=== PATIENT | male | born 1955 | race Caucasian/White ===

== ENCOUNTER 2023-11-15 10:32 | Emergency (ER) | payer OTHER, SELFPAY ==
[2023-11-15 10:33] VITALS: BP 177/92; PULSE 74; RESP 16; TEMP 35.9; O2SAT 96; BMI 39.4
--- NOTE | 2023-11-15 10:37 | ED.RN ---
Ml from [facility] notified of need for drug and alcohol testing.
--- NOTE | 2023-11-15 10:53 | EDS_ITS ---
HPI History of Present Illness Chief Complaint: Lower Extremity Injury Informant: patient Narrative Narrative: 68-year-old male states that earlier today he was at work walking through a doorway that had a small stop. He states he lost his balance and fell. He l anded on his left hip. He notes he was assisted up and has pain in the left lateral posterior hip. It is worse with any movement. He denies any other injuries specifically head neck back arms or lower legs/knees. He denies being on a blood thinner. He states he takes no current medications. PFSH PFSH Medical History no medical history Home Medications ketorolac 10 mg tablet 10 mg PO Q6H ##20 09/24/15 [Rx Last Taken Unknown] ondansetron 4 mg disintegrating tablet 4 mg PO Q8H PRN PRN Nausea #10 tabs 09/24/15 [Rx Last Taken Unknown] oxycodone-acetaminophen 5 mg-325 mg tablet 1 - 2 tab PO Q6H PRN PRN Pain #12 tabs 09/24/15 [Rx Last Taken Unknown] oxycodone-acetaminophen 5 mg-325 mg tablet 1 - 2 tab PO Q4H PRN PRN Pain #20 tabs 09/27/15 [Rx Last Taken Unknown] phenazopyridine 100 mg tablet 100 mg PO BID PRN PRN Pain ##14 09/27/15 [Rx Last Taken Unknown] oxycodone-acetaminophen 5 mg-325 mg tablet 1 tab PO Q4H PRN PRN Pain ##14 10/04/15 [Rx Last Taken Unknown] hydrocodone-acetaminophen 5-325mg 5mg-325mg 1 tab PO Q6H PRN PRN Pain 3 days #12 TABLETS 11/15/23 [Rx Last Taken Unknown] Allergy/AdvReac Type Severity Reaction Status Date / Time No Known Allergies Allergy Verified 09/27/15 05:53 Family History no significant family his Surgical History no surgical history Social History Smoking Status: Current every day smoker tobacco type: cigarettes ROS ROS ED Constitutional Constitutional ED: Denies chills, fever(s) or weight loss Eyes Eyes: Denies change in vision or diplopia ENT ENT ED: Denies ear pain, rhinorrhea or sore throat Cardiovascular Cardiovascular: Denies chest pain, orthopnea, palpitations or racing heartbeat Respiratory/Chest Respiratory/Chest: Denies cough, dyspnea or orthopnea Gastrointestinal Gastrointestinal: Denies abdominal pain, diarrhea, nausea or vomiting Genitourinary Genitourinary ED: Denies dysuria, hematuria or urinary frequency Musculoskeletal Musculoskeletal: Reports other Details: Left hip pain ; Denies arthralgias, back pain, myalgias or neck pain Integumentary Denies abscess or rash Neurologic Neurologic: Denies headache(s) or weakness Psychiatric Psychiatric: Denies anxiety, depression, suicidal ideation or suicidal thoughts Endocrine Endocrinology: Denies polydipsia, polyphagia or polyuria Allergic/Immunologic Allergic/Immunologic ED: Denies mouth swelling, tongue swelling or urticaria EXAM Physical Exam Narrative Exam Narrative: Patient was changed into a gown. He did have discomfort with movement. Const Vital Signs: 11/15/23 10:33 Temperature 96.7 F L Temperature Source Temporal Pulse Rate 74 Respiratory Rate 16 Blood Pressure 177/92 H Blood Pressure Mean 120 Pulse Ox 96 Oxygen Delivery Method Room Air Positive well nourished, well developed and obese General Appearance ED: well developed Nutritional Appearance: obese HEENT Reports normocephalic, head/scalp atraumatic and moist mucous membranes Eyes PERRL and EOMs intact bilaterally Neck no lymphadenopathy, supple and no JVD Resp normal respiratory effort and clear to auscultation bilaterally Cardio regular rate, regular rhythm and no murmurs GI normal to inspection, nondistended, normoactive bowel sounds and non-tender Palpation: soft Back/Spine no CVA tenderness and normal ROM Extremity Extremity Narrative: Patient has point tenderness over the greater trochanter laterally and posteriorly. Minor discomfort with the external logroll of the leg. No superior pubic rami tenderness. No significant hematoma or ecchymosis seen. General Extremety ED: Negative for edema General Extremity: Negative for edema Neuro oriented x3 and CN's II-XII intact bilaterally Sensorium / Orientation: alert Motor Exam: strength 5/5 throughout Psych mental status grossly normal Mood & Affect: Negative for depressed or tearful Skin no rashes or lesions noted and no wounds MDM MDM MDM Narrative Medical decision making narrative: My independent or potation of the plain films of the left hip including pelvis is no acute fracture. Degenerative changes noted. Patient received a dose of Toradol and a CT of the pelvis/hip was ordered. This was negative for fracture. Prominent prostate was noted which the patient does note that he has had changes in his stream. He will speak with his doctor regarding this. In the interim I can write for his pain medicine. Some work restrictions. Would recommend follow-up with [facility] for Workmen's Comp.. Radiography Diagnostic Testing: Clinical Impression(s) from Imaging Studies Hip/Pelvis X-Ray 11/15/23 11:00 IMPRESSION: No evidence of displaced pelvic or hip fracture. Electronically Signed: Leo Sahu MD at 12:00 EST , Pelvis CT 11/15/23 12:55 IMPRESSION: 1. No evidence of pelvic fracture. 2. Degenerative changes. 3. Prominent prostate. Electronically Signed: Leo Sahu MD at 13:54 EST , Discharge Plan Triage Chief Complaint: Lower Extremity Injury ED Provider: Bear Arreaga Dx/Rx/DC Orders Clinical Impression: Fall, Contusion of left hip Instructions: ED Hip Contusion Prescriptions: New hydrocodone-acetaminophen [hydrocodone-acetaminophen] 5-325 mg tablet 1 tab PO Q6H PRN PRN (Reason: Pain) 3 Days Qty: 12 0RF No Action oxycodone-acetaminophen 1 TABLET tablet 1 - 2 tab PO Q6H PRN PRN (Reason: Pain) Qty: 12 0RF Rx Instructions: causes drowsiness ketorolac 10 MG tablet 10 mg PO Q6H Qty: 20 0RF ondansetron 4 MG tablet 4 mg PO Q8H PRN PRN (Reason: Nausea) Qty: 10 0RF oxycodone-acetaminophen 1 TABLET tablet 1 - 2 tab PO Q4H PRN PRN (Reason: Pain) Qty: 20 0RF phenazopyridine 100 MG tablet 100 mg PO BID PRN PRN (Reason: Pain) Qty: 14 0RF oxycodone-acetaminophen 1 TABLET tablet 1 tab PO Q4H PRN PRN (Reason: Pain) Qty: 14 0RF Primary Care Provider: Care Physician,No Primary Referrals: Care Physician,No Primary [Primary Care Provider] - Clinic,NOW [Non-Staff] - As soon as possible Disposition Disposition: Home, Self Care
--- NOTE | 2023-11-15 11:00 | RAD_ITS ---
INDICATION: injury and pain EXAMINATION/TECHNIQUE: X-RAY - XR Hip Unilateral with Pelvis when performed; 2-3 Views COMPARISON: No relevant prior comparison study available FINDINGS: PELVIC BONES: No displaced fracture, destructive or sclerotic lesions. Note that overlapping bowel shadows may however obscure fine detail. Sacroiliac joints are unremarkable. No widening of the pubic symphysis. HIPS: Marginal degenerative spurs bilaterally. No displaced fracture seen in this frontal view. SOFT TISSUES: No soft tissue swelling or gas. RAD/HIP, UNI W/ Pelvis 2-3 Views IMPRESSION: No evidence of displaced pelvic or hip fracture. Electronically Signed: Leo Sahu MD at 12:00 EST ,
--- OUTSIDE RECORDS SUMMARY | 2023-11-15 11:33 | XMS RPT_ITS | CCD ---
Author Name Unknown Address [address] [place] [address] Organization [facility] Care Team Providers Care Reel Repairer Name Role Phone NIRAJ LEWIS MD Attending Unavailable PHYSICIAN, NONE Primary Care Unavailable Encounters Encounter Date Encounter Type Care Provider Facility Start: 08-22-2022 ambulatory NIRAJ LEWIS MD Facil ity:A Payers Date Payer Category Payer Unknown [id number] 1955 Unknown [id number] Summary Purpose Family History No Family History Records Found Advance Directives No Advanced Directives Records Found Additional Source Comments (unrecognized sect ion and content) No Status Records Found INFORMATION SOURCE (unrecogn ized section and content) FOR RECORDS PERTAINING TO PATIENTS WHO ARE OR HAVE BEEN ENROLLED IN A CHEMICAL DEPENDENCY/SUBSTANCEABUSE PROGRAM, SOME INFORMATION MAY BE OMITTED. This clinical summary was aggregated from multiple sources. Caution should be exercised in using it in the provision of clinical care. This summary normalizes information from multiple sources, and as a consequence, information in this document may materially change the coding, format and clinical context of patient data. In addition, data may be omitted in some cases. CLINICAL DECISIONS SHOULD BE BASED ON THE PRIMARY CLINICAL RECORDS. [facility]. provides no warranty or guarantee of the accuracy or completeness of information in this document.
--- NOTE | 2023-11-15 12:55 | CT_ITS ---
INDICATION: fracture -- include left hip EXAMINATION: CT PELVIS BONE - CT Pelvis W/O Contrast Injection TECHNIQUE: Routine noncontrast bone CT protocol was performed of the pelvis. 2-D reformats were performed by the technologist. A radiation dose optimization technique was used for this scan. IV Contrast dosage and agent: None. RADIATION DOSAGE (If Supplied By Facility): CTDIvol = ( 43.63 ) mGy, DLP = ( 1547.13 ) mGycm COMPARISON: Radiographs of the same day. FINDINGS: SOFT TISSUES: No soft tissue swelling or gas. No radiopaque foreign body. Bilateral inguinal hernias containing fat. Prominent prostate. BONES/JOINTS: No acute fracture or subluxation. Normal alignment. Marginal degenerative spurs of bilateral hips. Narrowing and sclerosis of the sacroiliac joints bilaterally. Small sclerotic lesion in the right femoral neck likely due to bone island. Degenerative changes of the visualized lower lumbar spine. CT/Pelvis without IV Contrast IMPRESSION: 1. No evidence of pelvic fracture. 2. Degenerative changes. 3. Prominent prostate. Electronically Signed: Leo Sahu MD at 13:54 EST ,
[2023-11-15] MEDS: Ketorolac 60 MG/2 ML Vial IM (13:07)
== END 2023-11-15 14:46 | disposition home or self-care (01) ==
PROVIDERS: Emergency Provider Emergency Medicine; Visit Provider Emergency Medicine
DX: S70.02XA Contusion of left hip, initial encounter (principal); F17.210 Nicotine dependence, cigarettes, uncomplicated; E66.9 Obesity, unspecified; W19.XXXA Unspecified fall, initial encounter
CPT/HCPCS: 72192; 73502; 96372; 99282

== ENCOUNTER 2025-07-04 14:30 | Observation (INO) | payer BC, SELFPAY ==
[2025-07-04] VITALS (10 sets, daily range): BP systolic 117–177; BP diastolic 68–93; PULSE 58–70; RESP 17–27; TEMP 36.4–37; O2SAT 94–100; BMI 35.7; BMI 36.7
--- NOTE | 2025-07-04 14:31 | CT_ITS ---
PROCEDURE: STROKE BRAIN/HEAD WITHOUT CONT 07/04/2025 REASON FOR EXAM: NEURO DEFICIT, ACUTE, STROKE SUSPECTED TECHNIQUE: Procedure Code: CTBR.ST Modality: CT Procedure: STROKE BRAIN/HEAD WITHOUT CONT Coronal and Sagittal reconstruction series were provided. One or more dose reduction techniques were used (e.g., Automated exposure control, adjustment of the mA and/or kV according to patient size, use of iterative reconstruction technique. RADIATION DOSE SUMMARY: CTDlvol: 44.99 mGy DLP: 812.98 mGycm COMPARISON: None FINDINGS: Brain: Low density in the periventricular white matter suggests mild chronic small vessel ischemic changes. CSF Spaces: Mild generalized cerebral atrophy Sinuses/Mastoids: Clear at visualized levels. Prominence of the cisterna magna. This is a normal variant. Bones: Unremarkable CT/STROKE Brain/Head without Cont IMPRESSION: CHRONIC CHANGES. NO ACUTE FINDINGS. Red Alert: Chronic changes The critical findings in the findings and impression above were relayed directl y by me by telephone to Alessandra Dia on 07/04/2025 at 2:48 pm with readback verification. Reading Location: [place] [address]
--- NOTE | 2025-07-04 14:31 | EKG12_ITS ---
Test Reason : STROKE TEAM Blood Pressure : */* mmHG Vent. Rate : 58 BPM Atrial Rate : 58 BPM P-R Int : 164 ms QRS Dur : 74 ms QT Int : 430 ms P-R-T Axes : 44 -2 3 degrees QTcB Int : 422 ms Sinus bradycardia with sinus arrhythmia Otherwise normal ECG Confirmed by Efra Whitney ([id number]), publication editor GUERLINE CHAMORRO ([id number]) on 07/05/2025 12:00:15 PM Referred By: Confirmed By: Efra Whitney
--- NOTE | 2025-07-04 14:32 | EDS_ITS ---
HPI History of Present Illness Chief Complaint: Stroke Alert Narrative Narrative: Patient is a 70 year old male presenting to the ED as a stroke alert. 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 States he has never had a stroke before. Denies any use of OAC. Patient denies any head trauma. Denies neck pain. Denies numbness or weakness of his extremities. Denies any speech difficulty. Patient denies any eye pain. Denies any drainage from his eye. EMS was called. PFSH PFSH Home Medications ?Medication ?Instructions ?Recorded ?Last Taken ?Type acetaminophen 500 mg capsule 1,000 mg PO Q6H PRN fever or pain 07/04/25 Unknown History Allergy/AdvReac Type Severity Reaction Status Date / Time No Known Allergies Allergy Verified 09/27/15 05:53 Social History Smoking Status: Current every day smoker tobacco type: cigarettes ROS ROS ED ROS Narrative see HPI EXAM Physical Exam Narrative Exam Narrative: Vital signs: Reviewed General: Alert and orientedx3. No acute distress HEENT: Head is normocephalic and atraumatic, sinuses nontender, pupils equal round and reactive. 2 mm bilaterally. No conjunctival injection. Normal e xtraocular movements. Nares are patent. Oropharynx and throat exams normal. No temporal tenderness to palpation. Neck: Supple without lymphadenopathy nontender Cardiovascular: Regular rate and rhythm, no murmurs. No rubs or gallops. Normal S1 and S2 Respiratory: Clear to auscultation bilaterally. No wheezes, rales, rhonchi Abdominal: Soft and nontender. Normal bowel sounds. No guarding or rebound. Nonsurgical abdomen Extremities: No tenderness. No bruising. Normal range of motion. Normal sensation. Skin: No rash or redness. The rest of the physical exam is unremarkable Const Vital Signs: 07/04/25 14:31 07/04/25 14:41 07/04/25 14:45 Temperature 98.6 F Temperature Source Oral Pulse Rate 61 70 Respiratory Rate 25 H 27 H Blood Pressure 129/74 H 123/73 H Blood Pressure Mean 92 89 Pulse Ox 95 Oxygen Delivery Method Room Air Room Air Room Air 07/04/25 15:01 07/04/25 15:30 07/04/25 16:00 Temperature Temperature Source Pulse Rate 60 59 L 59 L Respiratory Rate 19 H 18 18 Blood Pressure 123/78 H 127/68 H 117/73 Blood Pressure Mean 93 87 87 Pulse Ox 95 98 98 Oxygen Delivery Method Room Air Room Air Room Air MDM MDM MDM Narrative Medical decision making narrative: Patient is a 70-year-old male presenting emergency department as a stroke team. Patient was seen and examined in the EMS bay on arrival. NIH of 1. Sent to CT for imaging. Differential includes but is not limited to: stroke, CRAO, intracranial mass, less likely glaucoma, retinal detachment, giant cell arteritis Spoke to Dr. Carty, stroke neurologist at [facility], he reviewed CT brain and CTA head and neck and see no acute abnormalities. Radiology read with negative findings as well. Given the patient is outside of the window for TNK and has a low NIH of 1 with nondisabling deficits, he recommended loading with aspirin and Plavix which were given and admission for MRI and further stroke workup. Aspirin and Plavix were given. CBC with no leukocytosis. Hemoglobin of 18.7, fluids started. BMP with baseline mild kidney dysfunction. Troponins are stable with no significant delta change from 32, 29, 34. EKG shows sinus bradycardia with no ischemic changes. No ST elevation or depression. No dysrhythmia. Patient has no pain in his eye, no redness to his eye, do not think this is glaucoma given these. No temporal tenderness to palpation. On reevaluation the patient states his vision is slowly improving. With the vision improving I do not think this is retinal detachment. Likely TIA. I recommended that the patient be admitted for further stroke workup including MRI. Patient agreeable. Patient admitted to Dr. Marcos for further management. Clinical impression Stroke like symptoms History & Record Review Discussion w/independent historian: EMS personnel and Patient Lab Data Attestation: I reviewed the patient's lab results. Labs: Laboratory Results - last 24 hr 07/04/25 07/04/25 14:30 16:20 WBC 9.8 RBC 6.22 H Hgb 18.7 H* Hct 54.7 H MCV 87.9 MCH 30.1 MCHC 34.2 RDW Std Deviation 42.2 RDW Coeff of [place] 13.1 Plt Count 232 MPV 9.8 Immature Gran % (Auto) 1.500 H Neut % (Auto) 65.5 Lymph % (Auto) 23.1 [place] % (Auto) 5.0 Eos % (Auto) 3.8 Baso % (Auto) 1.1 H Absolute Neuts (auto) 6.4 Absolute Lymphs (auto) 2.25 Nucleated RBC % 0 PT 13.9 INR 1.1 APTT 25.4 Sodium 135 Potassium 4.5 Chloride 104 Carbon Dioxide 20.8 L Anion Gap 11 BUN 25 H Creatinine 1.49 H Estim Creat Clear Calc 59.73 Est GFR (MDRD) Non-Af 51 L BUN/Creatinine Ratio 16.7 Glucose 130 H Calcium 9.3 Troponin T High Sens 32 H Troponin T Hi Sens 2 Hr 29 H Radiography Diagnostic Testing: Clinical Impression(s) from Imaging Studies Brain CT 07/04/25 14:31 IMPRESSION: CHRONIC CHANGES. NO ACUTE FINDINGS. Red Alert: Chronic changes The critical findings in the findings and impression above were relayed directly by me by telephone to Alessandra Dia on 07/04/2025 at 2:48 pm with readback verification. Reading Location: [facility] Head/Neck CTA 07/04/25 14:35 IMPRESSION: No significant stenosis in the head and neck. No aneurysm. Reading Location: [facility] Discharge Plan Disposition Disposition: Acute Care [facility] Discharge Date/Time: 07/04/25 17:05 NIHSS NIHSS 1a. Level of Consciousness: 0 - Alert; keenly responsive 1b. LOC Questions: 0 - Answers BOTH questions correctly 1c. LOC Commands: 0 - Performs BOTH tasks correctly 2. Best Gaze: 0 - Normal 3. Visual: 1 - Partial hemianopia 4. Facial Palsy: 0 - Normal symmetrical movements 5a. Left Arm: 0 - No drift; arm holds 90 (or 45) degrees for full 10 seconds 5b. Right Arm: 0 - No drift; arm holds 90 (or 45) degrees for full 10 seconds 6a. Left Le - No drift; leg holds 30-degree position for full 5 seconds 6b. Right Le - No drift; leg holds 30-degree position for full 5 seconds 7. Limb Ataxia: 0 - Absent 8. Sensory: 0 - Normal; no sensory loss 9. Best Language: 0 - No aphasia; normal 10. Dysarthria: 0 - Normal 11. Extinction and Inattention: 0 - No abnormality Total: 1 Stroke Questions Stroke Team Activated: Yes Reviewed Inclusion/Exclusion criteria: Yes
--- NOTE | 2025-07-04 14:35 | CT_ITS ---
PROCEDURE: STROKE CTA HEAD AND NECK W/CON 07/04/2025 REASON FOR EXAM: NEURO DEFICIT, ACUTE, STROKE SUSPECTED TECHNIQUE: Procedure Code: CTCTA.ST.HN Modality: CT Procedure: STROKE CTA HEAD AND NECK W/CON Multiplanar Sagittal and Coronal images were obtained. CONTRAST: Isovue 370 VOLUME: 86 mL One or more dose reduction techniques were used (e.g., Automated exposure control, adjustment of the mA and/or kV according to patient size, use of iterative reconstruction technique). RADIATION DOSE SUMMARY: CTDlvol: 19.96 mGy DLP: 757.04 mGycm COMPARISON: None. FINDINGS: Aortic Arch: Normal size and branching pattern. No significant atherosclerotic plaque. Brachiocephalic and Subclavians: Unremarkable RIGHT Carotid: Right CCA: Unremarkable. Right ICA: Unremarkable. Right ECA: Unremarkable. LEFT Carotid: Left CCA: Unremarkable. Left ICA: Unremarkable. Left ECA: Unremarkable. Vertebrals: Patent. RIGHT Vertebral: Diminutive and terminates as the right posterior inferior cerebellar artery. LEFT Vertebral: Dominant. Anatomy: [place] anatomy is normal. Aneurysm or avm: No intracranial aneurysms or large vascular malformations are identified. Anterior cerebral arteries: Unremarkable: Middle cerebral arteries: Unremarkable. Basilar artery: Unremarkable. Posterior cerebral arteries: Unremarkable. Other major branches of the posterior circulation: Unremarkable. Major venous structures: Unremarkable. Other findings: Neck: No lymphadenopathy. Lungs: Lung apices are clear. Bones: Bones are unremarkable. CT/STROKE CTA Head AND Neck W/Con IMPRESSION: No significant stenosis in the head and neck. No aneurysm. Reading Location: [facility]
--- NOTE | 2025-07-04 14:36 | ED.RN ---
called [facility] information given patient arrived back in room prior to getting off the phone. provider to beam in.
[2025-07-04 14:49] LABS: Hematocrit 54.7 % (40-54); Immature Granulocytes Count 0.150 X10^3/uL (0.0-0.0); Mean Corp Hgb Conc 34.2 g/dL (32-36); Mean Corpuscular Volume 87.9 fL (80-94); Mean Platelet Vol. 9.8 fl (6.2-12.0); NRBC Flagged by Analyzer 0 % (0-5); Platelet Count 232 K/mm3 (150-450); RBC Distribution Width CV 13.1 % (11.6-14.6); RBC Distribution Width SD 42.2 fl (35.1-43.9); Red Blood Count 6.22 M/mm3 (4.6-6.2); White Blood Count 9.8 K/mm3 (4.4-11.0)
[2025-07-04 14:54] LABS: Partial Thromboplast Time 25.4 Seconds (24.1-36.2); Prothrombin Time (Protime)PT. 13.9 SECONDS (11.7-14.9)
--- NOTE | 2025-07-04 14:57 | ED.RN ---
calling [facility] for second time for stroke alert. still waiting on them to beam in to see patient
[2025-07-04 15:08] LABS: Hemoglobin 18.7 g/dL (13.0-16.5)
[2025-07-04 15:14] LABS: Anion Gap 11 (5-15); BUN 25 mg/dL (4-19); BUN/Creat Ratio 16.7 RATIO (10-20); Calcium,Total 9.3 mg/dL (7.6-11.0); Carbon Dioxide 20.8 mmol/L (21.0-32.0); Chloride 104 mmol/L (98-108); Estimated Creatinine Clearance 59.73 ml/min (50-250); Glucose 130 mg/dL (70-99); Potassium 4.5 mmol/L (3.3-5.1); Troponin T High Sensitivity 32 ng/L (<=22)
--- NOTE | 2025-07-04 15:40 | CM.ED ---
Social work Reason for referral: stroke alert SW responded to stroke alert called. Patient had no family come to support due to patient's having a doctor's appointment at the same time. SW entered patient's room, introducing self and role at [facility]. Patient was alert and oriented and observed sitting up on the side of the bed. Patient stated being confused regarding the loss of vision patient has experienced today. Active listening and supportive presence provided. Patient denied needing SW to call anyone to help support as patient's , Tsering, would be in as soon as Tsering's appointment was over. Patient denied further needs at this time. Shona Felix, RAILROAD CAR REPAIR SUPERVISOR, INTERVENTION SPECIALIST
[2025-07-04] MEDS: 0.9% Normal Saline (1000mL) 1,000 ML 1000 ML IV (16:14)
--- NOTE | 2025-07-04 16:22 | PCM.HP.STD ---
HPI - General General Date of Admission: 07/04/25 Date of Service: 07/04/25 Chief Complaint: Right sided peripheral vision loss HPI Narrative AMANDA CONCEPCION, is a 70-year-old male with history of tobacco use presented to [facility] ED 07/04/2025 as a stroke alert. Last known well was at 10 AM and patient developed a right sided peripheral vision loss shortly after. In the ED temp 98.6, heart rate 61 blood pressure 129/74, respiratory rate 25 and pulse ox 95% on room air. CBC with white count 9.8, hemoglobin 18.7, BMP with a BUN of 25 and a creatinine 1.49, glucose 130. Troponin 32. CT head and CTA head and neck no acute process. Patient presented outside of window for TNK but also had an NIH of 1 with nondisabling deficits. ED physician spoke to stroke neurologist who reviewed the case and recommended loading with aspirin and Plavix and admitting for further stroke workup. Hospitalist contacted for admission. Patient evaluated at bedside, he reports that at 10 AM he lost peripheral vision in his right eye, had some headache earlier today before the symptoms ever started, still little bit of an achy headache in the center. Still has peripheral vision loss on the right eye but slightly improving, denies any chest pain or shortness of breath, no numbness/weakness/tingling. No other new or acute complaints. Denies being on any routine medications or ever being diagnosed with any medical problems. Does use tobacco, denies any alcohol or drug use PFSH Home Medications ?Medication ?Instructions ?Recorded ?Last Taken ?Type acetaminophen 500 mg capsule 1,000 mg PO Q6H PRN fever or pain 07/04/25 Unknown History Allergy/AdvReac Type Severity Reaction Status Date / Time No Known Allergies Allergy Verified 09/27/15 05:53 Social History Smoking Status: Current every day smoker tobacco type: cigarettes ROS ROS Narrative General: Denies fever/chills HENT: Little bit of an achy central headache, denies stuffy nose, denies sore throat EYES: Right sided peripheral visual loss Resp: Denies cough, denies shortness of breath Cardiac: Denies chest pain GI: Denies abdominal pain, denies changes in bowel, denies nausea/vomiting : Denies changes in urination Extremity: Denies swelling MSK: Denies weakness Neuro: Denies any numbness/tingling Heme: Denies any bleeding or bruising Skin: Denies rashes Psychiatric: No complaints voiced Vital Signs Vital Signs Vital Signs: 07/04/25 14:31 07/04/25 14:41 07/04/25 14:45 Temperature 98.6 F Temperature Source Oral Pulse Rate 61 70 Respiratory Rate 25 H 27 H Blood Pressure 129/74 H 123/73 H Blood Pressure Mean 92 89 Pulse Ox 95 Oxygen Delivery Method Room Air Room Air Room Air 07/04/25 15:01 07/04/25 15:30 07/04/25 16:00 Temperature Temperature Source Pulse Rate 60 59 L 59 L Respiratory Rate 19 H 18 18 Blood Pressure 123/78 H 127/68 H 117/73 Blood Pressure Mean 93 87 87 Pulse Ox 95 98 98 Oxygen Delivery Method Room Air Room Air Room Air Weight Weight: 113 kg Body Mass Index (BMI) 35.7 Physical Exam Narrative General: Alert, oriented, no apparent distress HEENT: Atraumatic, normocephalic Eyes: Anicteric, normal conjunctiva, extraocular movements intact, pupils equal, right peripheral field deficit Neck: Supple Respiratory: Clear to auscultation bilaterally, normal respiratory effort Cardiovascular: Regular rate and rhythm GI: Soft, nontender, nondistended Extremities: No edema Musculoskeletal: Strength 5 out of 5 in right upper extremity, 5 out of 5 left upper extremity, 5 out of 5 right lower extremity, 5 out of 5 left lower extremity Neuro: Other than visual changes no overt focal neurological deficits, cranial nerves II through XII intact, [id number] without significant difficulty bilaterally, almost seem to have an aspect of receptive aphasia and seems slow to comprehend and respond to questions Skin: No rashes appreciated, does have black on both hands from work Psych: Cooperative Results Lab / Micro Data 07/04/25 14:30 07/04/25 14:30 Labs: Laboratory Results - last 24 hr 07/04/25 14:30: WBC 9.8, RBC 6.22 H, Hgb 18.7 H*, Hct 54.7 H, MCV 87.9, MCH 30.1, MCHC 34.2, RDW Std Deviation 42.2, RDW Coeff of [place] 13.1, Plt Count 232, MPV 9.8, Immature Gran % (Auto) 1.500 H, Neut % (Auto) 65.5, Lymph % (Auto) 23.1, [place] % (Auto) 5.0, Eos % (Auto) 3.8, Baso % (Auto) 1.1 H, Absolute Neuts (auto) 6.4, Absolute Lymphs (auto) 2.25, Nucleated RBC % 0, PT 13.9, INR 1.1, APTT 25.4, Sodium 135, Potassium 4.5, Chloride 104, Carbon Dioxide 20.8 L, Anion Gap 11, BUN 25 H, Creatinine 1.49 H, Estim Creat Clear Calc 59.73, Est GFR (MDRD) Non-Af 51 L, BUN/Creatinine Ratio 16.7, Glucose 130 H, Calcium 9.3, Troponin T High Sens 32 H Imaging Radiology Impression Brain CT 07/04/25 14:31 IMPRESSION: CHRONIC CHANGES. NO ACUTE FINDINGS. Red Alert: Chronic changes The critical findings in the findings and impression above were relayed directly by me by telephone to Alessandra Dia on 07/04/2025 at 2:48 pm with readback verification. Reading Location: [facility]-1 Head/Neck CTA 07/04/25 14:35 IMPRESSION: No significant stenosis in the head and neck. No aneurysm. Reading Location: [facility], [facility] Assessment & Plan Assessment/Plan (1) Visual changes: (2) Tobacco use: PLAN: Plan # Right-sided peripheral vision abnormalities -Admit to tele -CT head w/ no acute process -CTA head and neck no LVO -MRI ordered -NIH q4hr -Loaded with aspirin and Plavix in the ED -Continue aspirin and statin, decisions on further Plavix per teleneurology once results available -Echo w/ bubble study -PT/OT/Speech eval -Teleneuro consult placed -Will check TSH, hemoglobin, lipid profile -Hold BP medications to allow for permissive hypertension for 24 hours unless SBP greater than 220 or DBP greater than 120 or until stroke is ruled out # Elevated hemoglobin -May benefit from outpatient sleep study and/or further workup if needed -Denies known history of sleep apnea -Patient given IV fluids in the ED, repeat in the a.m. #Tobacco use -Advise cessation -Nicotine replacement available if desired #DVT ppx: SCDs Lani Marcos MD Charges/Coding Visit Charges Inpatient E&M: 60914 Init Hosp L2
--- NOTE | 2025-07-04 16:29 | ECHOCS_ITS ---
Reason For Study Reason For Study: TIA/Stroke Procedure This was a 2D Doppler, Color Flow transthoracic echocardiogram. Contrast injection was performed. The study was technically difficult. Exam performed portable in patient room. Left Ventricle Normal LV size. Mild concentric left ventricular hypertrophy. The left ventricular ejection fraction is 65 %. Stage 1 diastolic dysfunction. Right Ventricle Normal right ventricle. Atria The left and right atria are normal. Mitral Valve Normal mitral valve. Tricuspid Valve The tricuspid valve is not well visualized. Aortic Valve Trisinus/trileaflet aortic valve. Pulmonic Valve The pulmonic valve is not well visualized. Great Vessels Normal sized aortic root. Pericardium/Pleural No pericardial effusion. Medication Diluted definity 2ml given slow IV push to enhance endocardial definition. MMode/2D Measurements & Calculations LVIDd: 4.6 cm IVSd: 1.2 cm Ao root diam: 3.2 cm LVIDs: 3.2 cm LVPWd: 1.2 cm RVDd: 3.3 cm FS: 30.2 % LAV(MOD-bp): 37.4 ml LVAd ap4: 23.5 cm2 SV(MOD-sp4): 43.0 ml LAV(MOD-bp) Indexed: 16.1 ml/m2 LVLd ap4: 7.2 cm SI(MOD-sp4): 18.6 ml/m2 LAV(MOD-sp2): 43.0 ml EDV(MOD-sp4): 62.7 ml LAV(MOD-sp4): 31.9 ml EDV(sp4-el): 64.6 ml LVAs ap4: 12.3 cm2 LVLs ap4: 6.4 cm ESV(MOD-sp4): 19.7 ml ESV(sp4-el): 19.9 ml EF(MOD-sp4): 68.6 % EF(sp4-el): 69.2 % SV(sp4-el): 44.7 ml LA A4 area: 14.5 cm2 LA dimension(2D): 3.5 cm RA A4 area: 12.0 cm2 TAPSE: 2.2 cm Time Measurements MV dec time: 0.30 sec Doppler Measurements & Calculations MV E max jitendra: 67.8 cm/sec Lat Peak E' Jitendra: 9.6 cm/sec Med Peak E' Jitendra: 7.0 cm/sec MV A max jitendra: 82.0 cm/sec E/E' lat: 7.1 E/E' med: 9.7 MV E/A: 0.83 MV dec slope: 224.3 cm/sec2 Ao V2 max: 129.4 cm/sec LV V1 max: 98.3 cm/sec Ao max P.7 mmHg LV V1 max P.9 mmHg Ao V2 mean: 97.1 cm/sec Ao mean P.0 mmHg Ao V2 VTI: 29.2 cm PA V2 max: 107.4 cm/sec ECHO/Echo Complete W/ Contrast Interpretation Summary The study was technically difficult. Mild concentric left ventricular hypertrophy. The left ventricular ejection fraction is 65 %. Stage 1 diastolic dysfunction. Ordering Physician: Lani Marcos Performed By: Bailey Rankin RDCS, RVT
--- NOTE | 2025-07-04 16:29 | MRI_ITS ---
PROCEDURE: MRI BRAIN WITHOUT CONTRAST 07/04/2025 REASON FOR EXAM: CONCERN FOR CVA TECHNIQUE: Procedure Code: MRIBR Modality: MR Procedure: BRAIN WITHOUT CONTRAST Multiplanar and multisequential MRI of the brain was performed without contrast. COMPARISON: CT head/angiography earlier same day 07/04/2025. FINDINGS: Examination mildly degraded by susceptibility artifact on multiple sequences. There is small region of restricted diffusion involving the paramedian left occipital lobe involving the left [employer] vascular territory consistent with acute infarct. No additional areas of acute infarct are seen. No evidence of acute intracranial hemorrhage/hemorrhagic conversion, extra-axial collection, or mass-effect. 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 Normal ventricular caliber. Major vascular flow voids appear preserved. Grossly unremarkable orbits. Well-aerated paranasal sinuses and bilateral mastoid air cells. MRI/Brain without Contrast IMPRESSION: 1. Small region of acute infarct involving left occipital lobe left [employer] territo ry. 2. 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 3. No intracranial hemorrhage, extra-axial collection or mass-effect. Reading Location: [facility]
--- NOTE | 2025-07-04 16:44 | CASEMGMT ---
Care Management Face to Face with patient for initial transition planning/care coordination assessment in the ED. This screen writer introduced self and role at [facility]. Patient alert and oriented. Patient willing to participate in assessment and is able to answer all questions appropriately. Care providers, pharmacy, and demographics verified. Admitting Diagnosis: visual changes, stroke rule out Other diagnosis history: tobacco use PCP: none (resources not given in ED due to timing) Specialists: none Preferred Pharmacy: [facility] Insurance: [employer] Prescription Benefit: yes Living Will/HPOA: does not have, but would like information while admitted. LNOK: [place], 1 daughter. Living Arrangements: lives with in a ranch style home with 2 steps to enter. Independent at baseline with all ADLs/IADLs. Transportation: yes DME: none HHC: none SNF/Rehab: none Community Resources: none Patient goals: Patient wishes to discharge home, denies need for home health care at this time. Patient denies any further needs or concerns at this time. Disposition Plan: admission to acute; RN CM/SW to follow for discharge planning needs that may arise. Shona Felix, INSTITUTION LIBRARIAN, CERTIFIED MEDICAL DOSIMETRIST
[2025-07-04 17:20] LABS: Troponin T High Sens 2 HR 29 ng/L (<=22)
[2025-07-04 20:43] LABS: Troponin T High Sens 4 HR 34 ng/L (<=22)
[2025-07-04] MEDS: Nicotine (PBKC) 21 MG Patch TD (21:09)
[2025-07-04] MEDS: 0.9% Saline Lock 10 ML Syringe IV (21:11)
--- OUTSIDE RECORDS SUMMARY | 2025-07-05 00:04 | XMS RPT_ITS | CCD ---
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 Aparicio Emergency Provider Unavailab adriana Marcos MD, Dr. Garibay Attending Provider [phone] Hemant MAYS, Dr. Garibay Admit Provider Medications Current Medications Medication Drug Class(es) Dates Sig (Normalized) Sig (Original) acetaminophen 500 mg oral capsule (1 source) Start: 07-04-2025 take 2 capsules by mouth every six hours as needed for pain Acetaminophen 500 mg capsule Active 1000 mg PO EVERY 6 HOURS as needed for fever or pain July 04, 2025 12:00am Completed/Discontinued Medications Medication Drug Class(es) Dates Sig (Normalized) Sig (Original) acetaminophen 325 mg / HYDROcodone bitartrate 5 mg oral tablet (1 source) Opioid Agonist Start: 11-15-2023 End: 07-04-2025 Hydrocodone-Acetami nophen 5-325 mg tablet Discontinued 1 {tbl} PO EVERY 6 HOURS NEEDED as needed for Pain 12 3 0 November 15, 2023 July 04, 2025 3:16pm Contusion of left hip Contusion of left hip, initial encounter acetaminophen 325 mg / oxyCODONE hydrochloride 5 mg oral tablet (3 sources) Opioid Agonist Start: 09-27-2015 End: 07-04-2025 Oxycodone-Acetamino phen 1 TABLET tablet Discontinued 1 {tbl} PO EVERY 4 HOURS NEEDED as needed for Pain 14 0 October 04, 2015 1:00am July 04, 2025 3:16pm Start: 09-24-2015 End: 07-04-2025 Oxycodone-Acetaminophen 1 TA BLET tablet Discontinued 1 - 2 {tbl} PO EVERY 6 HOURS NEEDED as needed for Pain September 24, 2015 11:52pm July 04, 2025 3:16pm causes drowsiness ketorolac tromethamine 10 mg oral tablet (1 source) Nonsteroidal Anti-inflammatory Drug, Cyclooxygenase Inhibitor Start: 09-24-2015 End: 07-04-2025 take 1 tablet by mouth every six hours Ketorolac 10 MG tablet Discontinued 10 mg PO EVERY 6 HOURS 20 0 September 24, 2015 1:00am July 04, 2025 3:16pm ondansetron 4 mg disintegrating oral tablet (1 source) Serotonin-3 Receptor Antagonist Start: 09-24-2015 End: 07-04-2025 take 1 tablet by mouth every eight hours as needed for nausea Ondansetron 4 MG tablet Discontinued 4 mg PO EVERY 8 HOURS NEEDED as needed for Nausea September 24, 2015 1:00am July 04, 2025 3:16pm phenazopyridine hydrochloride 100 mg oral tablet (1 source) Start: 09-27-2015 End: 07-04-2025 take 1 tablet by mouth twice daily as needed for pain Phenazopyridine 100 MG tablet Discontinued 100 mg PO TWICE DAILY NEEDED as needed for Pain 14 0 September 27, 2015 12:46pm July 04, 2025 3:17pm Problems Problem Classification Problem Date Documented Da te Episodic/Chronic Blindness and vision defects (2 sources) Eye / vision finding; Translations: [Unspecified visual disturbance] 07-04-2025 Episodic E Codes: Fall (1 source) Fall; Translations: [Unspecified fall, initial encounter] 11-23-2023 Episodic Other non-traumatic joint disorders (1 source) Pain in left hip; Translations: [Pain in left hip] Onset: 01-13-2024 Episodic Residual codes; unclassified (2 sources) Tobacco use and exposure - finding; Translations: [Tobacco use] 07-04-2025 Episodic Superficial injury; contusion (1 source) Contusion of hip; Translations: [Contusion of left hip, initial encounter] 11-23-2023 Episodic Results Test Name Value Interpretation Reference Range Facility Absolute lymphocyte countOrd ered By: Alessandra Dia on 07-04-2025 Lymphocytes Auto (Unsp spec) [#/Vol] 2.25 10*3/uL 0.83-4.51 [facility] Absolute neutrophil countOrd ered By: Alessandra Dia on 07-04-2025 Neutrophils (Bld) [#/Vol] 6.4 10*3/uL 2.0-7.7 [facility] Activated partial thrombopla stin time (aPTT) in platelet poor plasma by coagulation aOrdered By: Alessandra Dia on 07-04-2025 aPTT Coag (PPP) [Time] 25.4 s 24.1-36.2 [facility] Anion gap in Serum or Plasma Ordered By: Alessandra Dia on 07-04-2025 Anion gap [Moles/Vol] 11 mmol/L 5-15 [facility] Automated lymphocyte count a s percentage of total leukocytesOrdered By: Alessandra Dia on 07-04-2025 Lymphocytes/100 WBC Auto (Unsp spec) 23.1 % 19-41 [facility] BUN/creatinine ratioOrdered By: Alessandra Dia on 07-04-2025 Urea nitrogen/Creatinine [Mass ratio] 16.7 mg/mg 10-20 [facility] Basophil percentageOrdered B y: Alessandra Dia on 07-04-2025 Basophils/100 WBC (Bld) 1.1 % High 0-1 [facility] Carbon dioxide, total [Moles /volume] in Central venous bloodOrdered By: Alessandra Dia on 07-04-2025 CO2 [Moles/Vol] 20.8 mmol/L Low 21.0-32.0 [facility] Chloride assayOrdered By: Seng Dia on 07-04-2025 Chloride [Moles/Vol] 104 mmol/L 98-108 [facility] Eosinophil percentageOrdered By: Alessandra Dia on 07-04-2025 Eosinophils/100 WBC (Bld) 3.8 % 0-5 [facility] Erythrocyte distribution wid th ratioOrdered By: Alessandra Dia on 07-04-2025 Erythrocyte distribution width (RBC) [Ratio] 13.1 % 11.6-14.6 [facility] Erythrocyte distribution wid th standard deviationOrdered By: Alessandra Dia on 07-04-2025 Erythrocyte distribution width (RBC) [Ratio] 42.2 fl 35.1-43.9 [facility] Glomerular filtration rate ( GFR) estimation/1.73 sq m using serum, plasma, or whole bOrdered By: Alessandra Dia on 07-04-2025 GFR/1.73 sq M.predicted among non-blacks MDRD (S/P/Bld) [Vol rate/Area] 51 mL/min/{1.73_m2} Low >60 [facility] Comment on above: mL/min/1.73m2 CKD-EP I Creatinine Equation (2020) Hematocrit Auto (Bld) [Volum e fraction]Ordered By: Alessandra Dia on 07-04-2025 Hematocrit (Bld) [Volume fraction] 54.7 % High 40-54 [facility] Hemoglobin measurementOrdere d By: Alessandra Dia on 07-04-2025 Hemoglobin (Bld) [Mass/Vol] 18.7 g/dL High 13.0-16.5 [facility] Comment on above: CRITICAL VALUE BUSH D TO JOE SHIKHA07/04/25 1507 Rukhsana Benito.RESULTS READ BACK BY [facility]. Immature granulocytes/100 WB C Auto (Bld)Ordered By: Alessandra Dia on 07-04-2025 Immature granulocytes/100 WBC (Bld) 1.500 % High 0.0-0.9 [facility] Comment on above: IG% - Immature Granu locytes (promyelocytes, myelocytes and metamyelocytes) > 1% indicates that a LEFT SHIFT is Present. International normalized rat io (INR) calculationOrdered By: Alessandra Dia on 07-04-2025 INR Coag (Bld) [Relative time] 1.1 {INR} [facility] MCV (mean corpuscular volume ) determinationOrdered By: Alessandra Dia on 07-04-2025 MCV (RBC) [Entitic vol] 87.9 fL 80-94 [facility] Mean corpuscular hemoglobin (MCH) determinationOrdered By: Alessandra Dia on 07-04-2025 MCH (RBC) [Entitic mass] 30.1 pg 27.0-32.0 [facility] Mean corpuscular hemoglobin concentration (MCHC) determinationOrdered By: Alessandra Dia on 07-04-2025 MCHC (RBC) [Mass/Vol] 34.2 g/dL 32-36 [facility] Mean platelet volume determi nationOrdered By: Alessandrakyler Dia on 07-04-2025 Platelet mean volume (Bld) [Entitic vol] 9.8 fL 6.2-12.0 [facility] Monocyte percentageOrdered B y: Alessandra Ifeoma on 07-04-2025 Monocytes/100 WBC (Bld) 5.0 % 0-10 [facility] Neutrophil percentageOrdered By: Alessandra Ifeoma on 07-04-2025 Neutrophils/100 WBC (Bld) 65.5 % 47-70 [facility] Nucleated red blood cell per centageOrdered By: Alessandra Ifeoma on 07-04-2025 Nucleated RBC/100 WBC (Bld) [Ratio] 0 % 0-5 [facility] Platelet countOrdered By: Seng kyler Dia on 07-04-2025 Platelets (Bld) [#/Vol] 232 10*3/uL 150-450 [facility] Potassium measurement (mass/ volume)Ordered By: Alessandrakyler Dia on 07-04-2025 Potassium (Unsp spec) [Mass/Vol] 4.5 mmol/L 3.3-5.1 [facility] Comment on above: Hemolysis present, R esults could be affected. Prothrombin timeOrdered By: Alessandrakyler Dia on 07-04-2025 PT Coag (PPP) [Time] 13.9 s 11.7-14.9 [facility] RBC Auto (Bld) [#/Vol]Ordere d By: Alessandra Ifeoma on 07-04-2025 RBC (Bld) [#/Vol] 6.22 10*6/uL High 4.6-6.2 [facility] Serum creatinine measurement (mass/volume)Ordered By: Alessandra Dia on 07-04-2025 Creatinine [Mass/Vol] 1.49 mg/dL High 0.70-1.20 [facility] Serum glucose measurement (m ass/volume)Ordered By: Alessandra Dia on 07-04-2025 Glucose [Mass/Vol] 130 mg/dL High 70-99 [facility] Serum or plasma calcium [place] urement (mass/volume)Ordered By: Alessandra Dia on 07-04-2025 Calcium [Mass/Vol] 9.3 mg/dL 7.6-11.0 [facility] Serum or plasma urea nitroge n measurement (mass/volume)Ordered By: Alessandra Dia on 07-04-2025 Urea nitrogen [Mass/Vol] 25 mg/dL High 4-19 [facility] Sodium levelOrdered By: Keyshawn Dia on 07-04-2025 Sodium [Moles/Vol] 135 mmol/L 133-145 [facility] Troponin T.cardiac [Mass/vol ume] in Serum or Plasma by High sensitivity methodOrdered By: Alessandra Dia on 07-04-2025 Troponin T.cardiac High sensitivity method [Mass/Vol] 32 ng/L High <22 [facility] White blood cell (WBC) count Ordered By: Alessandra Dia on 07-04-2025 WBC (Bld) [#/Vol] 9.8 10*3/uL 4.4-11.0 [facility] Emergency Department Summary on 11-15-2023 Emergency Department Summary [facility] Medical Records Department [address] [place] [address] Emergency Department Summary 11/15/23 MR#: [id number] Acct: [id number] Name: AMANDA CONCEPCION Rep #: [id number] : 1955 68 From: Bear Arreaga DO PCP: Care Physician,No Primary Status:DEP ER Location: ED HPI History of Present Illness Chief Complaint: Lower Extremity Injury Informant: patient Narrative Narrative: 68-year-old male states that earlier today he was at work walking through a doorway that had a small stop. He states he lost his balance and fell. He landed on his left hip. He notes he was assisted up and has pain in the left lateral posterior hip. It is worse with any movement. He denies any other injuries specifically head neck back arms or lower legs/knees. He denies being on a blood thinner. He states he takes no current medications. PFSH PFSH Medical History no medical history Home Medications ketorolac 10 mg tablet 10 mg PO Q6H ##20 09/24/15 [Rx Last Taken Unknown] ondansetron 4 mg disintegrating tablet 4 mg PO Q8H PRN PRN Nausea #10 tabs 09/24/15 [Rx Last Taken Unknown] oxycodone-acetamino phen 5 mg-325 mg tablet 1 - 2 tab PO Q6H PRN PRN Pain #12 tabs 09/24/15 [Rx Last Taken Unknown] oxycodone-acetamino phen 5 mg-325 mg tablet 1 - 2 tab PO Q4H PRN PRN Pain #20 tabs 09/27/15 [Rx Last Taken Unknown] phenazopyridine 100 mg tablet 100 mg PO BID PRN PRN Pain ##14 09/27/15 [Rx Last Taken Unknown] oxycodone-acetamino phen 5 mg-325 mg tablet 1 tab PO Q4H PRN PRN Pain ##14 10/04/15 [Rx Last Taken Unknown] hydrocodone-acetami nophen 5-325mg 5mg-325mg 1 tab PO Q6H PRN PRN Pain 3 days #12 TABLETS 11/15/23 [Rx Last Taken Unknown] Allergy/AdvReac Type Severity Reaction Status Date / Time No Known Allergies Allergy Verified 09/27/15 05:53 Family History no significant family his Surgical History no surgical history Social History Smoking Status: Current every day smoker tobacco type: cigarettes ROS ROS ED Constitutional Constitutional ED: Denies chills, fever(s) or weight loss Eyes Eyes: Denies change in vision or diplopia ENT ENT ED: Denies ear pain, rhinorrhea or sore throat Cardiovascular Cardiovascular: Denies chest pain, orthopnea, palpitations or racing heartbeat Respiratory/Chest Respiratory/Chest: Denies cough, dyspnea or orthopnea Gastrointestinal Gastrointestinal: Denies abdominal pain, diarrhea, nausea or vomiting Genitourinary Genitourinary ED: Denies dysuria, hematuria or urinary frequency Musculoskeletal Musculoskeletal: Reports other Details: Left hip pain ; Denies arthralgias, back pain, myalgias or neck pain Integumentary Denies abscess or rash Neurologic Neurologic: Denies headache(s) or weakness Psychiatric Psychiatric: Denies anxiety, depression, suicidal ideation or suicidal thoughts Endocrine Endocrinology: Denies polydipsia, polyphagia or polyuria Allergic/Immunologi c Allergic/Immunologi c ED: Denies mouth swelling, tongue swelling or urticaria EXAM Physical Exam Narrative Exam Narrative: Patient was changed into a gown. He did have discomfort with movement. Const Vital Signs: 11/15/23 10:33 Temperature 96.7 F L Temperature Source Temporal Pulse Rate 74 Respiratory Rate 16 Blood Pressure 177/92 H Blood Pressure Mean 120 Pulse Ox 96 Oxygen Delivery Method Room Air Positive well nourished, well developed and obese General Appearance ED: well developed Nutritional Appearance: obese HEENT Reports normocephalic, head/scalp atraumatic and moist mucous membranes Eyes PERRL and EOMs intact bilaterally Neck no lymphadenopathy, supple and no JVD Resp normal respiratory effort and clear to auscultation bilaterally Cardio regular rate, regular rhythm and no murmurs GI normal to inspection, nondistended, normoactive bowel sounds and non-tender Palpation: soft Back/Spine no CVA tenderness and normal ROM Extremity Extremity Narrative: Patient has point tenderness over the greater trochanter laterally and posteriorly. Minor discomfort with the external logroll of the leg. No superior pubic rami tenderness. No significant hematoma or ecchymosis seen. General Extremety ED: Negative for edema General Extremity: Negative for edema Neuro oriented x3 and CN's II-XII intact bilaterally Sensorium / Orientation: alert Motor Exam: strength 5/5 throughout Psych mental status grossly normal Mood Affect: Negative for depressed or tearful Skin no rashes or lesions noted and no wounds MDM MDM MDM Narrative Medical decision making narrative: My independent or potation of the plain films of the left hip including pelvis is no acute fracture. Degenerative changes noted. Patient received a dose of Toradol (more content not included)... Normal [facility] HIP, UNI W/ Pelvis 2-3 Views on 11-15-2023 HIP, UNI W/ Pelvis 2-3 Views [facility] [address] [place] [address] HIP, UNI W/ Pelvis 2-3 Views MR#: [id number] Acct: [id number] Name: AMANDA CONCEPCION Rep #: [id number] : 1955 M 68 From: Leo Johnson PCP: Care Physician,No Primary Status: REG ER Study: HIP, UNI W/ Pelvis 2-3 Views Date of Exam: Exam# [id number] Ordering Dr: Bear Arreaga DO -[id number] INDICATION: injury and pain EXAMINATION/TECHNIQ UE: X-RAY - XR Hip Unilateral with Pelvis when performed; 2-3 Views COMPARISON: No relevant prior comparison study available FINDINGS: PELVIC BONES: No displaced fracture, destructive or sclerotic lesions. Note that overlapping bowel shadows may however obscure fine detail. Sacroiliac joints are unremarkable. No widening of the pubic symphysis. HIPS: Marginal degenerative spurs bilaterally. No displaced fracture seen in this frontal view. SOFT TISSUES: No soft tissue swelling or gas. RAD/HIP, UNI W/ Pelvis 2-3 Views IMPRESSION: No evidence of displaced pelvic or hip fracture. Electronically Signed: Leo Sahu MD at 12:00 EST , CC: Dr. Bear Arreaga DO; No Primary Care Physician Subcontract Administrator: Signed Normal [facility] Pelvis without IV Contraston 11-15-2023 Pelvis without IV Contrast [facility] [address] [place] [id number] Pelvis without IV Contrast MR#: [id number] Acct: [id number] Name: AMANDA CONCEPCION Rep #: [id number] : 1955 M 68 From: Leo Johnson PCP: Care Physician,No Primary Status: REG ER Study: Pelvis without IV Contrast Date of Exam: 11/15 Exam# [id number] Ordering Dr: Bear Arreaga DO -[id number] INDICATION: fracture -- include left hip EXAMINATION: CT PELVIS BONE - CT Pelvis W/O Contrast Injection TECHNIQUE: Routine noncontrast bone CT protocol was performed of the pelvis. 2-D reformats were performed by the technologist. A radiation dose optimization technique was used for this scan. IV Contrast dosage and agent: None. RADIATION DOSAGE (If Supplied By Facility): CTDIvol = ( 43.63 ) mGy, DLP = ( 1547.13 ) mGycm COMPARISON: Radiographs of the same day. FINDINGS: SOFT TISSUES: No soft tissue swelling or gas. No radiopaque foreign body. Bilateral inguinal hernias containing fat. Prominent prostate. BONES/JOINTS: No acute fracture or subluxation. Normal alignment. Marginal degenerative spurs of bilateral hips. Narrowing and sclerosis of the sacroiliac joints bilaterally. Small sclerotic lesion in the right femoral neck likely due to bone island. Degenerative changes of the visualized lower lumbar spine. CT/Pelvis without IV Contrast IMPRESSION: 1. No evidence of pelvic fracture. 2. Degenerative changes. 3. Prominent prostate. Electronically Signed: Leo Sahu MD at 13:54 EST , CC: Dr. Bear Arreaga DO; No Primary Care Physician Subcontract Administrator: Signed Normal [facility] Vital Signs Date Time Vital Sign Value Performing Clinician Faci lity 07-04-2025 16:50-0400 Body temperature 97.7 [degF] No Primary Care Physician [facility] 07-04-2025 16:50-0400 Diastolic blood pressure 93 mm[Hg] No Primary Care Physician [facility] 07-04-2025 16:50-0400 Heart rate 58 /min No Primary Care Physician [facility] 07-04-2025 16:50-0400 Respiratory rate 18 /min No Primary Care Physician [facility] 07-04-2025 16:50-0400 SaO2% (BldA) [Mass fraction] 98 % No Primary Care Physician [facility] 07-04-2025 16:50-0400 Systolic blood pressure 166 mm[Hg] No Primary Care Physician [facility] 07-04-2025 14:48-0400 Body height 177.8 cm No Primary Care Physician [facility] 07-04-2025 14:48-0400 Body mass index (BMI) [Ratio] 35.7 kg/m2 No Primary Care Physician [facility] 07-04-2025 14:48-0400 Body weight 113 kg No Primary Care Physician [facility] Encounters Encounter Date Encounter Type Care Provider Facility Start: 07-04-2025 Evaluation and management of inpatient Dr. Lani Marcos MD -[facility] Work Phone: Start: 07-04-2025 observation encounter No Prima ry Care Physician -Pro[facility] Care Unit Start: 07-04-2025 Non-patient / Non-visit Dr. Lani ybarra MD -[facility] Work Phone: Start: 11-15-2023 End: 11-15-2023 Emergency department patient visit Bear Arreaga Facility:[facility] Start: 08-22-2022 ambulatory NIRAJ LEWIS MD Facil ity:A Procedures Date Procedure Procedure Detail Performing Clinician Start: 07-04-2025 CT angiography of he ad and neck No Primary Care Physician Start: 07-04-2025 CT of head without contrast No Primary Care Physician Start: 07-04-2025 Estimated creatinine clearance No Primary Care Physician Plan of Treatment Date Care Activity Detail Author Start: 07-05-2025 Thyroid stimulating hormone measurement [facility] Start: 07-04-2025 MRI of brain without contrast Brain without Contrast [facility] Start: 07-04-2025 Admission procedure [facility] Start: 07-04-2025 Verification routine [facility] Start: 07-04-2025 [facility] Start: 07-04-2025 End: 07-04-2025 [facility] Anion gap in Serum o r Plasma [facility] BUN/Creatinine ratio [facility] Calcium [Mass/volume ] in Serum or Plasma [facility] Carbon dioxide, tota l [Moles/volume] in Central venous blood [facility] Cholesterol [Mass/vo lume] in Serum or Plasma [facility] Cholesterol in HDL [Mass/volume] in Serum or Plasma [facility] Creatinine [Mass/vol ume] in Serum or Plasma [facility] Erythrocyte mean corpuscular volume determination [facility] Glucose [Mass/volume ] in Serum or Plasma [facility] Hematocrit [Volume Fraction] of Blood [facility] Hemoglobin [Mass/vol ume] in Blood [facility] Hemoglobin A1c/Hemoglobin.total in Blood [facility] Leukocytes [#/volume ] in Blood [facility] Low density lipoprot ein cholesterol measurement [facility] Mean corpuscular hemoglobin concentration determination [facility] Mean corpuscular hemoglobin determination [facility] Measurement of renal function [facility] Neutrophil count [facility] Neutrophil percent differential count [facility] Platelets [#/volume] in Blood [facility] Potassium measurement [facility] Red blood cell count [facility] Red cell distributio n width determination [facility] Serum chloride measurement [facility] Sodium measurement [facility] Total cholesterol:HD L ratio measurement [facility] Triglycerides measurement [facility] Troponin T.cardiac [Mass/volume] in Serum or Plasma by High sensitivity method [facility] Troponin T.cardiac [Mass/volume] in Serum or Plasma by High sensitivity method [facility] Urea nitrogen [Mass/volume] in Serum or Plasma [facility] VLDL cholesterol measurement [facility] Payers Date Payer Category Payer Self-pay 2023 Unknown [id number] 2022 Unknown [id number] 1955 Unknown [id number] Unknown [id number] Unknown [id number] Social History Date Type Detail Facility Start: 07-04-2025 Tobacco smoking stat [facility] Smokes tobacco daily (finding) [facility] Start: 07-04-2025 Tobacco Use Tobacco Use [facility] Start: 1955 Sex Assigned At Male [facility] Mental Status Date Assessment Result Facility 07-04-2025 Cognitive function Voice/Name [facility] Work Phone: History and physical note 07-04-2025 Note Date & Type Note Facility 07-04-2025 History and physi ubaldo note [facility] Radiology Diagnostic study note 07-04-2025 Note Date & Type Note Facility 07-04-2025 Radiology Diagnostic study note [facility] [address] [place] [address] STROKE CTA Head AND Neck W/Con MR#: [id number] Acct: [id number] Name: AMANDA CONCEPCION Rep #: [id number] : 1955 M 70 From: Guillermo Fernandez MD PCP: Care Physician,No Primary Status: REG ER Study:STROKE CTA Head AND Neck W/Con Date of Exam: 07/04/25 Exam# [id number] Ordering Dr: Seng Dia ica PROCEDURE: STROKE CTA HEAD AND NECK W/CON 07/04/2025 REASON FOR EXAM: NEURO DEFICIT, ACUTE, STROKE SUSPECTED TECHNIQUE: Procedure Code: CTCTA.ST.HN Modality: CT Procedure: STROKE CTA HEAD AND NECK W/CON Multiplanar Sagittal and Coronal images were obtained. CONTRAST: Isovue 370 VOLUME: 86 mL One or more dose reduction techniques were used (e.g., Automated exposure control, adjustment of the mA and/or kV according to patient size, use of iterative reconstruction technique). RADIATION DOSE SUMMARY: CTDlvol: 19.96 mGy DLP: 757.04 mGycm COMPARISON: None. FINDINGS: Aortic Arch: Normal size and branching pattern. No significant atherosclerotic plaque. Brachiocephalic and Subclavians: Unremarkable RIGHT Carotid: Right CCA: Unremarkable. Right ICA: Unremarkable. Right ECA: Unremarkable. LEFT Carotid: Left CCA: Unremarkable. Left ICA: Unremarkable. Left ECA: Unremarkable. Vertebrals: Patent. RIGHT Vertebral: Diminutive and terminates as the right posterior inferior cerebellar artery. LEFT Vertebral: Dominant. Anatomy: [place] anatomy is normal. Aneurysm or avm: No intracranial aneurysms or large vascular malformations are identified. Anterior cerebral arteries: Unremarkable: Middle cerebral arteries: Unremarkable. Basilar artery: Unremarkable. Posterior cerebral arteries: Unremarkable. Other major branches of the posterior circulation: Unremarkable. Major venous structures: Unremarkable. Other findings: Neck: No lymphadenopathy. Lungs: Lung apices are clear. Bones: Bones are unremarkable. CT/STROKE CTA Head AND Neck W/Con IMPRESSION: No significant stenosis in the head and neck. No aneurysm. Reading Location: [facility] CC: Dr. Alessandra Dia MD; No Primary Care Physician ~ Subcontract Administrator: Signed [facility] Radiology Diagnostic study note 07-04-2025 Note Date & Type Note Facility 07-04-2025 Radiology Diagnostic study note [facility] Imaging Services [address] [place] [address] STROKE Brain/Head without Cont MR#: [id number] Acct: [id number] Name: AMANDA CONCEPCION Rep #: [id number] : 1955 M 70 From: Julio César Figueroa MD PCP: Care Physician,No Primary Status: REG ER Study:STROKE Brain/Head without Cont Date of Exam: 07/04/25 Exam# [id number] Ordering Dr: Seng Dia MD PROCEDURE: STROKE BRAIN/HEAD WITHOUT CONT 07/04/2025 REASON FOR EXAM: NEURO DEFICIT, ACUTE, STROKE SUSPECTED TECHNIQUE: Procedure Code: CTBR.ST Modality: CT Procedure: STROKE BRAIN/HEAD WITHOUT CONT Coronal and Sagittal reconstruction series were provided. One or more dose reduction techniques were used (e.g., Automated exposure control, adjustment of the mA and/or kV according to patient size, use of iterative reconstruction technique. RADIATION DOSE SUMMARY: CTDlvol: 44.99 mGy DLP: 812.98 mGycm COMPARISON: None FINDINGS: Brain: Low density in the periventricular white matter suggests mild chronic small vessel ischemic changes. CSF Spaces: Mild generalized cerebral atrophy Sinuses/Mastoids: Clear at visualized levels. Prominence of the cisterna magna. This is a normal variant. Bones: Unremarkable CT/STROKE Brain/Head without Cont IMPRESSION: CHRONIC CHANGES. NO ACUTE FINDINGS. Red Alert: Chronic changes The critical findings in the findings and impression above were relayed directlyby me by telephone to Alessandra Dia on 07/04/2025 at 2:48 pm with readback verification. Reading Location: [place] [address] CC: Dr. Alessandra Dia MD; No Primary Care Physician ~ Subcontract Administrator: Signed [facility] Evaluation note Note Date & Type Note Facility Evaluation note Diagnosis Onset Date Resolution Tobacco use acute June 4:23pm Visual changes acute July 04, 2025 4:23pm [facility] Work Phone: History and physical note Note Date & Type Note Facility History and physical note Note Date/Time July 04, 2025 4:31pm [facility] Medical Records Department [address] [place] [address] H&P Exam - Hospitalist 07/04/25 1622 MR#: [id number] Acct: [id number] Name: AMANDA CONCEPCION Rep #:[id number] : 1955 70 From: Lani Marcos MD PCP: Care Physician,No Primary Status :REG ER Location: ED HPI - General General Date of Admission: 07/04/25 Date of Service: 07/04/25 Chief Complaint: Right sided peripheral vision loss HPI Narrative AMANDA CONCEPCION, is a 70-year-old male with history of tobacco use presented to [facility] ED 07/04/2025 as a stroke alert. Last known well was at 10 AM and patient developed a right sided peripheral vision loss shortly after. In the ED temp 98.6, heart rate 61 blood pressure 129/74, respiratory rate 25 and pulse ox 95% on room air. CBC with white count 9.8, hemoglobin 18.7, BMP with a BUN of 25 and a creatinine 1.49, glucose 130. Troponin 32. CThead and CTA head and neck no acute process. Patient presented outside of window for TNK but also had an NIH of 1 with nondisabling deficits. ED physician spoke to stroke neurologist who reviewed the case and recommended loading with aspirin and Plavix and admitting for further stroke workup. Hospitalist contacted for admission. Patient evaluated at bedside, he reports that at 10 AM he lost peripheral vision in his right eye, had some headache earlier today before the symptoms ever started, still little bit of an achy headache in the center. Still has peripheral vision loss on the right eye but slightly improving, denies any chest pain or shortness of breath, no numbness/weakness/tingling. No other new or acute complaints. Denies being on any routine medications or ever being diagnosed with any medical problems. Doesuse tobacco, denies any alcohol or drug use PFSH Home Medications ?Medication ?Instructions ?Recorded ?Last Taken ?Type acetaminophen 500 mg capsule 1,000 mg PO Q6H PRN fever or pain 07/04/25 Unknown History Allergy/AdvReac Type Severity Reaction Status Date / Time No Known Allergies Allergy Verified 09/27/15 05:53 Social History Smoking Status: Current every day smoker tobacco type: cigarettes ROS ROS Narrative General: Denies fever/chills HENT: Little bit of an achy central headache, denies stuffy nose, denies sore throat EYES: Right sided peripheral visual loss Resp: Denies cough, denies shortness of breath Cardiac: Denies chest pain GI: Denies abdominal pain, denies changes in bowel, denies nausea/vomiting : Denies changes in urination Extremity: Denies swelling MSK: Denies weakness Neuro: Denies any numbness/tingling Heme: Denies any bleeding or bruising Skin: Denies rashes Psychiatric: No complaints voiced Vital Signs Vital Signs Vital Signs: 07/04/25 14:31 07/04/25 14:41 07/04/25 14:45 Temperature 98.6 F Temperature Source Oral Pulse Rate 61 70 Respiratory Rate 25 H 27 H Blood Pressure 129/74 H 123/73 H Blood Pressure Mean 92 89 Pulse Ox 95 Oxygen Delivery Method Room Air Room Air Room Air 07/04/25 15:01 07/04/25 15:30 07/04/25 16:00 Temperature Temperature Source Pulse Rate 60 59 L 59 L Respiratory Rate 19 H 18 18 Blood Pressure 123/78 H 127/68 H 117/73 Blood Pressure Mean 93 87 87 Pulse Ox 95 98 98 Oxygen Delivery Method Room Air Room Air Room Air Weight Weight: 113 kg Body Mass Index (BMI) 35.7 Physical Exam Narrative General: Alert, oriented, no apparent distress HEENT: Atraumatic, normocephalic Eyes: Anicteric, normal conjunctiva, extraocular movements intact, pupils equal,right peripheral field deficit Neck: Supple Respiratory: Clear to auscultation bilaterally, normal respiratory effort Cardiovascular: Regular rate and rhythm GI: Soft, nontender, nondistended Extremities: No edema Musculoskeletal: Strength 5 out of 5 in right upper extremity, 5 out of 5 left upper extremity, 5 out of 5 right lower extremity, 5 out of 5 left lower extremity Neuro: Other than visual changes no overt focal neurological deficits, cranial nerves II through XII intact, [id number] without significant difficulty bilaterally, almost seem to have an aspect of receptive aphasia and seems slow to comprehend and respond to questions Skin: No rashes appreciated, does have black on both hands from work Psych: Cooperative Results Lab / Micro Data 07/04/25 14:30 07/04/25 14:30 Labs: Laboratory Results - last 24 hr 07/04/25 14:30: WBC 9.8, RBC 6.22 H, Hgb 18.7 H*, Hct 54.7 H, MCV 87.9, MCH 30.1, MCHC 34.2, RDW Std Deviation 42.2, RDW Coeff of [place] 13.1, Plt Count 232, MPV 9.8, Immature Gran % (Auto) 1.500 H, Neut % (Auto) 65.5, Lymph % (Auto) 23.1, [place] % (Auto) 5.0, Eos % (Auto) 3.8, Baso % (Auto) 1.1 H, Absolute Neuts (auto) 6.4, Absolute Lymphs (auto) 2.25, Nucleated RBC % 0, PT 13.9, INR 1.1, APTT 25.4, Sodium 135, Potassium 4.5, Chloride 104, Carbon Dioxide 20.8 L, AnionGap 11, BUN 25 H, Creatinine 1.49 H, Estim Creat Clear Calc 59.73, Est GFR (MDRD) Non-Af 51 L, BUN/Creatinine Ratio 16.7, Glucose 130 H, Calcium 9.3, Troponin T High Sens 32 H Imaging Radiology Impression Brain CT 07/04/25 14:31 IMPRESSION: CHRONIC CHANGES. NO ACUTE FINDINGS. Red Alert: Chronic changes The critical findings in the findings and impression above were relayed directlyby me by telephone to Alessandra Dia on 07/04/2025 at 2:48 pm with readback verification. Reading Location: [facility]1 Head/Neck CTA 07/04/25 14:35 IMPRESSION: No significant stenosis in the head and neck. No aneurysm. Reading Location: [id number] Assessment & Plan Assessment/Plan (1) Visual changes: (2) Tobacco use: PLAN: Plan # Right-sided peripheral vision abnormalities -Admit to tele -CT head w/ no acute process -CTA head and neck no LVO -MRI ordered -NIH q4hr -Loaded with aspirin and Plavix in the ED -Continue aspirin and statin, decisions on further Plavix per teleneurology onceresults available -Echo w/ bubble study -PT/OT/Speech eval -Teleneuro consult placed -Will check TSH, hemoglobin, lipid profile -Hold BP medications to allow for permissive hypertension for 24 hours unless SBP greater than 220 or DBP greater than 120 or until stroke is ruled out # Elevated hemoglobin -May benefit from outpatient sleep study and/or further workup if needed -Denies known history of sleep apnea -Patient given IV fluids in the ED, repeat in the a.m. #Tobacco use -Advise cessation -Nicotine replacement available if desired #DVT ppx: SCDs Lani Marcos MD Charges/Coding Visit Charges Inpatient E&M: 12407 Init Hosp L2 07/04/25 1631 <Electronically signed by aLni Marcos MD> Cosigner Signature (if applicable): CC: Dr. Lani Marcos MD; No Primary Care Physician~ Signed [facility] Work Phone: Reason for referral (narrative) Note Date & Type Note Facility Reason for referral (narrative) No reason for referral information available [facility] Work Phone: Summary Purpose Family History No Family History Records FoundNo Family History Records Found Advance Directives Advance Directive Response Recorded Date/ Time Do you have a Healthcare Power of Knocker Off? No July 04, 2025 2:46pm Advance Directives No September 10:45am Chief Complaint and Reason for Visit Chief Complaint Admit Date stoke alert July 04, 2025 4:22pm STROKE RULE OUT July 04, 2025 4:23pm Reason for Visit Admit Date Tobacco use July 04, 2025 4:23pm Visual changes July 04, 2025 4:23pm Additional Source Comments (unrecognized sect ion and content) No Status Records FoundNo Status Records Found INFORMATION SOURCE (unrecogn ized section and content) DATE CREATED AUTHOR 08/23/2022 [facility] ([place]) DATE CREATED AUTHOR AUTHOR'S ORGANIZ ATION 01/15/2024 [facility] Care Teams (unrecognized sec tion and content) Team Status: Active Member Role/Relationship Status Dates No Primary Care Physician Primary Care Provider Active Team Status: Active Member Role/Relationship Status Dates No Primary Care Physician Primary Care Provider Active Start: July 04, 2025 Dr. Alessandra Dia MD Emergency Provider Active S tart: July 04, 2025 Dr. Lani Marcos MD Attending Provider Active Start: July 04, 2025 Team Status: Active Member Role/Relationship Status Dates No Primary Care Physician Primary Care Provider Active Start: July 04, 2025 Dr. Alessandra Dia MD Emergency Provider Active S tart: July 04, 2025 Dr. Lani Marcos MD Admit Provider Active Star t: July 04, 2025 Dr. Lani Marcos MD Attending Provider Active Start: July 04, 2025 Goals (unrecognized section and content) Goals may be documented in a n alternate section FOR RECORDS PERTAINING TO PATIENTS WHO ARE [...] BE BASED ON THE PRIMARY CLINICAL RECORDS. [facility] [employer] [facility]. provides no warranty or guarantee of the accuracy or completeness of information in this document.
[2025-07-05 01:02] VITALS: BP 142/99; PULSE 57; RESP 18; TEMP 36.4; O2SAT 97
[2025-07-05 03:31] VITALS: BMI 36.7
[2025-07-05 05:00] VITALS: BP 158/98; PULSE 56; RESP 16; TEMP 36.4; O2SAT 96
[2025-07-05 05:48] LABS: Hematocrit 54.0 % (40-54); Immature Granulocytes Count 0.040 X10^3/uL (0.0-0.0); Mean Corp Hgb Conc 34.4 g/dL (32-36); Mean Corpuscular Volume 88.2 fL (80-94); Mean Platelet Vol. 9.7 fl (6.2-12.0); NRBC Flagged by Analyzer 0 % (0-5); Platelet Count 206 K/mm3 (150-450); RBC Distribution Width CV 13.2 % (11.6-14.6); RBC Distribution Width SD 42.4 fl (35.1-43.9); Red Blood Count 6.12 M/mm3 (4.6-6.2); White Blood Count 8.9 K/mm3 (4.4-11.0)
[2025-07-05 05:57] LABS: Hemoglobin 18.6 g/dL (13.0-16.5)
[2025-07-05 06:28] LABS: Anion Gap 11 (5-15); BUN 21 mg/dL (4-19); BUN/Creat Ratio 17.3 RATIO (10-20); Calcium,Total 9.2 mg/dL (7.6-11.0); Carbon Dioxide 18.8 mmol/L (21.0-32.0); Chloride 106 mmol/L (98-108); Cholesterol 136 mg/dL (<=200); Estimated Creatinine Clearance 73.37 ml/min (50-250); Glucose 126 mg/dL (70-99); Low Density Lipoprotein Calc. 69 mg/dL; Potassium 4.3 mmol/L (3.3-5.1); Triglycerides 221 mg/dL; Very Low Density Lipoprotein 44 mg/dL (5-40); cholesterol:hdl ratio screen 6.02
[2025-07-05 08:44] VITALS: BP 139/68; PULSE 52; RESP 16; TEMP 36.2; O2SAT 96
[2025-07-05] MEDS: Nicotine (PBKC) 21 MG Patch TD (08:46)
[2025-07-05 10:00] VITALS: BP 139/68; PULSE 52; RESP 16; TEMP 36.2; O2SAT 96
--- NOTE | 2025-07-05 10:15 | CASEMGMT ---
Social Work Patient scored a 3 on the PHQ9. Riky VORA
--- NOTE | 2025-07-05 11:43 | STROKE.CONS ---
Assessment and Plan: Stroke Assessment/Plan AMANDA CONCEPCION is a 70 M with a history of nicotine abuse who presents for evaluation of vision changes Neurological examination shows NIH 1. 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 - Anti-platelet medication: Aspirin 81 mg daily - Occupational/ Physical therapy consults - NPO until swallow evaluation. IVF until able to take po - DVT prophylaxis with SCDs and heparin SQ - Vascular risk factor modification. The following are the recommended guidelines: LDL Goal < 70. Lipitor 80 Smoking Cessation Diabetes Management truck terminal manager blood pressure control should achieve <130/80 mmHg. BP management should aim to achieve truck terminal manager contorl in a reasonable amount of time, taking into consideration the individual patient's requirements and characteristics. Weight Management: Goal for BMI is 18.5 -24.9 kg/m2 Alcohol: No more than 2 drinks/day for men or 1 drink/day for non- women - Promote lifestyle modification: weight control, physical activity, moderation of alcohol intake, moderate sodium intake, Smoking cessation Followup with PCP in 1-2 weeks, and in Neurology clinic in 6-12 weeks HPI Consult Data Date of Consult: 07/05/25 HPI Narrative HPI Narrative: AMANDA CONCEPCION, is a 70 M who presents with vision loss PFSH Home Medications ?Medication ?Instructions ?Recorded ?Last Taken ?Type acetaminophen 500 mg capsule 1,000 mg PO Q6H PRN fever or pain 07/04/25 Unknown History Allergy/AdvReac Type Severity Reaction Status Date / Time No Known Allergies Allergy Verified 09/27/15 05:53 Social History Smoking Status: Current every day smoker tobacco type: cigarettes Vital Signs Vital Signs Vital Signs: 07/04/25 14:31 07/04/25 14:41 07/04/25 14:45 Temperature 98.6 F Temperature Source Oral Pulse Rate 61 70 Pulse Strength Respiratory Rate 25 H 27 H Respiratory Effort Respiratory Depth Respiratory Pattern Blood Pressure 129/74 H 123/73 H Blood Pressure Mean 92 89 Blood Pressure Source Blood Pressure Position Blood Pressure Location Pulse Ox 95 Oxygen Delivery Method Room Air Room Air Room Air 07/04/25 15:01 07/04/25 15:30 07/04/25 16:00 Temperature Temperature Source Pulse Rate 60 59 L 59 L Pulse Strength Respiratory Rate 19 H 18 18 Respiratory Effort Respiratory Depth Respiratory Pattern Blood Pressure 123/78 H 127/68 H 117/73 Blood Pressure Mean 93 87 87 Blood Pressure Source Blood Pressure Position Blood Pressure Location Pulse Ox 95 98 98 Oxygen Delivery Method Room Air Room Air Room Air 07/04/25 16:30 07/04/25 16:50 07/04/25 17:30 Temperature 97.7 F L 97.5 F L Temperature Source Temporal Pulse Rate 61 58 L 60 Pulse Strength Respiratory Rate 18 18 18 Respiratory Effort Respiratory Depth Respiratory Pattern Blood Pressure 147/81 H 166/93 H 177/84 H Blood Pressure Mean 103 117 115 Blood Pressure Source Monitor Blood Pressure Position Semi-Fowlers Blood Pressure Location Right Forearm Pulse Ox 97 98 100 Oxygen Delivery Method Room Air Room Air 07/04/25 18:40 07/04/25 21:00 07/04/25 21:07 Temperature 98 F Temperature Source Oral Pulse Rate 62 Pulse Strength Normal (2+) Respiratory Rate 17 Respiratory Effort Normal Non-Labored Respiratory Depth Normal Respiratory Pattern Normal Blood Pressure 157/85 H Blood Pressure Mean 109 Blood Pressure Source Monitor Blood Pressure Position Semi-Fowlers Blood Pressure Location Left Arm Pulse Ox 94 Oxygen Delivery Method Room Air Room Air 07/04/25 21:20 07/04/25 22:00 07/05/25 01:02 Temperature 97.6 F L Temperature Source Oral Pulse Rate 57 L Pulse Strength Normal (2+) Respiratory Rate 18 Respiratory Effort Respiratory Depth Respiratory Pattern Blood Pressure 142/99 H Blood Pressure Mean 113 Blood Pressure Source Monitor Blood Pressure Position Semi-Fowlers Blood Pressure Location Left Arm Pulse Ox 96 97 Oxygen Delivery Method Room Air Room Air 07/05/25 01:07 07/05/25 05:00 07/05/25 08:44 Temperature 97.5 F L 97.1 F L Temperature Source Oral Temporal Pulse Rate 56 L 52 L Pulse Strength Respiratory Rate 16 16 Respiratory Effort Normal Non-Labored Respiratory Depth Normal Respiratory Pattern Normal Blood Pressure 158/98 H 139/68 H Blood Pressure Mean 118 91 Blood Pressure Source Monitor Monitor Blood Pressure Position Semi-Fowlers Sitting Blood Pressure Location Left Arm Right Arm Pulse Ox 96 96 Oxygen Delivery Method Room Air Room Air Room Air 07/05/25 08:45 Temperature Temperature Source Pulse Rate Pulse Strength Respiratory Rate Respiratory Effort Respiratory Depth Respiratory Pattern Blood Pressure Blood Pressure Mean Blood Pressure Source Blood Pressure Position Blood Pressure Location Pulse Ox Oxygen Delivery Method Room Air Weight Weight: 116.12 kg Body Mass Index (BMI) 36.7 EEG Results Procedure Details EEG Procedure Details: Lab / Micro Data 07/05/25 05:15 07/05/25 05:15 Labs: Laboratory Results - last 24 hr 07/04/25 14:30: WBC 9.8, RBC 6.22 H, Hgb 18.7 H*, Hct 54.7 H, MCV 87.9, MCH 30.1, MCHC 34.2, RDW Std Deviation 42.2, RDW Coeff of [place] 13.1, Plt Count 232, MPV 9.8, Immature Gran % (Auto) 1.500 H, Neut % (Auto) 65.5, Lymph % (Auto) 23.1, [place] % (Auto) 5.0, Eos % (Auto) 3.8, Baso % (Auto) 1.1 H, Absolute Neuts (auto) 6.4, Absolute Lymphs (auto) 2.25, Nucleated RBC % 0, PT 13.9, INR 1.1, APTT 25.4, Sodium 135, Potassium 4.5, Chloride 104, Carbon Dioxide 20.8 L, Anion Gap 11, BUN 25 H, Creatinine 1.49 H, Estim Creat Clear Calc 59.73, Est GFR (MDRD) Non-Af 51 L, BUN/Creatinine Ratio 16.7, Glucose 130 H, Calcium 9.3, Troponin T High Sens 32 H 07/04/25 16:20: Troponin T Hi Sens 2 Hr 29 H 07/04/25 20:05: Troponin T Hi Sens 4Hr 34 H 07/05/25 05:15: WBC 8.9, RBC 6.12, Hgb 18.6 H*, Hct 54.0, MCV 88.2, MCH 30.4, MCHC 34.4, RDW Std Deviation 42.4, RDW Coeff of [place] 13.2, Plt Count 206, MPV 9.7, Immature Gran % (Auto) 0.400, Neut % (Auto) 61.0, Lymph % (Auto) 26.9, [place] % (Auto) 5.3, Eos % (Auto) 5.4 H, Baso % (Auto) 1.0, Absolute Neuts (auto) 5.4, Absolute Lymphs (auto) 2.40, Nucleated RBC % 0, Sodium 136, Potassium 4.3, Chloride 106, Carbon Dioxide 18.8 L, Anion Gap 11, BUN 21 H, Creatinine 1.23 H, Estim Creat Clear Calc 73.37, Est GFR (MDRD) Non-Af 64, BUN/Creatinine Ratio 17.3, Glucose 126 H, Hemoglobin A1c 7.2 H, Calcium 9.2, Triglycerides 221 H, Cholesterol 136, LDL Cholesterol, Calc 69, VLDL Cholesterol 44 H, HDL Cholesterol 23 L, Cholesterol/HDL Ratio 6.02, TSH 3.180 Imaging Radiology Impression Brain CT 07/04/25 14:31 IMPRESSION: CHRONIC CHANGES. NO ACUTE FINDINGS. Red Alert: Chronic changes The critical findings in the findings and impression above were relayed directly by me by telephone to Alessandra Dia on 07/04/2025 at 2:48 pm with readback verification. Reading Location: [facility] Head/Neck CTA 07/04/25 14:35 IMPRESSION: No significant stenosis in the head and neck. No aneurysm. Reading Location: [facility] Brain MRI 07/04/25 16:29 IMPRESSION: 1. 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 2. 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 3. No intracranial hemorrhage, extra-axial collection or mass-effect. Reading Location: [facility] Active Medications Active Medications Active Medications: Current Medications Generic Name Dose Route Start Last Admin Trade Name Freq PRN Reason Stop Dose Admin Acetaminophen 650 mg 07/04/25 17:06 Acetaminophen 325 Mg Tablet PO Q6H PRN PRN Pain 1-10 Or Fever >100.7 Albuterol Sulfate 2.5 mg 07/04/25 17:06 Albuterol 2.5 Mg/3 Ml Vial.Neb. INHALATION Q2H PRN PRN SOB &/OR WHEEZING Aspirin 81 mg 07/05/25 08:00 07/05/25 08:46 Aspirin 81 Mg Tab.Chew PO 81 mg BREAKFAST MAXIMILIAN Administration Atorvastatin Calcium 80 mg 07/04/25 22:00 07/04/25 21:09 Atorvastatin Calcium 80 Mg Tablet PO 80 mg QHS MAXIMILIAN Administration Hydralazine HCl 5 mg 07/04/25 17:06 Hydralazine 20 Mg/Ml Vial IV 07/05/25 17:06 Q30M PRN maintain BP parameters with HR <60 Labetalol HCl 10 - 20 mg 07/04/25 17:06 Labetalol 20 Mg/4 Ml Vial IV 07/05/25 17:06 Q10M PRN PRN maintain BP parameters with HR >/=60 Lorazepam 0.5 mg 07/04/25 17:06 Lorazepam 0.5 Mg Tablet PO X1 PRN Anxiety with MRI Melatonin 10 mg 07/04/25 17:06 Melatonin 10 Mg Tablet PO QHS PRN PRN INSOMNIA Nicotine 21 mg 07/05/25 10:00 07/05/25 08:46 Nicotine (Pbkc) 21 Mg Patch TD 21 mg DAILY MAXIMILIAN Administration Ondansetron HCl 4 mg 07/04/25 17:06 Ondansetron 4 Mg/2 Ml Vial IV Q8H PRN PRN NAUSEA/VOMITING Senna/Docusate Sodium 2 tablet 07/04/25 17:06 Senna/Docusate Sodium 1 Tablet PO BID PRN PRN Constipation Sodium Chloride 10 - 40 ml 07/04/25 17:25 07/04/25 21:11 0.9% Saline Lock 10 Ml Syringe IV 10 ml UD PRN Administration SALINE FLUSH NIHSS NIHSS Nursing Documentation NIHSS Nursing Documentation: NIHSS: Ischemic Stroke/TIA Start: 07/04/25 17:06 Text: For PCU Patients: NIH and Neuro Check every 4 Status: Active hours, PRN and with change in RN caregiver. Freq: [id number] Protocol: Activity Type Activity Date Activity User E-sign Co-sign Detail Recorded Client Recorded Date Recorded By Document 07/05/25 05:00 JG desktop 07/05/25 05:04 [email or web address] 07/05/25 05:00 NIH Stroke Scale [NIHSS] A score of 0 is normal or asymptomatic . Total possible score is 42. Inpatient: RN or Physician to activate a stroke alert for onset of new stroke symptoms or with NIHSS increase >/= 3 points. Following change in neurological status, NIHSS will be performed per physician order or more frequently PRN. -1a. Level of Consciousness 0 - Alert; keenly responsive -1b. LOC Questions 0 - Answers BOTH questions correctly -1c. LOC Commands 0 - Performs BOTH tasks correctly -2. Best Gaze 0 - Normal -3. Visual 1 - Partial hemianopia -4. Facial Palsy 0 - Normal symmetrical movements -5a. Left Arm 0 - No drift; arm holds 90 ( or 45) degrees for full 10 seconds -5b. Right Arm 0 - No drift; arm holds 90 ( or 45) degrees for full 10 seconds -6a. Left Leg 0 - No drift; leg holds 30- degree position for full 5 seconds -6b. Right Leg 0 - No drift; leg holds 30- degree position for full 5 seconds -7. Limb Ataxia 0 - Absent -8. Sensory 0 - Normal; no sensory loss -9. Best Language 0 - No aphasia; normal -11. Extinction and Inattention 0 - No abnormality -Total 1 Query Text:A score of 0 is normal or asymptomatic. Total possible score is 42 . ED: Notify Physician for NIHSS increase by > / = 3 points. Inpatient: RN or Physician to activate a stroke alert for NIHSS increase of > / = 3 points. Coma Scale [Assess] -Eye Opening Spontaneous -Motor Obeys Commands -Verbal Oriented [Total] -Coma Scale Total 15
--- NOTE | 2025-07-05 11:46 | CHAPLAIN ---
Type of Pastoral Visit _x__ Initial Visit ___ Follow-up Visit ___ On-call Visit ___ General Patient Visit ___ Spiritual Assessment ___ Family Conference ___ Bereavement ___ Rapid Response ___ Code Blue ___ Other (describe below) Pastoral Care Referral From _x__ Patient ___ Family ___ Nurse ___ Physician ___ Voltage Regulator Assembler ___ Pants Presser ___ Other (describe below) Sacrament/Intervention _x__ Active listening ___ Anointing ___ Sikh ___ Bereavement ___ Communion ___ Hannah exploration ___ ___ Life review ___ Prayer ___ Reconciliation ___ Sacrament of Sick ___ Supportive presence ___ Wedding ___ Other (describe below) Pastoral Comments patient and daughter are in the room; pt is resting and waiting on a meeting with the DR; pt states feeling better and hopeful about going home yet today; pt denies having needs or worries;
[2025-07-05 13:41] VITALS: O2SAT 95
[2025-07-05 14:41] VITALS: BP 158/76; PULSE 67; RESP 18; TEMP 36.4; O2SAT 97
--- NOTE | 2025-07-05 14:42 | DCINST_ITS ---
Discharge Instructions DC O2, CPAP, BIPAP needs Home O2 Discharge instructions: No Dressing / Incision Discharge Activity: Return to Normal Activity Weight Bearing Status: Weight bearing as tolerated Dressing / Incision Call your doctor if you observe: Fever of 101 or Higher, Dizziness, Chest pain and - (vision not improving) Follow Up Care Test Results: Test results from this visit will be discussed in further detail at your follow- up appointment, if applicable. Discharge Plan Admission Admit Date/Time: 07/04/25 16:23 Primary Reason for Your Visit: acute CVA Attending Provider: Chante Valencia Primary Care Provider: Care Physician,No Primary Consulting Providers: Shaheen Knight; Alexandru Correa; Jyoti Campos; Sheila Chase; Michelle Johnston; Naga North; Marizol Bahena; Justyn Isabel; Chi Spears; Silvino Carty; Myriam Cardoza; Nika Benton; Murray Almodovar; Rose Morton; Yahaira Nieto; Ivan Hernández; Anthony Leonard; Eladia Delong; Leroy Velasquez; Lizzie Maciel; Barbara Bradford; Lani Marcos Instructions Patient Instructions: Booklet - Understanding Stroke Additional Instructions / Restrictions: Abstain from driving until cleared by Neurology to do so. Counseled to quit smoking, and to eat a heart healthy diet, as well as exercise to lose weight. Discharge Orders/Prescriptions Prescriptions: New atorvastatin 80 mg Tablet 80 mg PO QHS Qty: 30 2RF aspirin 81 mg Tablet,Chewable 81 mg PO BREAKFAST Qty: 30 2RF metformin 500 mg tablet 500 mg PO BID Qty: 60 2RF Rx Instructions: to start taking metformin on , 48 hours after receiving contrast Continued acetaminophen 500 mg capsule 1,000 mg PO Q6H PRN (Reason: fever or pain) Referrals / Follow Up: Jg Hoffman MD [Med Staff - Active Staff] - Within 2 Weeks (see to establish PCP relationship) Scott Spear MD [Non-Staff -Ordering Privileges] - Within 1 Week (see for stroke care) Care Physician,No Primary [Primary Care Provider] - Disposition Disposition (needs filled in before D/C Order can be placed): Home, Self Care
--- NOTE | 2025-07-05 14:43 | PCM.DC.SUM ---
Providers Date of Admission: 07/04/25 Date of Discharge: 07/05/25 Primary Care Physician: [facility] Primary Care Phys Consultations 07/04/25 17:06 Consult: Tele-Neurology Routine Consulting Provider: [facility] Reason for Consult: Acute Ischemic Stroke/TIA EMERGENT Consult: No MD Notified: Yes Date Notified: 07/04/25 Time Notified: 16:26 Method of Notification: Answering Service Nursing Unit Staff Notify [facility] of Tele-Neurology Consult: Yes Reason For Visit: STROKE RULE OUT Diagnosis Discharge Diagnosis (1) Visual changes: Status: Acute Code(s): H53.9 - Unspecified visual disturbance (2) Tobacco use: Status: Acute Code(s): Z72.0 - Tobacco use Medications at Discharge Home Medications acetaminophen 500 mg capsule 1,000 mg PO Q6H PRN fever or pain 07/04/25 aspirin 81 mg chewable tablet 81 mg PO BREAKFAST #30 tabs 07/05/25 atorvastatin 80 mg tablet 80 mg PO QHS #30 tabs 07/05/25 metformin 500 mg tablet 500 mg PO BID #60 tabs 07/05/25 Hospital Course Operations None Procedures 2-D Echocardiogram Summary of Care Provided Minutes Spent on Discharge: 45 Hospital Course: Patient is a 70-year-old male with past medical history as outlined was admitted through the ED on 07/04/2025 as a stroke alert. His last known well was 10 AM on the day of admission and he developed a right sided peripheral vision loss shortly after. CT of the brain showed no acute intracranial pathology and CTA head and neck showed no acute pathology either. NIH stroke scale was 1 and he was not deemed a candidate for TNK. Neurology recommended that he be loaded with aspirin and Plavix. He was admitted to be managed for stroke rule out. He had MRI of the brain done which showed a small region of acute infarct involving the left occipital lobe and the left [employer] territory. He was placed on p.o. aspirin 81 mg daily. He was placed on high intensity statin. Patient was counseled strongly to quit smoking. said he mainly ate fast food 3 times a day so he was counseled to eat a heart healthy diet also. 2D echo done showed EF of 65% with stage I diastolic dysfunction and no regional wall motion abnormalities noted. A1c was 7.2 so he was started on p.o. metformin 500 mg twice daily. He is follow-up with his primary care doctor within 1 to 2 weeks and also referred to neurology for stroke management. Of note patient was counseled that he could not drive until cleared by neurology. Patient was seen and examined prior to discharge. He had no complaints. and daughter were by his bedside. He had an uneventful night. Review of systems otherwise negative. Labs and vitals reviewed. Home medication reviewed and reconciled. Physical Exam Const alert, oriented x3 and no apparent distress General Appearance: cooperative and comfortable Orientation / Consciousness: awake HEENT normocephalic, head/scalp atraumatic, hearing grossly normal bilaterally and moist oral mucous membranes Mouth: oral and palatal mucosa normal Eyes PERRL and conjunctivae normal Eyes Narrative: has impaired peripheral visual field loss in right eye Neck supple and no JVD Resp normal respiratory effort, no use of accessory muscles and clear to auscultation bilaterally Cardio regular rate, regular rhythm, S1 normal heart sound, S2 normal heart sound and no murmurs GI normal to inspection, nondistended, normoactive bowel sounds, soft to palpation and non-tender Extremity normal to inspection and full ROM Skin no rashes or lesions noted Neuro oriented x3, moves all extremities, no focal motor deficits and no sensory deficits noted Neuro Narrative: impaired right lateral peripheral visual loss. Sensorium / Orientation: awake and alert Motor Exam: strength 5/5 throughout Psych affect normal Weight / BMI Weight Weight: 256 lb Body Mass Index (BMI) 36.7 ABG / Lab / Microbiology Data 07/05/25 05:15 07/05/25 05:15 Laboratory: Laboratory Results - last 24 hr 07/04/25 14:30: WBC 9.8, RBC 6.22 H, Hgb 18.7 H*, Hct 54.7 H, MCV 87.9, MCH 30.1, MCHC 34.2, RDW Std Deviation 42.2, RDW Coeff of [place] 13.1, Plt Count 232, MPV 9.8, Immature Gran % (Auto) 1.500 H, Neut % (Auto) 65.5, Lymph % (Auto) 23.1, Tillman % (Auto) 5.0, Eos % (Auto) 3.8, Baso % (Auto) 1.1 H, Absolute Neuts (auto) 6.4, Absolute Lymphs (auto) 2.25, Nucleated RBC % 0, PT 13.9, INR 1.1, APTT 25.4, Sodium 135, Potassium 4.5, Chloride 104, Carbon Dioxide 20.8 L, Anion Gap 11, BUN 25 H, Creatinine 1.49 H, Estim Creat Clear Calc 59.73, Est GFR (MDRD) Non-Af 51 L, BUN/Creatinine Ratio 16.7, Glucose 130 H, Calcium 9.3, Troponin T High Sens 32 H 07/04/25 16:20: Troponin T Hi Sens 2 Hr 29 H 07/04/25 20:05: Troponin T Hi Sens 4Hr 34 H 07/05/25 05:15: WBC 8.9, RBC 6.12, Hgb 18.6 H*, Hct 54.0, MCV 88.2, MCH 30.4, MCHC 34.4, RDW Std Deviation 42.4, RDW Coeff of [place] 13.2, Plt Count 206, MPV 9.7, Immature Gran % (Auto) 0.400, Neut % (Auto) 61.0, Lymph % (Auto) 26.9, Tillman % (Auto) 5.3, Eos % (Auto) 5.4 H, Baso % (Auto) 1.0, Absolute Neuts (auto) 5.4, Absolute Lymphs (auto) 2.40, Nucleated RBC % 0, Sodium 136, Potassium 4.3, Chloride 106, Carbon Dioxide 18.8 L, Anion Gap 11, BUN 21 H, Creatinine 1.23 H, Estim Creat Clear Calc 73.37, Est GFR (MDRD) Non-Af 64, BUN/Creatinine Ratio 17.3, Glucose 126 H, Hemoglobin A1c 7.2 H, Calcium 9.2, Triglycerides 221 H, Cholesterol 136, LDL Cholesterol, Calc 69, VLDL Cholesterol 44 H, HDL Cholesterol 23 L, Cholesterol/HDL Ratio 6.02, TSH 3.180 Radiography Diagnostic Testing: Radiology Impression Brain CT 07/04/25 14:31 IMPRESSION: CHRONIC CHANGES. NO ACUTE FINDINGS. Red Alert: Chronic changes The critical findings in the findings and impression above were relayed directly by me by telephone to Alessandra Dia on 07/04/2025 at 2:48 pm with readback verification. Reading Location: [facility]1 Head/Neck CTA 07/04/25 14:35 IMPRESSION: No significant stenosis in the head and neck. No aneurysm. Reading Location: [facility] Brain MRI 07/04/25 16:29 IMPRESSION: 1. Small region of acute infarct involving left occipital lobe left [employer] territory. 2. 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 3. No intracranial hemorrhage, extra-axial collection or mass-effect. Reading Location: [facility] Echocardiogram 07/04/25 16:29 Interpretation Summary The study was technically difficult. Mild concentric left ventricular hypertrophy. The left ventricular ejection fraction is 65 %. Stage 1 diastolic dysfunction. Ordering Physician: Lani Marcos Performed By: Bailey Rankin, PJ, RVT D/C Instructions Discharge Activity: Return to Normal Activity Weight Bearing Status: Weight bearing as tolerated Call your doctor if you observe: Fever of 101 or Higher, Dizziness, Chest pain and - (vision not improving) DC O2, CPAP, BIPAP Needs Home O2 Discharge instructions: No DC home with Oxygen: No Meaningful Use Info Meaningful Use Meaningful Use Diagnoses (Choose all that apply): Ischemic CVA CVA Therapy Assessed for PT,OT and/or ST?: Yes Ischemic Stroke Antithrombotic order at d/c?: Yes Dx of Atrial fib/flutter?: No Statins at discharge?: Yes If patient is 75 or younger, pt will be discharged on HIGH intensity statin.: Yes Primary Dx Acute Ischemic CVA?: Yes IV thrombolytic ordered during stay?: No Reason IV thrombolytic not ordered: Treatment not Indicated Discharge Plan Admission Admit Date/Time: 07/04/25 16:23 Primary Reason for Your Visit: acute CVA Attending Provider: Chante Valencia Primary Care Provider: Care Physician,No Primary Consulting Providers: Shaheen Knight; Alexandru Correa; Jyoti Campos; Sheila Chase; Michelle Johnston; Naga North; Marizol Bahena; Justyn Isabel; Chi Spears; Silvino Carty; Myriam Cardoza; Nika Benton; Murray Almodovar; Rose Morton; Yahaira Nieto; Ivan Hernández; Anthony Leonard; Eladia Delong; Leroy Velasquez; Lizzie Maciel; Barbara Bradford; Lani Marcos Instructions Patient Instructions: Booklet - Understanding Stroke Additional Instructions / Restrictions: Abstain from driving until cleared by Neurology to do so. Counseled to quit smoking, and to eat a heart healthy diet, as well as exercise to lose weight. Discharge Orders/Prescriptions Prescriptions: New atorvastatin 80 mg Tablet 80 mg PO QHS Qty: 30 2RF aspirin 81 mg Tablet,Chewable 81 mg PO BREAKFAST Qty: 30 2RF metformin 500 mg tablet 500 mg PO BID Qty: 60 2RF Rx Instructions: to start taking metformin on , 48 hours after receiving contrast Continued acetaminophen 500 mg capsule 1,000 mg PO Q6H PRN (Reason: fever or pain) Referrals / Follow Up: Jg Hoffman MD [Med Staff - Active Staff, Internal Medicine] - Within 2 Weeks Referral Note: see to establish PCP relationship Scott Spear MD [Non-Staff -Ordering Privileges, Neurology] - Within 1 Week Referral Note: see for stroke care Care Physician,No Primary [Primary Care Provider, Medical] Disposition Disposition (needs filled in before D/C Order can be placed): Home, Self Care Charges/Coding Visit Charges Inpatient E&M: 73517 Disch Hosp >30min
--- NOTE | 2025-07-05 15:27 | CASEMGMT ---
Social Work Pt completed LW/POA w/SWs Adenike and Andria. SW gave pt originals and copies, and a copy was placed on the chart. Pt named his Tsering as POA and daughter Rosaura as the alternate. JEREMIAS Francois
== END 2025-07-05 15:34 | disposition home or self-care (01) ==
LOC: ED 15:22 → PCU 16:45
PROVIDERS: Admitting Provider Internal Medicine; Emergency Provider Student in an Organized Health Care Education/Training Program; Visit Provider Student in an Organized Health Care Education/Training Program
DX: H53.9 Unspecified visual disturbance (principal); H54.7 Unspecified visual loss; F17.210 Nicotine dependence, cigarettes, uncomplicated; D58.2 Other hemoglobinopathies; R00.1 Bradycardia, unspecified
CPT/HCPCS: 36415; 70450; 70496; 70498; 70551; 80048; 80061; 83036; 84443; 84484; 85025; 85610; 85730; 92523; 93005; 93306; 94762; 96360; 96361; 97162; 97166; 99221; 99285; Q9957; Q9967; A4216; C8929; G0378

== ENCOUNTER → 2025-08-03 | Outpatient (CLI) | payer BC, SELFPAY ==
[2025-08-03 15:48] LABS: Hematocrit 54.2 % (40-54); Immature Granulocytes Count 0.040 X10^3/uL (0.0-0.0); Immature Reticulocyte Fraction 10.90 % (3.00-15.90); Mean Corp Hgb Conc 33.6 g/dL (32-36); Mean Corpuscular Volume 89.0 fL (80-94); Mean Platelet Vol. 9.9 fl (6.2-12.0); NRBC Flagged by Analyzer 0 % (0-5); Platelet Count 239 K/mm3 (150-450); RBC Distribution Width CV 13.1 % (11.6-14.6); RBC Distribution Width SD 42.4 fl (35.1-43.9); Red Blood Count 6.09 M/mm3 (4.6-6.2); Reticulocyte Count 1.33 % (0.5-1.5); White Blood Count 10.6 K/mm3 (4.4-11.0)
[2025-08-03 16:43] LABS: Cholesterol 92 mg/dL (<=200); Ferritin 1407 ng/mL (37-417); Low Density Lipoprotein Calc. 30 mg/dL; Triglycerides 140 mg/dL; Very Low Density Lipoprotein 28 mg/dL (5-40); Vitamin B12 372 pg/mL (180-914); cholesterol:hdl ratio screen 2.76
[2025-08-03 17:09] LABS: Hemoglobin 18.2 g/dL (13.0-16.5)
[2025-08-03 17:17] LABS: CRP 5.85 mg/L (0.0-3.0); Iron 53 ug/dL (65-175); Magnesium 2.1 mg/dL (1.5-2.2)
[2025-08-03 18:21] LABS: AST(SGOT) 33 U/L (<=37); Alanine Aminotransfer ALT/SGPT 54 U/L (<=46); Albumin, Serum 4.0 g/dL (3.4-4.8); Alkaline Phosphatase 152 U/L (40-129); Anion Gap 9 (5-15); BUN 35 mg/dL (4-19); BUN/Creat Ratio 27.7 RATIO (10-20); Calcium,Total 9.5 mg/dL (7.6-11.0); Carbon Dioxide 24.3 mmol/L (21.0-32.0); Chloride 106 mmol/L (98-108); Globulin 3.2 g/dL (2.2-4.2); Glucose 109 mg/dL (70-99); Potassium 4.3 mmol/L (3.3-5.1)
[2025-08-09 11:09] LABS: Folate, Hemolysate Test 410.0 ng/mL (Not Estab.); Folate, RBC (Hct) Test 56.1 % (37.5-51.0); Folates, RBC Test 731 ng/mL (>498)
== END | disposition home or self-care (01) ==
LOC: LAB 15:25
DX: D75.1 Secondary polycythemia (principal); E78.5 Hyperlipidemia, unspecified; Z86.73 Personal history of transient ischemic attack (TIA), and cerebral infarction without residual deficits
CPT/HCPCS: 36415; 80053; 80061; 81270; 82607; 82668; 82728; 82747; 83540; 83735; 85014; 85025; 85045; 85652; 86140

== ENCOUNTER 2025-09-01 06:42 | Outpatient (CLI) | payer BC, SELFPAY ==
--- NOTE | 2025-09-01 06:44 | US_ITS ---
PROCEDURE: ABD LIMITED W/ ELASTOGRAPHY REASON FOR EXAM: POLYCYTHEMIA COMPARISON: None. TECHNIQUE: Procedure Code: [id number] Modality: US Procedure: ABD LIMITED W/ ELASTOGRAPHY Right upper quadrant abdominal ultrasound. Jacob ElastQ Imaging shear wave elastography for non-invasive assessment of liver tissue stiffness. Jacob EPIQ Elite. FINDINGS: LIVER: Size: Enlarged (hepatomegaly) Length: 19.3 cm Echotexture: Diffusely echogenic suggesting fatty infiltration Contour: Normal Lesions: None identified Elastography: EQI Med: 11.4 kPa EQI Med Jitendra: 1.94 m/s IQR/Med: 46 %* GALLBLADDER: No stones sludge wall thickening or tenderness. COMMON BILE DUCT: Normal measuring 4 mm. . PANCREAS: Normal Visualized portions of the right kidney are unremarkable. No right upper quadrant ascites. US/ABD Limited w/ Elastography IMPRESSION: SEVERE HEPATIC FIBROSIS / CIRRHOSIS Hepatomegaly. Fatty infiltration of the liver. Reference Values: SRU <1.37 m/s (5.7kPa): No to mild fibrosis 1.37 m/s - 2.2 m/s: Moderate to severe fibrosis >2.2 m/s (15kPa): Significant fibrosis / cirrhosis METAVIR Score F2 or higher: 1.34 m/s (5.7kPa) F3 or higher: 1.55 m/s (7.3kPa) F4: 1.80 m/s (10kPa) * If the IQR/Med is >30%, the variance in the measurements is a large and the a ccuracy of the measurement may be in question. Reading Location: [place] [id number]
--- OUTSIDE RECORDS SUMMARY | 2025-09-01 06:46 | XMS RPT_ITS | CCD ---
Author Organization [facility] Care Team Providers Care Senior Java Ui Developer Name Role Phone DEBBIE MAYS, NIRAJ Attending Unavailable PHYSICIAN, NONE Primary Care Unavailable Care Physician, No Primary Primary Care Provider Unavailable Ifeoma MAYS, Dr. Aparicio Emergency Provider Unavailab adriana Marcos MD, Dr. Garibay Attending Provider [phone] Hemant MAYS, Dr. Garibay Admit Provider Dr. Lani Marcos MD Other Provider Shaheen Knight MD Other Provider Unavailable Sunny MAYS, Dr. Horvath Other Provider Jyoti Campos MD Other Provider Unavailable Dr. Sheila Chase DO Other Provider Dr. Michelle Johnston MD Other Provider Dr. Naga North MD Other Provider Dr. Marizol Bahena MD Other Provider Dr. Justyn Isabel MD Other Provider [phone] Chi Spears MD Other Provider Dr. Silvino Carty MD Other Provider Dr. Myriam Cardoza DO Other Provider Nika Benton MD Other Provider Dr. Murray Almodovar MD Other Provider [phone] Dr. Rose Morton MD Other Provider Dr. Yahaira Nieto MD Other Provider Dr. Ivan Hernández MD Other Provider Horacio MAYS, Dr. Cruz Other Provider Sindi MAYS, Dr. Montilla Other Provider Ron MAYS, Dr. Harper Other Provider Raheem MAYS, Dr. Samuel Other Provider Unavailable Sanchez MAYS, Barbara Other Provider Unavailable Erik MAYS, Dr. Chante Pearce Attending Provider Joseph MAYS, Dr. Guan Attending Provider Care Physician, No Primary Primary Care Physicia n Unavailable Ifeoma MAYS, Dr. Aparicio Emergency Department Physici an Unavailable Hemant MAYS, Dr. Garibay Attending Physician Hemant MAYS, Dr. Garibay Admitting Physician Hemant MAYS, Dr. Garibay Nurse Practitioner Antonia MAYS, Shaheen Nurse Practitioner Unavailable Sunny MAYS, Dr. Horvath Nurse Practitioner Andres MAYS, Jyoti Nurse Practitioner Unavailab adriana Chase DO, Dr. Sosa Nurse Practitioner Vickie MAYS, Dr. Martinez Nurse Practitioner Mary Anne MAYS, Dr. Nielson Nurse Practitioner Shruti MAYS, Dr. Fontana Nurse Practitioner Dr. Justyn Isabel MD Nurse Practitioner Regan MAYS, Dr. Mireles Nurse Practitioner Carloz MAYS, Dr. Dubois Nurse Practitioner Dr. Myriam Cardoza DO Nurse Practitioner Nika Benton MD Nurse Practitioner Scooby MAYS, Dr. Gao Nurse Practitioner Praveen MAYS, Dr. Rose Nurse Practitioner Gerson MAYS, Dr. Syed Nurse Practitioner Dr. Ivan Hernández MD Donald Nurse Practitioner Horacio MAYS, Dr. Cruz Nurse Practitioner Sindi MAYS, Dr. Montilla Nurse Practitioner Ron MAYS, Dr. Harper Nurse Practitioner Raheem MAYS, Dr. Samuel Nurse Practitioner Unavaildarshan Bradford MD, [facility] Nurse Practitioner Unavaildarshan Valencia MD, Dr. Chante Pearce Attending Physician [phone] Joseph MAYS, Dr. Guan Attending Physician [phone] Erik MAYS, Dr. Chante Pearce Nurse Practitioner Care Physician, No Primary Referring Provider Un available Char WORKSITE WELLNESS PRACTITIONER-CNano Attending Physician Bordnseng WORKSITE WELLNESS PRACTITIONER-C, Nano Referring Provider Care Physician, No Primary Primary Care Unava ilable Nano Pardo Referring Unavailable PraTwan smith Attending Unavailable Care Physician, No Primary Primary Care Unava ilable Roge Ruiz Attending Unavailable Care Physician, No Primary Primary Care Unava ilable Care Physician, No Primary Referring Unava ilable Twan Martinez Attending Unavailable Care Physician, No Primary Primary Care Unava ilable Bordner, Nano Referring Unavailable BorNano sotelo Attending Unavailable Care Physician, No Primary Primary Care Unava ilable Twan Case Referring Unavailable Twan Case Attending Unavailable Care Physician, No Primary Primary Care Unava ilable PraTwan smith Referring Unavailable Twan Case Attending Unavailable Care Physician, No Primary Primary Care Unava ilable Bordner, Nano Referring Unavailable BorNano sotelo Attending Unavailable Care Physician, No Primary Primary Care Unava ilable Chante Valencia Attending Unavailable Lani Marcos Admitting Unavailable Shaheen Knight Consulting Unavailable Adeli, Amir Consulting Unavailable Hinduja, Jyoti Consulting Unavailable Salvatore, Sheila Consulting Unavailable Zha, Michelle Consulting Unavailable Mary Anne, Naga Consulting Unavailable Shruti, Marizol Consulting Unavailable BitJustyn najera Consulting Unavailable Chi Spears Consulting Unavailable Silvino Carty Consulting Unavailable Myriam Cardoza Consulting Unavailable Nika Benton Consulting Unavailable Murrya Almodovar Consulting Unavailable Rose Morton Consulting Unavailable Yahaira Nieto Consulting Unavailable Ivan Hernández Consulting UnavailAnthony Dao Consulting Unavailable Sindi, Eladia Consulting Unavailable Leroy Velasquez Consulting Unavailable Lizzie Maciel Consulting Unavailable Barbara Bradford Consulting Unavailable Lani Marcos Consulting Unavailable Care Physician, No Primary Primary Care Unava ilable Lani Marcos Attending Unavailable Care Physician, No Primary Primary Care Unava ilable Chante Valencia Attending Unavailable Lani Marcos Admitting Unavailable Shaheen Knight Consulting Unavailable AdeAlexandru hernandez Consulting Unavailable Hindjana, Jyoti Consulting Unavailable Salvatore, Sheila Consulting Unavailable Michelle Johnston Consulting Unavailable Naga North Consulting Unavailable Marizol Bahena Consulting Unavailable Justyn Isabel Consulting Unavailable Chi Spears Consulting Unavailable Silvino Carty Consulting Unavailable Myriam Cardoza Consulting Unavailable Nika Benton Consulting Unavailable Murray Almodovar Consulting Unavailable Rose Morton Consulting Unavailable Yahaira Nieto Consulting Unavailable Betty, Ivan Bennett Consulting UnavailAnthony Dao Consulting Unavailable Sindi, Rami Consulting Unavailable Ron, Leroy Consulting Unavailable Lizzie Maciel Consulting Unavailable Barbara Bradford Consulting Unavailable Lani Marcos Consulting Unavailable Chante Valencia Consulting Unavailable Care Physician, No Primary Primary Care Unava ilable Care Physician, No Primary Referring Unava ilable Angie Antunez NP Attending Unavailable Care Physician, No Primary Referring Unava ilable Nano Pardo Attending Unavailable Care Physician, No Primary Primary Care Unava ilable Medications Current Medications Medication Drug Class(es) Dates Sig (Normalized) Sig (Original) acetaminophen 500 mg oral capsule (3 sources) Start: 07-04-2025 take 2 capsules by mouth every six hours as needed for pain aspirin 81 mg chewable tablet (2 sources) Platelet Aggregation Inhibitor, Nonsteroidal Anti-inflammatory Drug Start: 07-05-2025 take 1 tablet by mouth at breakfast atorvastatin 80 mg oral tablet (2 sources) HMG-CoA Reductase Inhibitor Start: 07-05-2025 take 1 tablet by mouth at bedtime metFORMIN hydrochloride 500 mg oral tablet (2 sources) Biguanide Start: 07-05-2025 take 1 tablet by mouth twice daily Completed/Discontinued Medications Medication Drug Class(es) Dates Sig (Normalized) Sig (Original) acetaminophen 325 mg / HYDROcodone bitartrate 5 mg oral tablet (3 sources) Opioid Agonist Start: 11-15-2023 End: 07-04-2025 Hydrocodone-Acetami nophen 5-325 mg tablet Discontinued 1 {tbl} PO EVERY 6 HOURS NEEDED as needed for Pain 12 3 0 November 15, 2023 July 04, 2025 3:16pm Contusion of left hip Contusion of left hip, initial encounter acetaminophen 325 mg / oxyCODONE hydrochloride 5 mg oral tablet (9 sources) Opioid Agonist Start: 09-27-2015 End: 07-04-2025 [...] drowsiness ketorolac tromethamine 10 mg oral tablet (3 sources) Nonsteroidal Anti-inflammatory Drug, Cyclooxygenase Inhibitor Start: 09-24-2015 End: 07-04-2025 take 1 tablet by mouth every six hours Ketorolac 10 MG tablet Discontinued 10 mg PO EVERY 6 HOURS 20 0 September 24, 2015 1:00am July 04, 2025 3:16pm ondansetron 4 mg disintegrating oral tablet (3 sources) Serotonin-3 Receptor Antagonist Start: 09-24-2015 End: 07-04-2025 take 1 tablet by mouth every eight hours as needed for nausea Ondansetron 4 MG tablet Discontinued 4 mg PO EVERY 8 HOURS NEEDED as needed for Nausea September 24, 2015 1:00am July 04, 2025 3:16pm phenazopyridine hydrochloride 100 mg oral tablet (3 sources) Start: 09-27-2015 End: 07-04-2025 take 1 tablet by mouth twice daily as needed for pain Phenazopyridine 100 MG tablet Discontinued 100 mg PO TWICE DAILY NEEDED as needed for Pain 14 0 September 27, 2015 12:46pm July 04, 2025 3:17pm Problems Problem Classification Problem Date Documented Date Episodic/Chronic Acute cerebrovascular disease (4 sources) Cerebrovascular accident; Translations: [Cerebral infarction, unspecified] Onset: 08-30-2025 Chronic Comment on above: MRI brain (07/04/2025 ): acute infarct involving left occipital lobe left PLACEMENT SECRETARY territory Acute cerebrovascular disease (2 sources) Acute cerebrovascular disease Blindness and vision defects (1 source) Unspecified visual loss; Translations: [Unspecified visual loss] Onset: 07-25-2025 Chronic Blindness and vision defects (9 sources) Eye / vision finding; Translations: [Unspecified visual disturbance] Onset: 07-06-2025 07-04-2025 Episodic Diabetes mellitus without complication (3 sources) Diabetes mellitus; Translations: [Type 2 diabetes mellitus without complications] Chronic Disorders of lipid metabolism (2 sources) Dyslipidemia; Translations: [Hyperlipidemia, unspecified] 08-01-2025 Chronic E Codes: Fall (3 sources) Fall; Translations: [Unspecified fall, initial encounter] 11-23-2023 Episodic Malaise and fatigue (3 sources) Fatigue; Translations: [Other fatigue] Onset: 08-30-2025 08-03-2025 Episodic Other hematologic conditions (2 sources) Erythrocytosis; 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] 08-01-2025 Episodic Other hematologic conditions (2 sources) Secondary polycythemia; 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] Onset: 08-15-2025 Episodic Residual codes; unclassified (1 source) Sleep apnea; Translations: [Sleep apnea, unspecified] 08-01-2025 Chronic Residual codes; unclassified (1 source) Sleep apnea, unspecified; Translations: [Sleep apnea, unspecified] Onset: 08-30-2025 Chronic Residual codes; unclassified (7 sources) Tobacco use and exposure - finding; Translations: [Tobacco use] 07-04-2025 Episodic Residual codes; unclassified (1 source) Tobacco use; Translations: [Tobacco use] Onset: 07-06-2025 Episodic Screening and history of mental health and substance abuse codes (1 source) Tobacco use and exposure - finding Chronic Superficial injury; contusion (3 sources) Contusion of hip; Translations: [Contusion of left hip, initial encounter] 11-23-2023 Episodic Unclassified (2 sources) see to establish PCP relationship Unclassified (1 source) I63.9 - Cerebral infarction, unspecified,H53.9 - Unspecified visual disturbance,Z72.0 - Tobacco use,E11.9 - Type 2 diabetes mellitus without complications Results Test Name Value Interpretation Reference Range Facility Oncology Visit Reporton Oncology Visit Report [facility] [address] [place] [address] OFFICE VISIT Date of Service: 08/23/25 1551 MR#: [id number] Acct: [id number] Name: AMANDA CONCEPCION Rep #: [id number] : 1955 From: Twan Case MD Age/Sex: 70/M Location: [facility] Status: Signed HPI Subjective Date of Service 08/23/25 Chief Complaint Referred for polycythemia evaluation History of Present Illness 70-year-old man has had polycythemia since 2015. He had visual loss, imaging showed left PLACEMENT SECRETARY infarct, he was started on aspirin and now referred for further evaluation. He denies headache, nausea, vomiting. 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 pets and animals: Yes pets and animals: dog(s) Smoking Status: Current every day smoker tobacco type: cigarettes alcohol intake: never substance use type: does not use caffeine: Yes Type: carbonated beverages do you feel safe at home: Yes Intake Vital Signs 08/01/25 14:06 08/23/25 15:54 08/23/25 15:56 Height 5 ft 10 in 5 ft 10 in 5 ft 10 in Weight: 112.491 kg BMI 35.6 BP 129/71 H Blood Pressure Location Lt brachial Position Sitting Respiration 18 Pulse 58 L Pulse Source Monitor Temp 98 F Temperature Source Temporal Artery Pulse Oximetry (%) 97 Oxygen Delivery Method room air Intake Accompanied by: Self Is patient in pain?: Yes (general) Pain scale (1-10): 4 Allergies No Known Allergies Allergy (Verified 08/23/25 15:51) Medications ???Medication ???Instructions ???Recorded ???Confirmed ???Type acetaminophen 500 mg capsule 1,000 mg PO Q6H PRN fever or pain 07/04/25 08/23/25 History aspirin 81 mg chewable tablet 81 mg PO BREAKFAST #30 tabs 08/23/25 Rx atorvastatin 80 mg tablet 80 mg PO QHS #30 tabs 07/05/2502/11 Rx metformin 500 mg tablet 500 mg PO BID #60 tabs 07/05/25 Rx Have you fallen in the past year?: No Central Venous Access Central Venous Access: No Laboratory Tests 08/03/25 15:26 WBC 10.6 Hgb 18.2 H* Hct 54.2 H Plt Count 239 Absolute Neuts (auto) 7.4 Absolute Lymphs (auto) 2.22 Sodium 140 Potassium 4.3 Chloride 106 Carbon Dioxide 24.3 BUN 35 H Creatinine 1.28 H Glucose 109 H Calcium 9.5 Magnesium 2.1 Iron 53 L Erythropoietin 10.4 Ferritin 1407 H Total Bilirubin 0.46 AST 33 ALT 54 H Alkaline Phosphatase 152 H C-React Prot Ext Range 5.85 H Total Protein 7.3 Albumin 4.0 Globulin 3.2 Vitamin B12 372 ERYTHROPOIETIN 10.4 2.6-18.5 mIU/mL [employer] DxI 800 Immunoassay System Values obtained with different assay methods or kits cannot be used interchangeably. Results cannot be interpreted as absolute evidence of the presence or absence of malignant disease. Performed at: [facility] [address] [facility], [place], [place] [id number] Entry Level Project Coordinator: Yael Caballero [facility], Phone: [phone] Performed at: [facility] [employer] [facility] [address] [facility], [facility], [place] [id number] Entry Level Project Coordinator: Yael Caballero [facility], Phone: [phone] Performed at: [address] [id number] Entry Level Project Coordinator: Cruzito Loja PhD, Phone: [phone] FOL,RBC [id number] FOL,HEMOLYSATE 410.0 Not Estab. ng/mL HEMATOCRIT 56.1 H 37.5-51.0 % FOLATE, RBC 731 >498 ng/mL JAK2 MUTATION JAK2 MUT QUAL Comment . Result: NEGATIVE for the JAK2 V617F mutation. Interpretation: The G to T nucleotide change encoding the V617F mutation was not detected. This result does not rule out the presence of the JAK2 mutation at a level below the sensitivity of detection of this assay, or the presence of other mutations within JAK2 not detected by this assay. This result does not rule out a diagnosis of polycythemia vera, essential thrombocythemia or idiopathic myelofibrosis as the V617F mutation is not detected in all patients with these disorders. Exam Physical Exam Const alert, oriented x3 and no apparent distress HEENT normocephalic, external ears normal and external nose normal Eyes PERRL, EOMs intact bilaterally, conjunctivae normal and no scleral icterus Neck supple Lymph Lymphatic: no lymphadenopathy noted Resp normal respiratory effort and clear t (more content not included)... Normal [facility] Erythropoietinon 08-09-2025 ERYTHROPOIETIN 10.4 mIU/mL Normal 2.6-18.5 [facility] Comment on above: Result Comment: [employer] DxI 800 Immunoassay System Values obtained with different assay methods or kits cannot be used interchangeably. Results cannot be interpreted as absolute evidence of the presence or absence of malignant disease. Performed at: [employer] [facility] [address] [facility], [facility], [place] [id number] Entry Level Project Coordinator: Yael Caballero [facility], Phone: [phone] Performed at: - [facility] [address] [facility] [place] [id number] Entry Level Project Coordinator: Yael Caballero [facility], Phone: [phone] Performed at: [facility] [employer] [id number] Entry Level Project Coordinator: Cruzito Loja PhD, Phone: [phone] Performed By: #### L 100.0100 #### [facility] [address] [place], [place], [address] Folates, RBCon 08-09-2025 Fol.,Hemolysate 410.0 ng/mL Normal Not Estab. [facility] Comment on above: Performed By: #### L 100.0100 #### [facility] [address] [place], [address] Folate, RBC 731 ng/mL Normal >498 [facility] Comment on above: Performed By: #### L 100.0100 #### [facility] [address] [place], [address] Hematocrit (Bld) [Volume fraction] 56.1 % High 37.5-51.0 [facility] Comment on above: Performed By: #### L 100.0100 #### [facility] [address] [place], [address] JAK2 Mutation Analysison JAK2 COMMENT Comment Normal . [facility] Comment on above: Result Comment: Tech nical Component performed at [facility] Professional Component performed by: Yeison Arteaga, PhD, [facility] Director, Molecular Oncology [facility] [id number], [address] [place] [address] This test was developed and its performance characteristics determined by [facility]. It has not been cleared or approved by the Food and Drug Administration. Performed By: #### L 100.0100 #### [facility] [address] [place], [address] JAK2 COMMENT 2 Comment Normal . [facility] Comment on above: Result Comment: JAK2 is a cytoplasmic tyrosine kinase with a mcwilliams role in signal transduction from multiple hematopoietic growth factor receptors. A point mutation within exon 14 of the JAK2 gene ([id number]) encoding a valine to phenylalanine substitution at position 617 of the JAK2 protein (V617F) has been identified in most patients with polycythemia vera, and in about half of those with either essential thrombocythemia or idiopathic myelofibrosis. The V617F has also been detected, although infrequently, in other myeloid disorders such as chronic myelomonocytic leukemia and chronic neutrophilic luekemia. V617F is an acquired mutation that alters a highly conserved valine present in the negative regulatory JH2 domain of the JAK2 protein and is predicted to dysregulate kinase activity. Methodology: Total genomic DNA was extracted and subjected to TaqMan real-time PCR amplification/detection. Two amplification products per sample were monitored by real-time PCR using primers/probes specific to JAK2 wild type (WT) and JAK2 mutant V617F. The [id number] Absolute Quantitation software will compare the patient specimen valuse to the standard curves and generate percent values for wild type and mutant type. In vitro studies have indicated that this assay has an analytical sensitivity of 1%. References: Steven EJ, Fei TODD, Truong PJ, et al. Acquired mutation of the tyrosine kinase JAK2 in human myeloproliferative disorders. Lancet. 2005 Jan 05; 365(9024):8289-0926. hCi Haas, Wong V, Adriana Napoles JP. A unique clonal JAK2 mutation leading to constitutive signaling causes polycythaemia vera. Nature. 2005 Feb 14; 300(5632):6365-6608. Maverick R, Lana F, Niki , et al. A gain-of- function mutation of JAK2 in myeloproliferative disorders. N Engl J Med. 2005 Feb 14; 35217):6665-9691. Performed By: #### L 100.0100 #### [facility] [address] [place], [place], [id number] JAK2 MUT QUAL Comment Normal . [facility] Comment on above: Result Comment: Resu lt: NEGATIVE for the JAK2 V617F mutation. Interpretation: The G to T nucleotide change encoding the V617F mutation was not detected. This result does not rule out the presence of the JAK2 mutation at a level below the sensitivity of detection of this assay, or the presence of other mutations within JAK2 not detected by this assay. This result does not rule out a diagnosis of polycythemia vera, essential thrombocythemia or idiopathic myelofibrosis as the V617F mutation is not detected in all patients with these disorders. Performed By: #### L 100.0100 #### [facility] [address] [place], [place], [id number] Absolute lymphocyte countOrd ered By: Nano Pardo on 08-03-2025 Lymphocytes Auto (Unsp spec) [#/Vol] 2.22 10*3/uL 0.83-4.51 [facility] Absolute neutrophil countOrd ered By: Nano Pardo on 08-03-2025 Neutrophils (Bld) [#/Vol] 7.4 10*3/uL 2.0-7.7 [facility] Anion gap in Serum or Plasma Ordered By: Nano Pardo on 08-03-2025 Anion gap [Moles/Vol] 9 mmol/L 03-03 [facility] Automated lymphocyte count a s percentage of total leukocytesOrdered By: Nano Pardo on 08-03-2025 Lymphocytes/100 WBC Auto (Unsp spec) 21.0 % [facility] BUN/creatinine ratioOrdered By: Nanosoumya Pardo on 08-03-2025 Urea nitrogen/Creatinine [Mass ratio] 27.7 mg/mg High 08-08 [facility] Basophil percentageOrdered B y: Nano Pardo on 08-03-2025 Basophils/100 WBC (Bld) 0.8 % 0 [facility] Bilirubin, totalOrdered By: Nano Pardo on 08-03-2025 Bilirubin [Mass/Vol] 0.46 mg/dL 0.00-1.30 [facility] CBC W/Diff, Automatedon 07-20 Hemoglobin (Bld) [Mass/Vol] 18.2 g/dL Invalid Interpretation Code 13.0-16.5 [facility] Comment on above: Result Comment: CRIT ICAL VALUE CALLED TO Brice MICHELLE 08/03/25 1653 Britney Rosa. RESULTS READ BACK BY SAME. Performed By: #### L 100.0100 #### [facility] [address] [place], [place], [id number] (215) Absolute Lymph 2.22 X10 3/uL Normal 0.83-4.51 [facility] Comment on above: Performed By: #### L 100.0100 #### [facility] [address] [place], [address] Absolute Neut 7.4 X10 3/uL Normal 2.0-7.7 [facility] Comment on above: Performed By: #### L 100.0100 #### [facility] [address] [place], [address] Basophils/100 WBC (Bld) 0.8 % Normal 0-1 [facility] Comment on above: Performed By: #### L 100.0100 #### [facility] [address] [place], [address] Eosinophils/100 WBC (Bld) 3.9 % Normal 0-5 [facility] Comment on above: Performed By: #### L 100.0100 #### [facility] [address] [place], [address] Erythrocyte distribution width (RBC) [Ratio] 13.1 % Normal 11.6-14.6 [facility] Comment on above: Performed By: #### L 100.0100 #### [facility] [address] [place], [address] Hematocrit (Bld) [Volume fraction] 54.2 % High 40-54 [facility] Comment on above: Performed By: #### L 100.0100 #### [facility] [address] [place], [address] IG% 0.400 Normal 0.0-0.9 [facility] Comment on above: Result Comment: IG% - Immature Granulocytes (promyelocytes, myelocytes and metamyelocytes) > 1% indicates that a LEFT SHIFT is Present. Performed By: #### L 100.0100 #### [facility] [address] [place], [address] Lymphocytes/100 WBC (Bld) 21.0 % Normal 19-41 [facility] Comment on above: Performed By: #### L 100.0100 #### [facility] [address] [place], [address] MCH (RBC) [Entitic mass] 29.9 pg Normal 27.0-32.0 [facility] Comment on above: Performed By: #### L 100.0100 #### [facility] [address] [place], [address] MCHC (RBC) [Mass/Vol] 33.6 g/dL Normal 32-36 [facility] Comment on above: Performed By: #### L 100.0100 #### [facility] [address] [place], [address] MCV (RBC) [Entitic vol] 89.0 fL Normal 80-94 [facility] Comment on above: Performed By: #### L 100.0100 #### [facility] [address] [place], [address] Monocytes/100 WBC (Bld) 4.5 % Normal 0-10 [facility] Comment on above: Performed By: #### L 100.0100 #### [facility] [address] [place], [address] Neutrophils/100 WBC (Bld) 69.4 % Normal 47-70 [facility] Comment on above: Performed By: #### L 100.0100 #### [facility] [address] [place], [address] Nucleated RBC (Bld) [#/Vol] 0 10*3/uL Normal 0-5 [facility] Comment on above: Performed By: #### L 100.0100 #### [facility] [address] [place], [address] Platelet mean volume (Bld) [Entitic vol] 9.9 fL Normal 6.2-12.0 [facility] Comment on above: Performed By: #### L 100.0100 #### [facility] [address] [place], [address] Platelets (Bld) [#/Vol] 239 10*3/uL Normal 150-450 [facility] Comment on above: Performed By: #### L 100.0100 #### [facility] [address] [place], [address] RBC (Bld) [#/Vol] 6.09 10*6/uL Normal 4.6-6.2 [facility] Comment on above: Performed By: #### L 100.0100 #### [facility] [address] [place], [address] RDW SD 42.4 fl Normal 35.1-43.9 [facility] Comment on above: Performed By: #### L 100.0100 #### [facility] [address] [place], [address] WBC (Bld) [#/Vol] 10.6 10*3/uL Normal 4.4-11.0 [facility] Comment on above: Performed By: #### L 100.0100 #### [facility] [address] [place], [address] CRPon 08-03-2025 C-REACTIVE PROT 5.85 mg/L High 0.0-3.0 [facility] Comment on above: Performed By: #### L 100.0100 #### [facility] [address] [place], [address] Calculated very low density lipoprotein (VLDL) cholesterol measurementOrdered By: Nano Pardo on 08-03-2025 Calculated very low density lipoprotein (VLDL) cholesterol measurement 28 mg/dL 5-40 [facility] Carbon dioxide, total [Moles /volume] in Central venous bloodOrdered By: Nano Pardo on 08-03-2025 CO2 [Moles/Vol] 24.3 mmol/L 21.0-32.0 [facility] Chloride assayOrdered By: Zacarias Pardo on 08-03-2025 Chloride [Moles/Vol] 106 mmol/L 98-108 [facility] Comprehensive Metabolic Prof ilon 08-03-2025 Albumin [Mass/Vol] 4.0 g/dL Normal 3.4-4.8 [facility] Comment on above: Performed By: #### L 100.0100 #### [facility] [address] [place], [address] Albumin/Globulin [Mass ratio] 1.2 {ratio} Normal 0.9-2.4 [facility] Comment on above: Performed By: #### L 100.0100 #### [facility] [address] [place], [address] ALK PHOS 152 U/L High 40-129 [facility] Comment on above: Performed By: #### L 100.0100 #### [facility] [address] [place], [address] ALT [Catalytic activity/Vol] 54 U/L High <=46 [facility] Comment on above: Performed By: #### L 100.0100 #### [facility] [address] [place], [address] AST [Catalytic activity/Vol] 33 U/L Normal <=37 [facility] Comment on above: Performed By: #### L 100.0100 #### [facility] [address] [place], [address] Bilirubin [Mass/Vol] 0.46 mg/dL Normal 0.00-1.30 [facility] Comment on above: Performed By: #### L 100.0100 #### [facility] [address] [place], [address] BUN/CRE 27.7 RATIO High 10-20 [facility] Comment on above: Performed By: #### L 100.0100 #### [facility] [address] [place], [address] Calcium [Mass/Vol] 9.5 mg/dL Normal 7.6-11.0 [facility] Comment on above: Performed By: #### L 100.0100 #### [facility] [address] [place], [address] Chloride [Moles/Vol] 106 mmol/L Normal 98-108 [facility] Comment on above: Performed By: #### L 100.0100 #### [facility] [address] [place], [address] CO2 [Moles/Vol] 24.3 mmol/L Normal 21.0-32.0 [facility] Comment on above: Performed By: #### L 100.0100 #### [facility] [address] [place], [address] Creatinine [Mass/Vol] 1.28 mg/dL High 0.70-1.20 [facility] Comment on above: Performed By: #### L 100.0100 #### [facility] [address] [place], [address] GAP 9 Normal 5-15 [facility] Comment on above: Performed By: #### L 100.0100 #### [facility] [address] [place], [address] GFR/1.73 sq M.predicted among non-blacks MDRD (S/P/Bld) [Vol rate/Area] 61 mL/min/{1.73_m2} Normal >60 [facility] Comment on above: Result Comment: mL/m in/1.73m2 CKD-EPI Creatinine Equation (2020) Performed By: #### L 100.0100 #### [facility] [address] [place], [address] Globulin (S) [Mass/Vol] 3.2 g/dL Normal 2.2-4.2 [facility] Comment on above: Performed By: #### L 100.0100 #### [facility] [address] [place], [address] Glucose [Mass/Vol] 109 mg/dL High 70-99 [facility] Comment on above: Performed By: #### L 100.0100 #### [facility] [address] [place], [address] Potassium [Moles/Vol] 4.3 mmol/L Normal 3.3-5.1 [facility] Comment on above: Result Comment: Hemo lysis present, Results??could be affected. ?? Performed By: #### L 100.0100 #### [facility] [address] [place], [address] Sodium [Moles/Vol] 140 mmol/L Normal 133-145 [facility] Comment on above: Performed By: #### L 100.0100 #### [facility] [address] [place], [address] T PROT 7.3 g/dL Normal 5.9-8.4 [facility] Comment on above: Performed By: #### L 100.0100 #### [facility] [address] [place], [address] Urea nitrogen [Mass/Vol] 35 mg/dL High 4-19 [facility] Comment on above: Performed By: #### L 100.0100 #### [facility] [address] [place], [address] Eosinophil percentageOrdered By: Nano Pardo on 08-03-2025 Eosinophils/100 WBC (Bld) 3.9 % 0-5 [facility] Erythrocyte Sed Rateon 08-03 SED RATE 1 mm/hr Normal 0-20 [facility] Comment on above: Performed By: #### L 100.0100, L501.5200, L503.0106, L3100.1350, L500.4050, L501.6710, L503.6550, L3440.5000, L101.9900, L3100.1725, L100.9950, L503.6150, L500.4100 #### [facility] [address] [place], [address] Erythrocyte distribution wid th ratioOrdered By: Nano Pardo on 08-03-2025 Erythrocyte distribution width (RBC) [Ratio] 13.1 % 11.6-14.6 [facility] Erythrocyte distribution wid th standard deviationOrdered By: Nanosoumya Pardo on 08-03-2025 Erythrocyte distribution width (RBC) [Ratio] 42.4 fl 35.1-43.9 [facility] Erythrocyte folate measureme nt with hematocritOrdered By: Nanosoumya Pardo on 08-03-2025 Hematocrit (Bld) [Volume fraction] 56.1 % High 37.5-51.0 [facility] Erythrocyte sedimentation ra teOrdered By: Nanosoumya Pardo on 08-03-2025 ESR (Bld) [Velocity] 1 mm/h 0-20 [facility] Ferritinon 08-03-2025 Ferritin [Mass/Vol] 1407 ng/mL High 37-417 [facility] Comment on above: Performed By: #### L 100.0100, L501.5200, L503.0106, L3100.1350, L500.4050, L501.6710, L503.6550, L3440.5000, L101.9900, L3100.1725, L100.9950, L503.6150, L500.4100 #### [facility] [address] [place], [address] Glomerular filtration rate ( GFR) estimation/1.73 sq m using serum, plasma, or whole bOrdered By: Nanosoumya Pardo on 08-03-2025 GFR/1.73 sq M.predicted among non-blacks MDRD (S/P/Bld) [Vol rate/Area] 61 mL/min/{1.73_m2} >60 [facility] Comment on above: mL/min/1.73m2 CKD-EP I Creatinine Equation (2020) Hematocrit Auto (Bld) [Volum e fraction]Ordered By: Nano Pardo on 08-03-2025 Hematocrit (Bld) [Volume fraction] 54.2 % High 40-54 [facility] Hemoglobin measurementOrdere d By: Nano Pardo on 08-03-2025 Hemoglobin (Bld) [Mass/Vol] 18.2 g/dL Critically high 13.0-16.5 [facility] Comment on above: CRITICAL VALUE BUSH D TO Brice MICHELLE08/03/25 1653 Britney Rosa.RESULTS READ BACK BY SAME. Immature granulocytes/100 WB C Auto (Bld)Ordered By: Nano Pardo on 08-03-2025 Immature granulocytes/100 WBC (Bld) 0.400 % 0.0-0.9 [facility] Comment on above: IG% - Immature Granu locytes (promyelocytes, myelocytes and metamyelocytes) > 1% indicates that a LEFT SHIFT is Present. Ironon 08-03-2025 Iron [Mass/Vol] 53 ug/dL Low 65-175 [facility] Comment on above: Performed By: #### L 100.0100 #### [facility] [address] [place], [address] Iron measurement (mass/mass) Ordered By: Nano Pardo on 08-03-2025 Iron (Unsp spec) [Mass/Mass] 53 ug/dL Low 65-175 [facility] LDL calc ser/plasOrdered By: Nano Pardo on 08-03-2025 Cholesterol in LDL [Mass/Vol] 30 mg/dL [facility] Comment on above: Dfqywfoopk=848-159 m g/dL & Higher Gtis=777 mg/dL or greaterFriedwald Equation for LDL-C Laboratory - Chemistry and C hemistry - challengeOrdered By: Nano Pardo on 08-03-2025 AST [Catalytic activity/Vol] 33 U/L <38 [facility] Lipid Profileon 08-03-2025 CHOL:HDL 2.76 Normal [facility] Comment on above: Performed By: #### L 100.0100, L501.5200, L503.0106, L3100.1350, L500.4050, L501.6710, L503.6550, L3440.5000, L101.9900, L3100.1725, L100.9950, L503.6150, L500.4100 #### [facility] [address] [place], [place], [id number]) Cholesterol [Mass/Vol] 92 mg/dL Normal <=200 [facility] Comment on above: Result Comment: Chol esterol level, Desirable <200 mg/dL Borderline high cholesterol 200-239 mg/dL High cholesterol >=240 mg/dL Recommendations of the NCEP Adult Treatment Panel for the following risk-cutoff thresholds for the [place] population. Performed By: #### L 100.0100, L501.5200, L503.0106, L3100.1350, L500.4050, L501.6710, L503.6550, L3440.5000, L101.9900, L3100.1725, L100.9950, L503.6150, L500.4100 #### [facility] [address] [place], [address] Cholesterol in HDL [Mass/Vol] 33 mg/dL Low [facility] Comment on above: Result Comment: Lauren onal Cholesterol Education Program (NCEP) guidelines: <40 mg/dL: Low HDL-cholesterol (major risk factor for CHD) >= 60 mg/dL: High HDL-cholesterol (negative risk factor for CHD) HDL-cholesterol is affected by a number of factors, e.g. smoking, exercise, hormones, sex and age. Performed By: #### L 100.0100, L501.5200, L503.0106, L3100.1350, L500.4050, L501.6710, L503.6550, L3440.5000, L101.9900, L3100.1725, L100.9950, L503.6150, L500.4100 #### [facility] [address] [place], [place], [phone] ([address] Cholesterol in LDL [Mass/Vol] 30 mg/dL Normal [facility] Comment on above: Result Comment: Bord zohrxs=322-755 mg/dL Higher Cxdo=764 mg/dL or greater Friedwald Equation for LDL-C Performed By: #### L 100.0100, L501.5200, L503.0106, L3100.1350, L500.4050, L501.6710, L503.6550, L3440.5000, L101.9900, L3100.1725, L100.9950, L503.6150, L500.4100 #### [facility] [address] [place], [address] Cholesterol in VLDL [Mass/Vol] 28 mg/dL Normal 5-40 [facility] Comment on above: Performed By: #### L 100.0100, L501.5200, L503.0106, L3100.1350, L500.4050, L501.6710, L503.6550, L3440.5000, L101.9900, L3100.1725, L100.9950, L503.6150, L500.4100 #### [facility] [address] [place], [address] Triglyceride [Mass/Vol] 140 mg/dL Normal [facility] Comment on above: Result Comment: The drugs N-Acetylcysteine and Metamizole may falsely depress this assay. Normal range: <150 mg/dL Borderline High: 150-199 mg/dL High: 200-499 mg/dL Very High: >500 mg/dL Performed By: #### L 100.0100, L501.5200, L503.0106, L3100.1350, L500.4050, L501.6710, L503.6550, L3440.5000, L101.9900, L3100.1725, L100.9950, L503.6150, L500.4100 #### [facility] [address] [place], [address] MCV (mean corpuscular volume ) determinationOrdered By: Nano Pardo on 08-03-2025 MCV (RBC) [Entitic vol] 89.0 fL 80-94 [facility] Magnesiumon 08-03-2025 Magnesium [Mass/Vol] 2.1 mg/dL Normal 1.5-2.2 [facility] Comment on above: Performed By: #### L 100.0100 #### [facility] [address] [place], [address] Magnesium measurement (mass/ volume)Ordered By: Nano Pardo on 08-03-2025 Magnesium (Unsp spec) [Mass/Vol] 2.1 mg/dL 1.5-2.2 [facility] Mean corpuscular hemoglobin (MCH) determinationOrdered By: Nano Pardo on 08-03-2025 MCH (RBC) [Entitic mass] 29.9 pg 27.0-32.0 [facility] Mean corpuscular hemoglobin concentration (MCHC) determinationOrdered By: Nanosoumya Pardo on 08-03-2025 MCHC (RBC) [Mass/Vol] 33.6 g/dL 32-36 [facility] Mean platelet volume determi nationOrdered By: Nano Pardo on 08-03-2025 Platelet mean volume (Bld) [Entitic vol] 9.9 fL 6.2-12.0 [facility] Monocyte percentageOrdered B y: Nano Pardo on 08-03-2025 Monocytes/100 WBC (Bld) 4.5 % 0-10 [facility] Neutrophil percentageOrdered By: Nanosoumya Pardo on 08-03-2025 Neutrophils/100 WBC (Bld) 69.4 % 47-70 [facility] No Panel InformationOrdered By: Nano Pardo on 08-03-2025 JAK2 Mutation Comment . [facility] Comment on above: Technical Component performed at [facility] RTPProfessional Component performed by:Yeison Arteaga, PhD, FACMGDirector, Molecular OncologyLabmosaic life [facility] [id number], [address] [facility] [phone] test was developed and its performance characteristicsdetermined by [employer]. It has not been cleared orapproved by the Food and Drug Administration. JAK2 V617F Reviewed By Comment . [facility] Comment on above: JAK2 is a cytoplasmi c tyrosine kinase with a mcwilliams role insignal transduction from multiple hematopoietic growthfactor receptors. A point mutation within exon 14 of theJAK2 gene (X3245P) encoding a valine to phenylalaninesubstitution at position 617 of the JAK2 protein (V617F)has been identified in most patients with polycythemiavera, and in about half of those with either essentialthrombocythemia or idiopathic myelofibrosis. The V617F hasalso been detected, although infrequently, in other myeloiddisorders such as chronic myelomonocytic leukemia andchronic neutrophilic luekemia. V617F is an acquiredmutation that alters a highly conserved valine present inthe negative regulatory JH2 domain of the JAK2 proteinand is predicted to dysregulate kinase activity.Methodology:Total genomic DNA was extracted and subjected to TaqManreal-time PCR amplification/detection. Two amplificationproducts per sample were monitored by real-time PCR usingprimers/probes specific to JAK2 wild type (WT) and JOA0xoweis V617F. The [employer] Absolute Quantitation softwarewill compare the patient specimen valuse to the standardcurves and generate percent values for wild type andmutant type. In vitro studies have indicated that thisassay has an analytical sensitivity of 1%.References:Steven EJ, Fei TODD, Truong PJ, et al. Acquiredmutation of the tyrosine kinase JAK2 in humanmyeloproliferative disorders. Lancet. 2005 Jan 05;365(5394):1052-8025. [place], Wong V, Adriana Napoles JP. Aunique clonal JAK2 mutation leading to constitutivesignaling causes polycythaemia vera. Nature. 2005 Feb 14;519(1466):3330-7341.Maverick R, Lana F, Niki , et al. A scwg-af-plwpuasc mutation of JAK2 in myeloproliferative disorders.N Engl J Med. 2005 Feb 14; 35217):1130-9107. Nucleated red blood cell per centageOrdered By: Nano Pardo on 08-03-2025 Nucleated RBC/100 WBC (Bld) [Ratio] 0 % 0-5 [facility] Platelet countOrdered By: Zacarias Parod on 08-03-2025 Platelets (Bld) [#/Vol] 239 10*3/uL 150-450 [facility] Potassium measurement (mass/ volume)Ordered By: Nano Pardo on 08-03-2025 Potassium (Unsp spec) [Mass/Vol] 4.3 mmol/L 3.3-5.1 [facility] Comment on above: Hemolysis present, R esults could be affected. RBC Auto (Bld) [#/Vol]Ordere d By: Nano Pardo on 08-03-2025 RBC (Bld) [#/Vol] 6.09 10*6/uL 4.6-6.2 [facility] Retic Panelon 08-03-2025 IM RET FRACTION 10.90 Normal 3.00-15.90 [facility] Comment on above: Performed By: #### L 100.0100 #### [facility] [address] [place], [address] RET-HE 34.3 pg Normal 30-35 [facility] Comment on above: Performed By: #### L 100.0100 #### [facility] [address] [place], [address] Retic Count 1.33 Normal 0.5-1.5 [facility] Comment on above: Performed By: #### L 100.0100 #### [facility] [address] [place], [address] Reticulocyte hemoglobin equi valent (RET-He) measurementOrdered By: Nano Pardo on 08-03-2025 Hemoglobin (Reticulocytes) [Entitic mass] 34.3 pg 30-35 [facility] Reticulocytes Auto (Bld) [#/ Vol]Ordered By: Nano Pardo on 08-03-2025 Reticulocytes/100 RBC (Bld) 1.33 % 0.5-1.5 [facility] Screening total cholesterol/ high density lipoprotein (HDL) cholesterol ratioOrdered By: Nano Pardo on 08-03-2025 Cholesterol.total/Chol esterol in HDL [Mass ratio] 2.76 {ratio} [facility] Serum creatinine measurement (mass/volume)Ordered By: Nano Pardo on 08-03-2025 Creatinine [Mass/Vol] 1.28 mg/dL High 0.70-1.20 [facility] Serum globulin measurementOr dered By: Nano Pardo on 08-03-2025 Globulin (S) [Mass/Vol] 3.2 g/dL 2.2-4.2 [facility] Serum glucose measurement (m ass/volume)Ordered By: Nano Pardo on 08-03-2025 Glucose [Mass/Vol] 109 mg/dL High 70-99 [facility] Serum or plasma C reactive p rotein measurement (mass/volume)Ordered By: Nano Pardo on 08-03-2025 CRP [Mass/Vol] 5.85 mg/L High 0.0-3.0 [facility] Serum or plasma alanine hernandez otransferase (ALT) measurementOrdered By: Nano Pardo on 08-03-2025 ALT [Catalytic activity/Vol] 54 U/L High <47 [facility] Serum or plasma albumin montana urement (mass/volume)Ordered By: Nano Pardo on 08-03-2025 Albumin [Mass/Vol] 4.0 g/dL 3.4-4.8 [facility] Serum or plasma albumin/glob ulin mass ratioOrdered By: Nanosoumya Pardo on 08-03-2025 Albumin/Globulin [Mass ratio] 1.2 {ratio} 0.9-2.4 [facility] Serum or plasma alkaline yue sphatase measurementOrdered By: Nano Pardo on 08-03-2025 ALP [Catalytic activity/Vol] 152 U/L High 40-129 [facility] Serum or plasma calcium montana urement (mass/volume)Ordered By: Nano Pardo on 08-03-2025 Calcium [Mass/Vol] 9.5 mg/dL 7.6-11.0 [facility] Serum or plasma cholesterol in HDL measurement (mass/volume)Ordered By: Nano Pardo on 08-03-2025 Cholesterol in HDL [Mass/Vol] 33 mg/dL Low >40 [facility] Comment on above: National Cholesterol Education Program (NCEP) guidelines:<40 mg/dL: Low HDL-cholesterol (major risk factor for CHD)>= 60 mg/dL: High HDL-cholesterol (negative risk factor for CHD)HDL-cholesterol is affected by a number of factors, e.g. smoking, exercise, hormones, sex and age. Serum or plasma cholesterol measurement (mass/volume)Ordered By: Nano Pardo on 08-03-2025 Cholesterol [Mass/Vol] 92 mg/dL <201 [facility] Comment on above: Cholesterol level, D esirable <200 mg/dLBorderline high cholesterol 200-239 mg/dLHigh cholesterol >=240 mg/dLRecommendations of the NCEP Adult Treatment Panel for the following risk-cutoff thresholds for the [place] population. Serum or plasma erythropoiet in (EPO) measurement (units/volume)Ordered By: Nano Pardo on 08-03-2025 Erythropoietin (EPO) Qn 10.4 mIU/mL 2.6-18.5 [facility] Comment on above: [employer] el DxI 800 Immunoassay SystemValues obtained with different assay methods or kits cannotbe used interchangeably. Results cannot be interpreted asabsolute evidence of the presence or absence of malignantdisease.Performed at: [employer] [id number] [employer] [facility], [facility], [place] [id number] Director: Yael Caballero [facility], Phone: [phone] at: [facility] [employer] [id number] [employer], [place], [place] [id number] Director: Yael Caballero [facility], Phone: [phone] at: [facility] [address] [id number] Director: Cruzito Loja PhD, Phone: [phone] Serum or plasma ferritin jimy surement (mass/volume)Ordered By: Nano Pardo on 08-03-2025 Ferritin [Mass/Vol] 1407 ng/mL High 37-417 [facility] Serum or plasma urea nitroge n measurement (mass/volume)Ordered By: Nano Pardo on 08-03-2025 Urea nitrogen [Mass/Vol] 35 mg/dL High 4-19 [facility] Sodium levelOrdered By: Sendy Pardo on 08-03-2025 Sodium [Moles/Vol] 140 mmol/L 133-145 [facility] Total proteinOrdered By: Serg Pardo on 08-03-2025 Protein [Mass/Vol] 7.3 g/dL 5.9-8.4 [facility] Triglycerides measurementOrd ered By: Nano Pardo on 08-03-2025 Triglyceride [Mass/Vol] 140 mg/dL <199 [facility] Comment on above: The drugs N-Acetylcy steine and Metamizole may falsely depress this assay. Normal range: <150 mg/dLBorderline High: 150-199 mg/dLHigh: 200-499 mg/dLVery High: >500 mg/dL Vitamin B12on 08-03-2025 Cobalamin (Vitamin B12) [Mass/Vol] 372 pg/mL Normal 180-914 [facility] Comment on above: Performed By: #### L 100.0100, L501.5200, L503.0106, L3100.1350, L500.4050, L501.6710, L503.6550, L3440.5000, L101.9900, L3100.1725, L100.9950, L503.6150, L500.4100 #### [facility] [address] [place], [place], [id number] Vitamin B12 ser/plasOrdered By: Nano Pardo on 08-03-2025 Cobalamin (Vitamin B12) [Mass/Vol] 372 pg/mL 180-914 [facility] White blood cell (WBC) count Ordered By: Nano Pardo on 08-03-2025 WBC (Bld) [#/Vol] 10.6 10*3/uL 4.4-11.0 [facility] Neurology Visit Reporton Neurology Visit Report [facility] [address] [facility], [address] [place] [id number] OFFICE VISIT Date of Service: 08/01/25 MR#: [id number] Acct: [id number] Name: AMANDA CONCEPCION Rep #: [id number] : 1955 Provider: MIRIAM meza Age/Sex: 70/M Location: [facility] Status: Signed HPI HPI Chief Complaint: Establish Care Details: History present illness: Mr. Concepcion is a 70-year-old right-handed male who presents unaccompanied to neurology today 08/01/2025 to establish care following hospitalization for an acute ischemic stroke of the left o ccipital lobe. Past medical history is limited due to no medical care in the last several years. He states that he last saw a primary care physician nearly 50 years ago. He is currently in the process of establishing with a PCP; however, his appointment is not until November. Hospital course: On 07/04/2025, patient presented to [facility] ED with acute onset of right homonymous hemianopia. NIHSS was 1 so he was not deemed a candidate for TNK. CT brain and CTA head/neck were without acute findings. There was no hemodynamically significant stenosis, LVO, or aneurysms. MRI brain with a small region of acute infarct involving the left occipital lobe and the left PLACEMENT SECRETARY territory. Additionally, there were mild chronic microangiopathic changes elsewhere in the supratentorial white matter. EKG was interpreted as sinus bradycardia with sinus arrhythmia but otherwise normal. TTE was grossly unremarkable with an EF of 65%, stage I diastolic dysfunction, and no regional wall motion abnormalities noted. LDL 69; TG 221; HDL 23, Cholesterol 136; Hemoglobin A1c 7.2%; TSH 3.180 His hemoglobin was 18.7 on admission, which remained elevated at discharge. Platelets were 206. MCV was normal at 88. PT/INR and aPTT were normal. BUN/creatine were elevated as well. Creatinine was 1.23 at discharge. He was discharged on aspirin 81mg daily and atorvastatin 80mg daily. Additionally, he was started on metformin 500mg for his elevated hemoglobin A1c. Patient has many comorbid conditions that he has not necessarily addressed in the past. It is essential he follows up with a primary care provider. Aside from this stroke, problems include dyslipidemia, polycythemia, diabetes mellitus, tobacco use, suspected sleep apnea, and concern for lower extremity vascular disease. I am highly suspicious that the patient has obstructive lung disease including sleep apnea and possibly COPD. He has smoked tobacco for >40 years. Breath sounds are diminished on auscultation bilaterally and he has dyspnea with exertion. He has daytime fatigue, although he does work 2 jobs Friday through Friday. He does report poor sleep quality and his sleeps in a separate room due to his snoring. His polycythemia may be secondary to chronically low oxygen levels or an acquired condition. His persistent polycythemia is concerning in the setting of stroke. Patient has evidence of vascular disease of the bilateral lower extremities. He has nonhealing wounds present on his shins, feet, and toes that are scabbed over. He states that he always has wou nds from his steel toed boots. The right leg has 2+ pitting edema. His skin on his lower legs is hyperpigmented with a brownish discoloration and there is loss of hair. He has difficulty with ambulation and mobility in general. ROS: General: Daily fatigue. No recent weight loss/gain. No recent illness. No fevers. No recent falls. Neuro: No headaches. No dizziness. No numbness/tingling. No tremors. Psych: Reports poor sleep quality. No agitation. No depressive symptoms. No memory difficulties. Cardio: No palpitations. No chest pain or discomfort. No edema. Respiratory: Current smoker >40 years. Intermittent productive cough. No wheezing. Musculoskeletal: No use of assistive devices to ambulate. No neck pain. Chronic back pain. HEENT: No hearing loss. Positive for blurry vision, he wears glasses and states he needs new ones. No diplopia. No dysphagia. GI: No hematochezia. No NVD. No constipation. No abdominal pain or discomfort. : No hematuria. Reports nocturia. No incontinence. No dysuria. History of nephrolithiasis. Skin: Nonhealing/slow healing bilateral lower extremity wounds. PHYSICAL EXAM: Constitutional: Well-developed, well-nourished right-handed male in no acute distress. BMI 35.6% Psych: Cooperative and pleasant. Judgement and insight good. HEENT: Normocephalic. Atraumatic. Hearing grossly normal bilaterally. Periorbital findings are normal. Respiratory: Dyspnea on exertion. Symmetric chest movement. Diminished lung sounds to auscultation bilaterally. Cardio: Regular rate (more content not included)... Normal [facility] Absolute lymphocyte countOrd ered By: Lani Marcos on 07-05-2025 Lymphocytes Auto (Unsp spec) [#/Vol] 2.40 10*3/uL 0.83-4.51 [facility] Absolute neutrophil countOrd ered By: Lani Marcos on 07-05-2025 Neutrophils (Bld) [#/Vol] 5.4 10*3/uL 2.0-7.7 [facility] Anion gap in Serum or Plasma Ordered By: Lani Marcos on 07-05-2025 Anion gap [Moles/Vol] 11 mmol/L - [facility] Automated lymphocyte count a s percentage of total leukocytesOrdered By: Lani Marcos on 07-05-2025 Lymphocytes/100 WBC Auto (Unsp spec) 26.9 % - [facility] BUN/creatinine ratioOrdered By: Lani Marcos on 07-05-2025 Urea nitrogen/Creatinine [Mass ratio] 17.3 mg/mg - [facility] Basic Metabolic Profile (BMP )on 07-05-2025 BUN/CRE 17.3 RATIO Normal - [facility] Comment on above: Order Comment: Memo nts: NPO at NM prior to lipid panel Performed By: #### L 501.9985, L500.4100, L501.9520, L500.2500 #### [facility] [address] [place], [address] Calcium [Mass/Vol] 9.2 mg/dL Normal 7.6-11.0 [facility] Comment on above: Order Comment: Memo nts: NPO at NM prior to lipid panel Performed By: #### L 501.9985, L500.4100, L501.9520, L500.2500 #### [facility] [address] [place], [address] Chloride [Moles/Vol] 106 mmol/L Normal 98-108 [facility] Comment on above: Order Comment: Comme nts: NPO at MN prior to lipid panel Performed By: #### L 501.9985, L500.4100, L501.9520, L500.2500 #### [facility] [address] [place], [address] CO2 [Moles/Vol] 18.8 mmol/L Low 21.0-32.0 [facility] Comment on above: Order Comment: Comme nts: NPO at MN prior to lipid panel Performed By: #### L 501.9985, L500.4100, L501.9520, L500.2500 #### [facility] [address] [place], [address] Creatinine [Mass/Vol] 1.23 mg/dL High 0.70-1.20 [facility] Comment on above: Order Comment: Comme nts: NPO at MN prior to lipid panel Performed By: #### L 501.9985, L500.4100, L501.9520, L500.2500 #### [facility] [address] [place], [address] ECRCL 73.37 ml/min Normal 50-250 [facility] Comment on above: Order Comment: Comme nts: NPO at MN prior to lipid panel Performed By: #### L 501.9985, L500.4100, L501.9520, L500.2500 #### [facility] [address] [place], [address] GAP 11 Normal 5-15 [facility] Comment on above: Order Comment: Comme nts: NPO at MN prior to lipid panel Performed By: #### L 501.9985, L500.4100, L501.9520, L500.2500 #### [facility] [address] [place], [address] GFR/1.73 sq M.predicted among non-blacks MDRD (S/P/Bld) [Vol rate/Area] 64 mL/min/{1.73_m2} Normal >60 [facility] Comment on above: Order Comment: Comme nts: NPO at MN prior to lipid panel Result Comment: mL/m in/1.73m2 CKD-EPI Creatinine Equation (2020) Performed By: #### L 501.9985, L500.4100, L501.9520, L500.2500 #### [facility] [address] [place], [address] Glucose [Mass/Vol] 126 mg/dL High 70-99 [facility] Comment on above: Order Comment: Comme nts: NPO at MN prior to lipid panel Performed By: #### L 501.9985, L500.4100, L501.9520, L500.2500 #### [facility] [address] [place], [address] Potassium [Moles/Vol] 4.3 mmol/L Normal 3.3-5.1 [facility] Comment on above: Order Comment: Comme nts: NPO at MN prior to lipid panel Result Comment: Hemo lysis present, Results??could be affected. ?? Performed By: #### L 501.9985, L500.4100, L501.9520, L500.2500 #### [facility] [address] [place], [address] Sodium [Moles/Vol] 136 mmol/L Normal 133-145 [facility] Comment on above: Order Comment: Comme nts: NPO at MN prior to lipid panel Performed By: #### L 501.9985, L500.4100, L501.9520, L500.2500 #### [facility] [address] [place], [address] Urea nitrogen [Mass/Vol] 21 mg/dL High 4-19 [facility] Comment on above: Order Comment: Comme nts: NPO at NM prior to lipid panel Performed By: #### L 501.9985, L500.4100, L501.9520, L500.2500 #### [facility] [address] [place], [address] Basophil percentageOrdered B y: Lani Marcos on 07-05-2025 Basophils/100 WBC (Bld) 1.0 % 0-1 [facility] CBC W/Diff, Automatedon 06-20 Hemoglobin (Bld) [Mass/Vol] 18.6 g/dL Invalid Interpretation Code 13.0-16.5 [facility] Comment on above: Result Comment: CRIT ICAL VALUE CALLED TO SRINI CONCEPCION 07/05/25 0557 Jaye Das. RESULTS READ BACK BY SAME. Performed By: #### L 100.0100 #### [facility] [address] [place], [address] Absolute Lymph 2.40 X10 3/uL Normal 0.83-4.51 [facility] Comment on above: Performed By: #### L 100.0100 #### [facility] [address], [address] Absolute Neut 5.4 X10 3/uL Normal 2.0-7.7 [facility] Comment on above: Performed By: #### L 100.0100 #### [facility] [address] [place], [address] Basophils/100 WBC (Bld) 1.0 % Normal 0-1 [facility] Comment on above: Performed By: #### L 100.0100 #### [facility] [address] [place], [address] Eosinophils/100 WBC (Bld) 5.4 % High 0-5 [facility] Comment on above: Performed By: #### L 100.0100 #### [facility] [address] [place], [address] Erythrocyte distribution width (RBC) [Ratio] 13.2 % Normal 11.6-14.6 [facility] Comment on above: Performed By: #### L 100.0100 #### [facility] [address] [place], [address] Hematocrit (Bld) [Volume fraction] 54.0 % Normal 40-54 [facility] Comment on above: Performed By: #### L 100.0100 #### [facility] [address] [place], [address] IG% 0.400 Normal 0.0-0.9 [facility] Comment on above: Result Comment: IG% - Immature Granulocytes (promyelocytes, myelocytes and metamyelocytes) > 1% indicates that a LEFT SHIFT is Present. Performed By: #### L 100.0100 #### [facility] [address] [place], [address] Lymphocytes/100 WBC (Bld) 26.9 % Normal 19-41 [facility] Comment on above: Performed By: #### L 100.0100 #### [facility] [address] [place], [address] MCH (RBC) [Entitic mass] 30.4 pg Normal 27.0-32.0 [facility] Comment on above: Performed By: #### L 100.0100 #### [facility] [address] [place], [address] MCHC (RBC) [Mass/Vol] 34.4 g/dL Normal 32-36 [facility] Comment on above: Performed By: #### L 100.0100 #### [facility] [address] [place], [address] MCV (RBC) [Entitic vol] 88.2 fL Normal 80-94 [facility] Comment on above: Performed By: #### L 100.0100 #### [facility] [address] [place], [address] Monocytes/100 WBC (Bld) 5.3 % Normal 0-10 [facility] Comment on above: Performed By: #### L 100.0100 #### [facility] [address] [place], [address] Neutrophils/100 WBC (Bld) 61.0 % Normal 47-70 [facility] Comment on above: Performed By: #### L 100.0100 #### [facility] [address] [place], [address] Nucleated RBC (Bld) [#/Vol] 0 10*3/uL Normal 0-5 [facility] Comment on above: Performed By: #### L 100.0100 #### [facility] [address] [place], [address] Platelet mean volume (Bld) [Entitic vol] 9.7 fL Normal 6.2-12.0 [facility] Comment on above: Performed By: #### L 100.0100 #### [facility] [address] [place], [address] Platelets (Bld) [#/Vol] 206 10*3/uL Normal 150-450 [facility] Comment on above: Performed By: #### L 100.0100 #### [facility] [address] [place], [address] RBC (Bld) [#/Vol] 6.12 10*6/uL Normal 4.6-6.2 [facility] Comment on above: Performed By: #### L 100.0100 #### [facility] [address] [place], [address] RDW SD 42.4 fl Normal 35.1-43.9 [facility] Comment on above: Performed By: #### L 100.0100 #### [facility] [address] [place], [address] WBC (Bld) [#/Vol] 8.9 10*3/uL Normal 4.4-11.0 [facility] Comment on above: Performed By: #### L 100.0100 #### [facility] [address] [place], [address] Calculated very low density lipoprotein (VLDL) cholesterol measurementOrdered By: Lani Marcos on 07-05-2025 Calculated very low density lipoprotein (VLDL) cholesterol measurement 44 mg/dL High 5-40 [facility] Carbon dioxide, total [Moles /volume] in Central venous bloodOrdered By: Lani Marcos on 07-05-2025 CO2 [Moles/Vol] 18.8 mmol/L Low 21.0-32.0 [facility] Chloride assayOrdered By: Néstor Marcos on 07-05-2025 Chloride [Moles/Vol] 106 mmol/L 98-108 [facility] Discharge Instructionon 06-20 Discharge Instruction [facility] Medical Records Department [address] [place] [address] Instructions for Home/Discharge Instructions 07/05/25 1442 MR#: [id number] Acct: [id number] Name: AMANDA CONCEPCION Rep #: [id number] : 1955 70 From: Chante Valencia MD PCP: Lili Physician,No Primary Status:ADM RONALDO Discharge Instructions DC O2, CPAP, BIPAP needs Home O2 Discharge instructions: No Dressing / Incision Discharge Activity: Return to Normal Activity Weight Bearing Status: Weight bearing as tolerated Dressing / Incision Call your doctor if you observe: Fever of 101 or Higher, Dizziness, Chest pain and - (vision not improving) Follow Up Care Test Results: Test results from this visit will be discussed in further detail at your follow-up appointment, if applicable. Discharge Plan Admission Admit Date/Time: 07/04/25 16:23 Primary Reason for Your Visit: acute CVA Attending Provider: Chnate Valencia Primary Care Provider: Care Physician,No Primary Consulting Providers: Shaheen Knight; Alexandru Correa; Jyoti Campos; Sheila Chase; Michelle Johnston; Naga North; Marizol Bahena; Justyn Isabel; Chi Spears; Silvino Carty; Myriam Cardoza; Nika Benton; Murray Almodovar; Rose Morton; Yahaira Nieto; Ivan Hernández; Anthony Leonard; Eladia Delong; Leroy Velasquez; Lizzie Maciel; Barbara Bradford; Lani Marcos Instructions Patient Instructions: Booklet - Understanding Stroke Additional Instructions / Restrictions: Abstain from driving until cleared by Neurology to do so. Counseled to quit smoking, and to eat a heart healthy diet, as well as exercise to lose weight. Discharge Orders/Prescriptions Prescriptions: New atorvastatin 80 mg Tablet 80 mg PO QHS Qty: 30 2RF aspirin 81 mg Tablet,Chewable 81 mg PO BREAKFAST Qty: 30 2RF metformin 500 mg tablet 500 mg PO BID Qty: 60 2RF Rx Instructions: to start taking metformin on , 48 hours after receiving contrast Continued acetaminophen 500 mg capsule 1,000 mg PO Q6H PRN (Reason: fever or pain) Referrals / Follow Up: Jg Hoffman MD [Med Staff - Active Staff] - Within 2 Weeks (see to establish PCP relationship) Scott Spear MD [Non-Staff -Ordering Privileges] - Within 1 Week (see for stroke care) Care Physician,No Primary [Primary Care Provider] - Disposition Disposition (needs filled in before D/C Order can be placed): Home, Self Care 07/05/25 4643 Chante Valencia MD CC: Sheila Chase; Rose Morton; Anthony Leonard; Michelle Johnston MD; Jyoti Campos MD; Shaheen Knight MD; Dr. Alexandru Correa MD; Dr. Naga North MD; Dr. Marizol Bahena MD; Dr. Chi Spears MD; Dr. Justyn Isabel MD; Dr. Silvino Carty MD; Dr. Myriam Cardoza DO; Dr. Murray Almodovar DO; Dr. Ivan Hernández MD; Dr. Yahaira Nieto MD; Dr. Lani Marcos MD; Dr. Eladia Delong MD; Dr. Leroy Velasquez MD; Dr. Lizzie Maciel MD; Nika Benton DO; No Primary Care Physician; Barbara Bradford MD Signed Normal [facility] Echocardiogram study reportO rdered By: Roge Ruiz on 07-05-2025 Study report [facility] Services [address] [place] [address] Echo Complete W/ Contrast 07/05/25917 MR#: [id number] Acct: [id number] Name: AMANDA CONCEPCION Rep #:[id number] : 1955 70 From: Roge Ruiz MD Attending Dr: Dr. Chante Valencia MD Status: ADM RONALDO Ordering Dr: Lani Marcos MD Date: Location: [facility] Sex: M C Admitted: 07/04/25 Reason For Study Reason For Study: TIA/Stroke Procedure This was a 2D Doppler, Color Flow transthoracic echocardiogram. Contrast injection was performed. The study was technically difficult. Exam performed portable in patient room. Left Ventricle Normal LV size. Mild concentric left ventricular hypertrophy. The left ventricular ejection fraction is 65 %. Stage 1 diastolic dysfunction. Right Ventricle Normal right ventricle. Atria The left and right atria are normal. Mitral Valve Normal mitral valve. Tricuspid Valve The tricuspid valve is not well visualized. Aortic Valve Trisinus/trileaflet aortic valve. Pulmonic Valve The pulmonic valve is not well visualized. Great Vessels Normal sized aortic root. Pericardium/Pleural No pericardial effusion. Medication Diluted definity 2ml given slow IV push to enhance endocardial definition. MMode/2D Measurements & Calculations LVIDd: 4.6 cm IVSd: 1.2 cm Ao root diam: 3.2 cm LVIDs: 3.2 cm LVPWd: 1.2 cm RVDd: 3.3 cm FS: 30.2 % LAV(MOD-bp): 37.4 ml LVAd ap4: 23.5 cm2 SV(MOD-sp4): 43.0 ml LAV(MOD-bp) Indexed: 16.1 ml/m2 LVLd ap4: 7.2 cm SI(MOD-sp4): 18.6 ml/m2 LAV(MOD-sp2): 43.0 ml EDV(MOD-sp4): 62.7 ml LAV(MOD-sp4): 31.9 ml EDV(sp4-el): 64.6 ml LVAs ap4: 12.3 cm2 LVLs ap4: 6.4 cm ESV(MOD-sp4): 19.7 ml ESV(sp4-el): 19.9 ml EF(MOD-sp4): 68.6 % EF(sp4-el): 69.2 % SV(sp4-el): 44.7 ml LA A4 area: 14.5 cm2 LA dimension(2D): 3.5 cm RA A4 area: 12.0 cm2 TAPSE: 2.2 cm Time Measurements MV dec time: 0.30 sec Doppler Measurements & Calculations MV E max adryan: 67.8 cm/sec Lat Peak E' Adryan: 9.6 cm/sec Med Peak E' Adryan: 7.0 cm/sec MV A max adryan: 82.0 cm/sec E/E' lat: 7.1 E/E' med: 9.7 MV E/A: 0.83 MV dec slope: 224.3 cm/sec2 Ao V2 max: 129.4 cm/sec LV V1 max: 98.3 cm/sec Ao max P.7 mmHg LV V1 max P.9 mmHg Ao V2 mean: 97.1 cm/sec Ao mean P.0 mmHg Ao V2 VTI: 29.2 cm PA V2 max: 107.4 cm/sec ECHO/Echo Complete W/ Contrast Interpretation Summary The study was technically difficult. Mild concentric left ventricular hypertrophy. The left ventricular ejection fraction is 65 %. Stage 1 diastolic dysfunction. Ordering Physician: Lani Marcos Performed By: Bailey Rankin RDCS, RVT 07/05/25 1243 Date _ Roge Ruiz MD CC: Dr. Chante Valencia MD; Dr. Lani Marcos MD; No Primary Care Physician ~ Date Dictated: 07/05/25917 Date Transcribed: 07/05/251242 User Experience Designer: Signed [facility] Work Phone: Electrocardiogram reportOrde red By: Amanda Whitney on 07-05-2025 EKG study [facility] Cardiovascular Services [address] [place] [address] 12 Lead EKG 07/04/25 1446 MR#: [id number] Acct: [id number] Name: AMANDA CONCEPCION Rep #:[id number] : 1955 70 From: Amanda ortega MD Attending Dr: Dr. Chante Valencia MD Status: ADM RONALDO Ordering Dr: Alessandra Dia MD Date: Location: [facility] Sex: M C Admitted: 07/04/25 Test Reason : STROKE TEAM Blood Pressure : */* mmHG Vent. Rate : 58 BPM Atrial Rate : 58 BPM P-R Int : 164 ms QRS Dur : 74 ms QT Int : 430 ms P-R-T Axes : 44 -2 3 degrees QTcB Int : 422 ms Sinus bradycardia with sinus arrhythmia Otherwise normal ECG Confirmed by Amanda Whitney ([id number]), metropolitan editor GUERLINE CHAMORRO ([id number]) on 2:00:15 PM Referred By: Confirmed By: Amanda Whitney 07/05/25 1200 Date _ Amanda Whitney MD CC: Dr. Alessandra Dia MD; Dr. Chante Valencia MD; No Primary Care Physician ~ Signed [facility] Other Phone: Eosinophil percentageOrdered By: Lani Marcos on 07-05-2025 Eosinophils/100 WBC (Bld) 5.4 % High 0-5 [facility] Erythrocyte distribution wid th ratioOrdered By: Lani Marcos on 07-05-2025 Erythrocyte distribution width (RBC) [Ratio] 13.2 % 11.6-14.6 [facility] Erythrocyte distribution wid th standard deviationOrdered By: Lani Marcos on 07-05-2025 Erythrocyte distribution width (RBC) [Ratio] 42.4 fl 35.1-43.9 [facility] Glomerular filtration rate ( GFR) estimation/1.73 sq m using serum, plasma, or whole bOrdered By: Lani Marcos on 07-05-2025 GFR/1.73 sq M.predicted among non-blacks MDRD (S/P/Bld) [Vol rate/Area] 64 mL/min/{1.73_m2} >60 [facility] Comment on above: mL/min/1.73m2 CKD-EP I Creatinine Equation (2020) Hematocrit Auto (Bld) [Volum e fraction]Ordered By: Lani Marcos on 07-05-2025 Hematocrit (Bld) [Volume fraction] 54.0 % 40-54 [facility] Hemoglobin A1con 07-05-2025 HbA1c (Bld) [Mass fraction] 7.2 % High <=5.6 [facility] Comment on above: Result Comment: Norm al < 5.7 % Prediabetic 5.7 - 6.4 % Diabetic >or= 6.5 % Please note range changes. Performed By: #### L 501.9985, L500.4100, L501.9520, L500.2500 #### [facility] [address] [place] [address], [id number] Hemoglobin A1c percentageOrd ered By: Lani Marcos on 07-05-2025 HbA1c (Bld) [Mass fraction] 7.2 % High <5.7 [facility] Comment on above: Normal < 5.7 % Predi abetic 5.7 - 6.4 % Diabetic >or= 6.5 % Please note range changes. Hemoglobin measurementOrdere d By: Lani Marcos on 07-05-2025 Hemoglobin (Bld) [Mass/Vol] 18.6 g/dL Critically high 13.0-16.5 [facility] Comment on above: CRITICAL VALUE BUSH D TO SRINI CONCEPCION07/05/25 0557 Jaye Das.RESULTS READ BACK BY SAME. Immature granulocytes/100 WB C Auto (Bld)Ordered By: Lani Marcos on 07-05-2025 Immature granulocytes/100 WBC (Bld) 0.400 % 0.0-0.9 [facility] Comment on above: IG% - Immature Granu locytes (promyelocytes, myelocytes and metamyelocytes) > 1% indicates that a LEFT SHIFT is Present. LDL calc ser/plasOrdered By: Lani Marcos on 07-05-2025 Cholesterol in LDL [Mass/Vol] 69 mg/dL [facility] Comment on above: Banvpwqkcl=578-149 m g/dL & Higher Nglj=557 mg/dL or greaterFriedwald Equation for LDL-C Lipid Profileon 07-05-2025 CHOL:HDL 6.02 Normal [facility] Comment on above: Order Comment: Comme nts: NPO at NM prior to lipid panel Performed By: #### L 501.9985, L500.4100, L501.9520, L500.2500 #### [facility] [address] [place], [address] Cholesterol [Mass/Vol] 136 mg/dL Normal <=200 [facility] Comment on above: Order Comment: Comme nts: NPO at [place] prior to lipid panel Result Comment: Chol esterol level, Desirable <200 mg/dL Borderline high cholesterol 200-239 mg/dL High cholesterol >=240 mg/dL Recommendations of the NCEP Adult Treatment Panel for the following risk-cutoff thresholds for the [place] population. Performed By: #### L 501.9985, L500.4100, L501.9520, L500.2500 #### [facility] [address] [place], [address] Cholesterol in HDL [Mass/Vol] 23 mg/dL Low [facility] Comment on above: Order Comment: Comme nts: NPO at NM prior to lipid panel Result Comment: Lauren onal Cholesterol Education Program (NCEP) guidelines: <40 mg/dL: Low HDL-cholesterol (major risk factor for CHD) >= 60 mg/dL: High HDL-cholesterol (negative risk factor for CHD) HDL-cholesterol is affected by a number of factors, e.g. smoking, exercise, hormones, sex and age. Performed By: #### L 501.9985, L500.4100, L501.9520, L500.2500 #### [facility] [address] [place], [address] Cholesterol in LDL [Mass/Vol] 69 mg/dL Normal [facility] Comment on above: Order Comment: Comme nts: NPO at NM prior to lipid panel Result Comment: Bord tetelo=655-738 mg/dL Higher Yfdo=647 mg/dL or greater Friedwald Equation for LDL-C Performed By: #### L 501.9985, L500.4100, L501.9520, L500.2500 #### [facility] [address] [place], [address] Cholesterol in VLDL [Mass/Vol] 44 mg/dL High 5-40 [facility] Comment on above: Order Comment: Comme nts: NPO at MN prior to lipid panel Performed By: #### L 501.9985, L500.4100, L501.9520, L500.2500 #### [facility] [address] [place], [address] Triglyceride [Mass/Vol] 221 mg/dL High [facility] Comment on above: Order Comment: Comme nts: NPO at NM prior to lipid panel Result Comment: The drugs N-Acetylcysteine and Metamizole may falsely depress this assay. Normal range: <150 mg/dL Borderline High: 150-199 mg/dL High: 200-499 mg/dL Very High: >500 mg/dL Performed By: #### L 501.9985, L500.4100, L501.9520, L500.2500 #### [facility] [address], [address] MCV (mean corpuscular volume ) determinationOrdered By: Lani Marcos on 07-05-2025 MCV (RBC) [Entitic vol] 88.2 fL 80-94 [facility] MR/CON.PCM.NEon 07-05-2025 MR/CON.PCM.NE [facility] Medical Records Department [address] [place] [address] Consultation - Neurology 07/05/25 1143 MR#: [id number] Acct: [id number] Name: AMANDA CONCEPCION Rep #: [id number] : 1955 70 From: Leroy Velasquez MD PCP: Care Physician,No Primary Status:ADM RONALDO Location: [place] [address] Assessment and Plan: Stroke Assessment/Plan AMANDA CONCEPCION is a 70 M with a history of nicotine abuse who presents for evaluation of vision changes Neurological examination shows NIH 1. Neuroimaging shows L exchange consultant infarct. Small region of acute infarct involving left occipital lobe left PLACEMENT SECRETARY territory. 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 - Anti-platelet medication: Aspirin 81 mg daily - Occupational/ Physical therapy consults - NPO until swallow evaluation. IVF until able to take po - DVT prophylaxis with SCDs and heparin SQ - Vascular risk factor modification. The following are the recommended guidelines: LDL Goal < 70. Lipitor 80 Smoking Cessation Diabetes Management correction blood pressure control should achieve <130/80 mmHg. BP management should aim to achieve alf contorl in a reasonable amount of time, taking into consideration the individual patient's requirements and characteristics. Weight Management: Goal for BMI is 18.5 -24.9 kg/m2 Alcohol: No more than 2 drinks/day for men or 1 drink/day for non- women - Promote lifestyle modification: weight control, physical activity, moderation of alcohol intake, moderate sodium intake, Smoking cessation Followup with PCP in 1-2 weeks, and in Neurology clinic in 6-12 weeks HPI Consult Data Date of Consult: 07/05/25 HPI Narrative HPI Narrative: AMANDA CONCEPCION, is a 70 M who presents with vision loss PFSH Home Medications ???Medication ???Instructions ???Recorded ???Last Taken ???Type acetaminophen 500 mg capsule 1,000 mg PO Q6H PRN fever or pain 07/04/25 Unknown History Allergy/AdvReac Type Severity Reaction Status Date / Time No Known Allergies Allergy Verified 09/27/15 05:53 Social History Smoking Status: Current every day smoker tobacco type: cigarettes Vital Signs Vital Signs Vital Signs: 07/04/25 14:31 07/04/25 14:41 07/04/25 14:45 Temperature 98.6 F Temperature Source Oral Pulse Rate 61 70 Pulse Strength Respiratory Rate 25 H 27 H Respiratory Effort Respiratory Depth Respiratory Pattern Blood Pressure 129/74 H 123/73 H Blood Pressure Mean 92 89 Blood Pressure Source Blood Pressure Position Blood Pressure Location Pulse Ox 95 Oxygen Delivery Method Room Air Room Air Room Air 07/04/25 15:01 07/04/25 15:30 07/04/25 16:00 Temperature Temperature Source Pulse Rate 60 59 L 59 L Pulse Strength Respiratory Rate 19 H 18 18 Respiratory Effort Respiratory Depth Respiratory Pattern Blood Pressure 123/78 H 127/68 H 117/73 Blood Pressure Mean 93 87 87 Blood Pressure Source Blood Pressure Position Blood Pressure Location Pulse Ox 95 98 98 Oxygen Delivery Method Room Air Room Air Room Air 07/04/25 16:30 07/04/25 16:50 07/04/25 17:30 Temperature 97.7 F L 97.5 F L Temperature Source Temporal Pulse Rate 61 58 L 60 Pulse Strength Respiratory Rate 18 18 18 Respiratory Effort Respiratory Depth Respiratory Pattern Blood Pressure 147/81 H 166/93 H 177/84 H Blood Pressure Mean 103 117 115 Blood Pressure Source Monitor Blood Pressure Position Semi-Fowlers Blood Pressure Location Right Forearm Pulse Ox 97 98 100 Oxygen Delivery Method Room Air Room Air 07/04/25 18:40 07/04/25 21:00 07/04/25 21:07 Temperature 98 F Temperature Source Oral Pulse Rate 62 Pulse Strength Normal (2+) Respiratory Rate 17 Respiratory Effort Normal Non-Labored Respiratory Depth Normal Respiratory Pattern Normal Blood Pressure 157/85 H Blood Pressure Mean 109 Blood Pressure Source Monitor Blood Pressure Position Semi-Fowlers Blood Pressure Location Left Arm Pulse Ox 94 Oxygen Delivery Method Room Air Room Air 07/04/25 21:20 07/04/25 22:00 07/05/25 01:02 Temperature 97.6 F L Temperature Source Oral Pulse Rate 57 L Pulse Strength Normal (2+) Respiratory Rate 18 Respiratory Effort Respiratory Depth Respiratory Pattern Blood Pressure 142/99 H Blood Pressure Mean 113 Blood Pressure Source Monitor Blood Pressure Position Semi-Fowlers Blood Pressure Location Left Arm Pulse Ox 96 97 Oxygen Delivery Method Room Air Room Air 07/05/25 01:07 07/05/25 05:00 07/05/25 08:44 Temperature 97.5 F L 97.1 F L Temperatur (more content not included)... Normal [facility] Mean corpuscular hemoglobin (MCH) determinationOrdered By: Lani Marcos on 07-05-2025 MCH (RBC) [Entitic mass] 30.4 pg 27.0-32.0 [facility] Mean corpuscular hemoglobin concentration (MCHC) determinationOrdered By: Lani Marcos on 07-05-2025 MCHC (RBC) [Mass/Vol] 34.4 g/dL 32-36 [facility] Mean platelet volume determi nationOrdered By: Lani Marcos on 07-05-2025 Platelet mean volume (Bld) [Entitic vol] 9.7 fL 6.2-12.0 [facility] Monocyte percentageOrdered B y: Lani Marcos on 07-05-2025 Monocytes/100 WBC (Bld) 5.3 % 0-10 [facility] Neutrophil percentageOrdered By: Lani Marcos on 07-05-2025 Neutrophils/100 WBC (Bld) 61.0 % 47-70 [facility] Nucleated red blood cell per centageOrdered By: Lani Marcos on 07-05-2025 Nucleated RBC/100 WBC (Bld) [Ratio] 0 % 0-5 [facility] Platelet countOrdered By: Nétsor Marcos on 07-05-2025 Platelets (Bld) [#/Vol] 206 10*3/uL 150-450 [facility] Potassium measurement (mass/ volume)Ordered By: Lani Marcos on 07-05-2025 Potassium (Unsp spec) [Mass/Vol] 4.3 mmol/L 3.3-5.1 [facility] Comment on above: Hemolysis present, R esults could be affected. RBC Auto (Bld) [#/Vol]Ordere d By: Lani Marcos on 07-05-2025 RBC (Bld) [#/Vol] 6.12 10*6/uL 4.6-6.2 [facility] Screening total cholesterol/ high density lipoprotein (HDL) cholesterol ratioOrdered By: Lani Marcos on 07-05-2025 Cholesterol.total/Chol esterol in HDL [Mass ratio] 6.02 {ratio} [facility] Serum creatinine measurement (mass/volume)Ordered By: Lani Marcos on 07-05-2025 Creatinine [Mass/Vol] 1.23 mg/dL High 0.70-1.20 [facility] Serum glucose measurement (m ass/volume)Ordered By: Lani Marcos on 07-05-2025 Glucose [Mass/Vol] 126 mg/dL High 70-99 [facility] Serum or plasma calcium montana urement (mass/volume)Ordered By: Lani Marcos on 07-05-2025 Calcium [Mass/Vol] 9.2 mg/dL 7.6-11.0 [facility] Serum or plasma cholesterol in HDL measurement (mass/volume)Ordered By: Lani Marcos on 07-05-2025 Cholesterol in HDL [Mass/Vol] 23 mg/dL Low >40 [facility] Comment on above: National Cholesterol Education Program (NCEP) guidelines:<40 mg/dL: Low HDL-cholesterol (major risk factor for CHD)>= 60 mg/dL: High HDL-cholesterol (negative risk factor for CHD)HDL-cholesterol is affected by a number of factors, e.g. smoking, exercise, hormones, sex and age. Serum or plasma cholesterol measurement (mass/volume)Ordered By: Lani Marcos on 07-05-2025 Cholesterol [Mass/Vol] 136 mg/dL <201 [facility] Comment on above: Cholesterol level, D esirable <200 mg/dLBorderline high cholesterol 200-239 mg/dLHigh cholesterol >=240 mg/dLRecommendations of the NCEP Adult Treatment Panel for the following risk-cutoff thresholds for the [place] population. Serum or plasma urea nitroge n measurement (mass/volume)Ordered By: Lani Marcos on 07-05-2025 Urea nitrogen [Mass/Vol] 21 mg/dL High 4-19 [facility] Sodium levelOrdered By: Elie Marcos on 07-05-2025 Sodium [Moles/Vol] 136 mmol/L 133-145 [facility] TSH DL <= 0.005 mIU/L QnOrde red By: Lani Marcos on 07-05-2025 TSH Qn 3.180 uIU/mL 0.300-4.20 0 [facility] Thyroid Stim Hormone (TSH)on 07-05-2025 TSH 3.180 uIU/mL Normal 0.300-4.20 0 [facility] Comment on above: Order Comment: Comme nts: NPO at NM prior to lipid panel Performed By: #### L 501.9985, L500.4100, L501.9520, L500.2500 #### [facility] [address] [place], [address] Triglycerides measurementOrd ered By: Lani Marcos on 07-05-2025 Triglyceride [Mass/Vol] 221 mg/dL High <199 [facility] Comment on above: The drugs N-Acetylcy steine and Metamizole may falsely depress this assay. Normal range: <150 mg/dLBorderline High: 150-199 mg/dLHigh: 200-499 mg/dLVery High: >500 mg/dL White blood cell (WBC) count Ordered By: Lani Marcos on 07-05-2025 WBC (Bld) [#/Vol] 8.9 10*3/uL 4.4-11.0 [facility] 12 Lead EKGon 07-04-2025 12 Lead EKG [facility] Cardiovascular Services [address] [place] [address] 12 Lead EKG 07/04/25 1446 MR#: [id number] Acct: [id number] Name: AMANDA CONCEPCION Rep #: [id number] : 1955 70 From: Amanda Whitney MD Attending Dr: Dr. Chante Valencia MD Status: AD M RONALDO Ordering Dr: Alessandra Dia MD Date: 07/04/25 Location: [facility] Sex: M C Admitted: 07/04/25 Test Reason : STROKE TEAM Blood Pressure : */* mmHG Vent. Rate : 58 BPM Atrial Rate : 58 BPM P-R Int : 164 ms QRS Dur : 74 ms QT Int : 430 ms P-R-T Axes : 44 -2 3 degrees QTcB Int : 422 ms Sinus bradycardia with sinus arrhythmia Otherwise normal ECG Confirmed by Amanda Whitney ([id number]), metropolitan editor GUERLINE CHAMORRO ([id number]) on 07/05/2025 12:00:15 PM Referred By: Confirmed By: Amanda Whitney 09/16/25 1200 Date Amanda Whitney MD CC: Dr. Alessandra Dia MD; Dr. Chante Valencia MD; No Primary Care Physician Signed Normal [facility] Absolute lymphocyte countOrd ered By: Alessandra Dia on 07-04-2025 Lymphocytes Auto (Unsp spec) [#/Vol] 2.25 10*3/uL 0.83-4.51 [facility] Absolute neutrophil countOrd ered By: Alessandra Dia on 07-04-2025 Neutrophils (Bld) [#/Vol] 6.4 10*3/uL 2.0-7.7 [facility] Activated partial thrombopla stin time (aPTT) in platelet poor plasma by coagulation aOrdered By: Alessandra Dia on 07-04-2025 aPTT Coag (PPP) [Time] 25.4 s 24.1-36.2 [facility] Anion gap in Serum or Plasma Ordered By: Alessandra Dia on 07-04-2025 Anion gap [Moles/Vol] 11 mmol/L - [facility] Automated lymphocyte count a s percentage of total leukocytesOrdered By: Alessandra Dia on 07-04-2025 Lymphocytes/100 WBC Auto (Unsp spec) 23.1 % 19-41 [facility] BUN/creatinine ratioOrdered By: Alessandra Dia on 07-04-2025 Urea nitrogen/Creatinine [Mass ratio] 16.7 mg/mg - [facility] Basic Metabolic Profile (BMP )on 07-04-2025 BUN/CRE 16.7 RATIO Normal - [facility] Comment on above: Performed By: #### L 501.9985, L500.4100, L501.9520, L500.2500 #### [facility] [address] [place], [address] Calcium [Mass/Vol] 9.3 mg/dL Normal 7.6-11.0 [facility] Comment on above: Performed By: #### L 501.9985, L500.4100, L501.9520, L500.2500 #### [facility] [address] [place], [address] Chloride [Moles/Vol] 104 mmol/L Normal 98-108 [facility] Comment on above: Performed By: #### L 501.9985, L500.4100, L501.9520, L500.2500 #### [facility] [address] [place], [address] CO2 [Moles/Vol] 20.8 mmol/L Low 21.0-32.0 [facility] Comment on above: Performed By: #### L 501.9985, L500.4100, L501.9520, L500.2500 #### [facility] [address] [place], [address] Creatinine [Mass/Vol] 1.49 mg/dL High 0.70-1.20 [facility] Comment on above: Performed By: #### L 501.9985, L500.4100, L501.9520, L500.2500 #### [facility] [address] [place], [address] ECRCL 59.73 ml/min Normal 50-250 [facility] Comment on above: Performed By: #### L 501.9985, L500.4100, L501.9520, L500.2500 #### [facility] [address] [place], [address] GAP 11 Normal 5-15 [facility] Comment on above: Performed By: #### L 501.9985, L500.4100, L501.9520, L500.2500 #### [facility] [address] [place], [address] GFR/1.73 sq M.predicted among non-blacks MDRD (S/P/Bld) [Vol rate/Area] 51 mL/min/{1.73_m2} Low >60 [facility] Comment on above: Result Comment: mL/m in/1.73m2 CKD-EPI Creatinine Equation (2020) Performed By: #### L 501.9985, L500.4100, L501.9520, L500.2500 #### [facility] [address] [place], [address] Glucose [Mass/Vol] 130 mg/dL High 70-99 [facility] Comment on above: Performed By: #### L 501.9985, L500.4100, L501.9520, L500.2500 #### [facility] [address] [place], [address] Potassium [Moles/Vol] 4.5 mmol/L Normal 3.3-5.1 [facility] Comment on above: Result Comment: Hemo lysis present, Results??could be affected. ?? Performed By: #### L 501.9985, L500.4100, L501.9520, L500.2500 #### [facility] [address] [place], [address] Sodium [Moles/Vol] 135 mmol/L Normal 133-145 [facility] Comment on above: Performed By: #### L 501.9985, L500.4100, L501.9520, L500.2500 #### [facility] [address] [place], [address] Urea nitrogen [Mass/Vol] 25 mg/dL High 4-19 [facility] Comment on above: Performed By: #### L 501.9985, L500.4100, L501.9520, L500.2500 #### [facility] [address] [place], [address] Basophil percentageOrdered B y: Alessandra Dia on 07-04-2025 Basophils/100 WBC (Bld) 1.1 % High 0-1 [facility] Brain without Contraston Brain without Contrast [facility] Imaging Services [address] [place] [address] Brain without Contrast MR#: [id number] Acct: [id number] Name: AMANDA CONCEPCION Rep #: [id number] : 1955 M 70 From: Fredrick Rivero MD PCP: Care Physician,No Primary Status: ADM RONALDO Study: Brain without Contrast Date of Exam: 07/04/25 Exam# [id number] Ordering Dr: Lani Marcos MD PROCEDURE: MRI BRAIN WITHOUT CONTRAST 07/04/2025 REASON FOR EXAM: CONCERN FOR CVA TECHNIQUE: Procedure Code: MRIBR Modality: MR Procedure: BRAIN WITHOUT CONTRAST Multiplanar and multisequential MRI of the brain was performed without contrast. COMPARISON: CT head/angiography earlier same day 07/04/2025. FINDINGS: Examination mildly degraded by susceptibility artifact on multiple sequences. There is small region of restricted diffusion involving the paramedian left occipital lobe involving the left PLACEMENT SECRETARY vascular territory consistent with acute infarct. No additional areas of acute infarct are seen. No evidence of acute intracranial hemorrhage/hemorrhagic conversion, extra-axial collection, or mass-effect. 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 Normal ventricular caliber. Major vascular flow voids appear preserved. Grossly unremarkable orbits. Well-aerated paranasal sinuses and bilateral mastoid air cells. MRI/Brain without Contrast IMPRESSION: 1. Small region of acute infarct involving left occipital lobe left PLACEMENT SECRETARY territory. 2. 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 3. No intracranial hemorrhage, extra-axial collection or mass-effect. Reading Location: [facility] CC: Dr. Lani Marcos MD; No Primary Care Physician User Experience Designer: Signed Normal [facility] CBC W/Diff, Automatedon 06-20 Hemoglobin (Bld) [Mass/Vol] 18.7 g/dL Invalid Interpretation Code 13.0-16.5 [facility] Comment on above: Result Comment: CRIT ICAL VALUE CALLED TO JOE TRIVEDI 07/04/25 Harvey7 Rukhsana Laputan. RESULTS READ BACK BY SUJEY. Performed By: #### L 501.9985, L500.4100, L501.9520, L500.2500 #### [facility] [address] [place], [address] Absolute Lymph 2.25 X10 3/uL Normal 0.83-4.51 [facility] Comment on above: Performed By: #### L 501.9985, L500.4100, L501.9520, L500.2500 #### [facility] [address] [place], [address] Absolute Neut 6.4 X10 3/uL Normal 2.0-7.7 [facility] Comment on above: Performed By: #### L 501.9985, L500.4100, L501.9520, L500.2500 #### [facility] [address] [place], [address] Basophils/100 WBC (Bld) 1.1 % High 0-1 [facility] Comment on above: Performed By: #### L 501.9985, L500.4100, L501.9520, L500.2500 #### [facility] [address] [place], [address] Eosinophils/100 WBC (Bld) 3.8 % Normal 0-5 [facility] Comment on above: Performed By: #### L 501.9985, L500.4100, L501.9520, L500.2500 #### [facility] [address] [place], [address] Erythrocyte distribution width (RBC) [Ratio] 13.1 % Normal 11.6-14.6 [facility] Comment on above: Performed By: #### L 501.9985, L500.4100, L501.9520, L500.2500 #### [facility] [address] [place], [address] Hematocrit (Bld) [Volume fraction] 54.7 % High 40-54 [facility] Comment on above: Performed By: #### L 501.9985, L500.4100, L501.9520, L500.2500 #### [facility] [address] [place], [address] IG% 1.500 High 0.0-0.9 [facility] Comment on above: Result Comment: IG% - Immature Granulocytes (promyelocytes, myelocytes and metamyelocytes) > 1% indicates that a LEFT SHIFT is Present. Performed By: #### L 501.9985, L500.4100, L501.9520, L500.2500 #### [facility] [address] [place], [address] Lymphocytes/100 WBC (Bld) 23.1 % Normal 19-41 [facility] Comment on above: Performed By: #### L 501.9985, L500.4100, L501.9520, L500.2500 #### [facility] [address] [place], [address] MCH (RBC) [Entitic mass] 30.1 pg Normal 27.0-32.0 [facility] Comment on above: Performed By: #### L 501.9985, L500.4100, L501.9520, L500.2500 #### [facility] [address] [place], [address] MCHC (RBC) [Mass/Vol] 34.2 g/dL Normal 32-36 [facility] Comment on above: Performed By: #### L 501.9985, L500.4100, L501.9520, L500.2500 #### [facility] [address] [place], [address] MCV (RBC) [Entitic vol] 87.9 fL Normal 80-94 [facility] Comment on above: Performed By: #### L 501.9985, L500.4100, L501.9520, L500.2500 #### [facility] [address] [place], [address] Monocytes/100 WBC (Bld) 5.0 % Normal 0-10 [facility] Comment on above: Performed By: #### L 501.9985, L500.4100, L501.9520, L500.2500 #### [facility] [address] [place], [address] Neutrophils/100 WBC (Bld) 65.5 % Normal 47-70 [facility] Comment on above: Performed By: #### L 501.9985, L500.4100, L501.9520, L500.2500 #### [facility] [address] [place], [address] Nucleated RBC (Bld) [#/Vol] 0 10*3/uL Normal 0-5 [facility] Comment on above: Performed By: #### L 501.9985, L500.4100, L501.9520, L500.2500 #### [facility] [address] [place], [address] Platelet mean volume (Bld) [Entitic vol] 9.8 fL Normal 6.2-12.0 [facility] Comment on above: Performed By: #### L 501.9985, L500.4100, L501.9520, L500.2500 #### [facility] [address] [place], [address] Platelets (Bld) [#/Vol] 232 10*3/uL Normal 150-450 [facility] Comment on above: Performed By: #### L 501.9985, L500.4100, L501.9520, L500.2500 #### [facility] [address] [place], [address] RBC (Bld) [#/Vol] 6.22 10*6/uL High 4.6-6.2 [facility] Comment on above: Performed By: #### L 501.9985, L500.4100, L501.9520, L500.2500 #### [facility] [address] [place], [address] RDW SD 42.2 fl Normal 35.1-43.9 [facility] Comment on above: Performed By: #### L 501.9985, L500.4100, L501.9520, L500.2500 #### [facility] [address] [place], [address] WBC (Bld) [#/Vol] 9.8 10*3/uL Normal 4.4-11.0 [facility] Comment on above: Performed By: #### L 501.9985, L500.4100, L501.9520, L500.2500 #### [facility] [address] [place], [address] Carbon dioxide, total [Moles /volume] in Central venous bloodOrdered By: Alessandra Dia on 07-04-2025 CO2 [Moles/Vol] 20.8 mmol/L Low 21.0-32.0 [facility] Chloride assayOrdered By: Seng Dia on 07-04-2025 Chloride [Moles/Vol] 104 mmol/L 98-108 [facility] Echo Complete W/ Contraston 07-04-2025 Echo Complete W/ Contrast [facility] [address] [place] [address] Echo Complete W/ Contrast 07/05/25 0918 MR#: [id number] Acct: [id number] Name: AMANDA CONCEPCION Rep #: [id number] : 1955 70 From: Roge Ruiz MD Attending Dr: Dr. Chante Valencia MD Status: JERRY HIGGINS Ordering Dr: Lani Marcos MD Date: 07/04/25 Location: U Sex: M C Admitted: 07/04/25 Reason For Study Reason For Study: TIA/Stroke Procedure This was a 2D Doppler, Color Flow transthoracic echocardiogram. Contrast injection was performed. The study was technically difficult. Exam performed portable in patient room. Left Ventricle Normal LV size. Mild concentric left ventricular hypertrophy. The left ventricular ejection fraction is 65 %. Stage 1 diastolic dysfunction. Right Ventricle Normal right ventricle. Atria The left and right atria are normal. Mitral Valve Normal mitral valve. Tricuspid Valve The tricuspid valve is not well visualized. Aortic Valve Trisinus/trileaflet aortic valve. Pulmonic Valve The pulmonic valve is not well visualized. Great Vessels Normal sized aortic root. Pericardium/Pleural No pericardial effusion. Medication Diluted definity 2ml given slow IV push to enhance endocardial definition. MMode/2D Measurements Calculations LVIDd: 4.6 cm IVSd: 1.2 cm Ao root diam: 3.2 cm LVIDs: 3.2 cm LVPWd: 1.2 cm RVDd: 3.3 cm FS: 30.2 % LAV(MOD-bp): 37.4 ml LVAd ap4: 23.5 cm2 SV(MOD-sp4): 43.0 ml LAV(MOD-bp) Indexed: 16.1 ml/m2 LVLd ap4: 7.2 cm SI(MOD-sp4): 18.6 ml/m2 LAV(MOD-sp2): 43.0 ml EDV(MOD-sp4): 62.7 ml LAV(MOD-sp4): 31.9 ml EDV(sp4-el): 64.6 ml LVAs ap4: 12.3 cm2 LVLs ap4: 6.4 cm ESV(MOD-sp4): 19.7 ml ESV(sp4-el): 19.9 ml EF(MOD-sp4): 68.6 % EF(sp4-el): 69.2 % SV(sp4-el): 44.7 ml LA A4 area: 14.5 cm2 LA dimension(2D): 3.5 cm RA A4 area: 12.0 cm2 TAPSE: 2.2 cm Time Measurements MV dec time: 0.30 sec Doppler Measurements Calculations MV E max adryan: 67.8 cm/sec Lat Peak E' Adryan: 9.6 cm/sec Med Peak E' Adryan: 7.0 cm/sec MV A max adryan: 82.0 cm/sec E/E' lat: 7.1 E/E' med: 9.7 MV E/A: 0.83 MV dec slope: 224.3 cm/sec2 Ao V2 max: 129.4 cm/sec LV V1 max: 98.3 cm/sec Ao max P.7 mmHg LV V1 max P.9 mmHg Ao V2 mean: 97.1 cm/sec Ao mean P.0 mmHg Ao V2 VTI: 29.2 cm PA V2 max: 107.4 cm/sec ECHO/Echo Complete W/ Contrast Interpretation Summary The study was technically difficult. Mild concentric left ventricular hypertrophy. The left ventricular ejection fraction is 65 %. Stage 1 diastolic dysfunction. Ordering Physician: Lani Marcos Performed By: Bailey Rankin RDCS, RVT 07/05/25 1243 Date Roge Ruiz MD CC: Dr. Chante Valencia MD; Dr. Lani Marcos MD; No Primary Care Physician Date Dictated: 07/05/25917 Date Transcribed: 07/05/25 1243 User Experience Designer: Signed Normal [facility] Emergency Department Summary on 07-04-2025 Emergency Department Summary [facility] Medical Records Department [address] [place] [address] Emergency Department Summary 07/04/25 MR#: [id number] Acct: [id number] Name: AMANDA CONCEPCION Rep #: [id number] : 1955 70 From: Alessandra Dia MD PCP: Care Physician,No Primary Status:ADM RONALDO Location: [address] History of Present Illness Chief Complaint: Stroke Alert Narrative Narrative: Patient is a 70 year old male presenting to the ED as a stroke alert. 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 States he has never had a stroke before. Denies any use of OAC. Patient denies any head trauma. Denies neck pain. Denies numbness or weakness of his extremities. Denies any speech difficulty. Patient denies any eye pain. Denies any drainage from his eye. EMS was called. PFSH PFSH Home Medications ???Medication ???Instructions ???Recorded ???Last Taken ???Type acetaminophen 500 mg capsule 1,000 mg PO Q6H PRN fever or pain 07/04/25 Unknown History Allergy/AdvReac Type Severity Reaction Status Date / Time No Known Allergies Allergy Verified 09/27/15 05:53 Social History Smoking Status: Current every day smoker tobacco type: cigarettes ROS ROS ED ROS Narrative see HPI EXAM Physical Exam Narrative Exam Narrative: Vital signs: Reviewed General: Alert and orientedx3. No acute distress HEENT: Head is normocephalic and atraumatic, sinuses nontender, pupils equal round and reactive. 2 mm bilaterally. No conjunctival injection. Normal extraocular movements. Nares are patent. Oropharynx and throat exams normal. No temporal tenderness to palpation. Neck: Supple without lymphadenopathy nontender Cardiovascular: Regular rate and rhythm, no murmurs. No rubs or gallops. Normal S1 and S2 Respiratory: Clear to auscultation bilaterally. No wheezes, rales, rhonchi Abdominal: Soft and nontender. Normal bowel sounds. No guarding or rebound. Nonsurgical abdomen Extremities: No tenderness. No bruising. Normal range of motion. Normal sensation. Skin: No rash or redness. The rest of the physical exam is unremarkable Const Vital Signs: 07/04/25 14:31 07/04/25 14:41 07/04/25 [...] Method Room Air Room Air Room Air MDM MDM MDM Narrative Medical decision making narrative: Patient is a 70-year-old male presenting emergency department as a stroke team. Patient was seen and examined in the EMS bay on arrival. NIH of 1. Sent to CT for imaging. Differential includes but is not limited to: stroke, CRAO, intracranial mass, less likely glaucoma, retinal detachment, giant cell arteritis Spoke to Dr. Carty, stroke neurologist at [facility], he reviewed CT brain and CTA head and neck and see no acute abnormalities. Radiology read with negative findings as well. Given the patient is outside of the window for TNK and has a low NIH of 1 with nondisabling deficits, he recommended loading with aspirin and Plavix which were given and admission for MRI and further stroke workup. Aspirin and Plavix were given. CBC with no leukocytosis. Hemoglobin of 18.7, fluids started. BMP with baseline mild kidney dysfunction. Troponins are stable with no significant delta change from 32, 29, 34. EKG shows sinus bradycardia with no ischemic changes. No ST elevation or depression. No dysrhythmia. Patient has no pain in his eye, no redness to his eye, do not think this is glaucoma given these. No temporal tenderness to palpation. On reevaluation the patient states his vision is slowly improving. With the vision improving I do not think this is retinal detachment. Likely TIA. I recommended that the patient be admitted for further stroke workup including MRI. Patient agreeable. Patient admitted to Dr. Marcos for further management. Clinical impression Stroke like symptoms History Record Review Discussion w/independent historian: EMS personnel and Patient Lab Data Attestation: I reviewed the patient's lab results. Labs: Laboratory Results - last 24 hr 07/04/25 07/04/25 14:30 16:20 WBC 9.8 RBC 6.22 H Hgb 18.7 H* Hct 54.7 H MCV 87.9 MCH 30.1 MCHC 34.2 RDW Std Deviation 42.2 RDW Coeff of [place] 13.1 Plt Count 232 MPV 9.8 Immature G (more content not included)... Normal [facility] Eosinophil percentageOrdered By: Alessandra Dia on 07-04-2025 Eosinophils/100 WBC (Bld) 3.8 % 0-5 [facility] Erythrocyte distribution wid th ratioOrdered By: Alesasndra Dia on 07-04-2025 Erythrocyte distribution width (RBC) [Ratio] 13.1 % 11.6-14.6 [facility] Erythrocyte distribution wid th standard deviationOrdered By: Alessandra Dia on 07-04-2025 Erythrocyte distribution width (RBC) [Ratio] 42.2 fl 35.1-43.9 [facility] Glomerular filtration rate ( GFR) estimation/1.73 sq m using serum, plasma, or whole bOrdered By: Alessandra Ifeoma on 07-04-2025 GFR/1.73 sq M.predicted among non-blacks MDRD (S/P/Bld) [Vol rate/Area] 51 mL/min/{1.73_m2} Low >60 [facility] Comment on above: mL/min/1.73m2 CKD-EP I Creatinine Equation (2020) H AND P Exam - [facility] 07-04-2025 H&P Exam - Hospitalist [facility] Medical Records Department [address] [place] [address] H P Exam - Hospitalist 07/04/25 1622 MR#: [id number] Acct: [id number] Name: AMANDA CONCEPCION Rep #: [id number] : 1955 70 From: Lani Marcos MD PCP: Care Physician,No Primary Status:REG ER Location: ED HPI - General General Date of Admission: 07/04/25 Date of Service: 07/04/25 Chief Complaint: Right sided peripheral vision loss HPI Narrative AMANDA CONCEPCION, is a 70-year-old male with history of tobacco use presented to [facility] ED 07/04/2025 as a stroke alert. [...] a creatinine 1.49, glucose 130. Troponin 32. CT head and CTA head and neck no acute [...] ever being diagnosed with any medical problems. Does use tobacco, denies any alcohol or drug use PFSH Home Medications ???Medication ???Instructions ???Recorded ???Last Taken ???Type acetaminophen 500 mg capsule 1,000 mg PO [...] Anicteric, normal conjunctiva, extraocular movements intact, pupils equal, right peripheral field deficit Neck: Supple Respiratory: Clear [...] deficits, cranial nerves II through XII intact, [id number] without significant difficulty bilaterally, almost seem to [...] % (Auto) 65.5, Lymph % (Auto) 23.1, [place] % (Auto) 5.0, Eos % (Auto (more content not included)... Normal [facility] Hematocrit Auto (Bld) [Volum e fraction]Ordered By: Alessandra Dia on 07-04-2025 Hematocrit (Bld) [Volume fraction] 54.7 % High 40-54 [facility] Hemoglobin measurementOrdere d By: Alessandra Dia on 07-04-2025 Hemoglobin (Bld) [Mass/Vol] 18.7 g/dL High 13.0-16.5 [facility] Comment on above: CRITICAL VALUE BUSH D TO JOE TRIVEDI07/04/25 5377 Rukhsana Benito.RESULTS READ BACK BY [facility]. Immature granulocytes/100 WB C Auto (Bld)Ordered By: Alessandra Dia on 07-04-2025 Immature granulocytes/100 WBC (Bld) 1.500 % High 0.0-0.9 [facility] Comment on above: IG% - Immature Granu locytes (promyelocytes, myelocytes and metamyelocytes) > 1% indicates that a LEFT SHIFT is Present. International normalized rat io (INR) calculationOrdered By: Alessandra Dia on 07-04-2025 INR Coag (Bld) [Relative time] 1.1 {INR} [facility] L501.4021on 07-04-2025 Trop T High Sen 32 ng/L High <=22 [facility] Comment on above: Performed By: #### L 501.9985, L500.4100, L501.9520, L500.2500 #### [facility] [address] [place], [place], [id number] MCV (mean corpuscular volume ) determinationOrdered By: Alessandra Dia on 07-04-2025 MCV (RBC) [Entitic vol] 87.9 fL 80-94 [facility] Magnetic resonance imaging r eportOrdered By: Fredrick Rivero on 07-04-2025 Study report [facility] Imaging Services [address] [place], [place] [address] Brain without Contrast MR#: [id number] Acct: [id number] Name: JAMEYZAY Rep #: [id number] : 1955 M 70 From: Max Rivero MD PCP: Care Physician,No Primary Status: ADM RONALDO Study:Brain without Contrast Date of Exam: 07/04/25 Exam# [id number] Ordering Dr: Primitivo Marcos MD PROCEDURE: MRI BRAIN WITHOUT CONTRAST 07/04/2025 REASON FOR EXAM: CONCERN FOR CVA TECHNIQUE: Procedure Code: MRIBR Modality: MR Procedure: BRAIN WITHOUT CONTRAST Multiplanar and multisequential MRI of the brain was performed without contrast. COMPARISON: CT head/angiography earlier same day 07/04/2025. FINDINGS: Examination mildly degraded by susceptibility artifact on multiple sequences. There is small region of restricted diffusion involving the paramedian left occipital lobe involving the left PLACEMENT SECRETARY vascular territory consistent with acute infarct. No additional areas of acute infarct are seen. No evidence of acute intracranial hemorrhage/hemorrhagic conversion, extra-axialcollection, or mass-effect. 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 Normal ventricular caliber. Major vascular flow voids appear preserved. Grossly unremarkable orbits. Well-aerated paranasal sinuses and bilateral mastoid air cells. MRI/Brain without Contrast IMPRESSION: 1. Small region of acute infarct involving left occipital lobe left PLACEMENT SECRETARY territory. 2. 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 3. No intracranial hemorrhage, extra-axial collection or mass-effect. Reading Location: [facility] CC: Dr. Lani Marcos MD; No Primary Care Physician ~ User Experience Designer: Signed [facility] Mean corpuscular hemoglobin (MCH) determinationOrdered By: Alessandrakyler Dia on 07-04-2025 MCH (RBC) [Entitic mass] 30.1 pg 27.0-32.0 [facility] Mean corpuscular hemoglobin concentration (MCHC) determinationOrdered By: Alessandra Dia on 07-04-2025 MCHC (RBC) [Mass/Vol] 34.2 g/dL 32-36 [facility] Mean platelet volume determi nationOrdered By: Alessandra Dia on 07-04-2025 Platelet mean volume (Bld) [Entitic vol] 9.8 fL 6.2-12.0 [facility] Monocyte percentageOrdered B y: Alessandra Dia on 07-04-2025 Monocytes/100 WBC (Bld) 5.0 % 0-10 [facility] Neutrophil percentageOrdered By: Alessandrakyler Dia on 07-04-2025 Neutrophils/100 WBC (Bld) 65.5 % 47-70 [facility] Nucleated red blood cell per centageOrdered By: Alessandrakyler Dia on 07-04-2025 Nucleated RBC/100 WBC (Bld) [Ratio] 0 % 0-5 [facility] Partial Thromboplast Timeon 07-04-2025 aPTT Coag (Bld) [Time] 25.4 s Normal 24.1-36.2 [facility] Comment on above: Performed By: #### L 501.9985, L500.4100, L501.9520, L500.2500 #### [facility] [address] [place], [address] Platelet countOrdered By: Seng Dia on 07-04-2025 Platelets (Bld) [#/Vol] 232 10*3/uL 150-450 [facility] Potassium measurement (mass/ volume)Ordered By: Alessandra Dia on 07-04-2025 Potassium (Unsp spec) [Mass/Vol] 4.5 mmol/L 3.3-5.1 [facility] Comment on above: Hemolysis present, R esults could be affected. Prothrombin Time w/INRon INR Coag (PPP) [Relative time] 1.1 {INR} Normal [facility] Comment on above: Performed By: #### L 501.9985, L500.4100, L501.9520, L500.2500 #### [facility] [address] [place], [address] PT Coag (PPP) [Time] 13.9 s Normal 11.7-14.9 [facility] Comment on above: Performed By: #### L 501.9985, L500.4100, L501.9520, L500.2500 #### [facility] [address] [place], [address] Prothrombin timeOrdered By: Alessandra Dia on 07-04-2025 PT Coag (PPP) [Time] 13.9 s 11.7-14.9 [facility] RBC Auto (Bld) [#/Vol]Ordere d By: Alessandra Dia on 07-04-2025 RBC (Bld) [#/Vol] 6.22 10*6/uL High 4.6-6.2 [facility] STROKE Brain/Head without Co nton 07-04-2025 STROKE Brain/Head without Cont [facility] Imaging Services [address] [place], [place] [id number] STROKE Brain/Head without Cont MR#: [id number] Acct: [id number] Name: AMANDA CONCEPCION Rep #: [id number] : 1955 M 70 From: Sherwin wilcox MD PCP: Care Physician,No Primary Status: REG ER Study: STROKE Brain/Head without Cont Date of Exam: 0 07/04/25 Exam# [id number] Ordering Dr: Alessandra Dia MD PROCEDURE: STROKE BRAIN/HEAD WITHOUT CONT [...] the findings and impression above were relayed directly by me by telephone to Alessandra Dia on 07/04/2025 at 2:48 pm with readback verification. Reading Location: [facility] CC: Dr. Alessandra Dia MD; No Primary Care Physician User Experience Designer: Signed Normal [facility] STROKE CTA Head AND Neck W/C onon 07-04-2025 STROKE CTA Head AND Neck W/Con [facility] Imaging Services [address] [place], [place] [id number] STROKE CTA Head AND Neck W/Con MR#: [id number] Acct: [id number] Name: AMANDA CONCEPCION Rep #: [id number] : 1955 M 70 From: Rosario Fernandez MD PCP: Care Physician,No Primary Status: REG ER Study: STROKE CTA Head AND Neck W/Con Date of Exam: 0 07/04/25 Exam# [id number] Ordering Dr: Alessandra Dia MD PROCEDURE: STROKE CTA HEAD AND NECK W/CON [...] inferior cerebellar artery. LEFT Vertebral: Dominant. Anatomy: [place] anatomy is normal. Aneurysm or [...] head and neck. No aneurysm. Reading Location[facility] CC: Dr. Alessandra Dia MD; No Primary Care Physician User Experience Designer: Signed Normal [facility] Serum creatinine measurement (mass/volume)Ordered By: Alessandra Dia on 07-04-2025 Creatinine [Mass/Vol] 1.49 mg/dL High 0.70-1.20 [facility] Serum glucose measurement (m ass/volume)Ordered By: Alessandra Dia on 07-04-2025 Glucose [Mass/Vol] 130 mg/dL High 70-99 [facility] Serum or plasma calcium [place] urement (mass/volume)Ordered By: Alessandra Dia on 07-04-2025 Calcium [Mass/Vol] 9.3 mg/dL 7.6-11.0 [facility] Serum or plasma urea nitroge n measurement (mass/volume)Ordered By: Alessandra Dia on 07-04-2025 Urea nitrogen [Mass/Vol] 25 mg/dL High 4-19 [facility] Sodium levelOrdered By: Keyshawn Dia on 07-04-2025 Sodium [Moles/Vol] 135 mmol/L 133-145 [facility] Troponin T HS 2 HRon 025 Trop T High Sen 29 ng/L High <=22 [facility] Comment on above: Performed By: #### L 499.0042 #### [facility] [address] [place], [place], [id number] Troponin T HS 4 HRon 025 Trop T High Sen 34 ng/L High <=22 [facility] Comment on above: Performed By: #### L 100.0100 #### [facility] [address] [place], [place], [address] Troponin T.cardiac [Mass/vol ume] in Serum or Plasma by High sensitivity methodOrdered By: Alessandra Dia on 07-04-2025 Troponin T.cardiac High sensitivity method [Mass/Vol] 34 ng/L High <22 [facility] Troponin T.cardiac High sensitivity method [Mass/Vol] 29 ng/L High <22 [facility] Troponin T.cardiac High sensitivity method [Mass/Vol] 32 ng/L High <22 [facility] White blood cell (WBC) count Ordered By: Alessandra Dia on 07-04-2025 WBC (Bld) [#/Vol] 9.8 10*3/uL 4.4-11.0 [facility] Vital Signs Date Time Vital Sign Value Performing Clinician Brandon haines 08-01-2025 14:06-0400 Body height 177.8 cm No Primary Care Physician [facility] 08-01-2025 14:06-0400 Body mass index (BMI) [Ratio] 35.6 kg/m2 No Primary Care Physician [facility] 08-01-2025 14:06-0400 Body temperature 97.8 [degF] No Primary Care Physician [facility] 08-01-2025 14:06-0400 Body weight 112.49 kg No Primary Care Physician [facility] 08-01-2025 14:06-0400 Diastolic blood pressure 79 mm[Hg] No Primary Care Physician [facility] 08-01-2025 14:06-0400 Heart rate 62 /min No Primary Care Physician [facility] 08-01-2025 14:06-0400 Respiratory rate 16 /min No Primary Care Physician [facility] 08-01-2025 14:06-0400 SaO2% (BldA) [Mass fraction] 97 % No Primary Care Physician [facility] 08-01-2025 14:06-0400 Systolic blood pressure 139 mm[Hg] No Primary Care Physician [facility] 07-05-2025 14:41-0400 Body temperature 97.5 [degF] No Primary Care Physician [facility] 07-05-2025 14:41-0400 Diastolic blood pressure 76 mm[Hg] No Primary Care Physician [facility] 07-05-2025 14:41-0400 Heart rate 67 /min No Primary Care Physician [facility] 07-05-2025 14:41-0400 Respiratory rate 18 /min No Primary Care Physician [facility] 07-05-2025 14:41-0400 SaO2% (BldA) [Mass fraction] 97 % No Primary Care Physician [facility] 07-05-2025 14:41-0400 Systolic blood pressure 158 mm[Hg] No Primary Care Physician [facility] 07-05-2025 03:31-0400 Body mass index (BMI) [Ratio] 36.7 kg/m2 No Primary Care Physician [facility] 07-04-2025 17:16-0400 Body height 177.8 cm No Primary Care Physician [facility] 07-04-2025 17:16-0400 Body weight 116.11 kg No Primary Care Physician [facility] 07-04-2025 16:50-0400 Body temperature 97.7 [degF] No Primary Care Physician [facility] 07-04-2025 16:50-0400 Diastolic blood pressure 93 mm[Hg] No Primary Care Physician [facility] 07-04-2025 16:50-0400 Heart rate 58 /min No Primary Care Physician [facility] 07-04-2025 16:50-0400 Respiratory rate 18 /min No Primary Care Physician [facility] 07-04-2025 16:50-0400 SaO2% (BldA) [Mass fraction] 98 % No Primary Care Physician [facility] 07-04-2025 16:50-0400 Systolic blood pressure 166 mm[Hg] No Primary Care Physician [facility] 07-04-2025 14:48-0400 Body height 177.8 cm No Primary Care Physician [facility] 07-04-2025 14:48-0400 Body mass index (BMI) [Ratio] 35.7 kg/m2 No Primary Care Physician [facility] 07-04-2025 14:48-0400 Body weight 113 kg No Primary Care Physician [facility] Encounters Encounter Date Encounter Type Care Provider Facility Start: 11-17-2025 ambulatory No Primary Car e Physician Facility[facility] Start: 09-27-2025 ambulatory No Primary Car e Physician Facility:[facility] Start: 09-05-2025 ambulatory No Primary Car e Physician Facility:[facility] Start: 09-01-2025 ambulatory No Primary Car e Physician Facility:[facility] Start: 08-23-2025 End: 08-23-2025 ambulatory No Primary Care Physician Facility:[facility] Start: 08-03-2025 End: 08-03-2025 Patient encounter procedure Nano PINEDA -Laboratory Work Phone: Start: 08-03-2025 End: 08-03-2025 ambulatory No Primary Care Physician Facility:[facility] Start: 08-01-2025 End: 08-01-2025 Patient encounter procedure Nano PINEDA -[facility] Work Phone: Start: 08-01-2025 End: 08-01-2025 ambulatory No Primary Care Physician -[facility] Start: 07-05-2025 Non-patient / Non-visit Dr. Chante Valencia MD -[facility] Work Phone: Start: 07-05-2025 ambulatory No Primary Car e Physician Facility:[facility] Start: 07-05-2025 Non-patient / Non-visit Dr. Roge morales MD -[facility] Start: 07-04-2025 End: 07-05-2025 Evaluation and management of inpatient Dr. Lani Marcos MD -[facility] Work Phone: Start: 07-04-2025 End: 07-05-2025 observation encounter No Primary Care Physician -[facility] Start: 07-04-2025 End: 07-05-2025 ambulatory No Primary Care Physician Facility:[facility] Start: 07-04-2025 Non-patient / Non-visit Dr. Lani ybarra MD -[facility] Work Phone: Start: 08-22-2022 ambulatory NIRAJ LEWIS MD Facil ity:A Procedures Date Procedure Procedure Detail Performing Clinician Start: 08-03-2025 Folic acid measurement, RBC No Primary Care Physician Start: 08-03-2025 Immature reticulocyte fraction No Primary Care Physician Start: 08-03-2025 Targeted analysis fo r gene mutation No Primary Care Physician Comment on above: Result: NEGATIVE for the JAK2 V617F mutation.Interpretation: The G to T nucleotide change encoding [id number] mutation was not detected. This result does not ruleout the presence of the JAK2 mutation at a level below thesensitivity of detection of this assay, or the presence ofother mutations within JAK2 not detected by this assay.This result does not rule out a diagnosis of polycythemiavera, essential thrombocythemia or idiopathicmyelofibrosis as the V617F mutation is not detected inall patients with these disorders. Start: 07-05-2025 Estimated creatinine clearance No Primary Care Physician Start: 07-04-2025 MRI of brain without contrast No Primary Care Physician Start: 07-04-2025 CT angiography of head and neck No Primary Care Physician Start: 07-04-2025 CT of head without contrast No Primary Care Physician Start: 07-04-2025 Estimated creatinine clearance No Primary Care Physician Plan of Treatment Date Care Activity Detail Author Start: 08-01-2025 Cardiac event recording [facility] Start: 07-05-2025 Patient discharge [facility] Start: 07-05-2025 Thyroid stimulating hormone measurement [facility] Start: 07-04-2025 Following clinical pathway protocol [facility] Start: 07-04-2025 Application of intermittent pneumatic compression device [facility] Start: 07-04-2025 Aspiration precautions [facility] Start: 07-04-2025 Assessment of risk of venous thromboembolism [facility] Start: 07-04-2025 Cardiac monitoring [facility] Start: 07-04-2025 Catheterization of vein [facility] Start: 07-04-2025 Consultation [facility] Start: 07-04-2025 Continuous pulse oximetry [facility] Start: 07-04-2025 Elevation of head of bed [facility] Start: 07-04-2025 Exercises [facility] Start: 07-04-2025 Inhalation therapy procedure [facility] Start: 07-04-2025 Insertion of catheter into peripheral vein [facility] Start: 07-04-2025 Notification of physician [facility] Start: 07-04-2025 Oxygen therapy [facility] Start: 07-04-2025 Patient referral to dietitian [facility] Start: 07-04-2025 Providing care according to standard [facility] Start: 07-04-2025 Provision of activity privileges [facility] Start: 07-04-2025 Referral for physical therapy [facility] Start: 07-04-2025 Referral to occupational therapist [facility] Start: 07-04-2025 Referral to service [facility] Start: 07-04-2025 Speech therapy assessment [facility] Start: 07-04-2025 Telemedicine consultation with patient [facility] Start: 07-04-2025 Tobacco use cessation education [facility] Start: 07-04-2025 Vital signs measurements [facility] Start: 07-04-2025 MRI of brain without contrast Brain without Contrast [facility] Start: 07-04-2025 Admission procedure [facility] Start: 07-04-2025 Verification routine [facility] Start: 07-04-2025 End: 07-04-2025 [facility] Start: 07-04-2025 End: 07-04-2025 [facility] Anion gap in Serum o r Plasma [facility] BUN/Creatinine ratio [facility] Calcium [Mass/volume ] in Serum or Plasma [facility] Carbon dioxide, tota l [Moles/volume] in Central venous blood [facility] Cholesterol [Mass/vo lume] in Serum or Plasma [facility] Cholesterol in HDL [Mass/volume] in Serum or Plasma [facility] Creatinine [Mass/vol ume] in Serum or Plasma [facility] Erythrocyte mean corpuscular volume determination [facility] Glucose [Mass/volume ] in Serum or Plasma [facility] Hematocrit [Volume Fraction] of Blood [facility] Hemoglobin [Mass/vol ume] in Blood [facility] Hemoglobin A1c/Hemoglobin.total in Blood [facility] Leukocytes [#/volume ] in Blood [facility] Low density lipoprot ein cholesterol measurement [facility] Mean corpuscular hemoglobin concentration determination [facility] Mean corpuscular hemoglobin determination [facility] Measurement of renal function [facility] Neutrophil count [facility] Neutrophil percent differential count [facility] Patient Education Booklet - Unde rstanding Stroke [facility] Work Phone: Platelets [#/volume] in Blood [facility] Potassium measurement [facility] Red blood cell count [facility] Red cell distributio n width determination [facility] Serum chloride measurement [facility] Sodium measurement [facility] Total cholesterol:HD L ratio measurement [facility] Triglycerides measurement [facility] Troponin T.cardiac [Mass/volume] in Serum or Plasma by High sensitivity method [facility] Troponin T.cardiac [Mass/volume] in Serum or Plasma by High sensitivity method [facility] Urea nitrogen [Mass/volume] in Serum or Plasma [facility] VLDL cholesterol measurement [facility] Payers Date Payer Category Payer Self-pay 2025 Unknown [id number] 2022 Unknown [id number] 1955 Unknown [id number] 2.16.8 [id number] Unknown [id number] 2.16.8 [id number] Unknown [id number] 2.16.8 [id number] Unknown [id number] 2.16.8 [id number] Unknown [id number] 2.16.8 [id number] Unknown [id number] 2.16.8 [id number] Unknown [id number] 2.16.8 [id number] Unknown [id number] 2.16.8 [id number] Unknown [id number] 2.16.8 [id number] Unknown [id number] 2.16.8 [id number] Unknown [id number] 2.16.8 [id number] Unknown [id number] 2.16.8 [id number] Unknown [id number] 2.16.8 [id number] Social History Date Type Detail Facility Start: 07-04-2025 End: 08-01-2025 Tobacco smoking status [facility] Smokes tobacco daily (finding) [facility] Start: 07-04-2025 Tobacco Use Tobacco Use [facility] Start: 1955 Sex Assigned At Male [facility] Sex Male [facility] Goals Date Patient Goal Desired Activity /State Functional Status Date Assessment Result Facility 07-05-2025 Functional status Ambulates [facility] Work Phone: Mental Status Date Assessment Result Facility 07-05-2025 Cognitive function Voice/Name [facility] Work Phone: 07-04-2025 Cognitive function Voice/Name [facility] Work Phone: Clinical Notes 07-04-2025 to 08-01-2025 Note Date & Type Note Facility 08-01-2025 Progress note [facility] 08-01-2025 Progress note Note Date/Time August 01, 2025 3:28pm [facility] [address] [place] [address], [address] [place] [address] OFFICE VISIT Date of Service: 08/01/25 MR#: [id number] Acct: [id number] Name: AMANDA CONCEPCION Rep #: [id number] : 1955 Provider: MIRIAM Pardo Age/Sex: 70/M Location[facility] Status: Signed HPI HPI Chief Complaint: Establish Care Details: History present illness: Mr. Conecpcion is a 70-year-old right-handed male who presents unaccompanied to neurology today 08/01/2025 to establish care following hospitalization for an acute ischemic stroke of the left occipital lobe. Past medical history is limited due to no medical care in the last several years. He states that he last saw a primary care physician nearly 50 years ago. He is currently in the process of establishing with a PCP; however, his appointment is not until November. Hospital course: On 07/04/2025, patient presented to [facility] ED with acute onset of right homonymous hemianopia. NIHSS was 1 so he was not deemed a candidate for TNK. CT brain and CTA head/neck were without acute findings. There was no hemodynamically significant stenosis, LVO, or aneurysms. MRI brain with a small region of acute infarct involving the left occipital lobeand the left PLACEMENT SECRETARY territory. Additionally, there were mild chronic microangiopathic changes elsewhere in the supratentorial white matter. EKG was interpreted as sinus bradycardia with sinus arrhythmia but otherwise normal. TTE was grossly unremarkable with an EF of 65%, stage I diastolic dysfunction, and no regional wall motion abnormalities noted. LDL 69; TG 221; HDL 23, Cholesterol 136; Hemoglobin A1c 7.2%; TSH 3.180 His hemoglobin was 18.7 on admission, which remained elevated at discharge. Platelets were 206. MCV was normal at 88. PT/INR and aPTT were normal. BUN/creatine were elevated as well. Creatinine was 1.23 at discharge. He was discharged on aspirin 81mg daily and atorvastatin 80mg daily. Additionally, he was started on metformin 500mg for his elevated hemoglobin A1c. Patient has many comorbid conditions that he has not necessarily addressed in the past. It is essential he follows up with a primary care provider. Aside from this stroke, problems include dyslipidemia, polycythemia, diabetes mellitus, tobacco use, suspected sleep apnea, and concern for lower extremity vascular disease. I am highly suspicious that the patient has obstructive lung disease including sleep apnea and possibly COPD. He has smoked tobacco for >40 years. Breath sounds are diminished on auscultation bilaterally and he has dyspnea with exertion. He has daytime fatigue, although he does work 2 jobs Friday through Friday. He does report poor sleep quality and his sleeps in a separate room due to his snoring. His polycythemia may be secondary to chronically low oxygen levels or an acquired condition. His persistent polycythemia is concerning in the setting of stroke. Patient has evidence of vascular disease of the bilateral lower extremities. Hehas nonhealing wounds present on his shins, feet, and toes that are scabbed over. He states that he always has wounds from his steel toed boots. The rightleg has 2+ pitting edema. His skin on his lower legs is hyperpigmented with a brownish discoloration and there is loss of hair. He has difficulty with ambulation and mobility in general. ROS: General: Daily fatigue. No recent weight loss/gain. No recent illness. No fevers. No recent falls. Neuro: No headaches. No dizziness. No numbness/tingling. No tremors. Psych: Reports poor sleep quality. No agitation. No depressive symptoms. No memory difficulties. Cardio: No palpitations. No chest pain or discomfort. No edema. Respiratory: Current smoker >40 years. Intermittent productive cough. No wheezing. Musculoskeletal: No use of assistive devices to ambulate. No neck pain. Chronic back pain. HEENT: No hearing loss. Positive for blurry vision, he wears glasses and stateshe needs new ones. No diplopia. No dysphagia. GI: No hematochezia. No NVD. No constipation. No abdominal pain or discomfort. : No hematuria. Reports nocturia. No incontinence. No dysuria. History of nephrolithiasis. Skin: Nonhealing/slow healing bilateral lower extremity wounds. PHYSICAL EXAM: Constitutional: Well-developed, well-nourished right-handed male in no acute distress. BMI 35.6% Psych: Cooperative and pleasant. Judgement and insight good. HEENT: Normocephalic. Atraumatic. Hearing grossly normal bilaterally. Periorbital findings are normal. Respiratory: Dyspnea on exertion. Symmetric chest movement. Diminished lung sounds to auscultation bilaterally. Cardio: Regular rate and rhythm. No auscultated murmurs. No auscultated carotid bruit. Radial pulses 2+ bilaterally. Dorsalis pedis pulses 1+ bilaterally. BP 139/79, HR 62. GI: Abdomen is soft, flat, nondistended. Nontender. Bowel sounds normal. Musculoskeletal: No focal muscle weakness. No particular problems with ROM. Extremities: Right lower extremity 2+ pitting edema, left ankle is nonpitting. Skin: Multiple wounds and scabs throughout his bilateral lower extremities and toes. His skin on his lower legs is hyperpigmented with a brownish discoloration and there is loss of hair. There is a scar near his heel bilaterally, he states he had bone spurs removed. Neurological exam: Mental status: Alert, awake, oriented x 4. Speech is fluent with good comprehension. Cranial nerves II-XII: PERRL 4 mm in size bilaterally. EOM intact. Ocular pursuit is smooth. There are no visual field deficits, his right homonymous hemianopia appears to be resolved. He does report difficulty focusing his vision when reading. Facial sensation is intact. Face is symmetric at rest andwith activation. No ptosis. Tongue is midline. Phonation is normal. Swallowing is reportedly intact. Cerebellum: No nystagmus. No dysmetria; normal [id number] maneuvers. Reflexes: Biceps deep tendon reflex 1+ and symmetric bilaterally. Other reflexes difficult to elicit. Motor: Muscle bulk and tone are normal. Strength is 5/5 in all 4 extremities both proximally and distally but overall has some generalized mobility issues and stiff back/neck. There is no pronator drift. There is no tremor. There are no fasciculations. Sensory: Romberg test negative. Sensation is intact to light touch and vibration in upper extremities. His lower extremities are mildly impaired, right worse than left. Gait/Stance: Posture is normal. Wide based gait with short stride length and decreased arm swing bilaterally. He has difficulty bending over to put on his socks/shoes. Assessment and Plan Assessment and Plan (1) CVA (cerebral vascular accident): Status: Acute Qualifiers: CVA mechanism: unspecified Qualified Code(s): I63.9 - Cerebral infarction, unspecified Comment: MRI brain (07/04/2025): acute infarct involving left occipital lobe left PLACEMENT SECRETARY territory (2) Polycythemia: Status: Acute (3) Sleep apnea: Status: Suspected Qualifiers: Sleep apnea type: unspecified type Qualified Code(s): G47.30 - Sleep apnea, unspecified (4) Tobacco use: Status: Acute (5) Diabetes mellitus: Status: Acute Qualifiers: Diabetes mellitus type: type 2 Diabetes mellitus alf insulin use:without alf use Diabetes mellitus complication status: with other specified complication Qualified Code(s): E11.69 - Type 2 diabetes mellitus with other specified complication (6) Dyslipidemia: Status: Acute (7) Visual changes: Status: Acute (8) Fatigue: Status: Acute Qualifiers: Fatigue type: unspecified Qualified Code(s): R53.83 - Other fatigue Orders: Orders 30 Day Event Recorder Preventi 08/01/25 I63.9 - Cerebral infarction, unspecified Unattended Sleep Study 08/01/25 G47.30 - Sleep apnea, unspecified, I10 - Essential (primary) hypertension, I63.9 - Cerebral infarction, unspecified, R53.83 - Other fatigue CBC W/Diff, Automated 08/01/25 D75.1 - Secondary polycythemia, I63.9 - Cerebralinfarction, unspecified Comprehensive Metabolic Profil 08/01/25 I63.9 - Cerebral infarction, unspecified Magnesium 08/01/25 I63.9 - Cerebral infarction, unspecified Lipid Profile 08/01/25 E78.5 - Hyperlipidemia, unspecified, I63.9 - Cerebral infarction, unspecified Iron 08/01/25 D75.1 - Secondary polycythemia, I63.9 - Cerebral infarction, unspecified Ferritin 08/01/25 D75.1 - Secondary polycythemia, I63.9 - Cerebral infarction, unspecified Vitamin B12 08/01/25 D75.1 - Secondary polycythemia, I63.9 - Cerebral infarction, unspecified, R53.83 - Other fatigue Retic Panel Count 08/01/25 I63.9 - Cerebral infarction, unspecified JAK2 Mutation Analysis 08/01/25 D75.1 - Secondary polycythemia, I63.9 - Cerebral infarction, unspecified Erythropoietin 08/01/25 D75.1 - Secondary polycythemia, I63.9 - Cerebral infarction, unspecified Folates, RBC 08/01/25 D75.1 - Secondary polycythemia, I63.9 - Cerebral infarction, unspecified CRP 08/01/25 D75.1 - Secondary polycythemia Erythrocyte Sed Rate 08/01/25 D75.1 - Secondary polycythemia Referrals Ophthalmology E11.9 - Type 2 diabetes mellitus without complications, H53.9 - Unspecified visual disturbance, I63.9 - Cerebral infarction, unspecified, Z72.0 - Tobacco use Plan ASSESSMENT: Patient presented to the hospital in June 2025 with acute onset of right homonymous hemianopia consistent with an acute ischemic stroke in the left occipital lobe as demonstrated on MRI brain. Etiology is not clear at this point but he has several risk factors. Patient has not sought medical care in several years and does not have a primary care physician. Risk factors includedelevated triglycerides and hemoglobin A1c; he is now on atorvastatin and metformin. I have additional concerns regarding findings of polycythemia as this also significantly increases his risk for stroke due to increased blood viscosity andpropensity for clot formation. His hemoglobin was 18.7 on admission and 18.6 atdischarge. A CBC conducted in 2015 available on chart review also shows an elevated hemoglobin (19.1). I am highly suspicious that the patient has obstructive lung disease including sleep apnea and possibly COPD. He has smokedtobacco for >40 years. His polycythemia may be secondary to chronically low oxygen levels or an acquired condition. Patient has evidence of vascular disease of the bilateral lower extremities. Hehas nonhealing wounds and hyperpigmented skin present on his shins, feet, and toes that are scabbed over. The right leg has 2+ pitting edema which has been ongoing for the patient. There was no evidence of carotid disease on CTA head/neck. TTE was grossly unremarkable. He is to follow-up with primary care. PLAN: ? Continue aspirin 81 mg daily ? Continue statin for goal LDL <70 and goal TG <150, lipid panel and LFTs to be checked. His atorvastatin likely can be reduced from 80mg to 40mg. ? Conduct polycythemia workup including JAK2 mutation analysis, low threshold for hematology referral ? Obtain 30-day cardiac event monitor to screen for paroxysmal A-fib ? Obtain inpatient sleep study ? Referral placed to ophthalmology ? Consults to be considered for podiatry, pulmonology, and vascular. ? Normotensive blood pressure goal, patient is to intermittently check at home. An antihypertensive medication will likely need to be initiated. ? Modify vascular risk factors; encouraged proper sleep, diet, exercise, smokingsensation, etc. Patient is to establish care with primary care. Patient to follow-up with Dr. Martinez after completion of above workup in approximately 3 months or sooner if needed. He was instructed to immediately present to the emergency department with any new strokelike symptoms. 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 Required: No Accompanied by: Self Allergies No Known Allergies Allergy (Verified 08/01/25 14:06) Medications ?Medication ?Instructions ?Recorded ?Confirmed ?Type acetaminophen 500 mg capsule 1,000 mg PO Q6H PRN fever or pain 07/04/25 08/01/25 History aspirin 81 mg chewable tablet 81 mg PO BREAKFAST #30 t abs 07/05/25 08/01/25 Rx atorvastatin 80 mg tablet 80 mg PO QHS #30 tabs 08/01/25 Rx metformin 500 mg tablet 500 mg PO BID #60 tabs 07/0508/01/25 Rx Have you fallen in the past year?: Yes [facility] History (Updated 08/03/25 @ 15:15 by MIRIAM Montalvo) AC (acromioclavicular) joint bone spurs Tobacco use Visual changes Surgical History (Updated 08/01/25 @ 14:11 by Tamiko Lee) History of appendectomy Family History (Updated 08/01/25 @ 14:12 by Tamiko Lee) Mother Kidney disease dialysis Father , 69 Heart disease Myocardial infarction Social History (Updated 08/01/25 @ 14:14 by Tamiko Lee) household members: spouse current occupational status: employed 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 (louder than talking or loud enough to be heard through closed doors)?: Yes Do you feel TIRED, fatigued, or sleepy during daytime?: Yes Has anyone OBSERVED you stop breathing during your sleep?: No Do you have or are you being treated for high blood PRESSURE?: Yes BANG BMI more than 35kg/m2?: Yes AGE over 50 years old?: Yes NECK circumference>16 inches (40cm)?: Yes GENDER: Male?: Yes SCORE Total Score: High risk of AD: Yes 5-8 Clinical Quality Measures Falls Risk Screening/Assistive Devices Have you fallen in the past year?: Yes Coding Level of Care Code Off vis,new,level 5 Diagnoses Cerebrovascular accident (CVA), unspecified mechanism I63.9 CVA mechanism: unspecified Polycythemia D75.1 Sleep apnea, unspecified type G47.30 Sleep apnea type: unspecified type Tobacco use Z72.0 Type 2 diabetes mellitus with other specified complication, without long-term current use of insulin E11.69 Diabetes mellitus type: type 2 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 Work Phone: 1(714) 876-520609-16-2025 Discharge summary [facility] Medical Records Department [address] [place] [address] Instructions for Home/Discharge Instructions 07/05/25 1442 MR#: [id number] Acct: [id number] Name: AMANDA CONCEPCION Rep #:[id number] : 1955 70 From: Chante Valencia MD PCP: Care Physician,No Primary Status :ADM RONALDO Discharge Instructions DC O2, CPAP, BIPAP needs Home O2 Discharge instructions: No Dressing / Incision Discharge Activity: Return to Normal Activity Weight Bearing Status: Weight bearing as tolerated Dressing / Incision Call your doctor if you observe: Fever of 101 or Higher, Dizziness, Chest pain and - (vision not improving) Follow Up Care Test Results: Test results from this visit will be discussed in further detail at your follow- up appointment, if applicable. Discharge Plan Admission Admit Date/Time: 07/04/25 16:23 Primary Reason for Your Visit: acute CVA Attending Provider: Chante Valencia Primary Care Provider: Care Physician,No Primary Consulting Providers: Shaheen Knight; Alexandru Correa; Jyoti Campos; Sheila Chase; Michelle Johnston; Naga North; Marizol Bahena; Justyn Isabel; Chi Spears; Silvino Carty; Myriam Cardoza; Nika Benton; Murray Almodovar; Rose Morton; Yahaira Nieto; Ivan Hernández; Anthony Leonard; Eladia Delong; Leroy Velasquez; Lizzie Maciel; Barbara Bradford; Lani Marcos Instructions Patient Instructions: Booklet - Understanding Stroke Additional Instructions / Restrictions: Abstain from driving until cleared by Neurology to do so. Counseled to quit smoking, and to eat a heart healthy diet, as well as exercise to lose weight. Discharge Orders/Prescriptions Prescriptions: New atorvastatin 80 mg Tablet 80 mg PO QHS Qty: 30 2RF aspirin 81 mg Tablet,Chewable 81 mg PO BREAKFAST Qty: 30 2RF metformin 500 mg tablet 500 mg PO BID Qty: 60 2RF Rx Instructions: to start taking metformin on , 48 hours after receiving contrast Continued acetaminophen 500 mg capsule 1,000 mg PO Q6H PRN (Reason: fever or pain) Referrals / Follow Up: Jg Hoffman MD [Med Staff - Active Staff] - Within 2 Weeks (see to establish PCP relationship) Scott Spear MD [Non-Staff -Ordering Privileges] - Within 1 Week (see for stroke care) Care Physician,No Primary [Primary Care Provider] - Disposition Disposition (needs filled in before D/C Order can be placed): Home, Self Care 07/05/25 1443Chante Valencia MD CC: Sheila Chase; Rose Morton; Anthony Leonard; Michelle Johnston MD; Jyoti Campos MD; Shaheen Knight MD; Dr. Alexandru Correa MD; Dr. Naga North MD; Dr. Rufus MD; Dr. Chi Spears MD; Dr. Justyn Isabel MD; Dr. Silvino Carty MD; Dr. Myriam Cardoza DO; Dr. Murray Almodovar DO; Dr. Ivan Hernández MD; Dr. Yahaira Nieto MD; Dr. Lani Marcos MD; Dr. Eladia Delong MD; Dr. Leroy Velasquez MD; Dr. Lizzie Maciel MD; Nika Benton DO; No Primary Care Physician; Barbara Bradford MD ~ [facility]09-16-2025 [facility] Medical Records Department [address] [place] [id number] Discharge Summary 07/05/25 1443 MR#: [id number] Acct: [id number] Name: AMANDA CONCEPCION Rep #: [id number] : 1955 70 From: Chante Valencia MD PCP: Care Physician,No Primary Status:DIS RONALDO Location: [place] [address] Providers Date of Admission: 07/04/25 Date of Discharge: 07/05/25 Primary Care Physician: No Primary Care Phys Consultations 07/04/25 17:06 Consult: Tele-Neurology Routine Consulting Provider: [facility] Reason for Consult: Acute Ischemic Stroke/TIA EMERGENT Consult: No Notified: Yes Date Notified: 07/04/25 Time Notified: 16:26 Method of Notification: Answering Service Nursing Unit Staff Notify [facility] of Tele-Neurology Consult: Yes Reason For Visit: STROKE RULE OUT Diagnosis Discharge Diagnosis (1) Visual changes: Status: Acute Code(s): H53.9 - Unspecified visual disturbance (2) Tobacco use: Status: Acute Code(s): Z72.0 - Tobacco use Medications at Discharge Home Medications acetaminophen 500 mg capsule 1,000 mg PO Q6H PRN fever or pain 07/04/25 aspirin 81 mg chewable tablet 81 mg PO BREAKFAST #30 tabs 07/05/25 atorvastatin 80 mg tablet 80 mg PO QHS #30 tabs 07/05/25 metformin 500 mg tablet 500 mg PO BID #60 tabs 07/05/25 Hospital Course Operations None Procedures 2-D Echocardiogram Summary of Care Provided Minutes Spent on Discharge: 45 Hospital Course: Patient is a 70-year-old male with past medical history as outlined was admitted through the ED on 07/04/2025 as a stroke alert. His last known well was 10 AM on the day of admission and he developed a right sided peripheral vision loss shortly after. CT of the brain showed no acute intracranial pathology and CTA head and neck showed no acute pathology either. NIH stroke scale was 1 and he was not deemed a candidate for TNK. Neurology recommended that he be loaded with aspirin and Plavix. He was admitted to be managed for stroke rule out. He had MRI of the brain done which showed a small region of acute infarct involving the left occipital lobe and the left PLACEMENT SECRETARY territory. He was placed on p.o. aspirin 81 mg daily. He was placed on high intensity statin. Patient was counseled strongly to quit smoking. said he mainly ate fast food 3 times a day so he was counseled to eat a heart healthy diet also. 2D echo done showed EF of 65% with stage I diastolic dysfunction and no regional wall motion abnormalities noted. A1c was 7.2 so he was started on p.o. metformin 500 mg twice daily. He is follow-up with his primary care doctor within 1 to 2 weeks and also referred to neurology for stroke management. Of note patient was counseled that he could not drive until cleared by neurology. Patient was seen and examined prior to discharge. He had no complaints. and daughter were by his bedside. He had an uneventful night. Review of systems otherwise negative. Labs and vitals reviewed. Home medication reviewed and reconciled. Physical Exam Const alert, oriented x3 and no apparent distress General Appearance: cooperative and comfortable Orientation / Consciousness: awake HEENT normocephalic, head/scalp atraumatic, hearing grossly normal bilaterally and moist oral mucous membranes Mouth: oral and palatal mucosa normal Eyes PERRL and conjunctivae normal Eyes Narrative: has impaired peripheral visual field loss in right eye Neck supple and no JVD Resp normal respiratory effort, no use of accessory muscles and clear to auscultation bilaterally Cardio regular rate, regular rhythm, S1 normal heart sound, S2 normal heart sound and no murmurs GI normal to inspection, nondistended, normoactive bowel sounds, soft to palpation and non-tender Extremity normal to inspection and full ROM Skin no rashes or lesions noted Neuro oriented x3, moves all extremities, no focal motor deficits and no sensory deficits noted Neuro Narrative: impaired right lateral peripheral visual loss. Sensorium / Orientation: awake and alert Motor Exam: strength 5/5 throughout Psych affect normal Weight / BMI Weight Weight: 256 lb Body Mass Index (BMI) 36.7 ABG / Lab / Microbiology Data 07/05/25 05:15 07/05/25 05:15 Laboratory: Laboratory Results - last 24 hr 07/04/25 14:30: WBC 9.8, RBC 6.22 H, Hgb 18.7 H*, Hct 54.7 H, MCV 87.9, MCH 30.1, MCHC 34.2, RDW Std Deviation 42.2, RDW Coeff of [place] 13.1, Plt Count 232, MPV 9.8, Immature Gran % (Auto) 1.500 H, Neut % (Auto) 65.5, Lymph % (Auto) 23.1, [place] % (Auto) 5.0, Eos % (Auto) 3.8, Baso % (Auto) 1.1 H, Absolute Neuts (auto) 6.4, Absolute Lymphs (auto) 2.25, Nucleated RBC % 0, PT 13.9, INR 1.1, APTT 25.4, Sodium 135, Potassium 4.5, Chloride 104, Carbon Dioxide 20.8 L, Anion Gap 11, BUN 25 H, C reatinine 1.49 H, Estim Creat Clear Calc 59.73, E (more content not included)... [facility]09-16-2025 Consult note Author Leroy Velasquez [facility] Note Date/Time July 05, 2025 12:05pm [facility] Medical Records Department [address] [place] [address] Consultation - Neurology 07/05/25 1143 MR#: [id number] Acct: [id number] Name: AMANDA CONCEPCION Rep #:[id number] : 1955 70 From: Leroy Velasquez MD PCP: Care Physician,No Primary Status :ADM RONALDO Location: [place] [address] Assessment and Plan: Stroke Assessment/Plan AMANDA CONCEPCION is a 70 M with a history of nicotine abuse who presents for evaluation of vision changes Neurological examination shows NIH 1. Neuroimaging shows L exchange consultant infarct. S mall region of acute infarct involving left occipital lobe left PLACEMENT SECRETARY territory. 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 - Anti-platelet medication: Aspirin 81 mg daily - Occupational/ Physical therapy consults - NPO until swallow evaluation. IVF until able to take po - DVT prophylaxis with SCDs and heparin SQ - Vascular risk factor modification. The following are the recommended guidelines: LDL Goal < 70. Lipitor 80 Smoking Cessation Diabetes Management correction blood pressure control should achieve <130/80 mmHg. BP managementshould aim to achieve predatory animal exterminator contorl in a reasonable amount of time, taking into consideration the individual patient's requirements and characteristics. Weight Management: Goal for BMI is 18.5 -24.9 kg/m2 Alcohol: No more than 2 drinks/day for men or 1 drink/day for non- women - Promote lifestyle modification: weight control, physical activity, moderation of alcohol intake, moderate sodium intake, Smoking cessation Followup with PCP in 1-2 weeks, and in Neurology clinic in 6-12 weeks HPI Consult Data Date of Consult: 07/05/25 HPI Narrative HPI Narrative: AMANDA CONCEPCION, is a 70 M who presents with vision loss PFSH Home Medications ?Medication ?Instructions ?Recorded ?Last Taken ?Type acetaminophen 500 mg capsule 1,000 mg PO Q6H PRN fever or pain 07/04/25 Unknown History Allergy/AdvReac Type Severity Reaction Status Date / Time No Known Allergies Allergy Verified 09/27/15 05:53 Social History Smoking Status: Current every day smoker tobacco type: cigarettes Vital Signs Vital Signs Vital Signs: 07/04/25 14:31 07/04/25 14:41 07/04/25 14:45 Temperature 98.6 F Temperature Source Oral Pulse Rate 61 70 Pulse Strength Respiratory Rate 25 H 27 H Respiratory Effort Respiratory Depth Respiratory Pattern Blood Pressure 129/74 H 123/73 H Blood Pressure Mean 92 89 Blood Pressure Source Blood Pressure Position Blood Pressure Location Pulse Ox 95 Oxygen Delivery Method Room Air Room Air Room Air 07/04/25 15:01 07/04/25 15:30 07/04/25 16:00 Temperature Temperature Source Pulse Rate 60 59 L 59 L Pulse Strength Respiratory Rate 19 H 18 18 Respiratory Effort Respiratory Depth Respiratory Pattern Blood Pressure 123/78 H 127/68 H 117/73 Blood Pressure Mean 93 87 87 Blood Pressure Source Blood Pressure Position Blood Pressure Location Pulse Ox 95 98 98 Oxygen Delivery Method Room Air Room Air Room Air 07/04/25 16:30 07/04/25 16:50 07/04/25 17:30 Temperature 97.7 F L 97.5 F L Temperature Source Temporal Pulse Rate 61 58 L 60 Pulse Strength Respiratory Rate 18 18 18 Respiratory Effort Respiratory Depth Respiratory Pattern Blood Pressure 147/81 H 166/93 H 177/84 H Blood Pressure Mean 103 117 115 Blood Pressure Source Monitor Blood Pressure Position Semi-Fowlers Blood Pressure Location Right Forearm Pulse Ox 97 98 100 Oxygen Delivery Method Room Air Room Air 07/04/25 18:40 07/04/25 21:00 07/04/25 21:07 Temperature 98 F Temperature Source Oral Pulse Rate 62 Pulse Strength Normal (2+) Respiratory Rate 17 Respiratory Effort Normal Non-Labored Respiratory Depth Normal Respiratory Pattern Normal Blood Pressure 157/85 H Blood Pressure Mean 109 Blood Pressure Source Monitor Blood Pressure Position Semi-Fowlers Blood Pressure Location Left Arm Pulse Ox 94 Oxygen Delivery Method Room Air Room Air 07/04/25 21:20 07/04/25 22:00 07/05/25 01:02 Temperature 97.6 F L Temperature Source Oral Pulse Rate 57 L Pulse Strength Normal (2+) Respiratory Rate 18 Respiratory Effort Respiratory Depth Respiratory Pattern Blood Pressure 142/99 H Blood Pressure Mean 113 Blood Pressure Source Monitor Blood Pressure Position Semi-Fowlers Blood Pressure Location Left Arm Pulse Ox 96 97 Oxygen Delivery Method Room Air Room Air 07/05/25 01:07 07/05/25 05:00 07/05/25 08:44 Temperature 97.5 F L 97.1 F L Temperature Source Oral Temporal Pulse Rate 56 L 52 L Pulse Strength Respiratory Rate 16 16 Respiratory Effort Normal Non-Labored Respiratory Depth Normal Respiratory Pattern Normal Blood Pressure 158/98 H 139/68 H Blood Pressure Mean 118 91 Blood Pressure Source Monitor Monitor Blood Pressure Position Semi-Fowlers Sitting Blood Pressure Location Left Arm Right Arm Pulse Ox 96 96 Oxygen Delivery Method Room Air Room Air Room Air 07/05/25 08:45 Temperature Temperature Source Pulse Rate Pulse Strength Respiratory Rate Respiratory Effort Respiratory Depth Respiratory Pattern Blood Pressure Blood Pressure Mean Blood Pressure Source Blood Pressure Position Blood Pressure Location Pulse Ox Oxygen Delivery Method Room Air Weight Weight: 116.12 kg Body Mass Index (BMI) 36.7 EEG Results Procedure Details EEG Procedure Details: Lab / Micro Data 07/05/25 05:15 07/05/25 05:15 Labs: Laboratory Results - last 24 hr 07/04/25 14:30: WBC 9.8, RBC 6.22 H, Hgb 18.7 H*, Hct 54.7 H, MCV 87.9, MCH 30.1, MCHC 34.2, RDW Std Deviation 42.2, RDW Coeff of [place] 13.1, Plt Count 232, MPV 9.8, Immature Gran % (Auto) 1.500 H, Neut % (Auto) 65.5, Lymph % (Auto) 23.1, [place] % (Auto) 5.0, Eos % (Auto) 3.8, [...] 9.3, Troponin T High Sens 32 H 07/04/25 16:20: Troponin T Hi Sens 2 Hr 29 H 07/04/25 20:05: Troponin T Hi Sens 4Hr 34 H 07/05/25 05:15: WBC 8.9, RBC 6.12, Hgb 18.6 H*, Hct 54.0, MCV 88.2, MCH 30.4, MCHC 34.4, RDW Std Deviation 42.4, RDW Coeff of [place] 13.2, Plt Count 206, MPV 9.7, Immature Gran % (Auto) 0.400, Neut % (Auto) 61.0, Lymph % (Auto) 26.9, [place]% (Auto) 5.3, Eos % (Auto) 5.4 H, Baso % (Auto) 1.0, Absolute Neuts (auto) 5.4, Absolute Lymphs (auto) 2.40, Nucleated RBC % 0, Sodium 136, Potassium 4.3, Chloride 106, Carbon Dioxide 18.8 L, Anion Gap 11, BUN 21 H, Creatinine 1.23 H, Estim Creat Clear Calc 73.37, Est GFR (MDRD) Non-Af 64, BUN/Creatinine Ratio 17.3, Glucose 126 H, Hemoglobin A1c 7.2 H, Calcium 9.2, Triglycerides 221 H, Cholesterol 136, LDL Cholesterol, Calc 69, VLDL Cholesterol 44 H, HDL Cholesterol 23 L, Cholesterol/HDL Ratio 6.02, TSH 3.180 Imaging Radiology Impression Brain CT 07/04/25 14:31 IMPRESSION: CHRONIC CHANGES. NO ACUTE FINDINGS. Red Alert: Chronic changes The critical findings in the findings and impression above were relayed directlyby me by telephone to Alessandra Dia on 07/04/2025 at 2:48 pm with readback verification. Reading Location: [facility] Head/Neck CTA 07/04/25 14:35 IMPRESSION: No significant stenosis in the head and neck. No aneurysm. Reading [facility] Brain MRI 07/04/25 16:29 IMPRESSION: 1. Small region of acute infarct involving left occipital lobe left PLACEMENT SECRETARY territory. 2. 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 3. No intracranial hemorrhage, extra-axial collection or mass-effect. Reading Location: [facility] Active Medications Active Medications Active Medications: Current Medications Generic Name Dose Route Start Last Admin Trade Name Freq PRN Reason Stop Dose Admin Acetaminophen 650 mg 07/04/25 17:06 Acetaminophen 325 Mg Tablet PO Q6H PRN PRN Pain 1-10 Or Fever >100.7 Albuterol Sulfate 2.5 mg 07/04/25 17:06 Albuterol 2.5 Mg/3 Ml Vial.Neb. INHALATION Q2H PRN PRN SOB &/OR WHEEZING Aspirin 81 mg 07/05/25 08:00 07/05/25 08:46 Aspirin 81 Mg Tab.Chew PO 81 mg BREAKFAST MAXIMILIAN Administration Atorvastatin Calcium 80 mg 07/04/25 22:00 07/04/25 21:09 Atorvastatin Calcium 80 Mg Tablet PO 80 mg QHS MAXIMILIAN Administration Hydralazine HCl 5 mg 07/04/25 17:06 Hydralazine 20 Mg/Ml Vial IV 07/05/25 17:06 Q30M PRN maintain BP parameters with HR <60 Labetalol HCl 10 - 20 mg 07/04/25 17:06 Labetalol 20 Mg/4 Ml Vial IV 07/05/25 17:06 Q10M PRN PRN maintain BP parameters with HR >/=60 Lorazepam 0.5 mg 07/04/25 17:06 Lorazepam 0.5 Mg Tablet PO X1 PRN Anxiety with MRI Melatonin 10 mg 07/04/25 17:06 Melatonin 10 Mg Tablet PO QHS PRN PRN INSOMNIA Nicotine 21 mg 07/05/25 10:00 07/05/25 08:46 Nicotine (Pbkc) 21 Mg Patch TD 21 mg DAILY MAXIMILIAN Administration Ondansetron HCl 4 mg 07/04/25 17:06 Ondansetron 4 Mg/2 Ml Vial IV Q8H PRN PRN NAUSEA/VOMITING Senna/Docusate Sodium 2 tablet 07/04/25 17:06 Senna/Docusate Sodium 1 Tablet PO BID PRN PRN Constipation Sodium Chloride 10 - 40 ml 07/04/25 17:25 07/04/25 21:11 0.9% Saline Lock 10 Ml Syringe IV 10 ml UD PRN Administration SALINE FLUSH NIHSS NIHSS Nursing Documentation NIHSS Nursing Documentation: NIHSS: Ischemic Stroke/TIA Start: 07/04/25 17:06 Text: For PCU Patients: NIH and Neuro Check every 4 Status: Active hours, PRN and with change in RN caregiver. Freq: [id number] Protocol: Activity Type Activity Date Activity User E-sign Co-sign Detail Recorded Client Recorded Date Recorded By Document 07/05/25 05:00 JG desktop 07/05/25 05:04 TrevaG 07/05/25 05:00 NIH Stroke Scale [NIHSS] A score of 0 is normal or asymptomatic . Total possible score is 42. Inpatient: RN or Physician to activate a stroke alert for onset of new stroke symptoms or with NIHSS increase >/= 3 points. Following change in neurological status, NIHSS will be performed per physician order or more frequently PRN. -1a. Level of Consciousness 0 - Alert; keenly responsive -1b. LOC Questions 0 - Answers BOTH questions correctly -1c. LOC Commands 0 - Performs BOTH tasks correctly -2. Best Gaze 0 - Normal -3. Visual 1 - Partial hemianopia -4. Facial Palsy 0 - Normal symmetrical movements -5a. Left Arm 0 - No drift; arm holds 90 ( or 45) degrees for full 10 seconds -5b. Right Arm 0 - No drift; arm holds 90 ( or 45) degrees for full 10 seconds -6a. Left Leg 0 - No drift; leg holds 30- degree position for full 5 seconds -6b. Right Leg 0 - No drift; leg holds 30- degree position for full 5 seconds -7. Limb Ataxia 0 - Absent -8. Sensory 0 - Normal; no sensory loss -9. Best Language 0 - No aphasia; normal -11. Extinction and Inattention 0 - No abnormality -Total 1 Query Text:A score of 0 is normal or asymptomatic. Total possible score is 42 . ED: Notify Physician for NIHSS increase by > / = 3 points. Inpatient: RN or Physician to activate a stroke alert for NIHSS increase of > / = 3 points. Coma Scale [Assess] -Eye Opening Spontaneous -Motor Obeys Commands -Verbal Oriented [Total] -Coma Scale Total 15 07/05/25 1205 <Electronically signed by Leroy Velasquez MD> Cosigner Signature (if applicable): CC: No Primary Care Physician~ Signed [facility] Work Phone: [phone] Consult note [facility] Medical Records Department [address] [place] [address] Consultation - Neurology 07/05/25 1143 MR#: [id number] Acct: [id number] Name: AMANDA CONCEPCION Rep #:[id number] : 1955 70 From: Leroy Velasquez MD PCP: Care Physician,No Primary Status :ADM RONALDO Location: [place] [address] Assessment and Plan: Stroke Assessment/Plan AMANDA CONCEPCION is a 70 M with a history of nicotine abuse who presents for evaluation of vision changes Neurological examination shows NIH 1. Neuroimaging shows L exchange consultant infarct. S mall region of acute infarct involving left occipital lobe left PLACEMENT SECRETARY territory. 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 - Anti-platelet medication: Aspirin 81 mg daily - Occupational/ Physical therapy consults - NPO until swallow evaluation. IVF until able to take po - DVT prophylaxis with SCDs and heparin SQ - Vascular risk factor modification. The following are the recommended guidelines: LDL Goal < 70. Lipitor 80 Smoking Cessation Diabetes Management correction blood pressure control should achieve <130/80 mmHg. BP managementshould aim to achievelong term contorl in a reasonable amount of time, taking into consideration the individual patient's requirements and characteristics. Weight Management: Goal for BMI is 18.5 -24.9 kg/m2 Alcohol: No more than 2 drinks/day for men or 1 drink/day for non- women - Promote lifestyle modification: weight control, physical activity, moderation of alcohol intake, moderate sodium intake, Smoking cessation Followup with PCP in 1-2 weeks, and in Neurology clinic in 6-12 weeks HPI Consult Data Date of Consult: 07/05/25 HPI Narrative HPI Narrative: AMANDA CONCEPCION, is a 70 M who presents with vision loss PFSH Home Medications ?Medication ?Instructions ?Recorded ?Last Taken ?Type acetaminophen 500 mg capsule 1,000 mg PO Q6H PRN fever or pain 07/04/25 Unknown History Allergy/AdvReac Type Severity Reaction Status Date / Time No Known Allergies Allergy Verified 09/27/15 05:53 Social History Smoking Status: Current every day smoker tobacco type: cigarettes Vital Signs Vital Signs Vital Signs: 07/04/25 14:31 07/04/25 14:41 07/04/25 14:45 Temperature 98.6 F Temperature Source Oral Pulse Rate 61 70 Pulse Strength Respiratory Rate 25 H 27 H Respiratory Effort Respiratory Depth Respiratory Pattern Blood Pressure 129/74 H 123/73 H Blood Pressure Mean 92 89 Blood Pressure Source Blood Pressure Position Blood Pressure Location Pulse Ox 95 Oxygen Delivery Method Room Air Room Air Room Air 07/04/25 15:01 07/04/25 15:30 07/04/25 16:00 Temperature Temperature Source Pulse Rate 60 59 L 59 L Pulse Strength Respiratory Rate 19 H 18 18 Respiratory Effort Respiratory Depth Respiratory Pattern Blood Pressure 123/78 H 127/68 H 117/73 Blood Pressure Mean 93 87 87 Blood Pressure Source Blood Pressure Position Blood Pressure Location Pulse Ox 95 98 98 Oxygen Delivery Method Room Air Room Air Room Air 07/04/25 16:30 07/04/25 16:50 07/04/25 17:30 Temperature 97.7 F L 97.5 F L Temperature Source Temporal Pulse Rate 61 58 L 60 Pulse Strength Respiratory Rate 18 18 18 Respiratory Effort Respiratory Depth Respiratory Pattern Blood Pressure 147/81 H 166/93 H 177/84 H Blood Pressure Mean 103 117 115 Blood Pressure Source Monitor Blood Pressure Position Semi-Fowlers Blood Pressure Location Right Forearm Pulse Ox 97 98 100 Oxygen Delivery Method Room Air Room Air 07/04/25 18:40 07/04/25 21:00 07/04/25 21:07 Temperature 98 F Temperature Source Oral Pulse Rate 62 Pulse Strength Normal (2+) Respiratory Rate 17 Respiratory Effort Normal Non-Labored Respiratory Depth Normal Respiratory Pattern Normal Blood Pressure 157/85 H Blood Pressure Mean 109 Blood Pressure Source Monitor Blood Pressure Position Semi-Fowlers Blood Pressure Location Left Arm Pulse Ox 94 Oxygen Delivery Method Room Air Room Air 07/04/25 21:20 07/04/25 22:00 07/05/25 01:02 Temperature 97.6 F L Temperature Source Oral Pulse Rate 57 L Pulse Strength Normal (2+) Respiratory Rate 18 Respiratory Effort Respiratory Depth Respiratory Pattern Blood Pressure 142/99 H Blood Pressure Mean 113 Blood Pressure Source Monitor Blood Pressure Position Semi-Fowlers Blood Pressure Location Left Arm Pulse Ox 96 97 Oxygen Delivery Method Room Air Room Air 07/05/25 01:07 07/05/25 05:00 07/05/25 08:44 Temperature 97.5 F L 97.1 F L Temperature Source Oral Temporal Pulse Rate 56 L 52 L Pulse Strength Respiratory Rate 16 16 Respiratory Effort Normal Non-Labored Respiratory Depth Normal Respiratory Pattern Normal Blood Pressure 158/98 H 139/68 H Blood Pressure Mean 118 91 Blood Pressure Source Monitor Monitor Blood Pressure Position Semi-Fowlers Sitting Blood Pressure Location Left Arm Right Arm Pulse Ox 96 96 Oxygen Delivery Method Room Air Room Air Room Air 07/05/25 08:45 Temperature Temperature Source Pulse Rate Pulse Strength Respiratory Rate Respiratory Effort Respiratory Depth Respiratory Pattern Blood Pressure Blood Pressure Mean Blood Pressure Source Blood Pressure Position Blood Pressure Location Pulse Ox Oxygen Delivery Method Room Air Weight Weight: 116.12 kg Body Mass Index (BMI) 36.7 EEG Results Procedure Details EEG Procedure Details: Lab / Micro Data 07/05/25 05:15 07/05/25 05:15 Labs: Laboratory Results - last 24 hr 07/04/25 14:30: WBC 9.8, RBC 6.22 H, Hgb 18.7 H*, Hct 54.7 H, MCV 87.9, MCH 30.1, MCHC 34.2, RDW Std Deviation 42.2, RDW Coeff of [place] 13.1, Plt Count 232, MPV 9.8, Immature Gran % (Auto) 1.500 H, Neut % (Auto) 65.5, Lymph % (Auto) 23.1, [place] % (Auto) 5.0, Eos % (Auto) 3.8, [...] 9.3, Troponin T High Sens 32 H 07/04/25 16:20: Troponin T Hi Sens 2 Hr 29 H 07/04/25 20:05: Troponin T Hi Sens 4Hr 34 H 07/05/25 05:15: WBC 8.9, RBC 6.12, Hgb 18.6 H*, Hct 54.0, MCV 88.2, MCH 30.4, MCHC 34.4, RDW Std Deviation 42.4, RDW Coeff of [place] 13.2, Plt Count 206, MPV 9.7, Immature Gran % (Auto) 0.400, Neut % (Auto) 61.0, Lymph % (Auto) 26.9, [place]% (Auto) 5.3, Eos % (Auto) 5.4 H, Baso % (Auto) 1.0, Absolute Neuts (auto) 5.4, Absolute Lymphs (auto) 2.40, Nucleated RBC % 0, Sodium 136, Potassium 4.3, Chloride 106, Carbon Dioxide 18.8 L, Anion Gap 11, BUN 21 H, Creatinine 1.23 H, Estim Creat Clear Calc 73.37,Est GFR (MDRD) Non-Af 64, BUN/Creatinine Ratio 17.3, Glucose 126 H, Hemoglobin A1c 7.2 H, Calcium 9.2, Triglycerides 221 H, Cholesterol 136, LDL Cholesterol, Calc 69, VLDL Cholesterol 44 H, HDL Choles terol 23 L, Cholesterol/HDL Ratio 6.02, TSH 3.180 Imaging Radiology Impression Brain CT 07/04/25 14:31 IMPRESSION: CHRONIC CHANGES. NO ACUTE FINDINGS. Red Alert: Chronic changes The critical findings in the findings and impression above were relayed directlyby me by telephone to Alessandra Dia on 07/04/2025 at 2:48 pm with readback verification. Reading Location: [facility] Head/Neck CTA 07/04/25 14:35 IMPRESSION: No significant stenosis in the head and neck. No aneurysm. Reading Location[facility] Brain MRI 07/04/25 16:29 IMPRESSION: 1. Small region of acute infarct involving left occipital lobe left PLACEMENT SECRETARY territory. 2. 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 3. No intracranial hemorrhage, extra-axial collection or mass-effect. Reading Location: [facility] Active Medications Active Medications Active Medications: Current Medications Generic Name Dose Route Start Last Admin Trade Name Freq PRN Reason Stop Dose Admin Acetaminophen 650 mg 07/04/25 17:06 Acetaminophen 325 Mg Tablet PO Q6H PRN PRN Pain 1-10 Or Fever >100.7 Albuterol Sulfate 2.5 mg 07/04/25 17:06 Albuterol 2.5 Mg/3 Ml Vial.Neb. INHALATION Q2H PRN PRN SOB &/OR WHEEZING Aspirin 81 mg 07/05/25 08:00 07/05/25 08:46 Aspirin 81 Mg Tab.Chew PO 81 mg BREAKFAST MAXIMILIAN Administration Atorvastatin Calcium 80 mg 07/04/25 22:00 07/04/25 21:09 Atorvastatin Calcium 80 Mg Tablet PO 80 mg QHS MAXIMILIAN Administration Hydralazine HCl 5 mg 07/04/25 17:06 Hydralazine 20 Mg/Ml Vial IV 07/05/25 17:06 Q30M PRN maintain BP parameters with HR <60 Labetalol HCl 10 - 20 mg 07/04/25 17:06 Labetalol 20 Mg/4 Ml Vial IV 07/05/25 17:06 Q10M PRN PRN maintain BP parameters with HR >/=60 Lorazepam 0.5 mg 07/04/25 17:06 Lorazepam 0.5 Mg Tablet PO X1 PRN Anxiety with MRI Melatonin 10 mg 07/04/25 17:06 Melatonin 10 Mg Tablet PO QHS PRN PRN INSOMNIA Nicotine 21 mg 07/05/25 10:00 07/05/25 08:46 Nicotine (Pbkc) 21 Mg Patch TD 21 mg DAILY MAXIMILIAN Administration Ondansetron HCl 4 mg 07/04/25 17:06 Ondansetron 4 Mg/2 Ml Vial IV Q8H PRN PRN NAUSEA/VOMITING Senna/Docusate Sodium 2 tablet 07/04/25 17:06 Senna/Docusate Sodium 1 Tablet PO BID PRN PRN Constipation Sodium Chloride 10 - 40 ml 07/04/25 17:25 07/04/25 21:11 0.9% Saline Lock 10 Ml Syringe IV 10 ml UD PRN Administration SALINE FLUSH NIHSS NIHSS Nursing Documentation NIHSS Nursing Documentation: NIHSS: Ischemic Stroke/TIA Start: 07/04/25 17:06 Text: For PCU Patients: NIH and Neuro Check every 4 Status: Active hours, PRN and with change in RN caregiver. Freq: [id number] Protocol: Activity Type Activity Date Activity User E-sign Co-sign Detail Recorded Client Recorded Date Recorded By Document 07/05/25 05:00 [employer] desktop 07/05/25 05:04 [employer] (PT[employer]) 07/05/25 05:00 NIH Stroke Scale [NIHSS] A score of 0 is normal or asymptomatic . Total possible score is 42. Inpatient: RN or Physician to activate a stroke alert for onset of new stroke symptoms or with NIHSS increase >/= 3 points. Following change in neurological status, NIHSS will be performed per physician order or more frequently PRN. -1a. Level of Consciousness 0 - Alert; keenly responsive -1b. LOC Questions 0 - Answers BOTH questions correctly -1c. LOC Commands 0 - Performs BOTH tasks correctly -2. Best Gaze 0 - Normal -3. Visual 1 - Partial hemianopia -4. Facial Palsy 0 - Normal symmetrical movements -5a. Left Arm 0 - No drift; arm holds 90 ( or 45) degrees for full 10 seconds -5b. Right Arm 0 - No drift; arm holds 90 ( or 45) degrees for full 10 seconds -6a. Left Leg 0 - No drift; leg holds 30- degree position for full 5 seconds -6b. Right Leg 0 - No drift; leg holds 30- degree position for full 5 seconds -7. Limb Ataxia 0 - Absent -8. Sensory 0 - Normal; no sensory loss -9. Best Language 0 - No aphasia; normal -11. Extinction and Inattention 0 - No abnormality -Total 1 Query Text:A score of 0 is normal or asymptomatic. Total possible score is 42 . ED: Notify Physician for NIHSS increase by > / = 3 points. Inpatient: RN or Physician to activate a stroke alert for NIHSS increase of > / = 3 points. Coma Scale [Assess] -Eye Opening Spontaneous -Motor Obeys Commands -Verbal Oriented [Total] -Coma Scale Total 07/05/25 1205 Cosigner Signature (if applicable): CC: No Primary Care Physician~ Signed [facility]09-15-2025 Discharge summary Author Alessandra Dia [facility] Note Date/Time July 04, 2025 9:39pm [facility] Medical Records Department [address] [place] [address] Emergency Department Summary 07/04/25 MR#: [id number] Acct: [id number] Name: AMANDA CONCEPCION Rep #:[id number] : 1955 70 From: Alessandra Dia MD PCP: Care Physician,No Primary Status :ADM RONALDO Location: [address] History of Present Illness Chief Complaint: Stroke Alert Narrative Narrative: Patient is a 70 year old male presenting to the ED as a stroke alert. 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 States he has never had a stroke before. Denies any use of OAC. Patient denies any head trauma. Denies neck pain. Denies numbness or weakness of his extremities. Denies any speech difficulty. Patient denies any eye pain. Denies any drainage from his eye. EMS was called. [facility] Home Medications ?Medication ?Instructions ?Recorded ?Last Taken ?Type acetaminophen 500 mg capsule 1,000 mg PO Q6H PRN fever or pain 07/04/25 Unknown History Allergy/AdvReac Type Severity Reaction Status Date / Time No Known Allergies Allergy Verified 09/27/15 05:53 Social History Smoking Status: Current every day smoker tobacco type: cigarettes ROS ROS ED ROS Narrative see HPI EXAM Physical Exam Narrative Exam Narrative: Vital signs: Reviewed General: Alert and orientedx3. No acute distress HEENT: Head is normocephalic and atraumatic, sinuses nontender, pupils equal round and reactive. 2 mm bilaterally. No conjunctival injection. Normal extraocular movements. Nares are patent. Oropharynx and throat exams normal. No temporal tenderness to palpation. Neck: Supple without lymphadenopathy nontender Cardiovascular: Regular rate and rhythm, no murmurs. No rubs or gallops. Normal S1 and S2 Respiratory: Clear to auscultation bilaterally. No wheezes, rales, rhonchi Abdominal: Soft and nontender. Normal bowel sounds. No guarding or rebound. Nonsurgical abdomen Extremities: No tenderness. No bruising. Normal range of motion. Normal sensation. Skin: No rash or redness. The rest of the physical exam is unremarkable Const Vital Signs: 07/04/25 14:31 07/04/25 14:41 07/04/25 [...] Method Room Air Room Air Room Air MDM MDM MDM Narrative Medical decision making narrative: Patient is a 70-year-old male presenting emergency department as a stroke team. Patient was seen and examined in the EMS bay on arrival. NIH of 1. Sent to CT for imaging. Differential includes but is not limited to: stroke, CRAO, intracranial mass, less likely glaucoma, retinal detachment, giant cell arteritis Spoke to Dr. Carty, stroke neurologist at [facility], he reviewed CT brain and CTA head and neck and see no acute abnormalities. Radiology read with negative findings as well. Given the patient is outside of the window for TNK and has a low NIH of 1 with nondisabling deficits, he recommended loading with aspirin andPlavix which were given and admission for MRI and further stroke workup. Aspirin and Plavix were given. CBC with no leukocytosis. Hemoglobin of 18.7, fluids started. BMP with baseline mild kidney dysfunction. Troponins are stable with no significant delta change from 32, 29, 34. EKG shows sinus bradycardia with no ischemic changes. No ST elevation or depression. No dysrhythmia. Patient has no pain in his eye, no redness to his eye, do not think this is glaucoma given these. No temporal tenderness to palpation. On reevaluation the patient states his vision is slowly improving. With the vision improving I do not think this is retinal detachment. Likely TIA. I recommended that the patient be admitted for further stroke workup including MRI. Patient agreeable. Patient admitted to Dr. Marcos for further management. Clinical impression Stroke like symptoms History & Record Review Discussion w/independent historian: EMS personnel and Patient Lab Data Attestation: I reviewed the patient's lab results. Labs: Laboratory Results - last 24 hr 07/04/25 07/04/25 14:30 16:20 WBC 9.8 RBC 6.22 H Hgb 18.7 H* Hct 54.7 H MCV 87.9 MCH 30.1 MCHC 34.2 RDW Std Deviation 42.2 RDW Coeff of [place] 13.1 Plt Count 232 MPV 9.8 Immature Gran % (Auto) 1.500 H Neut % (Auto) 65.5 Lymph % (Auto) 23.1 [place] % (Auto) 5.0 Eos % (Auto) 3.8 Baso % (Auto) 1.1 H Absolute Neuts (auto) 6.4 Absolute Lymphs (auto) 2.25 Nucleated RBC % 0 PT 13.9 INR 1.1 APTT 25.4 Sodium 135 Potassium 4.5 Chloride 104 Carbon Dioxide 20.8 L Anion Gap 11 BUN 25 H Creatinine 1.49 H Estim Creat Clear Calc 59.73 Est GFR (MDRD) Non-Af 51 L BUN/Creatinine Ratio 16.7 Glucose 130 H Calcium 9.3 Troponin T High Sens 32 H Troponin T Hi Sens 2 Hr 29 H Radiography Diagnostic Testing: Clinical Impression(s) from Imaging Studies Brain CT 07/04/25 14:31 IMPRESSION: CHRONIC CHANGES. NO ACUTE FINDINGS. Red Alert: Chronic changes The critical findings in the findings and impression above were relayed directlyby me by telephone to IfeomaAlessandra on 07/04/2025 at 2:48 pm with readback verification. Reading Location: [facility]-1 Head/Neck CTA 07/04/25 14:35 IMPRESSION: No significant stenosis in the head and neck. No aneurysm. Reading [facility] Discharge Plan Disposition Disposition: Acute Care Hospital [facility] Discharge Date/Time: 07/04/25 17:05 NIHSS NIHSS 1a. Level of Consciousness: 0 - Alert; keenly responsive 1b. LOC Questions: 0 - Answers BOTH questions correctly 1c. LOC Commands: 0 - Performs BOTH tasks correctly 2. Best Gaze: 0 - Normal 3. Visual: 1 - Partial hemianopia 4. Facial Palsy: 0 - Normal symmetrical movements 5a. Left Arm: 0 - No drift; arm holds 90 (or 45) degrees for full 10 seconds 5b. Right Arm: 0 - No drift; arm holds 90 (or 45) degrees for full 10 seconds 6a. Left Le - No drift; leg holds 30-degree position for full 5 seconds 6b. Right Le - No drift; leg holds 30-degree position for full 5 seconds 7. Limb Ataxia: 0 - Absent 8. Sensory: 0 - Normal; no sensory loss 9. Best Language: 0 - No aphasia; normal 10. Dysarthria: 0 - Normal 11. Extinction and Inattention: 0 - No abnormality Total: 1 Stroke Questions Stroke Team Activated: Yes Reviewed Inclusion/Exclusion criteria: Yes What to do if you have Problems For any increased pain, shortness of breath, bleeding, nausea or vomiting, chestpain, or any unexpected problems, contact your Primary Care Provider. Call [facility] ([phone]) or report to the closest Emergency Room. Call 911 if necessary. 07/04/252138 <Electronically signed by Alessandra Dia MD> Cosigner Signature (if applicable): CC: No Primary Care Physician ~ Signed [facility] Work Phone: 1(478) 216-583209-15-2025 Discharge summary [facility] Medical Records Department [address] [place] [address] Emergency Department Summary 07/04/25 MR#: [id number] Acct: [id number] Name: AMANDA CONCEPCION Rep #:[id number] : 1955 70 From: Alessandra Dia MD PCP: Care Physician,No Primary Status :ADM RONALDO Location: [place] [address] HPI History of Present Illness Chief Complaint: Stroke Alert Narrative Narrative: Patient is a 70 year old male presenting to the ED as a stroke alert. 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 States he has never had a stroke before. Denies any use of OAC. Patient denies any head trauma. Denies neck pain. Denies numbness or weakness of his extremities. Denies any speech difficulty. Patient denies any eye pain. Denies any drainage from his eye. EMS was called. PFSH PFSH Home Medications ?Medication ?Instructions ?Recorded ?Last Taken ?Type acetaminophen 500 mg capsule 1,000 mg PO Q6H PRN fever or pain 07/04/25 Unknown History Allergy/AdvReac Type Severity Reaction Status Date / Time No Known Allergies Allergy Verified 09/27/15 05:53 Social History Smoking Status: Current every day smoker tobacco type: cigarettes ROS ROS ED ROS Narrative see HPI EXAM Physical Exam Narrative Exam Narrative: Vital signs: Reviewed General: Alert and orientedx3. No acute distress HEENT: Head is normocephalic and atraumatic, sinuses nontender, pupils equal round and reactive. 2 mm bilaterally. No conjunctival injection. Normal extraocular movements. Nares are patent. Oropharynx and throat exams normal. No temporal tenderness to palpation. Neck: Supple without lymphadenopathy nontender Cardiovascular: Regular rate and rhythm, no murmurs. No rubs or gallops. Normal S1 and S2 Respiratory: Clear to auscultation bilaterally. No wheezes, rales, rhonchi Abdominal: Soft and nontender. Normal bowel sounds. No guarding or rebound. Nonsurgical abdomen Extremities: No tenderness. No bruising. Normal range of motion. Normal sensation. Skin: No rash or redness. The rest of the physical exam is unremarkable Const Vital Signs: 07/04/25 14:31 07/04/25 14:41 07/04/25 [...] Method Room Air Room Air Room Air MDM MDM MDM Narrative Medical decision making narrative: Patient is a 70-year-old male presenting emergency department as a stroke team. Patient was seen and examined in the EMS bay on arrival. NIH of 1. Sent to CT for imaging. Differential includes but is not limited to: stroke, CRAO, intracranial mass, less likely glaucoma,retinal detachment, giant cell arteritis Spoke to Dr. Carty, stroke neurologist at [facility], he reviewed CT brain and CTA head and neck and seeno acute abnormalities. Radiology read with negative findings as well. Given the patient is outsideof the window for TNK and has a low NIH of 1 with nondisabling deficits, he recommended loading with aspirin andPlavix which were given and admission for MRI and further stroke workup. Aspirin and Plavix were given. CBC with no leukocytosis. Hemoglobin of 18.7, fluids started. BMP with baseline mild kidney dysfunction. Troponins are stable with no significant delta change from 32, 29, 34. EKG shows sinus bradycardia with no ischemic changes. No ST elevation or depression. No dysrhythmia. Patient has no pain in his eye, no redness to his eye, do not think this is glaucoma given these. No temporal tenderness to palpation. On reevaluation the patient states his vision is slowly improving. Withthe vision improving I do not think this is retinal detachment. Likely TIA. I recommended that the patient be admitted for further stroke workup including MRI. Patient agreeable. Patient admitted to Dr. Marcos for further management. Clinical impression Stroke like symptoms History & Record Review Discussion w/independent historian: EMS personnel and Patient Lab Data Attestation: I reviewed the patient's lab results. Labs: Laboratory Results - last 24 hr 07/04/25 07/04/25 14:30 16:20 WBC 9.8 RBC 6.22 H Hgb 18.7 H* Hct 54.7 H MCV 87.9 MCH 30.1 MCHC 34.2 RDW Std Deviation 42.2 RDW Coeff of [place] 13.1 Plt Count 232 MPV 9.8 Immature Gran % (Auto) 1.500 H Neut % (Auto) 65.5 Lymph % (Auto) 23.1 [place] % (Auto) 5.0 Eos % (Auto) 3.8 Baso % (Auto) 1.1 H Absolute Neuts (auto) 6.4 Absolute Lymphs (auto) 2.25 Nucleated RBC % 0 PT 13.9 INR 1.1 APTT 25.4 Sodium 135 Potassium 4.5 Chloride 104 Carbon Dioxide 20.8 L Anion Gap 11 BUN 25 H Creatinine 1.49 H Estim Creat Clear Calc 59.73 Est GFR (MDRD) Non-Af 51 L BUN/Creatinine Ratio 16.7 Glucose 130 H Calcium 9.3 Troponin T High Sens 32 H Troponin T Hi Sens 2 Hr 29 H Radiography Diagnostic Testing: Clinical Impression(s) from Imaging Studies Brain CT 07/04/25 14:31 IMPRESSION: CHRONIC CHANGES. NO ACUTE FINDINGS. Red Alert: Chronic changes The critical findings in the findings and impression above were relayed directlyby me by telephone to Alessandra Dia on 07/04/2025 at 2:48 pm with readback verification. Reading Location: [facility] Head/Neck CTA 07/04/25 14:35 IMPRESSION: No significant stenosis in the head and neck. No aneurysm. Reading Location[facility] Discharge Plan Disposition Disposition: Acute Care Hospital [facility] Discharge Date/Time: 07/04/25 17:05 NIHSS NIHSS 1a. Level of Consciousness: 0 - Alert; keenly responsive 1b. LOC Questions: 0 - Answers BOTH questions correctly 1c. LOC Commands: 0 - Performs BOTH tasks correctly 2. Best Gaze: 0 - Normal 3. Visual: 1 - Partial hemianopia 4. Facial Palsy: 0 - Normal symmetrical movements 5a. Left Arm: 0 - No drift; arm holds 90 (or 45) degrees for full 10 seconds 5b. Right Arm: 0 - No drift; arm holds 90 (or 45) degrees for full 10 seconds 6a. Left Le - No drift; leg holds 30-degree position for full 5 seconds 6b. Right Le - No drift; leg holds 30-degree position for full 5 seconds 7. Limb Ataxia: 0 - Absent 8. Sensory: 0 - Normal; no sensory loss 9. Best Language: 0 - No aphasia; normal 10. Dysarthria: 0 - Normal 11. Extinction and Inattention: 0 - No abnormality Total: 1 Stroke Questions Stroke Team Activated: Yes Reviewed Inclusion/Exclusion criteria: Yes What to do if you have Problems For any increased pain, shortness of breath, bleeding, nausea or vomiting, chestpain, or any unexpected problems, contact your Primary Care Provider. Call [facility] ([phone]) or report tothe closest Emergency Room. Call 911 if necessary. 07/04/252138 Cosigner Signature (if applicable): CC: No Primary Care Physician ~ Signed [facility]09-15-2025 History and physical note Author Lani Marcos [facility] Note Date/Time July 04, 2025 4:[address] [place] [address] [facility] System Medical Records Department [address] [place] [address] H&P Exam - Hospitalist 07/04/25 1622 MR#: [id number] Acct: [id number] Name: AMANDA CONCEPCION Rep #:[id number] : 1955 70 From: Lani Marcos MD PCP: Care Physician,No Primary Status :REG ER Location: ED HPI - General General Date of Admission: 07/04/25 Date of Service: 07/04/25 Chief Complaint: Right sided peripheral vision loss HPI Narrative MAANDA CONCEPCION, is a 70-year-old male with history of tobacco use presented to [facility] ED 07/04/2025 as a stroke alert. [...] deficits, cranial nerves II through XII intact, [id number] without significant difficulty bilaterally, almost seem to [...] % (Auto) 65.5, Lymph % (Auto) 23.1, [place] % (Auto) 5.0, Eos % (Auto) 3.8, [...] 2:48 pm with readback verification. Reading Location: [facility]-1 Head/Neck CTA 07/04/25 14:35 IMPRESSION: No significant stenosis in the head and neck. No aneurysm. Reading Location[facility] Assessment & Plan Assessment/Plan (1) Visual changes: [...] Marcos MD Charges/Coding Visit Charges Inpatient E&M: 36080 Init Hosp L2 07/04/25 1631 <Electronically signed by Lani Marcos MD> Cosigner Signature (if applicable): CC: Dr. Lani Marcos MD; No Primary Care Physician~ Signed [facility] Work Phone: 1(454) 434-294409-15-2025 Evaluation note* Diagnosis Onset Date Resolution Status Admit Date Tobacco use acute June 4:23pm Visual changes acute July 04, 2025 4:23pm [facility] Work Phone: 1(116) 579-607409-15-2025 Evaluation note* Diagnosis Onset Date Resolution Status Admit Date Tobacco use acute June h2024 4:23pm Visual changes acute July 04, 2025 4:23pm CVA (cerebral vascular accident) acute August 01 2:06pm Diabetes mellitus acute August 01, 2025 2:06pm Dyslipidemia acute July 2:06pm Fatigue acute August 01, 2025 2:06pm Polycythemia acute July 2:06pm Tobacco use acute August 01, 2025 2:06pm Visual changes acute August 012024 2:06pm Sleep apnea suspected August 01, 2025 2:06pm [facility] Work Phone: 1(223) 937-675109-15-2025 History and physical note [facility] Medical Records Department [address] [place] [address] H&P Exam - Hospitalist 07/04/25 1622 MR#: [id number] Acct: [id number] Name: AMANDA CONCEPCION Rep #:[id number] : 1955 70 From: Lani Marcos MD PCP: Care Physician,No Primary Status :REG ER Location: ED HPI - General General Date of Admission: 07/04/25 Date of Service: 07/04/25 Chief Complaint: Right sided peripheral vision loss HPI Narrative AMANDA CONCEPCION, is a 70-year-old male with history of tobacco use presented to [facility] ED 07/04/2025 as a stroke alert. [...] CThead and CTA head and neck no acuteprocess. Patient presented outside of window for TNK [...] still little bit of an achy headache inthe center. Still has peripheral vision loss on [...] deficits, cranial nerves II through XII intact, [id number] without significant difficulty bilaterally, almost seem to [...] % (Auto) 65.5, Lymph % (Auto) 23.1, [place] % (Auto) 5.0, Eos % (Auto) 3.8, [...] 2:48 pm with readback verification. [facility] 07/04/25 14:35 IMPRESSION: No significant stenosis in the head and neck. No aneurysm. Reading Location[facility] Assessment & Plan Assessment/Plan (1) Visual changes: [...] Marcos MD Charges/Coding Visit Charges Inpatient E&M: 25297 Init Hosp L2 07/04/25 1631 Cosigner Signature (if applicable): CC: Dr. Lani Marcos MD; No Primary Care Physician~ Signed [facility]09-15-2025 Radiology Diagnostic study note [facility] Imaging Services [address] [place] [address] STROKE CTA Head AND Neck W/Con MR#: [id number] Acct: [id number] Name: AMANDA CONCEPCION Rep #: [id number] : 1955 M 70 From: Guillermo Fernandez MD PCP: Care Physician,No Primary Status: REG ER Study:STROKE CTA Head AND Neck W/Con Date of Exam: 07/04/25 Exam# [id number] Ordering Dr: Seng Dia MD PROCEDURE: STROKE CTA HEAD AND NECK W/CON [...] inferior cerebellar artery. LEFT Vertebral: Dominant. Anatomy: [place] anatomy is normal. Aneurysm or [...] head and neck. No aneurysm. Reading Location[facility] CC: Dr. Alessandra Dia MD; No Primary Care Physician ~ User Experience Designer: Signed [facility]09-15-2025 Radiology Diagnostic study note [facility] Imaging Services [address] [place] [address] STROKE Brain/Head without Cont MR#: [id number] Acct: [id number] Name: AMANDA CONCEPCION Rep #: [id number] : 1955 M 70 From: Julio César Figueroa MD PCP: Care Physician,No Primary Status: REG ER Study:STROKE Brain/Head without Cont Date of Exam: 07/04/25 Exam# [id number] Ordering Dr: Seng Dia MD PROCEDURE: STROKE [...] 2:48 pm with readback verification. Reading Location: [facility] CC: Dr. Alessandra Dia MD; No Primary Care Physician ~ User Experience Designer: [facility]igned [facility] Author Chante Valencia [facility] Note Date/Time July 05, 2025 2:43pm [facility] Medical Records Department [address] [place] [address] Instructions for Home/Discharge Instructions 07/05/25 1442 MR#: [id number] Acct: [id number] Name: AMANDA CONCEPCION Rep #:[id number] : 1955 70 From: Chante Valencia MD PCP: Care Physician,No Primary Status :ADM RONALDO Discharge Instructions DC O2, CPAP, BIPAP needs Home O2 Discharge instructions: No Dressing / Incision Discharge Activity: Return to Normal Activity Weight Bearing Status: Weight bearing as tolerated Dressing / Incision Call your doctor if you observe: Fever of 101 or Higher, Dizziness, Chest pain and - (vision not improving) Follow Up Care Test Results: Test results from this visit will be discussed in further detail at your follow- up appointment, if applicable. Discharge Plan Admission Admit Date/Time: 07/04/25 16:23 Primary Reason for Your Visit: acute CVA Attending Provider: Chante Valencia Primary Care Provider: Care Physician,No Primary Consulting Providers: Shaheen Knight; Alexandru Correa; Jyoti Campos; Sheila Chase; Michelle Johnston; Naga North; Marizol Bahena; Justyn Isabel; Chi Spears; Silvino Carty; Myriam Cardoza; Nika Benton; Murray Almodovar; Rose Morton; Yahaira Nieto; Ivan Hernández; Anthony Leonard; Eladia Delong; Leroy Velasquez; Lizzie Maciel; Barbara Bradford; Lani Marcos Instructions Patient Instructions: Booklet - Understanding Stroke Additional Instructions / Restrictions: Abstain from driving until cleared by Neurology to do so. Counseled to quit smoking, and to eat a heart healthy diet, as well as exercise to lose weight. Discharge Orders/Prescriptions Prescriptions: New atorvastatin 80 mg Tablet 80 mg PO QHS Qty: 30 2RF aspirin 81 mg Tablet,Chewable 81 mg PO BREAKFAST Qty: 30 2RF metformin 500 mg tablet 500 mg PO BID Qty: 60 2RF Rx Instructions: to start taking metformin on , 48 hours after receiving contrast Continued acetaminophen 500 mg capsule 1,000 mg PO Q6H PRN (Reason: fever or pain) Referrals / Follow Up: Jg Hoffman MD [Med Staff - Active Staff] - Within 2 Weeks (see to establish PCP relationship) Scott Spaer MD [Non-Staff -Ordering Privileges] - Within 1 Week (see for stroke care) Care Physician,No Primary [Primary Care Provider] - Disposition Disposition (needs filled in before D/C Order can be placed): Home, Self Care 07/05/25 1443<Electronically signed by Chante Valencia MD>Chante Valencia MD CC: Sheila Chase; Rose Morton; Anthony Leonard; Michelle Johnston MD; Jyoti Campos MD; Shaheen Knight MD; Dr. Alexandru Correa MD; Dr. Naga North MD; Dr. Rufus MD; Dr. Chi Spears MD; Dr. Justyn Isabel MD; Dr. Silvino Carty MD; Dr. Myriam Cardoza DO; Dr. Murray Almodovar DO; Dr. Ivan Hernández MD; Dr. Yahaira Nieto MD; Dr. Lani Marcos MD; Dr. Eladia Delong MD; Dr. Leroy Velasquez MD; Dr. Lizzie Maciel MD; Nika Benton DO; No Primary Care Physician; Barbara Bradford MD ~ Signed [facility] Work Phone: Evaluation note* Diagnosis Onset Date Resolution Status Admit Date Tobacco use acute June 4:23pm Visual changes acute July 04, 2025 4:23pm [facility] Work Phone: History and physical note Author Lani Marcos [facility] Note Date/Time July 04, 2025 4:31pm [facility] Medical Records Department [address] [place] [address] H&P Exam - Hospitalist 07/04/25 1622 MR#: [id number] Acct: [id number] Name: AMANDA CONCEPCION Rep #:[id number] : 1955 70 From: Lani Marcos MD PCP: Care Physician,No Primary Status :REG ER Location: ED HPI - General General Date of Admission: 07/04/25 Date of Service: 07/04/25 Chief Complaint: Right sided peripheral vision loss HPI Narrative AMANDA CONCEPCION, is a 70-year-old male with history of tobacco use presented to [facility] ED 07/04/2025 as a stroke alert. [...] deficits, cranial nerves II through XII intact, gzkfqi-[id number]-[id number] without significant difficulty bilaterally, almost seem to [...] % (Auto) 65.5, Lymph % (Auto) 23.1, [place] % (Auto) 5.0, Eos % (Auto) 3.8, [...] 2:48 pm with readback verification. Reading Location: [facility] Head/Neck CTA 07/04/25 14:35 IMPRESSION: No significant stenosis in the head and neck. No aneurysm. Reading Location: [facility] Assessment & Plan Assessment/Plan (1) Visual changes: [...] Marcos MD Charges/Coding Visit Charges Inpatient E&M: 47876 Init Hosp L2 07/04/25 1631 <Electronically signed by Lani Marcos MD> Cosigner Signature (if applicable): CC: Dr. Lani Marcos MD; No Primary Care Physician~ Signed [facility] Work Phone: Hospital Discharge instructionsAdditional Instructions Abstain from driving until cleared by Neurology to do so. Counseled to quit smoking, and to eat a heart healthy diet, as well as exercise to lose weight.[facility] Work Phone: Hospital Discharge instructionsAmbulatory Orders* Ophthalmology Location: None Selected [facility] Work Phone: Reason for referral (narrative)No reason for referral information availableWooBarney [facility] Work Phone: Summary Purpose Family History No Family History Records Found Relationship Condition Age at Onset Recorded Date/T inga mother Kidney disorder Unknown father Cardiac disease Unknown Myocardial infarction Unknown Advance Directives No Advanced Directives Records Found Advance Directive Response Recorded Date/ Time Do you have a Healthcare Power of Frozen Meat Cutter? No July 04, 2025 2:46pm Advance Directives No September 10:45am Advance Directive Response Recorded Date/ Time Do you have a Healthcare Power of Frozen Meat Cutter? No July 04, 2025 5:19pm Advance Directives No September 10:45am Chief Complaint and Reason for Visit Chief Complaint Admit Date stoke alert July 04, 2025 4:22pm STROKE RULE OUT July 04, 2025 4:23pm Reason for Visit Admit Date Tobacco use July 04, 2025 4:23pm Visual changes July 04, 2025 4:23pm Chief Complaint Admit Date stoke alert July 04, 2025 4:22pm STROKE RULE OUT July 04, 2025 4:23pm STROKE RULE OUT July 05, 2025 2:43pm STROKE August 01, 2025 2 :06pm E-ORDER August 03, 2025 3 :24pm Reason for Visit Admit Date Tobacco use July 04, 2025 4:23pm Visual changes July 04, 2025 4:23pm CVA (cerebral vascular accident) August 01, 2025 2:06pm Diabetes mellitus August 01, 2025 2 :06pm Dyslipidemia August 01, 2025 2 :06pm Fatigue August 01, 2025 2 :06pm Polycythemia August 01, 2025 2 :06pm Tobacco use August 01, 2025 2 :06pm Visual changes August 01, 2025 2 :06pm Sleep apnea August 01, 2025 2 :06pm Additional Source Comments (unrecognized sect ion and content) No Status Records FoundNo Status Records Found INFORMATION SOURCE (unrecogn ized section and content) DATE CREATED AUTHOR 08/23/2022 [facility] ([place]) DATE CREATED AUTHOR AUTHOR'S ORGANIZ ATION 08/31/2025 [facility] Care Teams (unrecognized sec tion and content) [...] Active Start: July 04, 2025 Team Status: Inactive Member Role/Relationship Status Dates No Primary Care Physician Primary Care Provider Active Start: July 04, 2025 End: July 05, 2025 Dr. Alessandra Dia MD Emergency Provider Active S tart: July 04, 2025 End: July 05, 2025 Dr. Lani Marcos MD Admit Provider Active Star t: July 04, 2025 End: July 05, 2025 Dr. Lani Marcos MD Other Provider Active Star t: July 04, 2025 End: July 05, 2025 Shaheen Knight MD Other Provider Active Start: Se ptember 15th, 2025 End: July 05, 2025 Dr. Alexandru Correa MD Other Provider Active Start: July 04, 2025 End: July 05, 2025 Jyoti Campos MD Other Provider Active Start : July 04, 2025 End: July 05, 2025 Dr. Sheila Chase , Other Provider Active St art: July 04, 2025 End: July 05, 2025 Dr. Michelle Johnston MD Other Provider Active Start: July 04, 2025 End: July 05, 2025 Dr. Naga North MD Other Provider Active Sta rt: July 04, 2025 End: July 05, 2025 Dr. Marizol Bahena MD Other Provider Active Start : July 04, 2025 End: July 05, 2025 Dr. Justyn Isabel MD Other Provider Active Start: July 04, 2025 End: July 05, 2025 Dr. Chi Spears MD Other Provider Active Start : July 04, 2025 End: July 05, 2025 Dr. Silvino Carty MD Other Provider Active Sta rt: July 04, 2025 End: July 05, 2025 Dr. Myriam Cardoza , Other Provider Active St art: July 04, 2025 End: July 05, 2025 Nika Benton MD Other Provider Active Start : July 04, 2025 End: July 05, 2025 Dr. Murray Amlodovar MD Other Provider Active St art: July 04, 2025 End: July 05, 2025 Dr. Rose Morton MD Other Provider Active Start : July 04, 2025 End: July 05, 2025 Dr. Yahaira Nieto MD Other Provider Active Sta rt: July 04, 2025 End: July 05, 2025 Dr. Ivan Hernández MD Other Provider Active Start: July 04, 2025 End: July 05, 2025 Dr. Anthony Leonard MD Other Provider Active St art: July 04, 2025 End: July 05, 2025 Dr. Eladia Delong MD Other Provider Active Star t: July 04, 2025 End: July 05, 2025 Dr. Leroy Velasquez MD Other Provider Active St art: July 04, 2025 End: July 05, 2025 Dr. Lizzie Maciel MD Other Provider Active Start: July 04, 2025 End: July 05, 2025 Barbara Bradford MD Other Provider Active Start: July 04, 2025 End: July 05, 2025 Dr. Chante Valencia MD Attending Provider Active Start: July 04, 2025 End: July 05, 2025 Team Status: Active Member Role/Relationship Status Dates No Primary Care Physician Primary Care Provider Active Start: July 05, 2025 Dr. Roge Ruiz MD Attending Provider Active Start: July 05, 2025 Team Status: Active Member Role/Relationship Status Dates No Primary Care Physician Primary care physician Activ e Team Status: Active Member Role/Relationship Status Dates No Primary Care Physician Primary care physician Activ e Start: July 04, 2025 Dr. Alessandra Dia MD Emergency Departmen t Physician Active Start: July 04, 2025 Dr. Lani Marcos MD Attending physician Active Start: July 04, 2025 Team Status: Inactive Member Role/Relationship Status Dates No Primary Care Physician Primary care physician Activ e Start: July 04, 2025 End: July 05, 2025 Dr. Alessandra Dia MD Emergency Departmen t Physician Active Start: July 04, 2025 End: July 05, 2025 Dr. Lani Marcos MD Admitting physician Active Start: July 04, 2025 End: July 05, 2025 Dr. Lani Marcos MD Nurse Practitioner Active Start: July 04, 2025 End: July 05, 2025 Shaheen Knight MD Nurse Practitioner Active Start : July 04, 2025 End: July 05, 2025 Dr. Alexandru Correa MD Nurse Practitioner Active St art: July 04, 2025 End: July 05, 2025 Jyoti Campos MD Nurse Practitioner Active S tart: July 04, 2025 End: July 05, 2025 Dr. Sheila Chase DO Nurse Practitioner Active Start: July 04, 2025 End: July 05, 2025 Dr. Michelle Johnston MD Nurse Practitioner Active St art: July 04, 2025 End: July 05, 2025 Dr. Naga North MD Nurse Practitioner Active Start: July 04, 2025 End: July 05, 2025 Dr. Marizol Bahena MD Nurse Practitioner Active S tart: July 04, 2025 End: July 05, 2025 Dr. Justyn Isabel MD Nurse Practitioner Active St art: July 04, 2025 End: July 05, 2025 Dr. Chi Spears MD Nurse Practitioner Active S tart: July 04, 2025 End: July 05, 2025 Dr. Silvino Carty MD Nurse Practitioner Active Start: July 04, 2025 End: July 05, 2025 Dr. Myriam Cardoza DO Nurse Practitioner Active Start: July 04, 2025 End: July 05, 2025 Nika Benton MD Nurse Practitioner Active S tart: July 04, 2025 End: July 05, 2025 Dr. Murray Almodovar MD Nurse Practitioner Active Start: July 04, 2025 End: July 05, 2025 Dr. Rose Morton MD Nurse Practitioner Active S tart: July 04, 2025 End: July 05, 2025 Dr. Yahaira Nieto MD Nurse Practitioner Active Start: July 04, 2025 End: July 05, 2025 Dr. Ivan Hernández MD Nurse Practitioner Active Start: June End: July 05, 2025 Dr. Anthony Leonard MD Nurse Practitioner Active Start: July 04, 2025 End: July 05, 2025 Dr. Eladia Delong MD Nurse Practitioner Active Start: July 04, 2025 End: July 05, 2025 Dr. Leroy Velasquez MD Nurse Practitioner Active Start: July 04, 2025 End: July 05, 2025 Dr. Lizzie Maciel MD Nurse Practitioner Active St art: July 04, 2025 End: July 05, 2025 Barbara Bradford MD Nurse Practitioner Active St art: July 04, 2025 End: July 05, 2025 Dr. Chante Valencia MD Attending physician Active Start: July 04, 2025 End: July 05, 2025 Team Status: Active Member Role/Relationship Status Dates No Primary Care Physician Primary care physician Activ e Start: July 05, 2025 Dr. Roge Ruiz MD Attending physician Active Start: July 05, 2025 Team Status: Active Member Role/Relationship Status Dates No Primary Care Physician Primary care physician Activ e Start: July 05, 2025 Dr. Alessandra Dia MD Emergency Departmen t Physician Active Start: July 05, 2025 Dr. Lani Marcos MD Admitting physician Active Start: July 05, 2025 Dr. Lani Marcos MD Nurse Practitioner Active Start: July 05, 2025 Shaheen Knight MD Nurse Practitioner Active Start : July 05, 2025 Dr. Alexandru Correa MD Nurse Practitioner Active St art: July 05, 2025 Jyoti Campos MD Nurse Practitioner Active S tart: July 05, 2025 Dr. Sheila Chase , Nurse Practitioner Active Start: July 05, 2025 Dr. Michelle Johnston MD Nurse Practitioner Active St art: July 05, 2025 Dr. Naga North MD Nurse Practitioner Active Start: July 05, 2025 Dr. Marizol Bahena MD Nurse Practitioner Active S tart: July 05, 2025 Dr. Justyn Isabel MD Nurse Practitioner Active St art: July 05, 2025 Dr. Chi Spears MD Nurse Practitioner Active S tart: July 05, 2025 Dr. Silvino Carty MD Nurse Practitioner Active Start: July 05, 2025 Dr. Myriam Cardoza DO Nurse Practitioner Active Start: July 05, 2025 Nika Benton MD Nurse Practitioner Active S tart: July 05, 2025 Dr. Murray Almodovar MD Nurse Practitioner Active Start: July 05, 2025 Dr. Rose Morton MD Nurse Practitioner Active S tart: July 05, 2025 Dr. Yahaira Nieto MD Nurse Practitioner Active Start: July 05, 2025 Dr. Ivan Hernández MD Nurse Practitioner Active Start: June Dr. Anthony Leonard MD Nurse Practitioner Active Start: July 05, 2025 Dr. Eladia Delong MD Nurse Practitioner Active Start: July 05, 2025 Dr. Leroy Velasquez MD Nurse Practitioner Active Start: July 05, 2025 Dr. Lizzie Maciel MD Nurse Practitioner Active St art: July 05, 2025 Barbara Bradford MD Nurse Practitioner Active St art: July 05, 2025 Dr. Chante Valencia MD Attending physician Active Start: July 05, 2025 Dr. Chante Valencia MD Nurse Practitioner Active Start: July 05, 2025 Team Status: Inactive Member Role/Relationship Status Dates No Primary Care Physician Primary care physician Activ e Start: August 01, 2025 End: August 01, 2025 No Primary Care Physician Referring Provider Active Start: August 01, 2025 End: August 01, 2025 MIRIAM Montalvo Attending physician Active Start: August 01, 2025 End: August 01, 2025 Team Status: Inactive Member Role/Relationship Status Dates No Primary Care Physician Primary care physician Activ e Start: August 03, 2025 End: August 03, 2025 MIRIAM Montalvo Attending physician Active Start: August 03, 2025 End: August 03, 2025 MIRIAM Montalvo Referring Provider Active S tart: August 03, 2025 End: August 03, 2025 Goals (unrecognized section and content) Goals [...] BE BASED ON THE PRIMARY CLINICAL RECORDS. [employer] provides no warranty or guarantee of the accuracy or completeness of information in this document.
[2025-09-01 07:50] LABS: Carboxyhemoglobin Frac (CO) 2.4 % (0.0-1.5)
[2025-09-01 07:54] LABS: Immature Granulocytes Count 0.030 X10^3/uL (0.0-0.0); Immature Reticulocyte Fraction 11.00 % (3.00-15.90); Mean Corp Hgb Conc 32.8 g/dL (32-36); Mean Corpuscular Volume 91.0 fL (80-94); Mean Platelet Vol. 10.2 fl (6.2-12.0); NRBC Flagged by Analyzer 0 % (0-5); Platelet Count 221 K/mm3 (150-450); RBC Distribution Width CV 13.4 % (11.6-14.6); RBC Distribution Width SD 45.0 fl (35.1-43.9); Red Blood Count 6.13 M/mm3 (4.6-6.2); Reticulocyte Count 1.33 % (0.5-1.5); White Blood Count 8.7 K/mm3 (4.4-11.0)
[2025-09-01 08:10] LABS: FOLATES,SERUM (FOLIC ACID) 7.26 ng/mL (4.60-34.80)
[2025-09-01 08:17] LABS: Carboxyhemoglobin Order ORDER TUBE
[2025-09-01 08:24] LABS: AST(SGOT) 29 U/L (<=37); Alanine Aminotransfer ALT/SGPT 48 U/L (<=46); Albumin, Serum 3.9 g/dL (3.4-4.8); Alkaline Phosphatase 132 U/L (40-129); Anion Gap 8 (5-15); BUN 32 mg/dL (4-19); BUN/Creat Ratio 24.9 RATIO (10-20); CRP 6.67 mg/L (0.0-3.0); Calcium,Total 9.5 mg/dL (7.6-11.0); Carbon Dioxide 23.8 mmol/L (21.0-32.0); Chloride 110 mmol/L (98-108); Ferritin 1728 ng/mL (37-417); Globulin 3.0 g/dL (2.2-4.2); Glucose 96 mg/dL (70-99); Iron 81 ug/dL (65-175); Iron Binding Capacity,Unsat 131 ug/dL (228-428); Magnesium 2.2 mg/dL (1.5-2.2); Potassium 4.3 mmol/L (3.3-5.1); Vitamin B12 394 pg/mL (180-914)
[2025-09-01 08:31] LABS: Iron Binding Capacity,Total 212 ug/dL (250-450)
[2025-09-01 09:29] LABS: Hematocrit 55.8 % (40-54)
[2025-09-01 09:31] LABS: Hemoglobin 18.3 g/dL (13.0-16.5)
[2025-09-02 04:07] LABS: GGTP 31 IU/L (0-65)
== END 2025-09-01 23:59 | disposition home or self-care (01) ==
PROVIDERS: Referring Provider Internal Medicine Medical Oncology; Visit Provider Internal Medicine Medical Oncology
DX: D75.1 Secondary polycythemia (principal); R79.89 Other specified abnormal findings of blood chemistry
CPT/HCPCS: 36415; 76705; 76981; 80053; 82375; 82607; 82668; 82728; 82746; 82977; 83540; 83550; 83735; 84100; 85025; 85045; 85652; 86140

== ENCOUNTER → 2025-09-05 | Outpatient (CLI) | payer BC, SELFPAY ==
--- OUTSIDE RECORDS SUMMARY | 2025-09-05 19:34 | XMS RPT_ITS | CCD ---
Author Organization [facility] Care Team Providers Care Manufacturing Technologist Name Role Phone DEBBIE MAYS, NIRAJ Attending Unavailable PHYSICIAN, NONE Primary Care Unavailable Care Physician, No Primary Primary Care Provider Unavailable Ifeoma MAYS, Dr. Aparicio Emergency Provider Unavailab adriana Marcos MD, Dr. Garibay Attending Provider Hemant MAYS, Dr. Garibay Admit Provider [phone] Lani Marcos MD Other Provider Shaheen Knight MD Other Provider Unavailable Sunny MAYS, Dr. Horvath Other Provider Jyoti Campos MD Other Provider Unavailable Dr. Sheila Chase DO Other Provider Dr. Michelle Johnston MD Other Provider Dr. Naga North MD Other Provider Dr. Marizol Bahena MD Other Provider [phone] Justyn Isabel MD Other Provider Dr. Chi Spears MD Other Provider Dr. Silvino Carty MD Other Provider [phone] Dr. Myriam Cardoza DO Other Provider Nika Benton MD Other Provider Dr. Murray Almodovar MD Other Provider Dr. Rose Morton MD Other Provider Dr. [...] Primary Primary Care Physicia n Unavailable Ifeoma MYAS, Dr. Aparicio Emergency Department Physici an Unavailable [...] Practitioner Sindi MAYS, Dr. Montilla Nurse Practitioner [phone] Ron MAYS, Dr. Harper Nurse Practitioner Raheem MAYS, Dr. Samuel Nurse Practitioner Unavaildarshan Bradford MD, [facility] Nurse Practitioner Unavaildarshan Valencia MD, Dr. Chante Pearce Attending Physician Joseph MAYS, Dr. Guan Attending Physician [phone] Erik MAYS, Dr. Chante Pearce Nurse Practitioner Care Physician, No Primary Referring Provider Un available Char BAFFLE MOUNTER-CNano Attending Physician Bordnseng BAFFLE MOUNTER-C, Nano Referring Provider Care Physician, No Primary [...] acute infarct involving left occipital lobe left LEAD ADVISOR territory Acute cerebrovascular disease (2 sources) Acute [...] Facility Oncology Visit Reporton Oncology Visit Report [facility] [address] [place] [address] OFFICE VISIT Date of Service: 08/23/25 1551 MR#: [id number] Acct: [id number] Name: AMANDA CONCEPCION Rep #: [id number] : 1955 From: Twan Case MD Age/Sex: 70/M Location: [facility] Status: Signed HPI Subjective Date of Service 08/23/25 Chief Complaint Referred for polycythemia evaluation History of Present Illness 70-year-old man has had polycythemia since 2015. He had visual loss, imaging showed left LEAD ADVISOR infarct, he was started on aspirin and now referred for further evaluation. He denies headache, nausea, vomiting. 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 Results cannot be interpreted as absolute evidence of the presence or absence of malignant disease. Performed at: [facility] [address] [facility], [place], [place] [id number] Inspector Technician: [facility], located within [facility], Phone: [phone] Performed at: [facility] [address] [facility], [facility], [place] [id number] Inspector Technician: [facility], located within [facility], Phone: [phone] Performed at: [address] [id number] Inspector Technician: Cruzito Loja PhD, Phone: [phone] FOL,RBC [id number] FOL,HEMOLYSATE 410.0 Not Estab. ng/mL HEMATOCRIT 56.1 [...] clear t (more content not included)... Normal [facility] Erythropoietinon 08-09-2025 ERYTHROPOIETIN 10.4 mIU/mL Normal 2.6-18.5 [facility] Comment on above: Result Comment: [employer] DxI 800 Immunoassay System Values obtained with different assay methods or kits cannot be used interchangeably. Results cannot be interpreted as absolute evidence of the presence or absence of malignant disease. Performed at: [facility] [address] [facility], [facility], [place] [id number] Inspector Technician: [facility], located within [facility], Phone: [phone] Performed at: - [facility] [address] [facility] [place] [id number] Inspector Technician: [facility], located within [facility], Phone: [phone] Performed at: [facility] [employer] [id number] Inspector Technician: Cruzito Loja PhD, Phone: [phone] Performed By: #### L 100.0100 #### [facility] [address] [place], [place], [address] Folates, RBCon 08-09-2025 Fol.,Hemolysate 410.0 ng/mL Normal Not Estab. [facility] Comment on above: Performed By: #### L 100.0100 #### [facility] [address] [place], [address] Folate, RBC 731 ng/mL Normal >498 [facility] Comment on above: Performed By: #### L 100.0100 #### [facility] [address] [place], [address] Hematocrit (Bld) [Volume fraction] 56.1 % High 37.5-51.0 [facility] Comment on above: Performed By: #### L 100.0100 #### [facility] [address] [place], [address] JAK2 Mutation Analysison JAK2 COMMENT Comment Normal . [facility] Comment on above: Result Comment: Tech nical Component performed at [facility] [place] Professional Component performed by: Yeison Arteaga, PhD, [facility] Director, Molecular Oncology [facility] [id number], [address] [place] [address] This test was developed and its performance characteristics determined by [facility]. It has not been cleared or approved by the Food and Drug Administration. Performed By: #### L 100.0100 #### [facility] [address] [place], [address] JAK2 COMMENT 2 Comment Normal . [facility] Comment on above: Result Comment: JAK2 is a cytoplasmic tyrosine kinase with a mcwilliams role in signal transduction from multiple hematopoietic growth factor receptors. A point mutation within exon 14 of the JAK2 gene ([id number]) encoding a valine to phenylalanine substitution at [...] type (WT) and JAK2 mutant V617F. The [id number] Absolute Quantitation software will compare the patient specimen valuse to the standard curves and generate percent values for wild type and mutant type. In vitro studies have indicated that this assay has an analytical sensitivity of 1%. References: Steven EJ, Fei TODD, Truong PJ, et al. Acquired mutation of the tyrosine kinase JAK2 in human myeloproliferative disorders. Lancet. 2005 Jan 05; 365(4617):0350-6985. [place], Wong V, Adriana Napoles JP. A unique clonal JAK2 mutation leading to constitutive signaling causes polycythaemia vera. Nature. 2005 Feb 14; 859(0622):0624-6444. Maverick R, Lana F, Niki , et al. A gain-of- function mutation of JAK2 in myeloproliferative disorders. N Engl J Med. 2005 Feb 14; 35217):1487-5194. Performed By: #### L 100.0100 #### [facility] [address] [facility]. [place], [place], [id number] JAK2 MUT QUAL Comment Normal . [facility] Comment on above: Result Comment: Resu lt: [...] disorders. Performed By: #### L 100.0100 #### [facility] [address] [place], [place], [id number] Absolute lymphocyte countOrd ered By: Nano Pardo on 08-03-2025 Lymphocytes Auto (Unsp spec) [#/Vol] 2.22 10*3/uL 0.83-4.51 [facility] Absolute neutrophil countOrd ered By: Nano Pardo on 08-03-2025 Neutrophils (Bld) [#/Vol] 7.4 10*3/uL 2.0-7.7 [facility] Anion gap in Serum or Plasma Ordered By: Nano Pardo on 08-03-2025 Anion gap [Moles/Vol] 9 mmol/L 03-03 [facility] Automated lymphocyte count a s percentage of total leukocytesOrdered By: Nano Pardo on 08-03-2025 Lymphocytes/100 WBC Auto (Unsp spec) 21.0 % [facility] BUN/creatinine ratioOrdered By: Nanosoumya Pardo on 08-03-2025 Urea nitrogen/Creatinine [Mass ratio] 27.7 mg/mg High 08-08 [facility] Basophil percentageOrdered B y: Nano Pardo on 08-03-2025 Basophils/100 WBC (Bld) 0.8 % 0 [facility] Bilirubin, totalOrdered By: Nano Pardo on 08-03-2025 Bilirubin [Mass/Vol] 0.46 mg/dL 0.00-1.30 [facility] CBC W/Diff, Automatedon 07-20 Hemoglobin (Bld) [Mass/Vol] 18.2 g/dL Invalid Interpretation Code 13.0-16.5 [facility] Comment on above: Result Comment: CRIT ICAL VALUE CALLED TO Brice MICHELLE 08/03/25 1653 Britney Roas. RESULTS READ BACK BY SAME. Performed By: #### L 100.0100 #### [facility] [address] [place], [place], [id number] (573) Absolute Lymph 2.22 X10 3/uL Normal 0.83-4.51 [facility] Comment on above: Performed By: #### L 100.0100 #### [facility] [address] [place], [address] Absolute Neut 7.4 X10 3/uL Normal 2.0-7.7 [facility] Comment on above: Performed By: #### L 100.0100 #### [facility] [address] [place], [address] Basophils/100 WBC (Bld) 0.8 % Normal 0-1 [facility] Comment on above: Performed By: #### L 100.0100 #### [facility] [address] [place], [address] Eosinophils/100 WBC (Bld) 3.9 % Normal 0-5 [facility] Comment on above: Performed By: #### L 100.0100 #### [facility] [address] [place], [address] Erythrocyte distribution width (RBC) [Ratio] 13.1 % Normal 11.6-14.6 [facility] Comment on above: Performed By: #### L 100.0100 #### [facility] [address], [address] Hematocrit (Bld) [Volume fraction] 54.2 % High 40-54 [facility] Comment on above: Performed By: #### L 100.0100 #### [facility] [address] [place], [address] IG% 0.400 Normal 0.0-0.9 [facility] Comment on above: Result Comment: IG% - Immature Granulocytes (promyelocytes, myelocytes and metamyelocytes) > 1% indicates that a LEFT SHIFT is Present. Performed By: #### L 100.0100 #### [facility] [address] [place], [address] Lymphocytes/100 WBC (Bld) 21.0 % Normal 19-41 [facility] Comment on above: Performed By: #### L 100.0100 #### [facility] [address] [place], [address] MCH (RBC) [Entitic mass] 29.9 pg Normal 27.0-32.0 [facility] Comment on above: Performed By: #### L 100.0100 #### [facility] [address] [place], [address] MCHC (RBC) [Mass/Vol] 33.6 g/dL Normal 32-36 [facility] Comment on above: Performed By: #### L 100.0100 #### [facility] [address] [place], [address] MCV (RBC) [Entitic vol] 89.0 fL Normal 80-94 [facility] Comment on above: Performed By: #### L 100.0100 #### [facility] [address] [place], [address] Monocytes/100 WBC (Bld) 4.5 % Normal 0-10 [facility] Comment on above: Performed By: #### L 100.0100 #### [facility] [address] [place], [address] Neutrophils/100 WBC (Bld) 69.4 % Normal 47-70 [facility] Comment on above: Performed By: #### L 100.0100 #### [facility] [address] [place], [address] Nucleated RBC (Bld) [#/Vol] 0 10*3/uL Normal 0-5 [facility] Comment on above: Performed By: #### L 100.0100 #### [facility] [address] [place], [address] Platelet mean volume (Bld) [Entitic vol] 9.9 fL Normal 6.2-12.0 [facility] Comment on above: Performed By: #### L 100.0100 #### [facility] [address] [place], [address] Platelets (Bld) [#/Vol] 239 10*3/uL Normal 150-450 [facility] Comment on above: Performed By: #### L 100.0100 #### [facility] [address] [place], [address] RBC (Bld) [#/Vol] 6.09 10*6/uL Normal 4.6-6.2 [facility] Comment on above: Performed By: #### L 100.0100 #### [facility] [address] [place], [address] RDW SD 42.4 fl Normal 35.1-43.9 [facility] Comment on above: Performed By: #### L 100.0100 #### [facility] [address] [place], [address] WBC (Bld) [#/Vol] 10.6 10*3/uL Normal 4.4-11.0 [facility] Comment on above: Performed By: #### L 100.0100 #### [facility] [address] [place], [address] CRPon 08-03-2025 C-REACTIVE PROT 5.85 mg/L High 0.0-3.0 [facility] Comment on above: Performed By: #### L 100.0100 #### [facility] [address] [place], [address] Calculated very low density lipoprotein (VLDL) cholesterol measurementOrdered By: Nano Pardo on 08-03-2025 Calculated very low density lipoprotein (VLDL) cholesterol measurement 28 mg/dL 5-40 [facility] Carbon dioxide, total [Moles /volume] in Central venous bloodOrdered By: Nano Pardo on 08-03-2025 CO2 [Moles/Vol] 24.3 mmol/L 21.0-32.0 [facility] Chloride assayOrdered By: Zacarias Pardo on 08-03-2025 Chloride [Moles/Vol] 106 mmol/L 98-108 [facility] Comprehensive Metabolic Prof ilon 08-03-2025 Albumin [Mass/Vol] 4.0 g/dL Normal 3.4-4.8 [facility] Comment on above: Performed By: #### L 100.0100 #### [facility] [address] [place], [address] Albumin/Globulin [Mass ratio] 1.2 {ratio} Normal 0.9-2.4 [facility] Comment on above: Performed By: #### L 100.0100 #### [facility] [address] [place], [address] ALK PHOS 152 U/L High 40-129 [facility] Comment on above: Performed By: #### L 100.0100 #### [facility] [address] [place], [address] ALT [Catalytic activity/Vol] 54 U/L High <=46 [facility] Comment on above: Performed By: #### L 100.0100 #### [facility] [address] [place], [address] AST [Catalytic activity/Vol] 33 U/L Normal <=37 [facility] Comment on above: Performed By: #### L 100.0100 #### [facility] [address] [place], [address] Bilirubin [Mass/Vol] 0.46 mg/dL Normal 0.00-1.30 [facility] Comment on above: Performed By: #### L 100.0100 #### [facility] [address] [place], [address] BUN/CRE 27.7 RATIO High 10-20 [facility] Comment on above: Performed By: #### L 100.0100 #### [facility] [address] [place], [address] Calcium [Mass/Vol] 9.5 mg/dL Normal 7.6-11.0 [facility] Comment on above: Performed By: #### L 100.0100 #### [facility] [address] [place], [address] Chloride [Moles/Vol] 106 mmol/L Normal 98-108 [facility] Comment on above: Performed By: #### L 100.0100 #### [facility] [address] [place], [address] CO2 [Moles/Vol] 24.3 mmol/L Normal 21.0-32.0 [facility] Comment on above: Performed By: #### L 100.0100 #### [facility] [address] [place], [address] Creatinine [Mass/Vol] 1.28 mg/dL High 0.70-1.20 [facility] Comment on above: Performed By: #### L 100.0100 #### [facility] [address] [place], [address] GAP 9 Normal 5-15 [facility] Comment on above: Performed By: #### L 100.0100 #### [facility] [address] [place], [address] GFR/1.73 sq M.predicted among non-blacks MDRD (S/P/Bld) [Vol rate/Area] 61 mL/min/{1.73_m2} Normal >60 [facility] Comment on above: Result Comment: mL/m in/1.73m2 CKD-EPI Creatinine Equation (2020) Performed By: #### L 100.0100 #### [facility] [address] [place], [address] Globulin (S) [Mass/Vol] 3.2 g/dL Normal 2.2-4.2 [facility] Comment on above: Performed By: #### L 100.0100 #### [facility] [address] [place], [address] Glucose [Mass/Vol] 109 mg/dL High 70-99 [facility] Comment on above: Performed By: #### L 100.0100 #### [facility] [address] [place], [address] Potassium [Moles/Vol] 4.3 mmol/L Normal 3.3-5.1 [facility] Comment on above: Result Comment: Hemo lysis present, Results??could be affected. ?? Performed By: #### L 100.0100 #### [facility] [address] [place], [address] Sodium [Moles/Vol] 140 mmol/L Normal 133-145 [facility] Comment on above: Performed By: #### L 100.0100 #### [facility] [address] [place], [address] T PROT 7.3 g/dL Normal 5.9-8.4 [facility] Comment on above: Performed By: #### L 100.0100 #### [facility] [address] [place], [address] Urea nitrogen [Mass/Vol] 35 mg/dL High 4-19 [facility] Comment on above: Performed By: #### L 100.0100 #### [facility] [address] [place], [address] Eosinophil percentageOrdered By: Nano Pardo on 08-03-2025 Eosinophils/100 WBC (Bld) 3.9 % 0-5 [facility] Erythrocyte Sed Rateon 08-03 SED RATE 1 mm/hr Normal 0-20 [facility] Comment on above: Performed By: #### L 100.0100, L501.5200, L503.0106, L3100.1350, L500.4050, L501.6710, L503.6550, L3440.5000, L101.9900, L3100.1725, L100.9950, L503.6150, L500.4100 #### [facility] [address] [place], [address] Erythrocyte distribution wid th ratioOrdered By: Nano Pardo on 08-03-2025 Erythrocyte distribution width (RBC) [Ratio] 13.1 % 11.6-14.6 [facility] Erythrocyte distribution wid th standard deviationOrdered By: Nanosoumya Pardo on 08-03-2025 Erythrocyte distribution width (RBC) [Ratio] 42.4 fl 35.1-43.9 [facility] Erythrocyte folate measureme nt with hematocritOrdered By: Nanosoumya Pardo on 08-03-2025 Hematocrit (Bld) [Volume fraction] 56.1 % High 37.5-51.0 [facility] Erythrocyte sedimentation ra teOrdered By: Nanosoumya Pardo on 08-03-2025 ESR (Bld) [Velocity] 1 mm/h 0-20 [facility] Ferritinon 08-03-2025 Ferritin [Mass/Vol] 1407 ng/mL High 37-417 [facility] Comment on above: Performed By: #### L 100.0100, L501.5200, L503.0106, L3100.1350, L500.4050, L501.6710, L503.6550, L3440.5000, L101.9900, L3100.1725, L100.9950, L503.6150, L500.4100 #### [facility] [address] [place], [address] Glomerular filtration rate ( GFR) estimation/1.73 sq m using serum, plasma, or whole bOrdered By: Nanosoumya Pardo on 08-03-2025 GFR/1.73 sq M.predicted among non-blacks MDRD (S/P/Bld) [Vol rate/Area] 61 mL/min/{1.73_m2} >60 [facility] Comment on above: mL/min/1.73m2 CKD-EP I Creatinine Equation (2020) Hematocrit Auto (Bld) [Volum e fraction]Ordered By: Nano Pardo on 08-03-2025 Hematocrit (Bld) [Volume fraction] 54.2 % High 40-54 [facility] Hemoglobin measurementOrdere d By: Nano Pardo on 08-03-2025 Hemoglobin (Bld) [Mass/Vol] 18.2 g/dL Critically high 13.0-16.5 [facility] Comment on above: CRITICAL VALUE BUSH D TO Brice MICHELLE08/03/25 1653 Britney Rosa.RESULTS READ BACK BY SAME. Immature granulocytes/100 WB C Auto (Bld)Ordered By: Nano Pardo on 08-03-2025 Immature granulocytes/100 WBC (Bld) 0.400 % 0.0-0.9 [facility] Comment on above: IG% - Immature Granu locytes (promyelocytes, myelocytes and metamyelocytes) > 1% indicates that a LEFT SHIFT is Present. Ironon 08-03-2025 Iron [Mass/Vol] 53 ug/dL Low 65-175 [facility] Comment on above: Performed By: #### L 100.0100 #### [facility] [address] [place], [address] Iron measurement (mass/mass) Ordered By: Nano Pardo on 08-03-2025 Iron (Unsp spec) [Mass/Mass] 53 ug/dL Low 65-175 [facility] LDL calc ser/plasOrdered By: Nano Pardo on 08-03-2025 Cholesterol in LDL [Mass/Vol] 30 mg/dL [facility] Comment on above: Oosykmquov=339-107 m g/dL & Higher Pirj=986 mg/dL or greaterFriedwald Equation for LDL-C Laboratory - Chemistry and C hemistry - challengeOrdered By: Nano Pardo on 08-03-2025 AST [Catalytic activity/Vol] 33 U/L <38 [facility] Lipid Profileon 08-03-2025 CHOL:HDL 2.76 Normal [facility] Comment on above: Performed By: #### L 100.0100, L501.5200, L503.0106, L3100.1350, L500.4050, L501.6710, L503.6550, L3440.5000, L101.9900, L3100.1725, L100.9950, L503.6150, L500.4100 #### [facility] [address] [place], [place], [id number] (334) Cholesterol [Mass/Vol] 92 mg/dL Normal <=200 [facility] Comment on above: Result Comment: Chol esterol level, Desirable <200 mg/dL Borderline high cholesterol 200-239 mg/dL High cholesterol >=240 mg/dL Recommendations of the NCEP Adult Treatment Panel for the following risk-cutoff thresholds for the [place] population. Performed By: #### L 100.0100, L501.5200, L503.0106, L3100.1350, L500.4050, L501.6710, L503.6550, L3440.5000, L101.9900, L3100.1725, L100.9950, L503.6150, L500.4100 #### [facility] [address] [place], [address] Cholesterol in HDL [Mass/Vol] 33 mg/dL Low [facility] Comment on above: Result Comment: Lauren onal [...] L3440.5000, L101.9900, L3100.1725, L100.9950, L503.6150, L500.4100 #### [facility] [address] [place], [place], [id number] ([address] Cholesterol in LDL [Mass/Vol] 30 mg/dL Normal [facility] Comment on above: Result Comment: Bord ovjsea=745-903 mg/dL Higher Coza=283 mg/dL or greater Friedwald Equation for LDL-C Performed By: #### L 100.0100, L501.5200, L503.0106, L3100.1350, L500.4050, L501.6710, L503.6550, L3440.5000, L101.9900, L3100.1725, L100.9950, L503.6150, L500.4100 #### [facility] [address] [place], [address] Cholesterol in VLDL [Mass/Vol] 28 mg/dL Normal 5-40 [facility] Comment on above: Performed By: #### L 100.0100, L501.5200, L503.0106, L3100.1350, L500.4050, L501.6710, L503.6550, L3440.5000, L101.9900, L3100.1725, L100.9950, L503.6150, L500.4100 #### [facility] [address] [place], [address] Triglyceride [Mass/Vol] 140 mg/dL Normal [facility] Comment on above: Result Comment: The drugs N-Acetylcysteine and Metamizole may falsely depress this assay. Normal range: <150 mg/dL Borderline High: 150-199 mg/dL High: 200-499 mg/dL Very High: >500 mg/dL Performed By: #### L 100.0100, L501.5200, L503.0106, L3100.1350, L500.4050, L501.6710, L503.6550, L3440.5000, L101.9900, L3100.1725, L100.9950, L503.6150, L500.4100 #### [facility] [address] [place], [address] MCV (mean corpuscular volume ) determinationOrdered By: Nano Pardo on 08-03-2025 MCV (RBC) [Entitic vol] 89.0 fL 80-94 [facility] Magnesiumon 08-03-2025 Magnesium [Mass/Vol] 2.1 mg/dL Normal 1.5-2.2 [facility] Comment on above: Performed By: #### L 100.0100 #### [facility] [address] [place], [address] Magnesium measurement (mass/ volume)Ordered By: Nano Pardo on 08-03-2025 Magnesium (Unsp spec) [Mass/Vol] 2.1 mg/dL 1.5-2.2 [facility] Mean corpuscular hemoglobin (MCH) determinationOrdered By: Nano Pardo on 08-03-2025 MCH (RBC) [Entitic mass] 29.9 pg 27.0-32.0 [facility] Mean corpuscular hemoglobin concentration (MCHC) determinationOrdered By: Nanosoumya Pardo on 08-03-2025 MCHC (RBC) [Mass/Vol] 33.6 g/dL 32-36 [facility] Mean platelet volume determi nationOrdered By: Nano Pardo on 08-03-2025 Platelet mean volume (Bld) [Entitic vol] 9.9 fL 6.2-12.0 [facility] Monocyte percentageOrdered B y: Nano Pardo on 08-03-2025 Monocytes/100 WBC (Bld) 4.5 % 0-10 [facility] Neutrophil percentageOrdered By: Nanosoumya Pardo on 08-03-2025 Neutrophils/100 WBC (Bld) 69.4 % 47-70 [facility] No Panel InformationOrdered By: Nano Pardo on 08-03-2025 JAK2 Mutation Comment . [facility] Comment on above: Technical Component performed at [facility] RTPProfessional Component performed by:Yeison Arteaga, PhD, FACMGDirector, Molecular OncologyLabpike county memorial hospital [id number], [address] [facility] [phone] test was developed and its performance characteristicsdetermined by [employer]. It has not been cleared orapproved by the Food and Drug Administration. JAK2 V617F Reviewed By Comment . [facility] Comment on above: JAK2 is a cytoplasmi c tyrosine kinase with a mcwilliams role insignal transduction from multiple hematopoietic growthfactor receptors. A point mutation within exon 14 of theJAK2 gene ([id number]) encoding a valine to phenylalaninesubstitution at position [...] specific to JAK2 wild type (WT) and HYL3ckliiq V617F. The [employer]™ [employer] Absolute Quantitation softwarewill compare the patient specimen valuse to the standardcurves and generate percent values for wild type andmutant type. In vitro studies have indicated that thisassay has an analytical sensitivity of 1%.References:Steven EJ, Fei TODD, Truong PJ, et al. Acquiredmutation of the tyrosine kinase JAK2 in humanmyeloproliferative disorders. Lancet. 2005 Jan 05;365(4841):5620-4670. [place], Wong V, Adriana Napoles JP. Aunique clonal JAK2 mutation leading to constitutivesignaling causes polycythaemia vera. Nature. 2005 Feb 14;639(7548):9578-7716.Maverick R, Lana F, Niki , et al. A xdxb-pu-wzseefwm mutation of JAK2 in myeloproliferative disorders.N Engl J Med. 2005 Feb 14; 35217):4958-0542. Nucleated red blood cell per centageOrdered By: Nano Pardo on 08-03-2025 Nucleated RBC/100 WBC (Bld) [Ratio] 0 % 0-5 [facility] Platelet countOrdered By: Zacarias Pardo on 08-03-2025 Platelets (Bld) [#/Vol] 239 10*3/uL 150-450 [facility] Potassium measurement (mass/ volume)Ordered By: Nano Pardo on 08-03-2025 Potassium (Unsp spec) [Mass/Vol] 4.3 mmol/L 3.3-5.1 [facility] Comment on above: Hemolysis present, R esults could be affected. RBC Auto (Bld) [#/Vol]Ordere d By: Nano Pardo on 08-03-2025 RBC (Bld) [#/Vol] 6.09 10*6/uL 4.6-6.2 [facility] Retic Panelon 08-03-2025 IM RET FRACTION 10.90 Normal 3.00-15.90 [facility] Comment on above: Performed By: #### L 100.0100 #### [facility] [address] [place], [address] RET-HE 34.3 pg Normal 30-35 [facility] Comment on above: Performed By: #### L 100.0100 #### [facility] [address] [place], [address] Retic Count 1.33 Normal 0.5-1.5 [facility] Comment on above: Performed By: #### L 100.0100 #### [facility] [address] [place], [address] Reticulocyte hemoglobin equi valent (RET-He) measurementOrdered By: Nano Pardo on 08-03-2025 Hemoglobin (Reticulocytes) [Entitic mass] 34.3 pg 30-35 [facility] Reticulocytes Auto (Bld) [#/ Vol]Ordered By: Nano Pardo on 08-03-2025 Reticulocytes/100 RBC (Bld) 1.33 % 0.5-1.5 [facility] Screening total cholesterol/ high density lipoprotein (HDL) cholesterol ratioOrdered By: Nano Pardo on 08-03-2025 Cholesterol.total/Chol esterol in HDL [Mass ratio] 2.76 {ratio} [facility] Serum creatinine measurement (mass/volume)Ordered By: Nano Pardo on 08-03-2025 Creatinine [Mass/Vol] 1.28 mg/dL High 0.70-1.20 [facility] Serum globulin measurementOr dered By: Nano Pardo on 08-03-2025 Globulin (S) [Mass/Vol] 3.2 g/dL 2.2-4.2 [facility] Serum glucose measurement (m ass/volume)Ordered By: Nano Pardo on 08-03-2025 Glucose [Mass/Vol] 109 mg/dL High 70-99 [facility] Serum or plasma C reactive p rotein measurement (mass/volume)Ordered By: Nano Pardo on 08-03-2025 CRP [Mass/Vol] 5.85 mg/L High 0.0-3.0 [facility] Serum or plasma alanine hernandez otransferase (ALT) measurementOrdered By: Nano Pardo on 08-03-2025 ALT [Catalytic activity/Vol] 54 U/L High <47 [facility] Serum or plasma albumin montana urement (mass/volume)Ordered By: Nano Pardo on 08-03-2025 Albumin [Mass/Vol] 4.0 g/dL 3.4-4.8 [facility] Serum or plasma albumin/glob ulin mass ratioOrdered By: Nanosoumya Pardo on 08-03-2025 Albumin/Globulin [Mass ratio] 1.2 {ratio} 0.9-2.4 [facility] Serum or plasma alkaline yue sphatase measurementOrdered By: Nano Pardo on 08-03-2025 ALP [Catalytic activity/Vol] 152 U/L High 40-129 [facility] Serum or plasma calcium montana urement (mass/volume)Ordered By: Nano Pardo on 08-03-2025 Calcium [Mass/Vol] 9.5 mg/dL 7.6-11.0 [facility] Serum or plasma cholesterol in HDL measurement (mass/volume)Ordered By: Nano Pardo on 08-03-2025 Cholesterol in HDL [Mass/Vol] 33 mg/dL Low >40 [facility] Comment on above: National Cholesterol Education Program (NCEP) guidelines:<40 mg/dL: Low HDL-cholesterol (major risk factor for CHD)>= 60 mg/dL: High HDL-cholesterol (negative risk factor for CHD)HDL-cholesterol is affected by a number of factors, e.g. smoking, exercise, hormones, sex and age. Serum or plasma cholesterol measurement (mass/volume)Ordered By: Nano Pardo on 08-03-2025 Cholesterol [Mass/Vol] 92 mg/dL <201 [facility] Comment on above: Cholesterol level, D esirable <200 mg/dLBorderline high cholesterol 200-239 mg/dLHigh cholesterol >=240 mg/dLRecommendations of the NCEP Adult Treatment Panel for the following risk-cutoff thresholds for the [place] population. Serum or plasma erythropoiet in (EPO) measurement (units/volume)Ordered By: Nano Pardo on 08-03-2025 Erythropoietin (EPO) Qn 10.4 mIU/mL 2.6-18.5 [facility] Comment on above: [employer] DxI 800 Immunoassay SystemValues obtained with different assay methods or kits cannotbe used interchangeably. Results cannot be interpreted asabsolute evidence of the presence or absence of malignantdisease.Performed at: [facility] [employer] [id number] [facility], [facility], [place] [id number] Director: [facility], located within [facility], Phone: [phone] at: [facility] [employer] [id number], [place], [place] [id number] Director: [facility], located within [facility], Phone: [phone] at: [facility] [employer] [id number] Director: Cruzito Loja PhD, Phone: [phone] Serum or plasma ferritin jimy surement (mass/volume)Ordered By: Nano Pardo on 08-03-2025 Ferritin [Mass/Vol] 1407 ng/mL High 37-417 [facility] Serum or plasma urea nitroge n measurement (mass/volume)Ordered By: Nano Pardo on 08-03-2025 Urea nitrogen [Mass/Vol] 35 mg/dL High 4-19 [facility] Sodium levelOrdered By: Sendy Pardo on 08-03-2025 Sodium [Moles/Vol] 140 mmol/L 133-145 [facility] Total proteinOrdered By: Serg Pardo on 08-03-2025 Protein [Mass/Vol] 7.3 g/dL 5.9-8.4 [facility] Triglycerides measurementOrd ered By: Nano Pardo on 08-03-2025 Triglyceride [Mass/Vol] 140 mg/dL <199 [facility] Comment on above: The drugs N-Acetylcy steine and Metamizole may falsely depress this assay. Normal range: <150 mg/dLBorderline High: 150-199 mg/dLHigh: 200-499 mg/dLVery High: >500 mg/dL Vitamin B12on 08-03-2025 Cobalamin (Vitamin B12) [Mass/Vol] 372 pg/mL Normal 180-914 [facility] Comment on above: Performed By: #### L 100.0100, L501.5200, L503.0106, L3100.1350, L500.4050, L501.6710, L503.6550, L3440.5000, L101.9900, L3100.1725, L100.9950, L503.6150, L500.4100 #### [facility] [address] [place], [place], [id number] Vitamin B12 ser/plasOrdered By: Nano Pardo on 08-03-2025 Cobalamin (Vitamin B12) [Mass/Vol] 372 pg/mL 180-914 [facility] White blood cell (WBC) count Ordered By: Nano Pardo on 08-03-2025 WBC (Bld) [#/Vol] 10.6 10*3/uL 4.4-11.0 [facility] Neurology Visit Reporton Neurology Visit Report [facility] [address] [facility], [address] [place] [id number] OFFICE VISIT Date of Service: 08/01/25 MR#: [id number] Acct: [id number] Name: AMANDA CONCEPCION Rep #: [id number] : 1955 Provider: MIRIAM meza Age/Sex: 70/M Location: [facility] Status: Signed HPI HPI Chief Complaint: Establish [...] Hospital course: On 07/04/2025, patient presented to [facility] ED with acute onset of right homonymous hemianopia. NIHSS was 1 so he was not deemed a candidate for TNK. CT brain and CTA head/neck were without acute findings. There was no hemodynamically significant stenosis, LVO, or aneurysms. MRI brain with a small region of acute infarct involving the left occipital lobe and the left LEAD ADVISOR territory. Additionally, there were mild chronic microangiopathic [...] Regular rate (more content not included)... Normal [facility] Absolute lymphocyte countOrd ered By: Lani Marcos on 07-05-2025 Lymphocytes Auto (Unsp spec) [#/Vol] 2.40 10*3/uL 0.83-4.51 [facility] Absolute neutrophil countOrd ered By: Lani Marcos on 07-05-2025 Neutrophils (Bld) [#/Vol] 5.4 10*3/uL 2.0-7.7 [facility] Anion gap in Serum or Plasma Ordered By: Lani Marcos on 07-05-2025 Anion gap [Moles/Vol] 11 mmol/L - [facility] Automated lymphocyte count a s percentage of total leukocytesOrdered By: Lani Marcos on 07-05-2025 Lymphocytes/100 WBC Auto (Unsp spec) 26.9 % - [facility] BUN/creatinine ratioOrdered By: Lani Marcos on 07-05-2025 Urea nitrogen/Creatinine [Mass ratio] 17.3 mg/mg - [facility] Basic Metabolic Profile (BMP )on 07-05-2025 BUN/CRE 17.3 RATIO Normal - [facility] Comment on above: Order Comment: Memo nts: NPO at [place] prior to lipid panel Performed By: #### L 501.9985, L500.4100, L501.9520, L500.2500 #### [facility] [address] [place], [address] Calcium [Mass/Vol] 9.2 mg/dL Normal 7.6-11.0 [facility] Comment on above: Order Comment: Memo nts: NPO at [place] prior to lipid panel Performed By: #### L 501.9985, L500.4100, L501.9520, L500.2500 #### [facility] [address] [place], [address] Chloride [Moles/Vol] 106 mmol/L Normal 98-108 [facility] Comment on above: Order Comment: Comme nts: NPO at [place] prior to lipid panel Performed By: #### L 501.9985, L500.4100, L501.9520, L500.2500 #### [facility] [address] [place], [address] CO2 [Moles/Vol] 18.8 mmol/L Low 21.0-32.0 [facility] Comment on above: Order Comment: Comme nts: NPO at [place] prior to lipid panel Performed By: #### L 501.9985, L500.4100, L501.9520, L500.2500 #### [facility] [address] [place], [address] Creatinine [Mass/Vol] 1.23 mg/dL High 0.70-1.20 [facility] Comment on above: Order Comment: Comme nts: NPO at [place] prior to lipid panel Performed By: #### L 501.9985, L500.4100, L501.9520, L500.2500 #### [facility] [address] [place], [address] ECRCL 73.37 ml/min Normal 50-250 [facility] Comment on above: Order Comment: Comme nts: NPO at [place] prior to lipid panel Performed By: #### L 501.9985, L500.4100, L501.9520, L500.2500 #### [facility] [address] [place], [address] GAP 11 Normal 5-15 [facility] Comment on above: Order Comment: Comme nts: NPO at [place] prior to lipid panel Performed By: #### L 501.9985, L500.4100, L501.9520, L500.2500 #### [facility] [address] [place], [address] GFR/1.73 sq M.predicted among non-blacks MDRD (S/P/Bld) [Vol rate/Area] 64 mL/min/{1.73_m2} Normal >60 [facility] Comment on above: Order Comment: Comme nts: NPO at [place] prior to lipid panel Result Comment: mL/m in/1.73m2 CKD-EPI Creatinine Equation (2020) Performed By: #### L 501.9985, L500.4100, L501.9520, L500.2500 #### [facility] [address] [place], [address] Glucose [Mass/Vol] 126 mg/dL High 70-99 [facility] Comment on above: Order Comment: Comme nts: NPO at [place] prior to lipid panel Performed By: #### L 501.9985, L500.4100, L501.9520, L500.2500 #### [facility] [address] [place], [address] Potassium [Moles/Vol] 4.3 mmol/L Normal 3.3-5.1 [facility] Comment on above: Order Comment: Comme nts: NPO at [place] prior to lipid panel Result Comment: Hemo lysis present, Results??could be affected. ?? Performed By: #### L 501.9985, L500.4100, L501.9520, L500.2500 #### [facility] [address] [place], [address] Sodium [Moles/Vol] 136 mmol/L Normal 133-145 [facility] Comment on above: Order Comment: Comme nts: NPO at [place] prior to lipid panel Performed By: #### L 501.9985, L500.4100, L501.9520, L500.2500 #### [facility] [address] [place], [address] Urea nitrogen [Mass/Vol] 21 mg/dL High 4-19 [facility] Comment on above: Order Comment: Comme nts: NPO at [place] prior to lipid panel Performed By: #### L 501.9985, L500.4100, L501.9520, L500.2500 #### [facility] [address] [place], [address] Basophil percentageOrdered B y: Lani Marcos on 07-05-2025 Basophils/100 WBC (Bld) 1.0 % 0-1 [facility] CBC W/Diff, Automatedon 06-20 Hemoglobin (Bld) [Mass/Vol] 18.6 g/dL Invalid Interpretation Code 13.0-16.5 [facility] Comment on above: Result Comment: CRIT ICAL VALUE CALLED TO SRINI CONCEPCION 07/05/25 0557 Jaye Das. RESULTS READ BACK BY SAME. Performed By: #### L 100.0100 #### [facility] [address] [place], [address] Absolute Lymph 2.40 X10 3/uL Normal 0.83-4.51 [facility] Comment on above: Performed By: #### L 100.0100 #### [facility] [address] [place], [address] Absolute Neut 5.4 X10 3/uL Normal 2.0-7.7 [facility] Comment on above: Performed By: #### L 100.0100 #### [facility] [address] [place], [address] Basophils/100 WBC (Bld) 1.0 % Normal 0-1 [facility] Comment on above: Performed By: #### L 100.0100 #### [facility] [address] [place], [address] Eosinophils/100 WBC (Bld) 5.4 % High 0-5 [facility] Comment on above: Performed By: #### L 100.0100 #### [facility] [address] [place], [address] Erythrocyte distribution width (RBC) [Ratio] 13.2 % Normal 11.6-14.6 [facility] Comment on above: Performed By: #### L 100.0100 #### [facility] [address] [place], [address] Hematocrit (Bld) [Volume fraction] 54.0 % Normal 40-54 [facility] Comment on above: Performed By: #### L 100.0100 #### [facility] [address] [place], [address] IG% 0.400 Normal 0.0-0.9 [facility] Comment on above: Result Comment: IG% - Immature Granulocytes (promyelocytes, myelocytes and metamyelocytes) > 1% indicates that a LEFT SHIFT is Present. Performed By: #### L 100.0100 #### [facility] [address] [place], [address] Lymphocytes/100 WBC (Bld) 26.9 % Normal 19-41 [facility] Comment on above: Performed By: #### L 100.0100 #### [facility] [address] [place], [address] MCH (RBC) [Entitic mass] 30.4 pg Normal 27.0-32.0 [facility] Comment on above: Performed By: #### L 100.0100 #### [facility] [address] [place], [address] MCHC (RBC) [Mass/Vol] 34.4 g/dL Normal 32-36 [facility] Comment on above: Performed By: #### L 100.0100 #### [facility] [address] [place], [address] MCV (RBC) [Entitic vol] 88.2 fL Normal 80-94 [facility] Comment on above: Performed By: #### L 100.0100 #### [facility] [address] [place], [address] Monocytes/100 WBC (Bld) 5.3 % Normal 0-10 [facility] Comment on above: Performed By: #### L 100.0100 #### [facility] [address] [place], [address] Neutrophils/100 WBC (Bld) 61.0 % Normal 47-70 [facility] Comment on above: Performed By: #### L 100.0100 #### [facility] [address] [place], [address] Nucleated RBC (Bld) [#/Vol] 0 10*3/uL Normal 0-5 [facility] Comment on above: Performed By: #### L 100.0100 #### [facility] [address] [place], [address] Platelet mean volume (Bld) [Entitic vol] 9.7 fL Normal 6.2-12.0 [facility] Comment on above: Performed By: #### L 100.0100 #### [facility] [address] [place], [address] Platelets (Bld) [#/Vol] 206 10*3/uL Normal 150-450 [facility] Comment on above: Performed By: #### L 100.0100 #### [facility] [address] [place], [address] RBC (Bld) [#/Vol] 6.12 10*6/uL Normal 4.6-6.2 [facility] Comment on above: Performed By: #### L 100.0100 #### [facility] [address] [place], [address] RDW SD 42.4 fl Normal 35.1-43.9 [facility] Comment on above: Performed By: #### L 100.0100 #### [facility] [address] [place], [address] WBC (Bld) [#/Vol] 8.9 10*3/uL Normal 4.4-11.0 [facility] Comment on above: Performed By: #### L 100.0100 #### [facility] [address] [place], [address] Calculated very low density lipoprotein (VLDL) cholesterol measurementOrdered By: Lani Marcos on 07-05-2025 Calculated very low density lipoprotein (VLDL) cholesterol measurement 44 mg/dL High 5-40 [facility] Carbon dioxide, total [Moles /volume] in Central venous bloodOrdered By: Lani Marcos on 07-05-2025 CO2 [Moles/Vol] 18.8 mmol/L Low 21.0-32.0 [facility] Chloride assayOrdered By: Néstor Marcos on 07-05-2025 Chloride [Moles/Vol] 106 mmol/L 98-108 [facility] Discharge Instructionon 06-20 Discharge Instruction [facility] Medical Records Department [address] [place] [address] Instructions for Home/Discharge Instructions 07/05/25 1442 MR#: [id number] Acct: [id number] Name: AMANDA CONCEPCION Rep #: [id number] : 1955 70 From: Chante Valencia MD [...] can be placed): Home, Self Care 07/05/25 9853 Chante Valencia MD CC: Sheila Chase; Rose [...] Benton DO; No Primary Care Physician; Barbara Bardford MD Signed Normal [facility] Echocardiogram study reportO rdered By: Roge Ruiz on 07-05-2025 Study report [facility] Cardiovascular Services [address] [place] [address] Echo Complete W/ Contrast 07/05/25917 MR#: [id number] Acct: [id number] Name: AMANDA CONCEPCION Rep #:[id number] : 1955 70 From: Roge Ruiz MD Attending Dr: Dr. 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 Chante Valencia MD Status: ADM RONALDO Ordering Dr: Alessandra Dia MD Date: Location: [facility] Sex: M C Admitted: 07/04/25 Test [...] Otherwise normal ECG Confirmed by Amanda Whitney ([id number]), primer expeditor and drier GUERLINE CHAMORRO ([id number]) on 2:00:15 PM Referred By: Confirmed By: Amanda Whitney 07/05/25 1200 Date _ Amanda Whitney MD CC: Dr. Alessandra Dia MD; Dr. Chante Valencia MD; No Primary Care Physician ~ Signed [facility] Other Phone: Eosinophil percentageOrdered By: Lani Marcos on 07-05-2025 Eosinophils/100 WBC (Bld) 5.4 % High 0-5 [facility] Erythrocyte distribution wid th ratioOrdered By: Lani Marcos on 07-05-2025 Erythrocyte distribution width (RBC) [Ratio] 13.2 % 11.6-14.6 [facility] Erythrocyte distribution wid th standard deviationOrdered By: Lani Marcos on 07-05-2025 Erythrocyte distribution width (RBC) [Ratio] 42.4 fl 35.1-43.9 [facility] Glomerular filtration rate ( GFR) estimation/1.73 sq m using serum, plasma, or whole bOrdered By: Lani Marcos on 07-05-2025 GFR/1.73 sq M.predicted among non-blacks MDRD (S/P/Bld) [Vol rate/Area] 64 mL/min/{1.73_m2} >60 [facility] Comment on above: mL/min/1.73m2 CKD-EP I Creatinine Equation (2020) Hematocrit Auto (Bld) [Volum e fraction]Ordered By: Lani Marcos on 07-05-2025 Hematocrit (Bld) [Volume fraction] 54.0 % 40-54 [facility] Hemoglobin A1con 07-05-2025 HbA1c (Bld) [Mass fraction] 7.2 % High <=5.6 [facility] Comment on above: Result Comment: Norm al < 5.7 % Prediabetic 5.7 - 6.4 % Diabetic >or= 6.5 % Please note range changes. Performed By: #### L 501.9985, L500.4100, L501.9520, L500.2500 #### [facility] [address] [place] [address], [id number] Hemoglobin A1c percentageOrd ered By: Lani Marcos on 07-05-2025 HbA1c (Bld) [Mass fraction] 7.2 % High <5.7 [facility] Comment on above: Normal < 5.7 % Predi abetic 5.7 - 6.4 % Diabetic >or= 6.5 % Please note range changes. Hemoglobin measurementOrdere d By: Lani Marcos on 07-05-2025 Hemoglobin (Bld) [Mass/Vol] 18.6 g/dL Critically high 13.0-16.5 [facility] Comment on above: CRITICAL VALUE BUSH D TO SRINI CONCEPCION07/05/25 0557 Jaye Das.RESULTS READ BACK BY SAME. Immature granulocytes/100 WB C Auto (Bld)Ordered By: Lani Marcos on 07-05-2025 Immature granulocytes/100 WBC (Bld) 0.400 % 0.0-0.9 [facility] Comment on above: IG% - Immature Granu locytes (promyelocytes, myelocytes and metamyelocytes) > 1% indicates that a LEFT SHIFT is Present. LDL calc ser/plasOrdered By: Lani Marcos on 07-05-2025 Cholesterol in LDL [Mass/Vol] 69 mg/dL [facility] Comment on above: Vobaaqmihr=912-021 m g/dL & Higher Hvoe=157 mg/dL or greaterFriedwald Equation for LDL-C Lipid Profileon 07-05-2025 CHOL:HDL 6.02 Normal [facility] Comment on above: Order Comment: Comme nts: NPO at [place] prior to lipid panel Performed By: #### L 501.9985, L500.4100, L501.9520, L500.2500 #### [facility] [address] [place], [address] Cholesterol [Mass/Vol] 136 mg/dL Normal <=200 [facility] Comment on above: Order Comment: Comme nts: NPO at [place] prior to lipid panel Result Comment: Chol esterol level, Desirable <200 mg/dL Borderline high cholesterol 200-239 mg/dL High cholesterol >=240 mg/dL Recommendations of the NCEP Adult Treatment Panel for the following risk-cutoff thresholds for the [place] population. Performed By: #### L 501.9985, L500.4100, L501.9520, L500.2500 #### [facility] [address] [place], [address] Cholesterol in HDL [Mass/Vol] 23 mg/dL Low [facility] Comment on above: Order Comment: Comme nts: NPO at [place] prior to lipid panel Result Comment: Lauren onal Cholesterol Education Program (NCEP) guidelines: <40 mg/dL: Low HDL-cholesterol (major risk factor for CHD) >= 60 mg/dL: High HDL-cholesterol (negative risk factor for CHD) HDL-cholesterol is affected by a number of factors, e.g. smoking, exercise, hormones, sex and age. Performed By: #### L 501.9985, L500.4100, L501.9520, L500.2500 #### [facility] [address] [place], [address] Cholesterol in LDL [Mass/Vol] 69 mg/dL Normal [facility] Comment on above: Order Comment: Comme nts: NPO at NE prior to lipid panel Result Comment: Bord cgvkmi=387-981 mg/dL Higher Tkxe=786 mg/dL or greater Friedwald Equation for LDL-C Performed By: #### L 501.9985, L500.4100, L501.9520, L500.2500 #### [facility] [address] [place], [address] Cholesterol in VLDL [Mass/Vol] 44 mg/dL High 5-40 [facility] Comment on above: Order Comment: Comme nts: NPO at [place] prior to lipid panel Performed By: #### L 501.9985, L500.4100, L501.9520, L500.2500 #### [facility] [address] [place], [address] Triglyceride [Mass/Vol] 221 mg/dL High [facility] Comment on above: Order Comment: Comme nts: NPO at [place] prior to lipid panel Result Comment: The drugs N-Acetylcysteine and Metamizole may falsely depress this assay. Normal range: <150 mg/dL Borderline High: 150-199 mg/dL High: 200-499 mg/dL Very High: >500 mg/dL Performed By: #### L 501.9985, L500.4100, L501.9520, L500.2500 #### [facility] [address] [facility] [place], [address] MCV (mean corpuscular volume ) determinationOrdered By: Lani Marcos on 07-05-2025 MCV (RBC) [Entitic vol] 88.2 fL 80-94 [facility] MR/CON.PCM.NEon 07-05-2025 MR/CON.PCM.NE [facility] Medical Records Department [address] [place] [address] Consultation - Neurology 07/05/25 1143 MR#: [id number] Acct: [id number] Name: AMANDA CONCEPCION Rep #: [id number] : 1955 70 From: Leroy Velasquez MD PCP: Care Physician,No Primary Status:ADM RONALDO Location: [place] [address] Assessment and Plan: Stroke Assessment/Plan AMANDA CONCEPCION is a 70 M with a history of nicotine abuse who presents for evaluation of vision changes Neurological examination shows NIH 1. 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 Small region of acute infarct involving left occipital lobe left LEAD ADVISOR territory. 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 - Anti-platelet medication: Aspirin 81 mg daily - Occupational/ Physical therapy consults - NPO until swallow evaluation. IVF until able to take po - DVT prophylaxis with SCDs and heparin SQ - Vascular risk factor modification. The following are the recommended guidelines: LDL Goal < 70. Lipitor 80 Smoking Cessation Diabetes Management [facility] blood pressure control should achieve <130/80 mmHg. BP management should aim to achieve penitentiary contorl in a reasonable amount of time, [...] L Tem[place]atur (more content not included)... Normal [facility] Mean corpuscular hemoglobin (MCH) determinationOrdered By: Lani Marcos on 07-05-2025 MCH (RBC) [Entitic mass] 30.4 pg 27.0-32.0 [facility] Mean corpuscular hemoglobin concentration (MCHC) determinationOrdered By: Lani Marcos on 07-05-2025 MCHC (RBC) [Mass/Vol] 34.4 g/dL 32-36 [facility] Mean platelet volume determi nationOrdered By: Lani Marcos on 07-05-2025 Platelet mean volume (Bld) [Entitic vol] 9.7 fL 6.2-12.0 [facility] Monocyte percentageOrdered B y: Lani Marcos on 07-05-2025 Monocytes/100 WBC (Bld) 5.3 % 0-10 [facility] Neutrophil percentageOrdered By: Lani Marcos on 07-05-2025 Neutrophils/100 WBC (Bld) 61.0 % 47-70 [facility] Nucleated red blood cell per centageOrdered By: Lani Marcos on 07-05-2025 Nucleated RBC/100 WBC (Bld) [Ratio] 0 % 0-5 [facility] Platelet countOrdered By: Néstor Marcos on 07-05-2025 Platelets (Bld) [#/Vol] 206 10*3/uL 150-450 [facility] Potassium measurement (mass/ volume)Ordered By: Lani Marcos on 07-05-2025 Potassium (Unsp spec) [Mass/Vol] 4.3 mmol/L 3.3-5.1 [facility] Comment on above: Hemolysis present, R esults could be affected. RBC Auto (Bld) [#/Vol]Ordere d By: Lani Marcos on 07-05-2025 RBC (Bld) [#/Vol] 6.12 10*6/uL 4.6-6.2 [facility] Screening total cholesterol/ high density lipoprotein (HDL) cholesterol ratioOrdered By: Lani Marcos on 07-05-2025 Cholesterol.total/Chol esterol in HDL [Mass ratio] 6.02 {ratio} [facility] Serum creatinine measurement (mass/volume)Ordered By: Lani Marcos on 07-05-2025 Creatinine [Mass/Vol] 1.23 mg/dL High 0.70-1.20 [facility] Serum glucose measurement (m ass/volume)Ordered By: Lani Marcos on 07-05-2025 Glucose [Mass/Vol] 126 mg/dL High 70-99 [facility] Serum or plasma calcium montana urement (mass/volume)Ordered By: Lani Marcos on 07-05-2025 Calcium [Mass/Vol] 9.2 mg/dL 7.6-11.0 [facility] Serum or plasma cholesterol in HDL measurement (mass/volume)Ordered By: Lani Marcos on 07-05-2025 Cholesterol in HDL [Mass/Vol] 23 mg/dL Low >40 [facility] Comment on above: National Cholesterol Education Program (NCEP) guidelines:<40 mg/dL: Low HDL-cholesterol (major risk factor for CHD)>= 60 mg/dL: High HDL-cholesterol (negative risk factor for CHD)HDL-cholesterol is affected by a number of factors, e.g. smoking, exercise, hormones, sex and age. Serum or plasma cholesterol measurement (mass/volume)Ordered By: Lani Marcos on 07-05-2025 Cholesterol [Mass/Vol] 136 mg/dL <201 [facility] Comment on above: Cholesterol level, D esirable <200 mg/dLBorderline high cholesterol 200-239 mg/dLHigh cholesterol >=240 mg/dLRecommendations of the NCEP Adult Treatment Panel for the following risk-cutoff thresholds for the [place] population. Serum or plasma urea nitroge n measurement (mass/volume)Ordered By: Lani Marcos on 07-05-2025 Urea nitrogen [Mass/Vol] 21 mg/dL High 4-19 [facility] Sodium levelOrdered By: Elie Marcos on 07-05-2025 Sodium [Moles/Vol] 136 mmol/L 133-145 [facility] TSH DL <= 0.005 mIU/L QnOrde red By: Lani Marcos on 07-05-2025 TSH Qn 3.180 uIU/mL 0.300-4.20 0 [facility] Thyroid Stim Hormone (TSH)on 07-05-2025 TSH 3.180 uIU/mL Normal 0.300-4.20 0 [facility] Comment on above: Order Comment: Comme nts: NPO at [place] prior to lipid panel Performed By: #### L 501.9985, L500.4100, L501.9520, L500.2500 #### [facility] [address] [place], [address] Triglycerides measurementOrd ered By: Lani Marcos on 07-05-2025 Triglyceride [Mass/Vol] 221 mg/dL High <199 [facility] Comment on above: The drugs N-Acetylcy steine and Metamizole may falsely depress this assay. Normal range: <150 mg/dLBorderline High: 150-199 mg/dLHigh: 200-499 mg/dLVery High: >500 mg/dL White blood cell (WBC) count Ordered By: Lani Marcos on 07-05-2025 WBC (Bld) [#/Vol] 8.9 10*3/uL 4.4-11.0 [facility] 12 Lead EKGon 07-04-2025 12 Lead EKG [facility] Cardiovascular Services [address] [place] [address] 12 Lead EKG 07/04/25 1446 MR#: [id number] Acct: [id number] Name: AMANDA CONCEPCION Rep #: [id number] : 1955 70 From: Amanda Whitney MD Attending Dr: Dr. Chante Valencia MD Status: AD M RONALDO Ordering Dr: Alessandra Dia MD Date: 07/04/25 Location: [facility] Sex: M C Admitted: 07/04/25 Test [...] normal ECG Confirmed by Amanda Whitney ([id number]), primer expeditor and drier GUERLINE CHAMORRO ([id number]) on 07/05/2025 12:00:15 PM Referred By: Confirmed By: Amanda Whitney 09/16/25 1200 Date Amanda Whitney MD CC: Dr. Alessandra Dia MD; Dr. Chante Valencia MD; No Primary Care Physician Signed Normal [facility] Absolute lymphocyte countOrd ered By: Alessandra Dia on 07-04-2025 Lymphocytes Auto (Unsp spec) [#/Vol] 2.25 10*3/uL 0.83-4.51 [facility] Absolute neutrophil countOrd ered By: Alessandra Dia on 07-04-2025 Neutrophils (Bld) [#/Vol] 6.4 10*3/uL 2.0-7.7 [facility] Activated partial thrombopla stin time (aPTT) in platelet poor plasma by coagulation aOrdered By: Alessandra Dia on 07-04-2025 aPTT Coag (PPP) [Time] 25.4 s 24.1-36.2 [facility] Anion gap in Serum or Plasma Ordered By: Alessandra Dia on 07-04-2025 Anion gap [Moles/Vol] 11 mmol/L - [facility] Automated lymphocyte count a s percentage of total leukocytesOrdered By: Alessandra Dia on 07-04-2025 Lymphocytes/100 WBC Auto (Unsp spec) 23.1 % 19-41 [facility] BUN/creatinine ratioOrdered By: Alessandra Dia on 07-04-2025 Urea nitrogen/Creatinine [Mass ratio] 16.7 mg/mg - [facility] Basic Metabolic Profile (BMP )on 07-04-2025 BUN/CRE 16.7 RATIO Normal - [facility] Comment on above: Performed By: #### L 501.9985, L500.4100, L501.9520, L500.2500 #### [facility] [address] [place], [address] Calcium [Mass/Vol] 9.3 mg/dL Normal 7.6-11.0 [facility] Comment on above: Performed By: #### L 501.9985, L500.4100, L501.9520, L500.2500 #### [facility] [address] [place], [address] Chloride [Moles/Vol] 104 mmol/L Normal 98-108 [facility] Comment on above: Performed By: #### L 501.9985, L500.4100, L501.9520, L500.2500 #### [facility] [address] [place], [address] CO2 [Moles/Vol] 20.8 mmol/L Low 21.0-32.0 [facility] Comment on above: Performed By: #### L 501.9985, L500.4100, L501.9520, L500.2500 #### [facility] [address] [place], [address] Creatinine [Mass/Vol] 1.49 mg/dL High 0.70-1.20 [facility] Comment on above: Performed By: #### L 501.9985, L500.4100, L501.9520, L500.2500 #### [facility] [address] [place], [address] ECRCL 59.73 ml/min Normal 50-250 [facility] Comment on above: Performed By: #### L 501.9985, L500.4100, L501.9520, L500.2500 #### [facility] [address] [place], [address] GAP 11 Normal 5-15 [facility] Comment on above: Performed By: #### L 501.9985, L500.4100, L501.9520, L500.2500 #### [facility] [address] [place], [address] GFR/1.73 sq M.predicted among non-blacks MDRD (S/P/Bld) [Vol rate/Area] 51 mL/min/{1.73_m2} Low >60 [facility] Comment on above: Result Comment: mL/m in/1.73m2 CKD-EPI Creatinine Equation (2020) Performed By: #### L 501.9985, L500.4100, L501.9520, L500.2500 #### [facility] [address] [place], [address] Glucose [Mass/Vol] 130 mg/dL High 70-99 [facility] Comment on above: Performed By: #### L 501.9985, L500.4100, L501.9520, L500.2500 #### [facility] [address] [place], [address] Potassium [Moles/Vol] 4.5 mmol/L Normal 3.3-5.1 [facility] Comment on above: Result Comment: Hemo lysis present, Results??could be affected. ?? Performed By: #### L 501.9985, L500.4100, L501.9520, L500.2500 #### [facility] [address] [place], [address] Sodium [Moles/Vol] 135 mmol/L Normal 133-145 [facility] Comment on above: Performed By: #### L 501.9985, L500.4100, L501.9520, L500.2500 #### [facility] [address] [place], [address] Urea nitrogen [Mass/Vol] 25 mg/dL High 4-19 [facility] Comment on above: Performed By: #### L 501.9985, L500.4100, L501.9520, L500.2500 #### [facility] [address] [place], [address] Basophil percentageOrdered B y: Alessandra Dia on 07-04-2025 Basophils/100 WBC (Bld) 1.1 % High 0-1 [facility] Brain without Contraston Brain without Contrast [facility] Imaging Services [address] [place] [address] Brain without Contrast MR#: [id number] Acct: [id number] Name: AMANDA CONCEPCION Rep #: [id number] : 1955 M 70 From: Fredrick Rivero MD PCP: Care Physician,No Primary Status: ADM RONALDO Study: Brain without Contrast Date of Exam: 07/04/25 Exam# [id number] Ordering Dr: Lani Marcos MD PROCEDURE: MRI [...] paramedian left occipital lobe involving the left LEAD ADVISOR vascular territory consistent with acute infarct. No [...] acute infarct involving left occipital lobe left LEAD ADVISOR territory. 2. 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 3. No intracranial hemorrhage, extra-axial collection or mass-effect. Reading Location: [facility] CC: Dr. Lani Marcos MD; No Primary Care Physician Lens Grinder Rough: Signed Normal [facility] CBC W/Diff, Automatedon 06-20 Hemoglobin (Bld) [Mass/Vol] 18.7 g/dL Invalid Interpretation Code 13.0-16.5 [facility] Comment on above: Result Comment: CRIT ICAL VALUE CALLED TO JOE TRIVEDI 07/04/25 Harvey7 Rukhsana Laputan. RESULTS READ BACK BY SUJEY. Performed By: #### L 501.9985, L500.4100, L501.9520, L500.2500 #### [facility] [address], [address] Absolute Lymph 2.25 X10 3/uL Normal 0.83-4.51 [facility] Comment on above: Performed By: #### L 501.9985, L500.4100, L501.9520, L500.2500 #### [facility] [address] [place], [address] Absolute Neut 6.4 X10 3/uL Normal 2.0-7.7 [facility] Comment on above: Performed By: #### L 501.9985, L500.4100, L501.9520, L500.2500 #### [facility] [address] [place], [address] Basophils/100 WBC (Bld) 1.1 % High 0-1 [facility] Comment on above: Performed By: #### L 501.9985, L500.4100, L501.9520, L500.2500 #### [facility] [address] [place], [address] Eosinophils/100 WBC (Bld) 3.8 % Normal 0-5 [facility] Comment on above: Performed By: #### L 501.9985, L500.4100, L501.9520, L500.2500 #### [facility] [address] [place], [address] Erythrocyte distribution width (RBC) [Ratio] 13.1 % Normal 11.6-14.6 [facility] Comment on above: Performed By: #### L 501.9985, L500.4100, L501.9520, L500.2500 #### [facility] [address] [place], [address] Hematocrit (Bld) [Volume fraction] 54.7 % High 40-54 [facility] Comment on above: Performed By: #### L 501.9985, L500.4100, L501.9520, L500.2500 #### [facility] [address] [place], [address] IG% 1.500 High 0.0-0.9 [facility] Comment on above: Result Comment: IG% - Immature Granulocytes (promyelocytes, myelocytes and metamyelocytes) > 1% indicates that a LEFT SHIFT is Present. Performed By: #### L 501.9985, L500.4100, L501.9520, L500.2500 #### [facility] [address], [address] Lymphocytes/100 WBC (Bld) 23.1 % Normal 19-41 [facility] Comment on above: Performed By: #### L 501.9985, L500.4100, L501.9520, L500.2500 #### [facility] [address] [place], [address] MCH (RBC) [Entitic mass] 30.1 pg Normal 27.0-32.0 [facility] Comment on above: Performed By: #### L 501.9985, L500.4100, L501.9520, L500.2500 #### [facility] [address] [place], [address] MCHC (RBC) [Mass/Vol] 34.2 g/dL Normal 32-36 [facility] Comment on above: Performed By: #### L 501.9985, L500.4100, L501.9520, L500.2500 #### [facility] [address] [place], [address] MCV (RBC) [Entitic vol] 87.9 fL Normal 80-94 [facility] Comment on above: Performed By: #### L 501.9985, L500.4100, L501.9520, L500.2500 #### [facility] [address] [place], [address] Monocytes/100 WBC (Bld) 5.0 % Normal 0-10 [facility] Comment on above: Performed By: #### L 501.9985, L500.4100, L501.9520, L500.2500 #### [facility] [address] [place], [address] Neutrophils/100 WBC (Bld) 65.5 % Normal 47-70 [facility] Comment on above: Performed By: #### L 501.9985, L500.4100, L501.9520, L500.2500 #### [facility] [address] [place], [address] Nucleated RBC (Bld) [#/Vol] 0 10*3/uL Normal 0-5 [facility] Comment on above: Performed By: #### L 501.9985, L500.4100, L501.9520, L500.2500 #### [facility] [address] [place], [address] Platelet mean volume (Bld) [Entitic vol] 9.8 fL Normal 6.2-12.0 [facility] Comment on above: Performed By: #### L 501.9985, L500.4100, L501.9520, L500.2500 #### [facility] [address] [place], [address] Platelets (Bld) [#/Vol] 232 10*3/uL Normal 150-450 [facility] Comment on above: Performed By: #### L 501.9985, L500.4100, L501.9520, L500.2500 #### [facility] [address] [place], [address] RBC (Bld) [#/Vol] 6.22 10*6/uL High 4.6-6.2 [facility] Comment on above: Performed By: #### L 501.9985, L500.4100, L501.9520, L500.2500 #### [facility] [address] [place], [address] RDW SD 42.2 fl Normal 35.1-43.9 [facility] Comment on above: Performed By: #### L 501.9985, L500.4100, L501.9520, L500.2500 #### [facility] [address] [place], [address] WBC (Bld) [#/Vol] 9.8 10*3/uL Normal 4.4-11.0 [facility] Comment on above: Performed By: #### L 501.9985, L500.4100, L501.9520, L500.2500 #### [facility] [address] [place], [address] Carbon dioxide, total [Moles /volume] in Central venous bloodOrdered By: Alessandra Dai on 07-04-2025 CO2 [Moles/Vol] 20.8 mmol/L Low 21.0-32.0 [facility] Chloride assayOrdered By: Seng Dia on 07-04-2025 Chloride [Moles/Vol] 104 mmol/L 98-108 [facility] Echo Complete W/ Contraston 07-04-2025 Echo Complete W/ Contrast [facility] Cardiovascular Services [address] [place] [address] Echo Complete W/ Contrast 07/05/25 0918 MR#: [id number] Acct: [id number] Name: AMANDA CONCEPCION Rep #: [id number] : 1955 70 From: Roge Ruiz MD [...] Date Dictated: 07/05/25917 Date Transcribed: 07/05/25 1243 Lens Grinder Rough: Signed Normal [facility] Emergency Department Summary on 07-04-2025 Emergency Department Summary [facility] Medical Records Department [address] [place] [address] Emergency Department Summary 07/04/25 MR#: [id number] Acct: [id number] Name: AMANDA CONCEPCION Rep #: [id number] : 1955 70 From: Alessandra Dia MD PCP: Care Physician,No Primary Status:ADM RONALDO Location: [address] History of Present Illness Chief Complaint: Stroke Alert Narrative Narrative: Patient is a 70 year old male presenting to the ED as a stroke alert. 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 Normal [facility] Eosinophil percentageOrdered By: Alessandra Dia on 07-04-2025 Eosinophils/100 WBC (Bld) 3.8 % 0-5 [facility] Erythrocyte distribution wid th ratioOrdered By: Alessandra Dia on 07-04-2025 Erythrocyte distribution width (RBC) [Ratio] 13.1 % 11.6-14.6 [facility] Erythrocyte distribution wid th standard deviationOrdered By: Alessandra Dia on 07-04-2025 Erythrocyte distribution width (RBC) [Ratio] 42.2 fl 35.1-43.9 [facility] Glomerular filtration rate ( GFR) estimation/1.73 sq m using serum, plasma, or whole bOrdered By: Alessandra Ifeoma on 07-04-2025 GFR/1.73 sq M.predicted among non-blacks MDRD (S/P/Bld) [Vol rate/Area] 51 mL/min/{1.73_m2} Low >60 [facility] Comment on above: mL/min/1.73m2 CKD-EP I Creatinine Equation (2020) H AND P Exam - [facility] 07-04-2025 H&P Exam - Hospitalist [facility] Medical Records Department [address] [place] [address] H P Exam - Hospitalist 07/04/25 1622 MR#: [id number] Acct: [id number] Name: AMANDA CONCEPCION Rep #: [id number] : 1955 70 From: Lani Marcos MD PCP: Care Physician,No Primary Status:REG ER Location: ED HPI - General General Date of Admission: 07/04/25 Date of Service: 07/04/25 Chief Complaint: Right sided peripheral vision loss HPI Narrative AMANDA CONCEPCION, is a 70-year-old male with history of tobacco use presented to [facility] ED 07/04/2025 as a stroke alert. Last [...] deficits, cranial nerves II through XII intact, [id number] without significant difficulty bilaterally, almost seem to [...] % (Auto) 65.5, Lymph % (Auto) 23.1, Gage % (Auto) 5.0, Eos % (Auto (more content not included)... Normal [facility] Hematocrit Auto (Bld) [Volum e fraction]Ordered By: Alessandra Dia on 07-04-2025 Hematocrit (Bld) [Volume fraction] 54.7 % High 40-54 [facility] Hemoglobin measurementOrdere d By: Alessandra Dia on 07-04-2025 Hemoglobin (Bld) [Mass/Vol] 18.7 g/dL High 13.0-16.5 [facility] Comment on above: CRITICAL VALUE BUSH D TO JOE TRIVEDI07/04/25 9798 Rukhsana Benito.RESULTS READ BACK BY [facility]. Immature granulocytes/100 WB C Auto (Bld)Ordered By: Alessandra Dia on 07-04-2025 Immature granulocytes/100 WBC (Bld) 1.500 % High 0.0-0.9 [facility] Comment on above: IG% - Immature Granu locytes (promyelocytes, myelocytes and metamyelocytes) > 1% indicates that a LEFT SHIFT is Present. International normalized rat io (INR) calculationOrdered By: Alessandra Dia on 07-04-2025 INR Coag (Bld) [Relative time] 1.1 {INR} [facility] L501.4021on 07-04-2025 Trop T High Sen 32 ng/L High <=22 [facility] Comment on above: Performed By: #### L 501.9985, L500.4100, L501.9520, L500.2500 #### [facility] Laboratory [address] [place], [place], [id number] MCV (mean corpuscular volume ) determinationOrdered By: Alessandra Dia on 07-04-2025 MCV (RBC) [Entitic vol] 87.9 fL 80-94 [facility] Magnetic resonance imaging r eportOrdered By: Fredrick Rivero on 07-04-2025 Study report [facility] Imaging Services [address] [place], [place] [address] Brain without Contrast MR#: [id number] Acct: [id number] Name: JAMEYZAY Rep #: [id number] : 1955 M 70 From: Max Rivero MD PCP: Care Physician,No Primary Status: ADM RONALDO Study:Brain without Contrast Date of Exam: 07/04/25 Exam# [id number] Ordering Dr: Primitivo Marcos MD PROCEDURE: MRI [...] paramedian left occipital lobe involving the left LEAD ADVISOR vascular territory consistent with acute infarct. No [...] acute infarct involving left occipital lobe left LEAD ADVISOR territory. 2. 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 3. No intracranial hemorrhage, extra-axial collection or mass-effect. Reading Location: [facility] CC: Dr. Lani Marcos MD; No Primary Care Physician ~ Lens Grinder Rough: Signed [facility] Mean corpuscular hemoglobin (MCH) determinationOrdered By: Alessandrakyler Dia on 07-04-2025 MCH (RBC) [Entitic mass] 30.1 pg 27.0-32.0 [facility] Mean corpuscular hemoglobin concentration (MCHC) determinationOrdered By: Alessandra Dia on 07-04-2025 MCHC (RBC) [Mass/Vol] 34.2 g/dL 32-36 [facility] Mean platelet volume determi nationOrdered By: Alessandra Dia on 07-04-2025 Platelet mean volume (Bld) [Entitic vol] 9.8 fL 6.2-12.0 [facility] Monocyte percentageOrdered B y: Alessandra Dia on 07-04-2025 Monocytes/100 WBC (Bld) 5.0 % 0-10 [facility] Neutrophil percentageOrdered By: Alessnadrakyler Dia on 07-04-2025 Neutrophils/100 WBC (Bld) 65.5 % 47-70 [facility] Nucleated red blood cell per centageOrdered By: Alessandrakyler Dia on 07-04-2025 Nucleated RBC/100 WBC (Bld) [Ratio] 0 % 0-5 [facility] Partial Thromboplast Timeon 07-04-2025 aPTT Coag (Bld) [Time] 25.4 s Normal 24.1-36.2 [facility] Comment on above: Performed By: #### L 501.9985, L500.4100, L501.9520, L500.2500 #### [facility] Laboratory [address] [place], [address] Platelet countOrdered By: Seng Dia on 07-04-2025 Platelets (Bld) [#/Vol] 232 10*3/uL 150-450 [facility] Potassium measurement (mass/ volume)Ordered By: Alessandra Dia on 07-04-2025 Potassium (Unsp spec) [Mass/Vol] 4.5 mmol/L 3.3-5.1 [facility] Comment on above: Hemolysis present, R esults could be affected. Prothrombin Time w/INRon INR Coag (PPP) [Relative time] 1.1 {INR} Normal [facility] Comment on above: Performed By: #### L 501.9985, L500.4100, L501.9520, L500.2500 #### [facility] [address] [place], [address] PT Coag (PPP) [Time] 13.9 s Normal 11.7-14.9 [facility] Comment on above: Performed By: #### L 501.9985, L500.4100, L501.9520, L500.2500 #### [facility] [address] [place], [address] Prothrombin timeOrdered By: Alessandra Dia on 07-04-2025 PT Coag (PPP) [Time] 13.9 s 11.7-14.9 [facility] RBC Auto (Bld) [#/Vol]Ordere d By: Alessandra Dia on 07-04-2025 RBC (Bld) [#/Vol] 6.22 10*6/uL High 4.6-6.2 [facility] STROKE Brain/Head without Co nton 07-04-2025 STROKE Brain/Head without Cont [facility] Imaging Services [address] [place], [place] [id number] STROKE Brain/Head without Cont MR#: [id number] Acct: [id number] Name: AMANDA CONCEPCION Rep #: [id number] : 1955 M 70 From: Sherwin wilcox MD PCP: Care Physician,No Primary Status: REG ER Study: STROKE Brain/Head without Cont Date of Exam: 0 07/04/25 Exam# [id number] Ordering Dr: Alessandra Dia MD PROCEDURE: STROKE [...] 2:48 pm with readback verification. Reading Location: [facility] CC: Dr. Alessandra Dia MD; No Primary Care Physician Lens Grinder Rough: Signed Normal [facility] STROKE CTA Head AND Neck W/C onon 07-04-2025 STROKE CTA Head AND Neck W/Con [facility] Imaging Services [address] [place], [place] [id number] STROKE CTA Head AND Neck W/Con MR#: [id number] Acct: [id number] Name: AMANDA CONCEPCION Rep #: [id number] : 1955 M 70 From: Rosario Fernandez MD PCP: Care Physician,No Primary Status: REG ER Study: STROKE CTA Head AND Neck W/Con Date of Exam: 0 07/04/25 Exam# [id number] Ordering Dr: Alessandra Dia MD PROCEDURE: STROKE [...] inferior cerebellar artery. LEFT Vertebral: Dominant. Anatomy: [place] anatomy is normal. Aneurysm or avm: No [...] head and neck. No aneurysm. Reading Location: [facility] CC: Dr. Alessandra Dia MD; No Primary Care Physician Lens Grinder Rough: Signed Normal [facility] Serum creatinine measurement (mass/volume)Ordered By: lAessandra Dia on 07-04-2025 Creatinine [Mass/Vol] 1.49 mg/dL High 0.70-1.20 [facility] Serum glucose measurement (m ass/volume)Ordered By: Alessandra Dia on 07-04-2025 Glucose [Mass/Vol] 130 mg/dL High 70-99 [facility] Serum or plasma calcium [place] urement (mass/volume)Ordered By: Alessandra Dia on 07-04-2025 Calcium [Mass/Vol] 9.3 mg/dL 7.6-11.0 [facility] Serum or plasma urea nitroge n measurement (mass/volume)Ordered By: Alessandra Dia on 07-04-2025 Urea nitrogen [Mass/Vol] 25 mg/dL High 4-19 [facility] Sodium levelOrdered By: Keyshawn Dia on 07-04-2025 Sodium [Moles/Vol] 135 mmol/L 133-145 [facility] Troponin T HS 2 HRon 025 Trop T High Sen 29 ng/L High <=22 [facility] Comment on above: Performed By: #### L 499.0042 #### [facility] Laboratory [address] [place], [place], [id number] Troponin T HS 4 HRon 025 Trop T High Sen 34 ng/L High <=22 [facility] Comment on above: Performed By: #### L 100.0100 #### [facility] [address] [facility]. [place], [place], [address] Troponin T.cardiac [Mass/vol ume] in Serum or Plasma by High sensitivity methodOrdered By: Alessandra Dia on 07-04-2025 Troponin T.cardiac High sensitivity method [Mass/Vol] 34 ng/L High <22 [facility] Troponin T.cardiac High sensitivity method [Mass/Vol] 29 ng/L High <22 [facility] Troponin T.cardiac High sensitivity method [Mass/Vol] 32 ng/L High <22 [facility] White blood cell (WBC) count Ordered By: Alessandra Dia on 07-04-2025 WBC (Bld) [#/Vol] 9.8 10*3/uL 4.4-11.0 [facility] Vital Signs Date Time Vital Sign Value Performing Clinician Brandon haines 08-01-2025 14:06-0400 Body height 177.8 cm No Primary Care Physician [facility] 08-01-2025 14:06-0400 Body mass index (BMI) [Ratio] 35.6 kg/m2 No Primary Care Physician [facility] 08-01-2025 14:06-0400 Body temperature 97.8 [degF] No Primary Care Physician [facility] 08-01-2025 14:06-0400 Body weight 112.49 kg No Primary Care Physician [facility] 08-01-2025 14:06-0400 Diastolic blood pressure 79 mm[Hg] No Primary Care Physician [facility] 08-01-2025 14:06-0400 Heart rate 62 /min No Primary Care Physician [facility] 08-01-2025 14:06-0400 Respiratory rate 16 /min No Primary Care Physician [facility] 08-01-2025 14:06-0400 SaO2% (BldA) [Mass fraction] 97 % No Primary Care Physician [facility] 08-01-2025 14:06-0400 Systolic blood pressure 139 mm[Hg] No Primary Care Physician [facility] 07-05-2025 14:41-0400 Body temperature 97.5 [degF] No Primary Care Physician [facility] 07-05-2025 14:41-0400 Diastolic blood pressure 76 mm[Hg] No Primary Care Physician [facility] 07-05-2025 14:41-0400 Heart rate 67 /min No Primary Care Physician [facility] 07-05-2025 14:41-0400 Respiratory rate 18 /min No Primary Care Physician [facility] 07-05-2025 14:41-0400 SaO2% (BldA) [Mass fraction] 97 % No Primary Care Physician [facility] 07-05-2025 14:41-0400 Systolic blood pressure 158 mm[Hg] No Primary Care Physician [facility] 07-05-2025 03:31-0400 Body mass index (BMI) [Ratio] 36.7 kg/m2 No Primary Care Physician [facility] 07-04-2025 17:16-0400 Body height 177.8 cm No Primary Care Physician [facility] 07-04-2025 17:16-0400 Body weight 116.11 kg No Primary Care Physician [facility] 07-04-2025 16:50-0400 Body temperature 97.7 [degF] No Primary Care Physician [facility] 07-04-2025 16:50-0400 Diastolic blood pressure 93 mm[Hg] No Primary Care Physician [facility] 07-04-2025 16:50-0400 Heart rate 58 /min No Primary Care Physician [facility] 07-04-2025 16:50-0400 Respiratory rate 18 /min No Primary Care Physician [facility] 07-04-2025 16:50-0400 SaO2% (BldA) [Mass fraction] 98 % No Primary Care Physician [facility] 07-04-2025 16:50-0400 Systolic blood pressure 166 mm[Hg] No Primary Care Physician [facility] 07-04-2025 14:48-0400 Body height 177.8 cm No Primary Care Physician [facility] 07-04-2025 14:48-0400 Body mass index (BMI) [Ratio] 35.7 kg/m2 No Primary Care Physician [facility] 07-04-2025 14:48-0400 Body weight 113 kg No Primary Care Physician [facility] Encounters Encounter Date Encounter Type Care Provider Facility Start: 11-17-2025 ambulatory No Primary Car e Physician Facility:[facility] Start: 09-27-2025 ambulatory No Primary Car e Physician Facility:[facility] Start: 09-05-2025 ambulatory No Primary Car e Physician Facility:[facility] Start: 09-01-2025 ambulatory No Primary Car e Physician Facility:[facility] Start: 08-23-2025 End: 08-23-2025 ambulatory No Primary Care Physician Facility:[facility] Start: 08-03-2025 End: 08-03-2025 Patient encounter procedure Nano PINEDA -Laboratory Work Phone: Start: 08-03-2025 End: 08-03-2025 ambulatory No Primary Care Physician Facility:[facility] Start: 08-01-2025 End: 08-01-2025 Patient encounter procedure Nano PINEDA -[facility] Work Phone: Start: 08-01-2025 End: 08-01-2025 ambulatory No Primary Care Physician -[facility] Start: 07-05-2025 Non-patient / Non-visit Dr. Chante Valencia MD -[facility] Work Phone: Start: 07-05-2025 ambulatory No Primary Car e Physician Facility:[facility] Start: 07-05-2025 Non-patient / Non-visit Dr. Roge morales MD -[facility] Start: 07-04-2025 End: 07-05-2025 Evaluation and management of inpatient Dr. Lani Marcos MD -[facility] Work Phone: Start: 07-04-2025 End: 07-05-2025 observation encounter No Primary Care Physician -[facility] Start: 07-04-2025 End: 07-05-2025 ambulatory No Primary Care Physician Facility:[facility] Start: 07-04-2025 Non-patient / Non-visit Dr. 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 This result does [...] Detail Author Start: 08-01-2025 Cardiac event recording [facility] Start: 07-05-2025 Patient discharge [facility] Start: 07-05-2025 Thyroid stimulating hormone measurement [facility] Start: 07-04-2025 Following clinical pathway protocol [facility] Start: 07-04-2025 Application of intermittent pneumatic compression device [facility] Start: 07-04-2025 Aspiration precautions [facility] Start: 07-04-2025 Assessment of risk of venous thromboembolism [facility] Start: 07-04-2025 Cardiac monitoring [facility] Start: 07-04-2025 Catheterization of vein [facility] Start: 07-04-2025 Consultation [facility] Start: 07-04-2025 Continuous pulse oximetry [facility] Start: 07-04-2025 Elevation of head of bed [facility] Start: 07-04-2025 Exercises [facility] Start: 07-04-2025 Inhalation therapy procedure [facility] Start: 07-04-2025 Insertion of catheter into peripheral vein [facility] Start: 07-04-2025 Notification of physician [facility] Start: 07-04-2025 Oxygen therapy [facility] Start: 07-04-2025 Patient referral to dietitian [facility] Start: 07-04-2025 Providing care according to standard [facility] Start: 07-04-2025 Provision of activity privileges [facility] Start: 07-04-2025 Referral for physical therapy [facility] Start: 07-04-2025 Referral to occupational therapist [facility] Start: 07-04-2025 Referral to service [facility] Start: 07-04-2025 Speech therapy assessment [facility] Start: 07-04-2025 Telemedicine consultation with patient [facility] Start: 07-04-2025 Tobacco use cessation education [facility] Start: 07-04-2025 Vital signs measurements [facility] Start: 07-04-2025 MRI of brain without contrast Brain without Contrast [facility] Start: 07-04-2025 Admission procedure [facility] Start: 07-04-2025 Verification routine [facility] Start: 07-04-2025 End: 07-04-2025 [facility] Start: 07-04-2025 End: 07-04-2025 [facility] Anion gap in Serum o r Plasma [facility] BUN/Creatinine ratio [facility] Calcium [Mass/volume ] in Serum or Plasma [facility] Carbon dioxide, tota l [Moles/volume] in Central venous blood [facility] Cholesterol [Mass/vo lume] in Serum or Plasma [facility] Cholesterol in HDL [Mass/volume] in Serum or Plasma [facility] Creatinine [Mass/vol ume] in Serum or Plasma [facility] Erythrocyte mean corpuscular volume determination [facility] Glucose [Mass/volume ] in Serum or Plasma [facility] Hematocrit [Volume Fraction] of Blood [facility] Hemoglobin [Mass/vol ume] in Blood [facility] Hemoglobin A1c/Hemoglobin.total in Blood [facility] Leukocytes [#/volume ] in Blood [facility] Low density lipoprot ein cholesterol measurement [facility] Mean corpuscular hemoglobin concentration determination [facility] Mean corpuscular hemoglobin determination [facility] Measurement of renal function [facility] Neutrophil count [facility] Neutrophil percent differential count [facility] Patient Education Booklet - Unde rstanding Stroke [facility] Work Phone: Platelets [#/volume] in Blood [facility] Potassium measurement [facility] Red blood cell count [facility] Red cell distributio n width determination [facility] Serum chloride measurement [facility] Sodium measurement [facility] Total cholesterol:HD L ratio measurement [facility] Triglycerides measurement [facility] Troponin T.cardiac [Mass/volume] in Serum or Plasma by High sensitivity method [facility] Troponin T.cardiac [Mass/volume] in Serum or Plasma by High sensitivity method [facility] Urea nitrogen [Mass/volume] in Serum or Plasma [facility] VLDL cholesterol measurement [facility] Payers Date Payer Category Payer Self-pay 2025 Unknown [id number] 2022 Unknown [id number] 1955 Unknown [id number] 2.16.8 [id number] Unknown [id number] 2.16.8 [id number] Unknown [id number] 2.16.8 [id number] Unknown [id number] 2.16.8 [id number] Unknown [id number] 2.16.8 [id number] Unknown [id number] 2.16.8 [id number] Unknown [id number] 2.16.8 [id number] Unknown [id number] 2.16.8 [id number] Unknown [id number] 2.16.8 [id number] Unknown [id number] 2.16.8 [id number] Unknown [id number] 2.16.8 [id number] Unknown [id number] 2.16.8 [id number] Unknown [id number] 2.16.8 [id number] Social History Date Type Detail Facility Start: 07-04-2025 End: 08-01-2025 Tobacco smoking status [facility] Smokes tobacco daily (finding) [facility] Start: 07-04-2025 Tobacco Use Tobacco Use [facility] Start: 1955 Sex Assigned At Male [facility] Sex Male [facility] Goals Date Patient Goal Desired Activity /State Functional Status Date Assessment Result Facility 07-05-2025 Functional status Ambulates [facility] Work Phone: Mental Status Date Assessment Result Facility 07-05-2025 Cognitive function Voice/Name [facility] Work Phone: 07-04-2025 Cognitive function Voice/Name [facility] Work Phone: Clinical Notes 07-04-2025 to 08-01-2025 Note Date & Type Note Facility 08-01-2025 Progress note [facility] 08-01-2025 Progress note Note Date/Time August 01, 2025 3:28pm [facility] [address] [place] [address], [address] [place] [address] OFFICE VISIT Date of Service: 08/01/25 MR#: [id number] Acct: [id number] Name: AMANDA CONCEPCION Rep #: [id number] : 1955 Provider: MIRIAM Pardo Age/Sex: 70/M Location: [facility].BN Status: Signed HPI HPI Chief Complaint: Establish [...] Hospital course: On 07/04/2025, patient presented to [facility] ED with acute onset of right homonymous hemianopia. NIHSS was 1 so he was not deemed a candidate for TNK. CT brain and CTA head/neck were without acute findings. There was no hemodynamically significant stenosis, LVO, or aneurysms. MRI brain with a small region of acute infarct involving the left occipital lobeand the left LEAD ADVISOR territory. Additionally, there were mild chronic microangiopathic [...] intact. Cerebellum: No nystagmus. No dysmetria; normal zausef-ia-cmws maneuvers. Reflexes: Biceps deep tendon reflex 1+ [...] acute infarct involving left occipital lobe left LEAD ADVISOR territory (2) Polycythemia: Status: Acute (3) Sleep apnea: Status: Suspected Qualifiers: Sleep apnea type: unspecified type Qualified Code(s): G47.30 - Sleep apnea, unspecified (4) Tobacco use: Status: Acute (5) Diabetes mellitus: Status: Acute Qualifiers: Diabetes mellitus type: type 2 Diabetes mellitus penitentiary insulin use:without penitentiary use Diabetes mellitus complication status: with other [...] Visit Reasons: STROKE Chief Complaint: Establish Care Countersinker Balance Screw Hole Required: No Accompanied by: Self Allergies No [...] you fallen in the past year?: Yes [facility] (Updated 08/03/25 @ 15:15 [...] spouse current occupational status: employed 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 [employer] pets and animals: Yes pets and animals: [...] Diabetes mellitus type: type 2 Diabetes mellitus ferry terminal agent insulin use: without penitentiary use Diabetes mellitus complication status: with other specified complication Dyslipidemia E78.5 Visual changes H53.9 Fatigue, unspecified type R53.83 Fatigue type: unspecified 08/03/25 1517 <Electronically signed by Nano PINEDA> Date _ Nano PINEDA Cosigner Signature: Date (if applicable) CC: ~ [facility] Work Phone: [phone]) 120-728309-16-2025 Discharge summary [facility] Medical Records Department [address] [place] [address] Instructions for Home/Discharge Instructions 07/05/25 1442 MR#: [id number] Acct: [id number] Name: AMANDA CONCEPCION Rep #:[id number] : 1955 70 From: Chante Valencia MD [...] Jyoti Campos MD; Shaheen Knight MD; Dr. Alexadnru Correa MD; Dr. Naga Norht MD; Dr. Rufus MD; Dr. Chi Spears MD; Dr. Justyn Isabel MD; Dr. Silvino Carty MD; Dr. Myriam Cardoza DO; Dr. Murray Almodovar DO; Dr. Ivan Hernández MD; Dr. Yahaira Nieto MD; Dr. Lani Marcos MD; Dr. Eladia Delong MD; Dr. Leroy Velasquez MD; Dr. Lizzie Maciel MD; Nika Benton DO; No Primary Care Physician; Barbara Bradford MD ~ [facility]09-16-2025 [facility] Medical Records Department [address] [place] [address] Discharge Summary 07/05/25 1443 MR#: [id number] Acct: [id number] Name: AMANDA CONCEPCION Rep #: [id number] : 1955 70 From: Chante Valencia MD PCP: Care Physician,No Primary Status:DIS RONALDO Location: [place] [address] Providers Date of Admission: 07/04/25 Date of [...] the left occipital lobe and the left LEAD ADVISOR territory. He was placed on p.o. aspirin [...] % (Auto) 65.5, Lymph % (Auto) 23.1, Gage % (Auto) 5.0, Eos % (Auto) 3.8, Baso % (Auto) 1.1 H, Absolute Neuts (auto) 6.4, Absolute Lymphs (auto) 2.25, Nucleated RBC % 0, PT 13.9, INR 1.1, APTT 25.4, Sodium 135, Potassium 4.5, Chloride 104, Carbon Dioxide 20.8 L, Anion Gap 11, BUN 25 H, C reatinine 1.49 H, Estim Creat Clear Calc 59.73, E (more content not included)... [facility]09-16-2025 Consult note Author Leroy [facility] Note Date/Time July 05, 2025 12:05pm [facility] Medical Records Department [address] [place] [address] Consultation - Neurology 07/05/25 1143 MR#: [id number] Acct: [id number] Name: AMANDA CONCEPCION Rep #:[id number] : 1955 70 From: Leroy Velasquez MD PCP: Care Physician,No Primary Status :ADM RONALDO Location: [place] [address] Assessment and Plan: Stroke Assessment/Plan AMANDA CONCEPCION is a 70 M with a history of nicotine abuse who presents for evaluation of vision changes Neurological examination shows NIH 1. 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 S mall region of acute infarct involving left occipital lobe left LEAD ADVISOR territory. 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 - Anti-platelet medication: Aspirin 81 mg daily - Occupational/ Physical therapy consults - NPO until swallow evaluation. IVF until able to take po - DVT prophylaxis with SCDs and heparin SQ - Vascular risk factor modification. The following are the recommended guidelines: LDL Goal < 70. Lipitor 80 Smoking Cessation Diabetes Management MCC blood pressure control should achieve <130/80 mmHg. BP managementshould aim to achieve ferry terminal agent contorl in a reasonable amount of time, [...] % (Auto) 65.5, Lymph % (Auto) 23.1, Gage % (Auto) 5.0, Eos % (Auto) 3.8, [...] % (Auto) 61.0, Lymph % (Auto) 26.9, Gage% (Auto) 5.3, Eos % (Auto) 5.4 H, [...] 2:48 pm with readback verification. Reading Location: [facility] Head/Neck CTA 07/04/25 14:35 IMPRESSION: No significant stenosis in the head and neck. No aneurysm. Reading Location: [facility] Brain MRI 07/04/25 16:29 IMPRESSION: 1. Small region of acute infarct involving left occipital lobe left LEAD ADVISOR territory. 2. 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 3. No intracranial hemorrhage, extra-axial collection or mass-effect. Reading Location: [facility] Active Medications Active Medications Active [...] and with change in RN caregiver. Freq: [id number] Protocol: Activity Type Activity Date Activity User [...] applicable): CC: No Primary Care Physician~ Signed [facility] Work Phone: 1(760) 101-429409-16-2025 Consult note [facility] Medical Records Department [address] [place] [address] Consultation - Neurology 07/05/25 1143 MR#: [id number] Acct: [id number] Name: AMANDA CONCEPCION Rep #:[id number] : 1955 70 From: Leroy Velasquez MD PCP: Care Physician,No Primary Status :ADM RONALDO Location: [place] [address] Assessment and Plan: Stroke Assessment/Plan AMANDA CONCEPCION is a 70 M with a history of nicotine abuse who presents for evaluation of vision changes Neurological examination shows NIH 1. 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 S mall region of acute infarct involving left occipital lobe left LEAD ADVISOR territory. 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 - Anti-platelet medication: Aspirin 81 mg daily - Occupational/ Physical therapy consults - NPO until swallow evaluation. IVF until able to take po - DVT prophylaxis with SCDs and heparin SQ - Vascular risk factor modification. The following are the recommended guidelines: LDL Goal < 70. Lipitor 80 Smoking Cessation Diabetes Management MCC blood pressure control should achieve <130/80 mmHg. [...] % (Auto) 65.5, Lymph % (Auto) 23.1, Gage % (Auto) 5.0, Eos % (Auto) 3.8, [...] % (Auto) 61.0, Lymph % (Auto) 26.9, Gage% (Auto) 5.3, Eos % (Auto) 5.4 H, [...] 2:48 pm with readback verification. Reading Location: [facility] Head/Neck CTA 07/04/25 14:35 IMPRESSION: No significant stenosis in the head and neck. No aneurysm. Reading Location: [facility] Brain MRI 07/04/25 16:29 IMPRESSION: 1. Small region of acute infarct involving left occipital lobe left LEAD ADVISOR territory. 2. 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 3. No intracranial hemorrhage, extra-axial collection or mass-effect. Reading Location: [facility] Active Medications Active Medications Active [...] and with change in RN caregiver. Freq: [id number] Protocol: Activity Type Activity Date Activity User E-sign Co-sign Detail Recorded Client Recorded Date Recorded By Document 07/05/25 05:00 [employer] desktop 07/05/25 05:04 [facility] [facility] 07/05/25 05:00 NIH Stroke Scale [NIHSS] A [...] applicable): CC: No Primary Care Physician~ Signed [facility]09-15-2025 Discharge summary Author Alessandra Dia [facility] Note Date/Time July 04, 2025 9:39pm [facility] Medical Records Department [address] [place] [address] Emergency Department Summary 07/04/25 MR#: [id number] Acct: [id number] Name: AMANDA CONCEPCION Rep #:[id number] : 1955 70 From: Alessandra Dia MD PCP: Care Physician,No Primary Status :ADM RONALDO Location: [address] History of Present Illness Chief Complaint: Stroke Alert Narrative Narrative: Patient is a 70 year old male presenting to the ED as a stroke alert. 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 States he has never had a stroke before. Denies any use of OAC. Patient denies any head trauma. Denies neck pain. Denies numbness or weakness of his extremities. Denies any speech difficulty. Patient denies any eye pain. Denies any drainage from his eye. EMS was called. [facility] Home Medications ?Medication ?Instructions ?Recorded ?Last [...] % (Auto) 65.5 Lymph % (Auto) 23.1 Gage % (Auto) 5.0 Eos % (Auto) 3.8 [...] 2:48 pm with readback verification. Reading Location: [facility] Head/Neck CTA 07/04/25 14:35 IMPRESSION: No significant stenosis in the head and neck. No aneurysm. Reading Location: [facility] Discharge Plan Disposition Disposition: Acute Care Hospital [facility] Discharge Date/Time: 07/04/25 17:05 NIHSS NIHSS 1a. [...] problems, contact your Primary Care Provider. Call [email or web address] ([phone]) or report to the closest Emergency Room. Call 911 if necessary. 07/04/252138 <Electronically signed by Alessandra Dia MD> Cosigner Signature (if applicable): CC: No Primary Care Physician ~ Signed [facility] Work Phone: 1(365) 103-478609-15-2025 Discharge summary [facility] Medical Records Department [address] [place] [address] Emergency Department Summary 07/04/25 MR#: [id number] Acct: [id number] Name: AMANDA CONCEPCION Rep #:[id number] : 1955 70 From: Alessandra Dia MD PCP: Care Physician,No Primary Status :ADM RONALDO Location: [place] [address] HPI History of Present Illness Chief Complaint: Stroke Alert Narrative Narrative: Patient is a 70 year old male presenting to the ED as a stroke alert. 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 No aneurysm. Reading Location: [facility] Discharge Plan Disposition Disposition: Acute Care Hospital [facility] Discharge Date/Time: 07/04/25 17:05 NIHSS NIHSS 1a. [...] your Primary Care Provider. Call [facility] ([phone]) or report tothe closest Emergency Room. Call 911 if necessary. 07/04/252138 Cosigner Signature (if applicable): CC: No Primary Care Physician ~ Signed [facility]09-15-2025 History and physical note Author Lani Marcos [facility] Note Date/Time July 04, 2025 4:[address] [place] [address] Health System Medical Records Department [address] [place] [address] H&P Exam - Hospitalist 07/04/25 1622 MR#: [id number] Acct: [id number] Name: AMANDA CONCEPCION Rep #:[id number] : 1955 70 From: Lani Marcos MD PCP: Care Physician,No Primary Status :REG ER Location: ED HPI - General General Date of Admission: 07/04/25 Date of Service: 07/04/25 Chief Complaint: Right sided peripheral vision loss HPI Narrative AMANDA CONCEPCION, is a 70-year-old male with history of tobacco use presented to [facility] ED 07/04/2025 as a stroke alert. Last [...] deficits, cranial nerves II through XII intact, [id number] without significant difficulty bilaterally, almost seem to [...] % (Auto) 65.5, Lymph % (Auto) 23.1, Gage % (Auto) 5.0, Eos % (Auto) 3.8, [...] 2:48 pm with readback verification. Reading Location: [facility]-1 Head/Neck CTA 07/04/25 14:35 IMPRESSION: No significant stenosis in the head and neck. No aneurysm. Reading Location: [facility] Assessment & Plan Assessment/Plan (1) Visual changes: [...] Marcos MD Charges/Coding Visit Charges Inpatient E&M: 97959 Init Hosp L2 07/04/25 1631 <Electronically signed by Lani Marcos MD> Cosigner Signature (if applicable): CC: Dr. Lani Marcos MD; No Primary Care Physician~ Signed [facility] Work Phone: 1(937) 184-991509-15-2025 Evaluation note* Diagnosis Onset Date Resolution Status Admit Date Tobacco use acute June 4:23pm Visual changes acute July 04, 2025 4:23pm [facility] Work Phone: 1(533) 301-266909-15-2025 Evaluation note* Diagnosis Onset Date Resolution Status [...] Sleep apnea suspected August 01, 2025 2:06pm [facility] Work Phone: 1(102) 737-101509-15-2025 History and physical note [facility] Medical Records Department [address] [place] [address] H&P Exam - Hospitalist 07/04/25 1622 MR#: [id number] Acct: [id number] Name: AMANDA CONCEPCION Rep #:[id number] : 1955 70 From: Lani Marcos MD PCP: Care Physician,No Primary Status :REG ER Location: ED HPI - General General Date of Admission: 07/04/25 Date of Service: 07/04/25 Chief Complaint: Right sided peripheral vision loss HPI Narrative AMANDA CONCEPCION, is a 70-year-old male with history of tobacco use presented to [facility] ED 07/04/2025 as a stroke alert. Last [...] deficits, cranial nerves II through XII intact, [id number]-[id number]-vagg without significant difficulty bilaterally, almost seem to [...] % (Auto) 65.5, Lymph % (Auto) 23.1, Gage % (Auto) 5.0, Eos % (Auto) 3.8, [...] 2:48 pm with readback verification. [facility] Head/Neck CTA 07/04/25 14:35 IMPRESSION: No significant stenosis in the head and neck. No aneurysm. Reading Location: [facility] Assessment & Plan Assessment/Plan (1) Visual changes: [...] Marcos MD Charges/Coding Visit Charges Inpatient E&M: 06755 Init Hosp L2 07/04/25 1631 Cosigner Signature (if applicable): CC: Dr. Lani Marcos MD; No Primary Care Physician~ Signed [facility]09-15-2025 Radiology Diagnostic study note [facility] Imaging Services [address] [place] [address] STROKE CTA Head AND Neck W/Con MR#: [id number] Acct: [id number] Name: AMANDA CONCEPCION Rep #: [id number] : 1955 M 70 From: Guillermo Fernandez MD PCP: Care Physician,No Primary Status: REG ER Study:STROKE CTA Head AND Neck W/Con Date of Exam: 07/04/25 Exam# [id number] Ordering Dr: Seng Dia MD PROCEDURE: STROKE [...] inferior cerebellar artery. LEFT Vertebral: Dominant. Anatomy: [place] anatomy is normal. Aneurysm or [...] head and neck. No aneurysm. Reading Location: [facility] CC: Dr. Alessandra Dia MD; No Primary Care Physician ~ Lens Grinder Rough: Signed [facility]09-15-2025 Radiology Diagnostic study note [facility] Imaging Services [address] [place] [address] STROKE Brain/Head without Cont MR#: [id number] Acct: [id number] Name: AMANDA CONCEPCION Rep #: [id number] : 1955 M 70 From: Julio César Figueroa MD PCP: Care Physician,No Primary Status: REG ER Study:STROKE Brain/Head without Cont Date of Exam: 07/04/25 Exam# [id number] Ordering Dr: Seng Dia MD PROCEDURE: STROKE [...] 2:48 pm with readback verification. Reading Location: [facility] CC: Dr. Alessandra Dia MD; No Primary Care Physician ~ Lens Grinder Rough: [facility]igned [facility] Chante Valencia [facility] Note Date/Time July 05, 2025 2:43pm [facility] Medical Records Department [address] [place] [address] Instructions for Home/Discharge Instructions 07/05/25 1442 MR#: [id number] Acct: [id number] Name: AMANDA CONCEPCION Rep #:[id number] : 1955 70 From: Chante Valencia MD [...] Knight; Alexandru Correa; Jyoti Campos; Sheila Chase; iMchelle Johnston; [place]; Marizol Bahena; Justyn Isabel; [...] Care Physician; Barbara Bradford MD ~ Signed [facility] Work Phone: Evaluation note* Diagnosis Onset Date Resolution Status Admit Date Tobacco use acute June 4:23pm Visual changes acute July 04, 2025 4:23pm [facility] Work Phone: History and physical note Author Lani Marcos [facility] Note Date/Time July 04, 2025 4:31pm [facility] Medical Records Department [address] [place] [address] H&P Exam - Hospitalist 07/04/25 1622 MR#: [id number] Acct: [id number] Name: AMANDA CONCEPCION Rep #:[id number] : 1955 70 From: Lani Marcos MD PCP: Care Physician,No Primary Status :REG ER Location: ED HPI - General General Date of Admission: 07/04/25 Date of Service: 07/04/25 Chief Complaint: Right sided peripheral vision loss HPI Narrative AMANDA CONCEPCION, is a 70-year-old male with history of tobacco use presented to [facility] ED 07/04/2025 as a stroke alert. Last [...] deficits, cranial nerves II through XII intact, [id number]-[id number] without significant difficulty bilaterally, almost seem to [...] % (Auto) 65.5, Lymph % (Auto) 23.1, Gage % (Auto) 5.0, Eos % (Auto) 3.8, [...] 2:48 pm with readback verification. Reading Location: [facility] Head/Neck CTA 07/04/25 14:35 IMPRESSION: No significant stenosis in the head and neck. No aneurysm. Reading Location: [facility] Assessment & Plan Assessment/Plan (1) Visual changes: [...] Marcos MD Charges/Coding Visit Charges Inpatient E&M: 31160 Init Hosp L2 07/04/25 1631 <Electronically signed by Lani Marcos MD> Cosigner Signature (if applicable): CC: Dr. Lani Marcos MD; No Primary Care Physician~ Signed [facility] Work Phone: Hospital Discharge instructionsAdditional Instructions Abstain from driving until cleared by Neurology to do so. Counseled to quit smoking, and to eat a heart healthy diet, as well as exercise to lose weight.[facility] Work Phone: Hospital Discharge instructionsAmbulatory Orders* Ophthalmology Location: None Selected [facility] Work Phone: Reason for referral (narrative)No reason for referral information availableWooOur Lady of [facility] Work Phone: Summary Purpose Family History No Family History Records Found Relationship Condition Age at Onset Recorded Date/T inga mother Kidney disorder Unknown father Cardiac disease Unknown Myocardial infarction Unknown Advance Directives No Advanced Directives Records Found Advance Directive Response Recorded Date/ Time Do you have a Healthcare Power of Radio Artist? No July 04, 2025 2:46pm Advance Directives No September 10:45am Advance Directive Response Recorded Date/ Time Do you have a Healthcare Power of Radio Artist? No July 04, 2025 5:19pm Advance Directives [...] section and content) DATE CREATED AUTHOR 08/23/2022 [facility] ([place]) DATE CREATED AUTHOR AUTHOR'S ORGANIZ ATION [facility]/31/2025 [facility] Care Teams (unrecognized sec tion [...] July 05, 2025 Dr. Murray Almodovar MD Other Provider Active St art: July [...] BE BASED ON THE PRIMARY CLINICAL RECORDS. [employer] provides no warranty or guarantee of the accuracy or completeness of information in this document.
== END | disposition home or self-care (01) ==
LOC: SL 19:32
DX: G47.30 Sleep apnea, unspecified (principal); R53.83 Other fatigue; Z86.73 Personal history of transient ischemic attack (TIA), and cerebral infarction without residual deficits
CPT/HCPCS: 95810